=== PATIENT | female | born 1980 | race Caucasian/White ===

== ENCOUNTER 2017-10-30 09:00 | Outpatient (RCR) | payer OTHER, MEDICAID, SELFPAY ==
--- NOTE | 2017-10-30 12:48 | BH.SGPN ---
Service Group Progress Note - Session Psychotherapy Session #1 Date Open:: 10/30/17 Time Started:: 09:04 Time Stopped:: 10:08 Targeted Problem #:: 1 Type of Group:: Process - 6 Participants Goal of Group:: The goal of today's group was to check-in with client's mood, stressors, and positives, review homework, and to introduce the topic of the day. Client Response/Progress/Benefit:: Client was new to the program and counselor introduced and explained the dynamics of how process group would run. Client was willing to participate and spoke about how both her mother and her brother recently passed and was experiencing issues at work as well. She stated, ?I think they may be pushing me out because I don?t have a degree.? Client reported having increased anxiety due to these issues as well as being a single mom raising her child who she reports has, ?multiple diagnosis too.? Client indicated her emotion as anxious and benefitted from group in processing with peers and receiving support from others. Client appears motivated to engage in group and begin working towards healthy progress moving forward. Continued treatment necessary to decrease anxiety levels. Eye Contact:: Good Motor Activity:: Appropriate Appearance:: Casual Speech:: Appropriate Mood:: Anxious, Depressed - tearful Affect:: Congruent Thoughts:: Linear, Logical, No evidence of hallucinations/delusions noted Staff Interventions:: Therapist used open-ended questions to elicit information about client's current stressors and mood. Therapist was supportive by using active listening and reflection. Psychotherapy Session #2 Date Open:: 10/30/17 Time Started:: 10:17 Time Stopped:: 11:19 Targeted Problem #:: 1 Type of Group:: Illness Management - 7 Participants Goal of Group:: To increase understanding of communication and the various types of communication. Another goal was to increase understanding of impact communication styles can have. Client Response/Progress/Benefit:: Client entered session alert, attentive, and willing to engage. Client was a large contributor to group discussion. Client connected with days quote stating, ?Miscommunication can happen a lot when one person thinks something was said and there wasn?t.? Client participated in group discussion of the different types of communication styles and identified her personal style as passive aggressive and being a people pleaser. Client benefitted from the discussion on communication skills and progress noted in client?s ability to participate in group. Continued treatment necessary to decrease depressive symptoms. Eye Contact:: Good Motor Activity:: Appropriate Appearance:: Casual Speech:: Appropriate Mood:: Euthymic, Anxious Affect:: Full Thoughts:: Linear, Logical, No evidence of hallucinations/delusions noted Staff Interventions:: Therapist facilitated the group discussion about communication and explained the different types of communication. Therapist assisted group members in connecting the communication styles to the way they communicate and impact the communication style has on their relationships. Therapist provided support by using active listening and providing feedback.
--- NOTE | 2017-10-30 13:10 | BH.MDN ---
Multi-Disciplinary Note - Note 30-min Individual Time Started:: 12:20 Date: 10/30/17 Purpose of session/treatment goals addressed:: The purpose of this session was to establish rapport, gather information on client's current stressors, symptoms, and functioning, and identify treatment goals. Eye Contact:: Good Motor Activity:: Restless Appearance:: Neat Mood:: Anxious, Dysthymic Affect:: Congruent - Client tearful throughout session Thoughts:: Linear, No evidence of hallucinations/delusions noted Staff Interventions:: Therapist used open-ended questions to explore client's current symptoms, stressors, and functioning. Therapist used emotional validation and empowerment to establish rapport and help client identify personal strengths. Therapist gathered information on client's presenting problem, support system, and treatment goals. Client Response:: Client responded well to session, open to meeting with therapist. Client reported she came to [facility] after being referred by a social worker school from the [facility]. Client shared she had a bad reaction to medication which prompted the referral. Client reported she has been in counseling for 7 years and enjoys her current therapist. Client shared recent stressors including changes and conflicts at work and the loss of her brother have contributed to increased depression and anxiety. Client reported in the past 4 months she has noticed increased social withdrawal, irritability, crying spells, rumination, and poor sleep. Client stated, I'm normally a really happy person and I've noticed I'm angry and take everything so personally. Client stated she would like to work on coping skills to reduce isolation, rumination, and irritability. Additionally, client would like to increase her self-esteem, social supports, and potentially find a new job as work is a major stressor in client's life. Client able to acknowledge that taking time to better her mental health is a strength and client reported high motivation to get better and engage in the treatment process. Risks/Concerns:: Client denies suicidal ideation, plan, and intent as of 10/30/17. Client future oriented throughout session as evidenced by her report of wanting to get better, find a new job, and return to school. Progress Toward Goals/Plan:: Client's first day in [facility] therefore no progress to note at this time. Client reports her symptoms have worsened in the past 4 months and are interfering with her ability to function at baseline. Client to continue IOP to promote mood stability, emotional regulation and reduce severity of mental health symptoms. Time Stopped:: 12:55
--- NOTE | 2017-10-30 13:50 | BH.MDN_ITS ---
Multi-Disciplinary Note - Note 30-min Individual Time Started:: 12:20 Date: 10/30/17 Purpose of session/treatment goals addressed:: The purpose of this session was to establish rapport, gather information on client's current stressors, symptoms , and functioning, and identify treatment goals. Eye Contact:: Good Motor Activity:: Restless Appearance:: Neat Mood:: Anxious, Dysthymic Affect:: Congruent - Client tearful throughout session Thoughts:: Linear, No evidence of hallucinations/delusions noted Staff Interventions:: Therapist used open-ended questions to explore client's current symptoms, stressors, and functioning. Therapist used emotional validation and empowerment to establish rapport and help client identify personal strengths. Therapist gathered information on client's presenting problem, support system, and treatment goals. Client Response:: Client responded well to session, open to meeting with therapist. Client reported she came to [facility] after being referred by a clinical social work aide from the [facility]. Client shared she had a bad reaction to medication which prompted the referral. Client reported she has been in counseling for 7 years and enjoys her current therapist. Client shared recent stressors including changes and conflicts at work and the loss of her brother have contributed to increased depression and anxiety. Client reported in the past 4 months she has noticed increased social withdrawal, irritability, crying spells, rumination, and poor sleep. Client stated, I'm normally a really happy person and I've noticed I'm angry and take everything so personally. Client stated she would like to work on coping skills to reduce isolation, rumination, and irritability. Additionally, client would like to increase her self-esteem, social supports, and potentially find a new job as work is a major stressor in client's life. Client able to acknowledge that taking time to better her mental health is a strength and client reported high motivation to get better and engage in the treatment process. Risks/Concerns:: Client denies suicidal ideation, plan, and intent as of . Client future oriented throughout session as evidenced by her report of wanting to get better, find a new job, and return to school. Progress Toward Goals/Plan:: Client's first day in [facility] therefore no progress to note at this time. Client reports her symptoms have worsened in the past 4 months and are interfering with her ability to function at baseline. Client to continue IOP to promote mood stability, emotional regulation and reduce severity of mental health symptoms. Time Stopped:: 12:55
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
--- NOTE | 2017-11-02 13:46 | HP.PCM_ITS ---
History and Physical Finding information Patient is a 37-year-old female who presents to the [facility] medicine [facility] with chief complaint of battling depression. History is been obtained per interview with patient, discussion with staff, review of chart. Case discussed with treatment team. Records reviewed including health summary and allergy list from [facility] my chart. History of present illness Patient is a 37-year-old female with long-standing history of depression since age 17 who presents to the [facility] with chief complaint of mood symptoms and anxiety. Patient was referred by [facility] social work. She reports her depression was well controlled on Zoloft for 10 years. She then underwent chemotherapy for breast cancer after which she developed multiple medication allergies including allergy to SSRIs and SNRIs. She reports she was doing well on Cymbalta and Wellbutrin 6 months ago. She developed increased depression and ruminative anxiety in July associated with both factors. A position change in work resulted in increased isolation and work dissatisfaction. She states she felt attacked at work. In August she stopped taking her Cymbalta and Wellbutrin due to developing further allergy. Her brother suddenly 1 month ago due to a cardiac event. She currently endorses a depressed mood with feelings of sadness, anhedonia, and decreased energy. She reports an overall decreased appetite. Reports long- standing irritability. Per to 2 week episode last month after her brother's of having lots of energy in which she repainted and redecorated the bathroom and kitchen, and purchase new furniture. She felt that her behavior was somewhat impulsive. She had decreased sleep sleeping only 4 hours per night staying up late painting and decorating. Then slept for 12 hours per day for total days. She has a long-standing history history of sleep disruption. She had a sleep study in 2011 and was diagnosed with insomnia and narcolepsy . She generally sleeps only 4-5 hours per night for 2-3 weeks and then can sleep 12 hours per day for 3-4 days. Denies suicidal suicidal or homicidal ideation. She denies symptoms consistent with psychosis. She endorses ruminative anxiety about multiple issues including her job. She has had one panic attack in the past. She denies obsessions or compulsions although notes that she is perfectionistic. 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 Psychiatric history Reports history of depression since age 17. Reports that age 17 she cared for her mother during a mental breakdown. Denies previous psychiatric hospitalization. Denies previous suicide attempts. Current counselor Arleen Vigil. Does not currently have a psychiatrist. Feels that previous antidepressants effective however developed allergy. Most recent antidepressant include Cymbalta and Wellbutrin which she discontinued in August due to allergic reaction. Substance use history Denies smoking cigarettes, ingestion of alcohol, or use of illicit drugs Past medical history History of breast cancer 9 years ago with mastectomy, hysterectomy and chemotherapy. HNP Fibromyalgia Interstitial cystitis Migraines Elevated cholesterol Denies history of seizure SAB 1 Allergies Multiple including nitrofurantoin, doxycycline, pseudoephedrine, oxycodone, hydromorphone, fentanyl, prochlorperazine, azithromycin, Cymbalta, Effexor, high Cosamin, Lexapro, bupropion, citalopram, fluoxetine, milnacipran, levobunolol Anam, sertraline, Augmentin, Latex, Cymbalta, Wellbutrin. Medications Hydroxyzine 25 mg p.o. 3 times daily as needed Vitamin D 5000 units daily Vitamin B 12 daily Imitrex as needed Family medical psychiatric history Mother with hallucinations, mood swings and suicide attempts. Likely bipolar disorder. Mother 2 years ago Brother 1 month ago from cardiac arrest Daughter diagnosed with bipolar bipolar 2 brothers with anxiety and depression Father with depression Maternal aunt with depression and anxiety Maternal aunt hospitalized due to depression Maternal grandmother with bipolar Developmental social history Patient born and raised in [place] until age 12 when she moved to [place]. The youngest of 3 children. She grew up with her parents. Her 2 older brothers moved out by the time she was 9 or 10. Her mother had mental breakdowns and she was her mother's medical records custodian. She lived with her mother most of her life until her mother 2 years ago. She went to school through the 12th grade but was one credit short. She got her GED. She spent a year and a half studying at [employer]. She would like to go back. She works at [employer]. 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 She has a daughter age 8. She lives with her daughter in [place]. Legal history none Mental status exam Vital signs reviewed per nursing base and discussed with nursing. Patient is alert and oriented in no acute distress she is ambulatory with normal gait and station she appears her stated age. She is casually dressed and groomed. She has appropriate hygiene. She is cooperative with the interview. She has good eye contact. There is no psychomotor agitation or retardation. Mood is depressed. Affect congruent. Speech is clear and of regular rate and volume. Language fluent. Thought process organized. Associations logical. Thought content significant for ruminative anxiety. No suicidal or homicidal ideation related to her detected. No evidence of psychosis related or detected. Immediate recent and remote memory grossly intact. Attention and concentration are good. Estimated intelligence fund of knowledge average. Judgment and insight are fair. Labs and testing Lab work will be requested from [facility] and primary care physician. Further lab work will be obtained as needed Diagnosis Major depressive disorder recurrent moderate F 33.2. Rule out bipolar disorder. Reports some symptoms which could be considered consistent with hypomania. It is unclear if patient's irritability and two-week episode of energy and productivity represents hypomania. It is unclear if patient's sleep disruption is a primary sleep disorder versus sleep disruption associated with bipolar disorder. She has a strong family history of bipolar disorder. Anxiety unspecified Rule out PTSD History of insomnia and narcolepsy Fibromyalgia Migraines History of breast cancer HNP Interstitial cystitis Plan Admit to IOP as the structured setting is necessary to prevent decompensation. Risks benefits alternatives of medications discussed with patient. Patient acknowledges understanding. Start gabapentin 100 mg p.o. nightly. May increase to 200 mg p.o. nightly. Dispensed gabapentin 100 mg #60 with one refill. Reports that she has previously been able to tolerate gabapentin without allergic reaction. This may be helpful for mood stabilization, anxiety and sleep. Follow-up with Arleen Vigil. Encouraged to establish with outpatient psychiatrist for when IOP complete. Discussed mindfulness, meditation, and social connectedness. Discussed light therapy. Patient acknowledges understanding and is in agreement with plan. She feels able to maintain safety. She agrees to seek help or emergency care if feeling unsafe to self or others.
--- NOTE | 2017-11-02 13:48 | BH.DR.ITP ---
Initial Treatment Plan - Patient Information Visit Information: ADMISSION DATE: EXPECTED LOS: 4-6 weeks Diagnoses:: Major depressive disorder recurrent severe - Problems/Symptoms Problem #1:: Depression Symptom:: Sad mood, anhedonia, decreased energy, biologic disruption of sleep and appetite, irritability Problem #2:: anxiety Symptom:: Rumination
--- NOTE | 2017-11-02 15:11 | BH.SGPN_ITS ---
Service Group Progress Note - Session Psychotherapy Session #1 Date Open:: 11/02/17 Time Started:: 09:10 Time Stopped:: 10:00 Type of Group:: Process - 6 group members Goal of Group:: The goal of today's group was to check-in with client's mood, stressors, and positives, review homework and introduce topic for the day. Client Response/Progress/Benefit:: Pt was an active participatn in group discussions. Emotion for today is anxious. Reports a rollercoaster of emtions. Discussed at [facility] difficulty with setting boundaries with peers and often feels like her friends dump thier problems on her which not only causes more distress but lead to increase in symptoms. Admits that she is a people pleaser. Group offered support and encouragement as well as suggestions on how to set boundaries. Progress noted as she was able to identify how her inability to set boundaries effects her mental wellness. Contiunued treatment to stabilize mood and improve functioning. Eye Contact:: Fair Motor Activity:: Appropriate Appearance:: Neat Speech:: Appropriate Mood:: Anxious, Depressed Affect:: Congruent Thoughts:: Linear, Logical, No evidence of hallucinations/delusions noted Staff Interventions:: Therapist used open-ended questions to elicit information about client's current stressors and mood state. Therapist was supportive by using active listening and reflection.
--- NOTE | 2017-11-06 15:38 | BH.SGPN ---
Service Group Progress Note - Session Psychotherapy Session #2 Date Open:: 11/06/17 - 10 participants Time Started:: 10:21 Time Stopped:: 11:12 Targeted Problem #:: 1 Type of Group:: Illness Management Goal of Group:: To increase understanding of what strengths are and identify individual strengths. Client Response/Progress/Benefit:: Client responded well to session, active in discussion and activity. Client connected with the quote sharing, I need persistence. Client stated strengths are good qualities we have, but we don't always realize it. Client identified her personal strengths as kindness, good communication, problem-solving, determination, and being non-judgmental. Client shared some of my strengths can be weaknesses though too as client reported she has been taken advantage of because of her kindness. However, with group feedback, client stated she is still glad she is kind as it has helped her make connections and help others. Client appeared to benefit from identifying her strengths and receiving supportive statements from the group. Progress noted as shown by client's report of increased awareness, but can continue to benefit from IOP to improve mood stability. Eye Contact:: Good Motor Activity:: Appropriate Appearance:: Neat Speech:: Appropriate Mood:: Euthymic Affect:: Congruent Thoughts:: Linear, No evidence of hallucinations/delusions noted Staff Interventions:: Therapist facilitated discussion about what are strengths and assisted group members in identifying examples of strengths. Therapist led an activity in which group members were given the opportunity to identify five personal strengths. Therapist assisted clients in connecting the importance of recognizing personal strengths. Psychotherapy Session #3 Date Open:: 11/06/17 - 9 participants Time Started:: 11:20 Time Stopped:: 12:15 Targeted Problem #:: 1 Type of Group:: Functional Skills Development Goal of Group:: To identify what gets in their way of recognizing and utilizing their strengths and identifying ways to make strengths easier to access. Client Response/Progress/Benefit:: Client responded well to session, engaging in side conversation and joking with peers at times, but active. Client reported her negative self-talk, thoughts, and low self-esteem can be barriers to client accessing her strengths. Client shared it is helpful to her when her supports acknowledge her strengths. However, client able to recognize one cannot rely on others' validation, client has to be able to use internal support as well. Client helped the group create strategies to overcome barriers including reminding herself of strengths by verbalizing them or writing them out. Client appeared to benefit from increasing awareness of the barriers preventing client from accessing strengths and how to overcome those barriers. Client to continue IOP to prevent decompensation and reduce symptoms. Eye Contact:: Good Motor Activity:: Appropriate Appearance:: Neat Speech:: Appropriate Mood:: Euthymic Affect:: Full Thoughts:: Linear, No evidence of hallucinations/delusions noted Staff Interventions:: Therapist utilized an activity as a tool in helping clients recognize the things that can get in their way from utilizing their strengths and identify alternative strategies to overcome those barriers. Therapist processed the activity, helping others connect challenges that keep them from recognizing and using their strengths. Therapist helped clients connect the importance of utilizing supports to build personal strengths and ways to challenge negative thoughts that prevent clients from acknowledging their strengths. Therapist provided support by using active listening and providing feedback.
--- NOTE | 2017-11-07 11:50 | BH.SGPN_ITS ---
Service Group Progress Note - Session Psychotherapy Session #1 Date Open:: 11/06/17 Time Started:: 09:06 Time Stopped:: 10:15 Targeted Problem #:: 1 Type of Group:: Process Goal of Group:: The goal of group was to check-in on client?s mood, stressors and positives and introduce the topic of the day. Client Response/Progress/Benefit:: Client willing to attend session, was responsive, and actively engaged throughout. She discussed that to her surprise she had a good weekend and was able to make herself get out of the house despite not wanting to. Client identified this as an accomplishment as she had been able to fight the urge to isolate and instead spent time with a friend and tried on bridesmaid dresses for an upcoming wedding. Client reflected upon struggling with negative self talk during that time but was able to remind herself to challenge these thoughts. She additionally shared having a rough day yesterday. Client explained her daughter had been struggling the previous night which kept them both awake and led to CLient being late for work. Client identified that she had begun to ruminate about getting yelled at for going in late which increased her anxiety levels. Client benefited from being challenged to identify thought distortions used and discussing positive self-talk she could use in these moments. Client recomended continued IOP to further increase understanding and management of mental health symptoms and maintain stability. Eye Contact:: Fair Motor Activity:: Appropriate Appearance:: Casual Speech:: Appropriate Mood:: Anxious, Other - fatigued Affect:: Congruent Thoughts:: Linear, Logical, No evidence of hallucinations/delusions noted Staff Interventions:: Therapist used open-ended questions to elicit information about client's current stressors and mood state. Therapist was supportive by using active listening and reflection. Therapist utilized a quote related to anger as an aid in introducing the topic of the day and facilitated discussion of quote.
--- NOTE | 2017-11-09 10:30 | BH.NET ---
Nursing Education/Training - Session Information Type of Session: Individual Other Health Issues:: Client wished to discuss episode of transient slurred speech, imbalance, dizziness, and extreme fatigue that lasted several hours last evening. She denies loss of conciousness, syncope, seizure-like activity, loss of bladder or bowel control. She describes a complete resolution of symptoms followed by a migraine headache. Client feels fine this morning, but notes this episode scared her. She notes that she did not seek medical attention because she was unable to find someone to watch her 8-year-old daughter. The client does have a significant history of hypotension, and states that she has additionally had diarrhea this week - discussed that her symptoms last night could be related to hypotension and dehydration. Discussed other differential possibilities such as hypoglycemia, migraine, TIA, cardiac arrhythmias, vertigo, and seizure. Client is instructed to not delay seeking medical attention if this happens again. Educated on pushing PO fluid intake, especially while losses are increased due to diarrhea. It is worth mentioning that patient was prescribed gabapentin 100mg PO QHS last week; she took it 3 nights, but then stopped because of increased pain secondary to her fibromyalgia. Emotional support provided, and encouraged client to make sure her daughter is aware of who to call if the client is unable.
--- NOTE | 2017-11-09 12:55 | BH.MDN ---
Multi-Disciplinary Note - Note 60-min Individual Time Started:: 10:35 Date: 11/09/17 Purpose of session/treatment goals addressed:: The purpose of this session was to explore client's current stressors, symptoms, and negative thinking patterns. Another goal was to reduce work-related stress through cost benefit analysis of client's options. Other topics included: stress management and self-care. Eye Contact:: Good Motor Activity:: Appropriate Appearance:: Neat Speech:: Appropriate Mood:: Anxious Affect:: Congruent - Became tearful when talking about work Thoughts:: Linear, No evidence of hallucinations/delusions noted Staff Interventions:: Therapist used active listening and open-ended questions to explore client's current stressors, symptoms, and negative thinking patterns. Therapist helped client identify work-related stressors and used a cost/benefit analysis to assist client in gaining awareness of the positives and negatives of staying at her job versus finding different employment. Therapist helped client identify and challenge negative thinking patterns that increase self-doubt and rumination. Therapist and client discussed self-care and stress management strategies. Therapist used strengths perspective to empower client. Client Response:: Client responded well to session, open to meeting with therapist. Client shared her biggest current concern is stress related to work and being indecisive about leaving or staying. Client open to completing a cost benefit analysis and created three potential options, stay at work, go back to school, or find a job in a different field. Client after identifying pros and cons for her options, client reported I don't think I should stay at my job. Client shared her job creates too much stress, does not provide her a sense of purpose, and she feels not appreciated. Client expressed it's scary to talk about changing as client understands the need for change and wants to, but fears failing. Client and therapist processed client's irrational thoughts about failure, which client reported comes from years of being told she was not good enough by her mother and ex-. Client identified evidence that would prove client is not a failure such as I'm hard working, smart, and good at what I do. With therapist elicitation, client recognized she can also benefit from implementing self-care and stress management strategies. Client agreed to work on taking a few minutes each day to focus on self-care. Risks/Concerns:: Client denies suicidal ideation, plan, and intent as of 11/09/17. Progress Toward Goals/Plan:: Client demonstrating progress towards treatment goals as shown by her report of increased implementation of healthy coping skills and reduced depressive symptoms. However, client continues to endorse rumination, difficulty with decision making, and communicating mental health needs. Client to continue IOP to promote mood stability and increase emotional regulation. Time Stopped:: 11:35
--- NOTE | 2017-11-09 13:55 | BH.SGPN ---
Service Group Progress Note - Session Psychotherapy Session #2 Date Open:: 11/09/17 Time Started:: 10:15 Time Stopped:: 11:10 Targeted Problem #:: 1 Type of Group:: Illness Management Goal of Group:: The goal of group was to increase understanding of goals and goal setting and practice a method of goal setting. Eye Contact:: Good Motor Activity:: Appropriate Appearance:: Casual Speech:: Appropriate Mood:: Euthymic Affect:: Congruent Thoughts:: Linear, Logical, No evidence of hallucinations/delusions noted Staff Interventions:: Therapist facilitated group discussion about goals and goal setting. Therapist taught group the acronym SMART (Specific, Measurable, Achievable, Realistic, Timely) as a tool to help with goal setting. Therapist led the group in an activity to be used as a method of practicing goal setting. Therapist guided the group through the SMART acronym as group was participating in activity. Therapist assisted group members with connecting the importance of making small, realistic goals. Psychotherapy Session #3 Date Open:: 11/09/17 Time Started:: 11:16 Time Stopped:: 12:15 Targeted Problem #:: 1 Type of Group:: Functional Skills Development Goal of Group:: The goal of group was to identify a goal for the weekend, explore the potential barriers to achieving that set goal, and identify strategies to overcome barriers. Eye Contact:: Good Motor Activity:: Appropriate Speech:: Appropriate Mood:: Euthymic Affect:: Congruent Thoughts:: Linear, Logical, No evidence of hallucinations/delusions noted Staff Interventions:: Therapist facilitated group activity in which group members identified a goal to work on over the next week. Therapist asked group members to identify barriers to achieving identified goal and strategies to help them achieve their goal. Therapist led group in processing their goal maps, assisting clients with establishing SMART goals. Therapist provided support by using reflective listening.
--- NOTE | 2017-11-09 16:08 | BH.SGPN ---
Service Group Progress Note - Session Psychotherapy Session #1 Date Open:: 11/09/17 Time Started:: 09:00 Time Stopped:: 10:00 Type of Group:: Process - 7 group members Goal of Group:: The goal of today's group was to check-in with client's mood, stressors, and positives, review homework and introduce topic for the day. Behaviors/Verbalizations/Mental Status:: Active participant in group discussion. Emotions for today is hopeful. Shared with the group that she slep well last night and that she is feeling very positive today. Reports that she was motivated and focused at work this AM. Reports plans to relax with her daughter this weekend. Benefited from group support and feedback. Continued treatment to increase functioning, stabilize mood, and prevent further decompensation. Eye Contact:: Good Motor Activity:: Appropriate Appearance:: Neat Speech:: Appropriate Mood:: Euthymic Affect:: Full Thoughts:: Linear, Logical, No evidence of hallucinations/delusions noted Staff Interventions:: Therapist used open-ended questions to elicit information about client's current stressors and mood state. Therapist was supportive by using active listening and reflection.
--- NOTE | 2017-11-13 10:25 | BH.MDN ---
Multi-Disciplinary Note - Note 60-min Individual Time Started:: 09:19 Date: 11/13/17 Purpose of session/treatment goals addressed:: The purpose of this session to address client's current symptoms, stressors, and use of coping skills. Another goal was to work on goal #1 objective #2 of client's treatment plan. Other topics included: self-talk, boundaries, and anxiety. Eye Contact:: Good Motor Activity:: Appropriate Appearance:: Neat Speech:: Appropriate Mood:: Euthymic, Anxious Affect:: Congruent - became tearful when talking about employment Thoughts:: Circular, No evidence of hallucinations/delusions noted Staff Interventions:: Therapist used active listening and open-ended questions to explore client's current stressors, symptoms, and implementation of coping skills. Therapist and client identified client's most important concern this week and problem-solved solutions to overcome barriers and promote healthy coping. Therapist gently challenged client on unrealistic expectations and emotion-driven decisions. Therapist and client identified anxiety reducing coping skills and ways to reduce isolation. Therapist gave client homework to identify activities client can do with her daughter as well as increasing awareness of emotion-driven decisions and negative self-talk that lead to isolation. Client Response:: Client responded well to session, open to meeting with therapist. Client shared she had a good weekend as client accomplished a lot. Client stated, I had a better week last week, so I think that impacted my motivation this weekend. Client shared she has been working on setting boundaries by delaying her response to phone calls and texts. Client reported she feels less anxiety since doing this as client stated, I don't feel like I need to take care of everyone and everything right away, I can focus on me first. Client and therapist discussed the pros and cons of this goal as it is reducing anxiety, but may be increasing isolation. Client was receptive to brainstorming strategies to reduce isolation and identified several options that pertained to the arts. Client shared she would be willing to engage in an artistic activity with her daughter or her friend as it would have multiple benefits including reduced isolation, building relationships, and reducing anxiety. Client reflected on barriers keeping client from following through with this goal such as talking myself out of it. Client expressed she often talks herself out of leaving her house or engaging in activities due to her emotions. Client was open to homework of increasing awareness of emotion driven decisions and how impacts maintenance cycles of anxiety and depression. Client reported going to Employment Services at [facility] which lead client to decide she would benefit more from a job change. Client shared the decision is positive and makes client happy, but increases anxiety as client fears uncertainty and failing at my potential new job. Client shared she would like to work on negative self-talk, cognitive distortions, and high expectations in future sessions. Risks/Concerns:: Client denies suicidal ideation, plan, and intent as of 11/13/17. Client reports wanting to find a new career which demonstrates future orientation. Progress Toward Goals/Plan:: Client showing progress towards treatment goals as shown by her report of an improved mood, increased self-care, and generalization of coping skills. However, client shared she continues to struggle with negative self-talk, isolation, and making choices based on emotion. Client to continue IOP to promote mood stability and increase emotional regulation. Client to follow up with employment services and explore activities with her daughter to increase self-confidence and reduce isolation. Time Stopped:: 10:17
--- NOTE | 2017-11-13 16:11 | BH.SGPN ---
Service Group Progress Note - Session Psychotherapy Session #2 Date Open:: 11/13/17 Time Started:: 10:15 Time Stopped:: 11:08 Targeted Problem #:: 1 Type of Group:: Illness Management Goal of Group:: To increase understanding of what conflict is and increase awareness of how group members manage conflict. Client Response/Progress/Benefit:: Clinet contributed positively to discussion and listened attentively to others. Client identified with the accomdating conflict resolution style because likes to be a people pleaser. However, client recognized the costs of the accomdating style decreases her self-confidence and leads to others taking advanage of her. Client reported the positive to go along with others is things get done a lot faster. Client reported she benefitted from learning about the different conflict resolution styles and how the way she deals with conflict impacts her. Eye Contact:: Good Motor Activity:: Appropriate Appearance:: Neat Speech:: Appropriate Mood:: Anxious, Dysthymic Affect:: Congruent Thoughts:: Linear, Logical, No evidence of hallucinations/delusions noted Staff Interventions:: Therapist facilitated discussion about conflict and conflict resolution. Therapist led group in an activity in which group members had to identify their initial response to conflict and how their response changes based on different situations. Therapist assisted clients with connecting the impact current conflict style has on their mental health. Psychotherapy Session #3 Date Open:: 11/13/17 Time Started:: 11:18 Time Stopped:: 12:15 Targeted Problem #:: 1 Type of Group:: Functional Skills Development - 9 group members Goal of Group:: To identify what contributes positively and negatively to conflict and appropriate ways to manage conflict with others. Client Response/Progress/Benefit:: Client listened attentively to others and shared her thoughts and feelings during challenge activity. Client reported she put forth effort to remain collaborative throughout activity by communicating her thoughts and listening to others. Client identified she will use today's topic in her daily life by communicating her feelings more clearly and being mindful of others opinions. Seemed to benefit from group discussion about strategies to manage conflict. Eye Contact:: Good Motor Activity:: Appropriate Appearance:: Neat Speech:: Appropriate Mood:: Anxious, Dysthymic Affect:: Congruent Thoughts:: Linear, Logical, No evidence of hallucinations/delusions noted Staff Interventions:: Therapist facilitated group activity in which group members were provided with materials and had to eliminate certain items with consensus from group. Therapist processed activity, helping clients connect throughout activity strategies each person used to manage conflict. Therapist led discussion about what contributes to conflict in a positive or negative manner. Therapist facilitated discussion about conflict resolution strategies and provided group member with a handout about effective ways to manage conflict.
--- NOTE | 2017-11-16 14:39 | BH.SGPN_ITS ---
Service Group Progress Note - Session Psychotherapy Session #2 Date Open:: 18 - 9 group members Time Started:: 10:25 Time Stopped:: 11:15 Targeted Problem #:: 1 Type of Group:: Illness Management Goal of Group:: To increase understanding of the impact viewing situations as impossible can have on our mental health. Client Response/Progress/Benefit:: Client responded well to session, engaged in discussion. Client reported the topic related to her as client shared ?I need to change my mindset on certain situations and remember it won?t stay this way long.? Client stated having an impossible mindset can prevent someone from seeking help, trying healthy skills, and increase mental health symptoms. Client helped the group overcome an ?impossible? task by using communication, teamwork, and resiliency. Client appeared to benefit from increasing her awareness of the negative impact of viewing something as impossible on one?s mental health. Client seems to be progressing as shown by her report of increased boundary setting, but can continue to benefit from challenging negative thoughts. Eye Contact:: Fair Motor Activity:: Appropriate Appearance:: Neat Speech:: Appropriate Mood:: Anxious Affect:: Constricted Thoughts:: Linear, No evidence of hallucinations/delusions noted Staff Interventions:: Therapist facilitated discussion about what it means to overcome what seems impossible. Therapist led group in an activity that would initially seem impossible to complete, but once group members looked at the problem in a different way they would be able to see alternative solutions. Therapist utilized the activity as a tool to discuss overcoming those situations that seem impossible to get through.
--- NOTE | 2017-11-16 14:39 | BH.COMM ---
Communication Note - Communication with Client Communication Note: This therapist touched based with client regarding work related issues and medication concerns. Therapist provided emotional validation and support as client expressed her worries. Therapist plans to advocate for client regarding medication, but shared the possibility of not seeing [facility] today as client saw [facility] two weeks ago. Therapist to follow up with client later this afternoon.
--- NOTE | 2017-11-16 15:24 | BH.SGPN_ITS ---
Service Group Progress Note - Session Psychotherapy Session #1 Date Open:: 11/16/17 Time Started:: 09:08 Time Stopped:: 10:10 Targeted Problem #:: 1 Type of Group:: Process - 8 participants Goal of Group:: The goal of today's group was to check-in with client's mood, stressors, and positives, review homework and introduce topic for the day. Client Response/Progress/Benefit:: Client attentive and an active participant throughout. She openly discussed her thoughts and concerns with the group. Client indicated that she had a rough week as she had learned that her ex- may start the [employer] program she is in. Client noted that she had been experiencing increased anxiety and has been unable to sleep as a result. She noted It felt like I could run a mile. Client discussed attempting to implement healthy stress reduction techniqies such as painting and positive self talk. Client indicates that this was not successful however she has discovered that her ex- is reconsidering the program. She indicates taking steps to manage her finances in order to reduce additional stressors from adding. Client benefited from identifying the areas of success in that past week. Eye Contact:: Good Motor Activity:: Appropriate Appearance:: Casual Speech:: Appropriate Mood:: Dysthymic Affect:: Congruent Thoughts:: Linear, Logical, No evidence of hallucinations/delusions noted Staff Interventions:: Therapist used open-ended questions to elicit information about client's current stressors and mood state. Therapist was supportive by using active listening and reflection.
--- NOTE | 2017-11-20 11:42 | BH.MDN ---
Multi-Disciplinary Note - Note 60-min Individual Time Started:: 09:50 Date: 11/20/17 Purpose of session/treatment goals addressed:: The purpose of this session was to address client's current stressors, symptoms, and identify strategies to manage agitation and irritability. Another goal was to explore how client's communication and conflict resolution styles impact stress, self-esteem, and overall mental health. Other topics included: cognitive distortions, boundaries, and warning signs. Eye Contact:: Good Motor Activity:: Restless Appearance:: Neat Speech:: Appropriate Mood:: Anxious, Irritable Affect:: Congruent Thoughts:: Racing, No evidence of hallucinations/delusions noted Staff Interventions:: Therapist used active listening and open-ended questions to explore client's current stressors, symptoms, and triggers. Therapist validated client's emotions and helped client identify warning signs for anger and irritability. Therapist gently challenged client by having client reflect on how client's communication and conflict resolution styles negatively impact client. Therapist utilized a decisional balance sheet to help client see the costs and benefits of being assertive versus being a peace maker. Therapist assisted client in identifying healthy coping skills to release emotions and manage irritability. Therapist gave client homework to practice emotional release coping skills before client interacts with daughter and other people. Client Response:: Client responded well to session, appeared agitated, but open to discussing current stressors. Client reported she has been increasingly irritable lately which resulted in client lashing out at friends and family. Client she was triggered by a friend yesterday who told me to do something, she didn't even ask me. Client and therapist discussed the benefits of setting boundaries and communicating mental health needs to her friend. After discussion client stated she is sees the benefits, but is hesitant because I hate conflict, I avoid it at all costs. Client had awareness her passive-aggressive communication and avoidance of conflict negatively impacts client as I just stuff things down until I explode and push people away. Client open to completing a decisional balance worksheet and reported there are more costs to being a peace maker. Client shared she wants to learn how to better manage her irritability, especially around her daughter. Client stated, my daughter builds off my anger and then it just gets really bad. Client identified her warning signs and explored coping skills that have helped in the past. Client recognized emotional release helps manage anger and irritability. Client and therapist developed a list of emotional release, self-care, and mindfulness strategies for client to try before interacting with her daughter to help client more effectively manage stress in the moment. Risks/Concerns:: Client denies suicidal ideation, plan, and intent as of 11/20/17. Progress Toward Goals/Plan:: Client demonstrating progress towards treatment goals as she has made steps to reduce work stressors, increase self-care, and establish healthy coping skills. However, continues to report irritability and feeling on edge which she has a hard time controlling. Additionally, client shared ongoing challenges with being assertive and expressing her needs which may hinder progress. Client to continue IOP to promote mood stability and increase emotional regulation skills. Time Stopped:: 10:50
--- NOTE | 2017-11-20 14:20 | BH.SGPN_ITS ---
Service Group Progress Note - Session Psychotherapy Session #1 Date Open:: 11/20/17 Time Started:: 09:05 Time Stopped:: 09:48 Targeted Problem #:: 1 Type of Group:: Process - 5 group members Goal of Group:: The goal of today's group was to check-in with client's mood, stressors, and positives, review homework and introduce topic for the day. Client Response/Progress/Benefit:: Client reported that she woke up agitated this morning identifying pressure from her friend is getting as the source of agitation. Client explained that her best friend is getting and wants client to plan a bachelorette alliance party as well as be there the entire time. Client shared this friend is extremely bossy and has told client to move client's daughters birthday alliance party so that client can attend the bachelor alliance party. Client shared she really does not want to go to the bachelorette alliance party because she doesn't like to be around alcohol or goto bars and knows that is what her friend wants to do. Client able to recognize that she does not set boundaries with this friend she will end up going to the alliance party and put herself into bunch of triggers from her past. Client seemed to benefit from support from peers as well as brainstorming different ideas on how client could compromise with the friend so that she does not put herself in situations that is going to exasperate her mental symptoms. Eye Contact:: Fair Motor Activity:: Appropriate Appearance:: Casual Speech:: Appropriate Mood:: Anxious, Irritable Affect:: Congruent Thoughts:: Linear, Logical, No evidence of hallucinations/delusions noted Staff Interventions:: Therapist used open-ended questions to elicit information about client's current stressors and mood state. Therapist was supportive by using active listening and reflection.
--- NOTE | 2017-11-22 16:12 | BH.COMM ---
Communication Note - Communication with Client Communication Note: Therapist attempted to call client's outpatient therapist, Arleen Vigil, to discuss client continuity of care. Therapist unable to reach Arleen and left a message. Therapist to follow up next week.
--- NOTE | 2017-11-23 10:47 | PCM.PN.BLA ---
Progress Note She was seen in follow-up for major depressive disorder rule out bipolar disorder, anxiety unspecified, rule out PTSD, sleep disruption. History is been obtained per interview with patient, discussion with staff, review of chart. Case discussed with treatment team. Chief complaint-really anxious and irritable Interim history Coping skills gained through IOP somewhat helpful. Continue Neurontin after 3 day trial due to fibro-flare. Reports history of increased pain associated with Neurontin. Increased ruminative anxiety and irritability over the past week associated with change in daughter's routine. Notes 3 episodes of rage in which tends screaming. Reports is been a stressful week as her daughter who is struggling with mental health issues and OCD has been on spring break and therefore attending programs at the . Disruption has resulted in change in daughter's behavior and subsequently increased household stress. Intermittent depressive symptoms. No suicidal or homicidal ideation. No symptoms consistent with psychosis. Sleeping from 11:30 PM to 6 AM most nights but notes that she continues to have nights when it is difficult to fall asleep as my mind starts going. Continues to report periods of feeling over activated. Appetite normal. Denies nausea or vomiting. Complained of diarrhea which she associates with IBS and anxiety. Reviewed past psychiatric history multiple medication allergies and reactions status post chemotherapy. Most reactions have resulted in blistering and rashes. Reports prior to discontinuing Zoloft she felt that the left contributed to anger. Risks benefits alternatives of medications discussed extensively with patient patient acknowledges understanding. Requests to try low-dose Seroquel for assistance with sleep and mood stabilization. Mental status exam Patient is a 37-year-old female who appears her stated age. She is alert and oriented in no acute distress. She is ambulatory with normal gait and station. She is cooperative with the interview. She has good eye contact. She is casually dressed and groomed. Appropriate hygiene. No psychomotor agitation or retardation. Mood is mildly dysphoric. Affect congruent. Speech is clear and of regular rate and volume. Language fluent. Thought process organized. Associations logical. Thought content significant for ruminative anxiety and themes of depression. Immediate recent and remote memory grossly intact. Attention and concentration are good. Estimated intelligence fund of knowledge average. Judgment and insight are fair. Diagnosis Major depressive disorder recurrent moderate F 33.2. Rule out bipolar disorder. Anxiety unspecified Rule out PTSD History of insomnia and narcolepsy Fibromyalgia Migraines History of breast cancer HNP Interstitial cystitis Plan Continue IOP as the structured setting is necessary to maintain gains and prevent decompensation. Patient will likely benefit from ongoing IOP treatment. Risks benefits alternatives of medications discussed extensively with patient. Patient acknowledges understanding. Agrees to start Seroquel 25 mg 1/2 -1 tablet p.o. nightly to improve sleep and assist with mood stabilization. Lamictal considered but given patient's history of allergic reactions including blistering and rash it would be prudent to try other options first. Follow-up with Arleen Vigil. Encouraged to establish with outpatient psychiatrist for when IOP complete. 20 minutes of DBT oriented psychotherapy provided. Hygiene discussed. Patient acknowledges understanding and is in agreement with plan. Feels able to maintain safety. Agrees to seek help or emergency care feeling unsafe to self or others.
--- NOTE | 2017-11-23 15:23 | BH.SGPN ---
Service Group Progress Note - Session Psychotherapy Session #2 Date Open:: 11/23/17 Time Started:: 10:30 Time Stopped:: 11:20 Targeted Problem #:: 1 Type of Group:: Illness Management - 7 group members Goal of Group:: To increase understanding of the importance of sleep and identify healthy and unhealthy choices that impact sleep. Eye Contact:: Good Motor Activity:: Appropriate Appearance:: Neat Speech:: Appropriate Mood:: Euthymic Affect:: Congruent Thoughts:: Linear, Logical, No evidence of hallucinations/delusions noted Staff Interventions:: Therapist facilitated group discussion about importance of sleep and the negative impact poor sleep can have on body and mind. Therapist led activity in which group members were to identify the dos and don???ts of sleep. Group members were provided a handout that listed positive sleep habits and things to avoid when trying to improve sleep quality. Psychotherapy Session #3 Date Open:: 11/23/17 Time Started:: 11:30 Time Stopped:: 12:20 Targeted Problem #:: 1 Type of Group:: Functional Skills Development - 7 group members Goal of Group:: To identify current sleep routine and choose one small change to make in routine to help improve sleep quality. Eye Contact:: Fair Motor Activity:: Appropriate Appearance:: Neat Speech:: Appropriate Mood:: Euthymic Affect:: Congruent Thoughts:: Linear, Logical, No evidence of hallucinations/delusions noted Staff Interventions:: Therapist facilitated group discussion about importance of having a consistent sleep routine. Therapist led group in an activity in which the group members were asked to write down their current sleep routine. Therapist encouraged group members to make one small change to current sleep routine that would positively benefit their sleep quality.
[2018-02-08 15:16] VITALS: BP 103/73; PULSE 66; RESP 14
--- NOTE | 2018-02-08 15:17 | BH.NA_ITS ---
Physical Data - Vital Signs Pulse Rate: 66 Respiratory Rate: 14 Blood Pressure: 103/73 - Height/Weight Height: 1.63 m Weight:: 95.254 kg Weight in Pounds: 210.0 lbs Current Medication Compliance - Medication Compliance Do you take your medication as prescribed?: No Do you need assistance with taking medication?: No Have you had side effects from medication?: No Nutritional History - Appetite Nutritional Instructions:: If client shows signs of a swallowing problem, weight change of 10 pounds or more in the last month, or is on a diabetic diet, the physician will review and request a dietitian consult, as appropriate. All unintentional weight loss will be referred to the physician for decision on need for dietitian consult. Describe your appetite:: Fair Have you noticed a change in your eating habits lately?: Yes - appetite is variable, wt gain of 65# in the past year Functional Assessment - Sleep Pattern Describe any problems with sleeping: Widely variable - some nights she can sleep for 14 hours while other nights she can't sleep at all. - Activities Motor Activity:: Functional Sensory/Communication Assess - Hearing Problems Do you have any hearing problems?: Adequate - Communication Problems Do you have difficulty understanding what people are saying?: No Do you have trouble putting your thoughts into words or expressing what you want to say?: No Do people ever have trouble understanding what you say?: No What is your primary language?: Indonesian Learning Assessment - Learning Barriers Learning Barriers:: Ready to learn Medical Problems/History - Respiratory Conditions Respiratory: Asthma - Neurological Conditions Neurological: Headaches - migraines, Other (See comments) - fibromyalgia, insomnia-induced narcolepsy? - Genitourinary Conditions Genitourinary: Other (See comments) - interstitial cystitis - Musculoskeletal Conditions Musculoskeletal: Other (See comments) - sciatica - Cancer History Type of Cancer:: Breast - history of, 2010 - Pain Assessment Do you have acute or chronic pain?: Yes - Female Reproductive Do you think you may be ?: No Number of pregnancies:: 2 Number of children:: 1 Surgical History - Surgical History Have you had any surgeries? If so, list type and date:: Yes - hysterectomy, B/L oopherectomy, cholecystectomy Substance Abuse - Substance Abuse Please describe substance abuse in the last 30 days:: Client denies ETOH, tobacco/nicotine, and illicit substance use. Mental Status Summary - Mental Status Significant Findings/Observations on Appearance and Mood:: Client is A&Ox4, casually dressed with appropriate hygiene and grooming. She is cooperative with interview. Normal activity. Makes good eye contact. Speech is clear and of regular rate and volume. Mild depression noted. Labile affect. Logical associations but easily derailed. Suicide Assessment - Suicidal Ideation Are you currently or have you been suicidal in the past?: Yes Suicidal Intentional Rating Scale (SIRS): Suicidal thoughts (past) Physician Notification: If Active suicidal thoughts/Will not contract for safety is checked, contact physician and document in the Physician Notification section below. Assault History/Potential - History of Assault Do you have a history of assaulting someone?: No Physician Notification: If yes, notify physician and document notification date and time below. Past Psychiatric History - MH Treatment Hx Past Psychiatric Medications:: Zoloft, Prozac, Cymbalta, Wellbutrin, hydroxyzine Age of first mental health symptoms: 13 years old Fall Risk Assessment - Age Age: Less than 60 - Mental Status Mental Status: Willing & able to ask for assistance when needed - Physical Status Physical Status: No problems - Impairments Impairments: None - Elimination Elimination: Continent AND independent - Gait or Balance Gait or Balance: Walks independently - Hx of Falls History of falls in the past 6 months: No known history - Medications/Substances Psychotropics:: Antidepressants Medications/substances used within the past 24 hours or ordered to administer: 1 -2 of the medications/substances listed above - Total Score Total Points:: 1 Physician Notification - Physician Notification Physician Notified: Nicci Rodriguez Method of Notification: Face to Face 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 Impressions: Psychiatric Issues: MDD, anxiety, bipolar?, cluster B traits Impression: General Medical Conditions: see PMH - Level of Care How do the client's current symptoms and functional deficits support need for this level of care?: Client has had increasing severity of depressive symptoms for several months that has caused her to be unable to work, she is having uncontrollable crying spells, anhedonia, rumination, decreased ADL's, and isolation. She sites her multiple medical conditions and the losses of her mother and brother in the past 2 years as the biggest contributors to her decompensation. She currently denies SI, but notes that she has passive thoughts of and SI in the past.
== END 2017-11-24 23:59 ==
LOC: BHIOP 09:00
PROVIDERS: Family Provider Student in an Organized Health Care Education/Training Program; PCP Student in an Organized Health Care Education/Training Program; Visit Provider Psychiatry & Neurology Psychiatry
DX: F33.2 Major depressive disorder, recurrent severe without psychotic features (principal); F41.9 Anxiety disorder, unspecified; M79.7 Fibromyalgia; G47.00 Insomnia, unspecified; G47.419 Narcolepsy without cataplexy; G43.909 Migraine, unspecified, not intractable, without status migrainosus; Z85.3 Personal history of malignant neoplasm of breast; N30.10 Interstitial cystitis (chronic) without hematuria
CPT/HCPCS: H0035; 90832; 90837; 90853

== ENCOUNTER 2017-11-27 09:00 | Outpatient (RCR) | payer OTHER, MEDICAID, SELFPAY ==
--- NOTE | 2017-11-27 12:21 | BH.SGPN ---
Service Group Progress Note - Session Psychotherapy Session #1 Date Open:: 11/27/17 Time Started:: 09:03 Time Stopped:: 10:10 Targeted Problem #:: 1 Type of Group:: Process - 5 participants Goal of Group:: The goal of today's group was to check-in with client's mood, stressors, and positives, review homework and introduce topic for the day. Client Response/Progress/Benefit:: Client an active participant throughout and did well to openly discuss thoughts, feelings, and opinions with the group. CLient shared that she is feeling good today as she was able to get a decent amount of sleep last night. Client discussed that sleep has been an ongoing problem for her as she frequently struggles to fall asleep at night and then sleeps through part of the following day or else is forces to function on less than 5 hours of sleep. CLient discussed efforts she is taking to try and regulate her sleep patterns. Client went on to share feeling somewhat nervous as this week kendrick the 2 year anniversary of her mother's and 2 month anniverary of her brother's passing. She indicated knowing that being with others and challenging herself to avoid isolating tendancies will be very important during this time. Client went on to indicates wanting to reach out to her uncle who is also working through the grieving process but is struggling to know what to say. She appeared to benefit from participant suggestions of just letting him know that she cares. 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 Eye Contact:: Good Motor Activity:: Appropriate Appearance:: Casual Speech:: Appropriate Mood:: Euthymic, Anxious Affect:: Full Thoughts:: Linear, Logical, No evidence of hallucinations/delusions noted Staff Interventions:: Therapist used open-ended questions to elicit information about client's current stressors and mood state. Therapist was supportive by using active listening and reflection.
--- NOTE | 2017-11-27 15:53 | BH.SGPN ---
Service Group Progress Note - Session Psychotherapy Session #2 Date Open:: 11/27/17 Time Started:: 10:20 Time Stopped:: 11:20 Targeted Problem #:: 1 Type of Group:: Illness Management - 7 group members Goal of Group:: To increase understanding and awareness of emotions connected to change and the impact those emotions can have on change. Client Response/Progress/Benefit:: Client punched a positive discussion listened attentively to others. Client related to the quote reporting ones in the mindset can impact whether the change is to follow through with her not. Client reported she recognizes important for her to learn how to manage her emotions, change so her emotions do not dictate whether she follows through the change. Seemed benefit from learning about the process of change which seemed to normalize client's experience of her own change process. Eye Contact:: Good Motor Activity:: Appropriate Appearance:: Neat Speech:: Appropriate Mood:: Euthymic Affect:: Congruent Thoughts:: Linear, Logical, No evidence of hallucinations/delusions noted Staff Interventions:: Therapist facilitated group discussion about change. Therapist led the group in an activity in which the activity was utilized as a tool to increase clients awareness of emotions connected with change. Therapist led the processing of how each emotion was connected with change. Therapist provided psychoeducation process of change, helped group members apply it to their life. Therapist was supportive by providing feedback and using reflective listening. Psychotherapy Session #3 Date Open:: 11/27/17 Time Started:: 11:30 Time Stopped:: 12:20 Targeted Problem #:: 1 Type of Group:: Functional Skills Development - 6 group members Goal of Group:: To identify the challenges associated with making change and identify positive outcomes that have resulted from changes made in past. Client Response/Progress/Benefit:: Client listened others and discussion. During challenge activity client worked cooperatively with others to accomplish the tasks. Connected the importance of working from past mistakes help the group be successful. Client shared in the past she has been able to follow through with the change in eating healthy and exercising which positively impacted her by increasing her self-confidence, increase in self image, and feeling healthier. Client shared she did fall back from making those positive changes when feeling depressed and now has reverted back to old ways. Client shared she still views this situation as a positive because she knows she was able to do previously so has more hope that she can do it again. Identified a small change she is going to make is to start eating healthy. Seemed to benefit from revealing that change can be challenging and typically does not just happen quickly. Eye Contact:: Fair Motor Activity:: Appropriate Appearance:: Neat Speech:: Appropriate Mood:: Euthymic Affect:: Congruent Thoughts:: Linear, Logical, No evidence of hallucinations/delusions noted Staff Interventions:: Therapist led group in an activity to help group members recognize the challenges associated with change. Therapist utilized activity as a tool to identify ways to manage changes and adapt to the challenges that ensue. Therapist facilitated group discussion about positive outcomes from change.
--- NOTE | 2017-11-28 16:10 | BH.MTP_ITS ---
Treatment Plan Review Date of Admission:: 10/30/17 Date of Treatment Plan Review:: 11/27/17 Admitting Diagnoses:: Major depressive disorder recurrent severe F 33.2; Anxiety unspecified Current Diagnoses:: Major depressive disorder recurrent moderate F 33.2. Rule out bipolar disorder; Anxiety unspecified; Rule out PTSD Patient's Response to Treatment:: Client appears to be responding well to treatment as evidenced by her consistent attendance and engagement in individual and group sessions. Client is a positive group member and often provides insight to discussion. Client has reported progress with implementing thought challenging and using stress management techniques to reduce depression and anxiety. Client has also increased awareness of the need to set boundaries and use assertive communication, but reports still needing to progress in these areas. Client reports IOP has helped client increase her coping skills, especially when dealing with anger, and has improved her confidence. Status of Current Problems and Symptoms: Client reports reduced depressive symptoms, which demonstrates progress, but continues to endorse irritability, negative thinking, disrupted sleep, and ruminations. Client states her anxiety, irritability, and internal conflict mostly derive from work stress. Client is currently in the process of finding new employment which is both a positive and negative for client as she wants to find something more fitting, but has increased fear of failure. Client had been reporting increased anger, agitation , and a short temper the past week, but reports those symptoms have decreased with the help of medication changes and use of healthy coping skills. Problem #1 Problem Name:: Pt. will decrease depressive symptoms, irritability, and isolation. Status of Goals:: Client has demonstrated moderate progress towards this treatment goal as she reports reduced depressive symptoms, negative thinking, and isolation. Through medication and use of healthy coping skills client shared she has been able to manage irritability. Client can continue to progress with challenging negative core beliefs and using her davidson mind to make decisions rather than her emotion mind. Client reports positive self-talk and using self-care have been beneficial in her progress. Team Recommendations:: Client to continue work towards this treatment goal as she is showing progress with challenging negative thoughts and implementing coping skills to manage irritability, but reports ongoing low self-esteem and negative core beliefs. Client and therapist currently working on reframing core beliefs and focusing on strengths. Client to continue seeing Arleen Vigil at [facility] for individual sessions. Problem #2 Problem Name:: Pt. will increase awareness of cognitive distortions and reduce anxiety. Status of Goals:: Client has shown progress towards this treatment goal as client has increased awareness of cognitive distortions that lead to ruminations and anxiety. Client has also progressed in seeing the benefits of setting boundaries and using assertive communication to reduce stress and increase emotional well-being. Client can continue to benefit from challenging her fear of failure and from reducing avoidance behaviors. Client reports focusing on finding new employment and making her mental health a priority have been helpful in her progress. Team Recommendations:: Client to continue to work towards this goal as she is improving with recognizing cognitive distortions and challenging them, but continues to struggle with setting boundaries to reduce anxiety. Client and therapist currently working on decisional balance interventions to help client gain confidence in boundary setting. Client to follow through with employment services at [facility].
--- NOTE | 2017-11-30 11:18 | BH.SGPN ---
Service Group Progress Note - Session Psychotherapy Session #1 Date Open:: 11/30/17 Time Started:: 09:00 Time Stopped:: 10:00 Type of Group:: Process - 9 group members Goal of Group:: The goal of today's group was to check-in with client's mood, stressors, and positives, review homework and introduce topic for the day. Client Response/Progress/Benefit:: Active participant in group discussion. Provided appropriate feedback to peers. Emotion for today is hopeful. Shared with the group that she had a busy week at work. She discussed a couple episodes of negative thinking which in the past would have let to ruining my whole day however she was able to re-frame the negative thoughts and use some self-talk to decrease impact of stressful events. She was proud that she did not something consume her whole day. Also reached out to a family member which she had been avoiding. Discussed the benefits of reaching out and the anxiety and reasons for avoiding this task. Benefited from group support and praise. Progress noted as she appears to be implementing skills learned outside of group. Will continue in IOP to maintain gains, prevent decompensation, and improve functioning. Eye Contact:: Good Motor Activity:: Appropriate Appearance:: Casual Speech:: Appropriate Mood:: Euthymic Affect:: Full Thoughts:: Linear, Logical, No evidence of hallucinations/delusions noted Staff Interventions:: Therapist used open-ended questions to elicit information about client's current stressors and mood state. Therapist was supportive by using active listening and reflection.
--- NOTE | 2017-11-30 12:36 | BH.MDN ---
Multi-Disciplinary Note - Note 45-min Individual Time Started:: 11:20 Date: 11/30/17 Purpose of session/treatment goals addressed:: The purpose of this session was to address client's current stressors, triggers, and overall use of coping skills. Another goal was to process the upcoming anniversary of the loss of client's mother and identify healthy coping skills. Other topics included: communication, internal conflict, and challenging negative thoughts. Eye Contact:: Good Motor Activity:: Appropriate Appearance:: Neat Speech:: Appropriate Mood:: Euthymic Affect:: Congruent - became tearful for a moment when talking about her mother. Thoughts:: Linear, No evidence of hallucinations/delusions noted Staff Interventions:: Therapist used active listening and open-ended questions to explore client's current stressors and use of coping skills. Therapist provided emotional support as client discussed her grief and helped client identify healthy coping skills. Therapist explored client's internal conflict about work and used CBT and DBT strategies to help client challenge unhelpful thought patterns. Therapist used strengths perspective to empower client on progress and encouraged client to continue using assertive communication and stress management techniques. Therapist gave client homework to write her mother a letter as a way to process emotions and manage grief. Client Response:: client responded well to session, engaged and receptive in discussion. Client reported she has had a rough week which client described as one big Sunday. Client shared her rough week was due to challenges at work and the anniversary of her mothers passing approaching. Client reports belief she has been coping very well despite all clients stressors. Client shared she has been using thought challenging, positive self-talk, and impulse control. Client stated she was proud of herself for managing her emotions and being assertive at work when a coworker became frustrated at client. Client shared she has concerns about this weekend as it is the anniversary of her mothers passing. Client and therapist discussed ways client could remember her mother and express emotions in a healthy way. Client stated she plans to spend the weekend sewing with her aunt and was willing to try writing to her mother as that has been helpful in the past. Client also expressed her conflicting emotions about leaving work, as client still wants to find new employment, but stated she would feel bad for leaving her boss. After discussing pros and cons with therapist, client acknowledged it is best for her mental health to set boundaries and start a new chapter. Client reported connecting with viewing her emotions as visitors and shared it will help her when more conflicting emotions arise. Risks/Concerns:: Client denies suicidal ideation, plan, and intent as of 11/30/17. Progress Toward Goals/Plan:: Client demonstrating moderate progress towards treatment goals as she reports improved mood stability and reduced depressive symptoms. Client reports ongoing anxiety and ruminations, mostly regarding work, but states increased ability to cope with her stressors. Client to continue IOP to promote mood stability. Time Stopped:: 12:11
--- NOTE | 2017-11-30 12:39 | BH.MDN_ITS ---
Multi-Disciplinary Note - Note 45-min Individual Time Started:: 11:20 Date: 11/30/17 Purpose of session/treatment goals addressed:: The purpose of this session was to address client's current stressors, triggers, and overall use of coping skills. Another goal was to process the upcoming anniversary of the loss of client's mother and identify healthy coping skills. Other topics included: communication, internal conflict, and challenging negative thoughts. Eye Contact:: Good Motor Activity:: Appropriate Appearance:: Neat Speech:: Appropriate Mood:: Euthymic Affect:: Congruent - became tearful for a moment when talking about her mother. Thoughts:: Linear, No evidence of hallucinations/delusions noted Staff Interventions:: Therapist used active listening and open-ended questions to explore client's current stressors and use of coping skills. Therapist provided emotional support as client discussed her grief and helped client identify healthy coping skills. Therapist explored client's internal conflict about work and used CBT and DBT strategies to help client challenge unhelpful thought patterns. Therapist used strengths perspective to empower client on progress and encouraged client to continue using assertive communication and stress management techniques. Therapist gave client homework to write her mother a letter as a way to process emotions and manage grief. Client Response:: client responded well to session, engaged and receptive in discussion. Client reported she has had a rough week which client described as ? one big Sunday.? Client shared her rough week was due to challenges at work and the anniversary of her mother?s passing approaching. Client reports belief she has been coping very well despite all client?s stressors. Client shared she has been using thought challenging, positive self-talk, and impulse control. Client stated she was proud of herself for managing her emotions and being assertive at work when a coworker became frustrated at client. Client shared she has concerns about this weekend as it is the anniversary of her mother?s passing. Client and therapist discussed ways client could remember her mother and express emotions in a healthy way. Client stated she plans to spend the weekend sewing with her aunt and was willing to try writing to her mother as that has been helpful in the past. Client also expressed her conflicting emotions about leaving work, as client still wants to find new employment, but stated she would feel bad for leaving her boss. After discussing pros and cons with therapist, client acknowledged it is best for her mental health to set boundaries and start a new chapter. Client reported connecting with viewing her emotions as visitors and shared it will help her when more conflicting emotions arise. Risks/Concerns:: Client denies suicidal ideation, plan, and intent as of 11/30/17. Progress Toward Goals/Plan:: Client demonstrating moderate progress towards treatment goals as she reports improved mood stability and reduced depressive symptoms. Client reports ongoing anxiety and ruminations, mostly regarding work , but states increased ability to cope with her stressors. Client to continue IOP to promote mood stability. Time Stopped:: 12:11
--- NOTE | 2017-11-30 14:09 | BH.SGPN ---
Service Group Progress Note - Session Psychotherapy Session #2 Date Open:: 11/30/17 Time Started:: 10:15 Time Stopped:: 11:05 Targeted Problem #:: 1 Type of Group:: Illness Management Goal of Group:: To increase understanding of a crisis and improve clients awareness of how he/she feels when in a crisis. Client Response/Progress/Benefit:: Pt contributed to discussion and listened attentively to others. Pt able to identify what a crisis is and related to the fact if one zana in an unhealthy manner after a crisis it could turn into a personal crisis. Pt shared when she is in crisis she tries to make it appear she has everything together, but inside she is all jumbled up. Pt reported she is able to appear ok for some time, but recognizes by trying to hide how she feels doesn't really help her. Pt seemed to benefit from gaining insight into her typical reaction to crisis and the impact it can have on her mental health. Eye Contact:: Good Motor Activity:: Appropriate Appearance:: Casual Speech:: Appropriate Mood:: Euthymic Affect:: Congruent Thoughts:: Linear, Logical, No evidence of hallucinations/delusions noted Staff Interventions:: Therapist facilitated group discussion about defining a crisis and specifying various events that are considered a crisis. Therapist led group in an activity in which group members had to identify their thoughts and emotions attached to being in a crisis. Therapist provided support by using active listening and providing feedback.
--- NOTE | 2017-12-04 14:10 | BH.SGPN ---
Service Group Progress Note - Session Psychotherapy Session #2 Date Open:: 12/04/17 - participants Time Started:: 10:17 Time Stopped:: 11:12 Targeted Problem #:: 1 Type of Group:: Illness Management Goal of Group:: To identify within self what is keeping client trapped from achieving better quality of life. Client Response/Progress/Benefit:: Client responded well to session, active participant despite back pain. Client connected with the quote, stating, we isolate and avoid and build up a barrier. Client identified with the maintenance cycles for depression and anxiety, sharing she often recognizes her negative thinking keeps client trapped. Client identified her top negative thoughts as when will the next shoe drop, I have a boring life, no one will want to be with me, and Im lazy. Client appeared to benefit from learning about her cycle of depression and anxiety so client can challenge negative thoughts. Progress noted as shown by clients improved mood, but can continue to benefit from emotional regulation. Eye Contact:: Good Motor Activity:: Other - client hunched over, reporting back pain Appearance:: Neat Speech:: Appropriate Mood:: Anxious Affect:: Constricted Thoughts:: Linear, No evidence of hallucinations/delusions noted Staff Interventions:: Therapist facilitated discussion about what is keeping clients stuck from moving toward mental wellness. Therapist assisted clients in connecting how thoughts can contribute to keeping clients stuck. Therapist led discussion about barriers clients face from making changes to help one move forward. Therapist provided support by using active listening and giving feedback to others. Psychotherapy Session #3 Date Open:: 12/04/17 - participants Time Started:: 11:18 Time Stopped:: 12:20 Targeted Problem #:: 1 Goal of Group:: To identify what client can do to release self from those things that are trapping them to find more peace and quality in everyday life. Client Response/Progress/Benefit:: Client responded well to session, engaged and receptive to feedback. Client selected Im lazy and always in pain as the negative thought she wants to challenge. Client shared the thought was realistic and unrealistic as client is frequently in pain, but recognizes Im lazy as a form of labeling. Client stated when she thinks negatively she makes excuses, isolates, and avoids which increases depression and anxiety. Client reframed her negative thought to I get up and go to work and fight through the pain. Client stated challenging the thought would improve her mood and increase self-confidence. Client appeared to benefit from reframing her negative thought pattern. Eye Contact:: Good Motor Activity:: Restless, Other - laying on the floor to manage pain. Appearance:: Neat Speech:: Appropriate Mood:: Anxious Affect:: Congruent Thoughts:: Linear, No evidence of hallucinations/delusions noted Staff Interventions:: Therapist used examples of maintenance cycles to help clients gain awareness of how negative thinking is keeping clients stuck. Therapist facilitated discussion about different strategies for challenging negative thoughts, assisting clients in connecting how the strategies could benefit them. Therapist provided clients with homework to focus on one thing that is keeping them stuck and identify small steps to start moving towards mental wellness.
--- NOTE | 2017-12-04 14:13 | BH.SGPN_ITS ---
Service Group Progress Note - Session Psychotherapy Session #2 Date Open:: 12/04/17 - participants Time Started:: 10:17 Time Stopped:: 11:12 Targeted Problem #:: 1 Type of Group:: Illness Management Goal of Group:: To identify within self what is keeping client trapped from achieving better quality of life. Client Response/Progress/Benefit:: Client responded well to session, active participant despite back pain. Client connected with the quote, stating, ?we isolate and avoid and build up a barrier.? Client identified with the maintenance cycles for depression and anxiety, sharing she often recognizes her negative thinking keeps client trapped. Client identified her top negative thoughts as ?when will the next shoe drop, I have a boring life, no one will want to be with me, and I?m lazy.? Client appeared to benefit from learning about her cycle of depression and anxiety so client can challenge negative thoughts. Progress noted as shown by client?s improved mood, but can continue to benefit from emotional regulation. Eye Contact:: Good Motor Activity:: Other - client hunched over, reporting back pain Appearance:: Neat Speech:: Appropriate Mood:: Anxious Affect:: Constricted Thoughts:: Linear, No evidence of hallucinations/delusions noted Staff Interventions:: Therapist facilitated discussion about what is keeping client?s stuck from moving toward mental wellness. Therapist assisted clients in connecting how thoughts can contribute to keeping clients stuck. Therapist led discussion about barriers clients face from making changes to help one move forward. Therapist provided support by using active listening and giving feedback to others. Psychotherapy Session #3 Date Open:: 12/04/17 - participants Time Started:: :18 Time Stopped:: 12:20 Targeted Problem #:: 1 Goal of Group:: To identify what client can do to release self from those things that are trapping them to find more peace and quality in everyday life. Client Response/Progress/Benefit:: Client responded well to session, engaged and receptive to feedback. Client selected ?I?m lazy and always in pain? as the negative thought she wants to challenge. Client shared the thought was ? realistic and unrealistic? as client is frequently in pain, but recognizes ?I?m lazy? as a form of labeling. Client stated when she thinks negatively she makes excuses, isolates, and avoids which increases depression and anxiety. Client reframed her negative thought to ?I get up and go to work and fight through the pain.? Client stated challenging the thought would improve her mood and increase self-confidence. Client appeared to benefit from reframing her negative thought pattern. Eye Contact:: Good Motor Activity:: Restless, Other - laying on the floor to manage pain. Appearance:: Neat Speech:: Appropriate Mood:: Anxious Affect:: Congruent Thoughts:: Linear, No evidence of hallucinations/delusions noted Staff Interventions:: Therapist used examples of maintenance cycles to help clients gain awareness of how negative thinking is keeping clients stuck. Therapist facilitated discussion about different strategies for challenging negative thoughts, assisting clients in connecting how the strategies could benefit them. Therapist provided clients with homework to focus on one thing that is keeping them stuck and identify small steps to start moving towards mental wellness.
--- NOTE | 2017-12-04 14:13 | BH.MDN ---
Multi-Disciplinary Note - Note 45-min Individual Time Started:: 12:25 Date: 12/04/17 Purpose of session/treatment goals addressed:: The purpose of this session was to work on goal #1 objective #1 of client's treatment plan. Another goal was to continue working on processing internal conflict and increase decision making that promotes mental health. Other topics included: acceptance and positive supports. Eye Contact:: Fair Motor Activity:: Restless - reporting pain and had to lay down. Appearance:: Neat Speech:: Appropriate Mood:: Anxious Affect:: Congruent - client tearful at times Thoughts:: Linear, No evidence of hallucinations/delusions noted Staff Interventions:: Therapist used active listening and open-ended questions to explore client's current stressors, negative thinking, and use of coping skills. Therapist used motivational interviewing to promote change talk and help client gain awareness of beneficial steps she can take to reduce anxiety and physical pain. Therapist helped client identify and reframe negative thoughts. Therapist and client discussed the benefits of accepting stressors out client's control and reviewed healthy coping skills. Therapist gave client homework to identify positive and negative ways she is contributing to her overall goals. Client Response:: Client responded well to session, reporting pain in her back which client states increases her anxiety and frustration. Client reported she plans to call her physical therapist to begin treatments again even though it will be time consuming. Client and therapist explored the pros and cons of taking this step and client stated it would be more beneficial long-term to set up the appointments. Client stated overall, she has been in a better mood and is being more social. Client shared my neighbor girl even recognized a difference in me which was nice. Recently, client had another challenge at work which has lead client to feel on-edge and as if she is being personally attacked. Client and therapist discussed client's response to current stressors and ways client can manage her emotions. Client reported I think despite everything I'm doing well. Client shared she plans to continue to use positive self-talk, use self-care, and follow through with finding new employment. Client stated she has learned to accept she is not responsible for fixing other people's emotions and this has helped client feel less stress. With therapist elicitation, client utilized radical acceptance with her other stressors and focus more on what she can control. Client continues to struggle with ambivalence and fear of failure, but processed her emotions and challenge negative thoughts. Client to focus on positive and negative ways she is contributing to her overall goals as homework. Risks/Concerns:: Client denies suicidal ideation, plan, and intent as of 12/04/17. Progress Toward Goals/Plan:: Client demonstrating progress towards treatment goals as client reports fewer depressive symptoms and an increased ability to manage irritability and anxiety. Client also has demonstrated progress with decreasing isolation. Client reports ongoing medication concerns and would like therapist to relay this information to AC. Client also continues to struggle with managing work related stress and low self-worth. Client to continue IOP to promote gains and increase emotional regulation. Client to contact physical therapy to receive treatment for nerve pain in her back. Time Stopped:: 13:07
--- NOTE | 2017-12-04 17:03 | BH.SGPN ---
Service Group Progress Note - Session Psychotherapy Session #1 Date Open:: 12/04/17 Time Started:: 09:05 Time Stopped:: 10:08 Targeted Problem #:: 1 Type of Group:: Process - 6 group members Goal of Group:: The goal of today's group was to check-in with client's mood, stressors, and positives, review homework and introduce topic for the day. Client Response/Progress/Benefit:: Pt reported yesterday was a good day because she spent some time with an old friend that she hasn't seen in awhile. Pt shared things were going well this morning until she went to work which ruined my morning. Patient reported her work is being nitpicky about small mistakes that she has made and now has to meet with her boss about the mistake she made. Patient shared if feels her work is targeting her because there are other people that make mistakes but do not have to go through the same talks with the boss like she does. Patient shared she is more motivated to look for new job because she recognizes her current job is not healthy for her. Patient accepted support and ideas from peers as to strategies that could help her manage her emotions during the workday. Patient seemed to benefit from therapist helping her reframe her thought patterns as well as discussing various strategies that could be helpful with managing emotions. Eye Contact:: Good Motor Activity:: Appropriate Appearance:: Neat Speech:: Appropriate Mood:: Anxious, Irritable Affect:: Congruent, Other - Tearful Thoughts:: Linear, No evidence of hallucinations/delusions noted Staff Interventions:: Therapist used open-ended questions to elicit information about client's current stressors and mood state. Therapist was supportive by using active listening and reflection.
--- NOTE | 2017-12-07 14:11 | BH.SGPN ---
Service Group Progress Note - Session Psychotherapy Session #1 Date Open:: 12/07/17 Time Started:: 09:05 Time Stopped:: 10:20 Targeted Problem #:: 1 Type of Group:: Process Goal of Group:: The goal of today's group was to check-in with client's mood, stressors, and positives, review homework and introduce topic for the day. Client Response/Progress/Benefit:: Client reported she confronted her friend that is getting in regards to attending the [employer] republic[employer]. Client reported she expressed her concerns about being around alcohol and having social anxiety. Client shared the friend took the different discussion really well and was extremely supportive to client offering client option to only attend a portion of the [employer] instead of having to be at the entire thing. Client recognized that she was anxious for so many weeks for no reason because she put off having discussion out of fear. Client identified her work continuing to be a source of stress for her because she believes she is still being nitpicked by her superiors. Client shared she did figure out that the mistake that she was getting reprimanded for turned out to be a glitch in the entire system. Client reported she is unsure if she can continue to work in the environment because she feels that she is constantly questioning. Client accepted suggestions from group members as to how to manage her emotions while at work so she does not do something or say something that might get her fired. Client demonstrated progress as evidenced by her being assertive with her friendships as well as at work. Eye Contact:: Good Motor Activity:: Appropriate Appearance:: Neat Speech:: Appropriate Mood:: Euthymic, Anxious Affect:: Congruent Thoughts:: Linear, Logical, No evidence of hallucinations/delusions noted Staff Interventions:: Therapist used open-ended questions to elicit information about client's current stressors and mood state. Therapist was supportive by using active listening and reflection.
--- NOTE | 2017-12-07 15:30 | BH.SGPN_ITS ---
Service Group Progress Note - Session Psychotherapy Session #2 Date Open:: 12/07/17 group members Time Started:: 10:27 Time Stopped:: 11:20 Targeted Problem #:: 1 Type of Group:: Illness Management Goal of Group:: To increase understanding of resilience and identify the factors that contribute to building resilience. Client Response/Progress/Benefit:: Client responded well to session, active participant. Client appeared to connect with the topic sharing each dimension of resiliency applies to my mental health. Client helped to group discuss the factors of resiliency such as focusing on goals, self-awareness, and using supports. Client shared goals are important for increasing resiliency because small goals can help change negative thought patterns. Client appeared to benefit from increasing awareness of resilience. Client progressing with challenging negative thoughts, but can continue to benefit from increased self- confidence. Eye Contact:: Good Motor Activity:: Appropriate Appearance:: Neat Speech:: Appropriate Mood:: Euthymic Affect:: Congruent Thoughts:: Linear, No evidence of hallucinations/delusions noted Staff Interventions:: Therapist led group in an activity that would induce a chaotic environment and used the activity as a tool in discussing the various stressors people are faced with each day. Therapist facilitated group discussion about resilience and explained the factors of building resilience. Therapist led discussion about factors that contribute to resilience. Therapist provided support by using active listening and providing feedback. Psychotherapy Session #3 Date Open:: 12/07/17 - 8 group members Time Started:: :27 Time Stopped:: 12:25 Targeted Problem #:: 1 Type of Group:: Functional Skills Development Goal of Group:: To rehearse resilient factors and identify ways to maintain resilience despite hardships and stressors. Client Response/Progress/Benefit:: Client responded well to session, engaged throughout. Client the group complete a task aimed to promote resiliency. Client shared we had to be willing to keep trying and not get stuck in mistakes. Client identified her personal resiliency traits to be never stop trying and thinking outside the box. Client shared she plans to increase her resilience by taking care of her mental and physical needs. Client appeared to benefit from increasing awareness of personal resiliency traits. Client to continue IOP to promote mood stability and emotional regulation. Eye Contact:: Good Motor Activity:: Appropriate Appearance:: Neat Speech:: Appropriate Mood:: Euthymic Affect:: Congruent Thoughts:: Linear, No evidence of hallucinations/delusions noted Staff Interventions:: Therapist led group in an activity in which group members were challenged to stay resilient despite various stressors and hardships added to activity. Therapist provided each group member with a stress ball and used stress ball as a tool to discuss factors of resilient personality. Therapist provided group members with a handout about the building blocks of resilience. Therapist provided support by using reflective listening.
--- NOTE | 2017-12-11 10:50 | BH.SGPN ---
Service Group Progress Note - Session Psychotherapy Session #1 Date Open:: 12/11/17 - 6 group members Time Started:: 09:05 Time Stopped:: 10:15 Targeted Problem #:: 1 Type of Group:: Process Goal of Group:: The goal of today's group was to check-in with client's mood, stressors, and positives, and introduce topic for the day. Client Response/Progress/Benefit:: Client responded well to session, active in discussion and providing supportive statements. Client shared she had a productive weekend as the weather motivated client to get things cleaned out and organized. 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 Client stated she did experience anxiety and panic before the meeting, but utilized deep breathing and self-talk to reduce her symptoms. Client appeared to benefit from reflecting on her implementation of healthy coping skills. Progress noted as shown by client's increased ability to regulate emotions and focus on stressors in her control. Can continue to benefit from maintenance of healthy coping skills and setting boundaries. Eye Contact:: Good Motor Activity:: Appropriate Appearance:: Neat Speech:: Appropriate Mood:: Euthymic Affect:: Full Thoughts:: Linear, No evidence of hallucinations/delusions noted Staff Interventions:: Therapist used open-ended questions to elicit information about client's current stressors and mood state. Therapist was supportive by using active listening and reflection.
--- NOTE | 2017-12-11 11:16 | BH.SGPN_ITS ---
Service Group Progress Note - Session Psychotherapy Session #1 Date Open:: 12/07/17 Time Started:: 09:05 Time Stopped:: 10:20 Targeted Problem #:: 1 Type of Group:: Process Goal of Group:: The goal of today's group was to check-in with client's mood, stressors, and positives, review homework and introduce topic for the day. Client Response/Progress/Benefit:: Client reported she confronted her friend that is getting in regards to attending the [employer]. Client reported she expressed her concerns about being around alcohol and having social anxiety. Client shared the friend took the different discussion really well and was extremely supportive to client offering client option to only attend a portion of the [employer] instead of having to be at the entire thing. Client recognized that she was anxious for so many weeks for no reason because she put off having discussion out of fear. Client identified her work continuing to be a source of stress for her because she believes she is still being nitpicked by her superiors. Client shared she did figure out that the mistake that she was getting reprimanded for turned out to be a glitch in the entire system. Client reported she is unsure if she can continue to work in the environment because she feels that she is constantly questioning. Client accepted suggestions from group members as to how to manage her emotions while at work so she does not do something or say something that might get her fired. Client demonstrated progress as evidenced by her being assertive with her friendships as well as at work. Eye Contact:: Good Motor Activity:: Appropriate Appearance:: Neat Speech:: Appropriate Mood:: Euthymic, Anxious Affect:: Congruent Thoughts:: Linear, Logical, No evidence of hallucinations/delusions noted Staff Interventions:: Therapist used open-ended questions to elicit information about client's current stressors and mood state. Therapist was supportive by using active listening and reflection.
--- NOTE | 2017-12-14 12:06 | BH.MDN ---
Multi-Disciplinary Note - Note 60-min Individual Time Started:: 09:33 Date: 12/14/17 Purpose of session/treatment goals addressed:: The purpose of this session was to address client's current symptoms, stressors, and identify strategies to prevent setbacks. Another goal was to process client's diagnosis, identify warning signs, and negative thought patterns. Eye Contact:: Good Motor Activity:: Appropriate Appearance:: Neat Speech:: Appropriate Mood:: Dysthymic Affect:: Congruent - became tearful Thoughts:: Linear, No evidence of hallucinations/delusions noted Staff Interventions:: Therapist used active listening and open-ended questions to explore client's current stressors, symptoms, and warning signs. Therapist assisted client in processing her diagnosis concerns and helped client challenge negative thought patterns that contribute to maintenance cycles of depression. Therapist helped client process emotions of grief, anger, and sadness. Therapist gave client homework to identify coping skills for her warning signs to promote maintenance and to identify negative thought patterns that keep client stuck. Client Response:: Client responded well to session, alert and oriented. Client reported she received a text from her niece last evening regarding her late brother. Client shared the text was positive, but sent client for a whirlwind as it triggered emotions and memories. Client and therapist processed clients emotions and client shared she now has less anger towards her brother. Client shared an excerpt from a book she was provided by her outpatient therapist on bipolar disorder. Client stated she connected with the criteria for bipolar and reported belief this is me to a T. Client shared after reading the book she looked back on her life and was able to see periods of hypomania and depressive states. Client identified her hypomana as increased energy, reduced need for sleep, grandiose thoughts of self, impulsivity, and risky sexual behavior. Client reported she was always fearful she might be diagnosed with bipolar disorder, but now views it as helpful because I finally get why these things happened. Client and therapist discussed clients warning signs and coping skills for hypomania and depression. Client also shared several cognitive distortions she has while depressed and with therapist elicitation, was able to challenge some. Client and therapist discussed emotion mind and davidson mind and ways to increase using ones davidson mind for decision making. Client was ruled out for bipolar disorder, but may have traits of the diagnosis. Client understands this and reported it would be helpful to set up coping plans for depression and heightened energy. Risks/Concerns:: Client denies suicidal ideation, plan, and intent as of 12/14/17. Progress Toward Goals/Plan:: Client demonstrating progress towards treatment goals as shown by her report of reduced severity of symptoms and increased emotional regulation. However, client continues to report depressed mood with lack of energy and motivation. Client reports belief she has bipolar disorder as she has reflected on her past and recalls periods consistent with hypomania. Therapist to follow up with IOP psychiatrist as client has been ruled out for bipolar disorder. Client to continue IOP to promote mood stability and prevent decompensation. Time Stopped:: 10:30
--- NOTE | 2017-12-14 12:21 | BH.MDN_ITS ---
Multi-Disciplinary Note - Note 60-min Individual Time Started:: 09:33 Date: 12/14/17 Purpose of session/treatment goals addressed:: The purpose of this session was to address client's current symptoms, stressors, and identify strategies to prevent setbacks. Another goal was to process client's diagnosis, identify warning signs, and negative thought patterns. Eye Contact:: Good Motor Activity:: Appropriate Appearance:: Neat Speech:: Appropriate Mood:: Dysthymic Affect:: Congruent - became tearful Thoughts:: Linear, No evidence of hallucinations/delusions noted Staff Interventions:: Therapist used active listening and open-ended questions to explore client's current stressors, symptoms, and warning signs. Therapist assisted client in processing her diagnosis concerns and helped client challenge negative thought patterns that contribute to maintenance cycles of depression. Therapist helped client process emotions of grief, anger, and sadness. Therapist gave client homework to identify coping skills for her warning signs to promote maintenance and to identify negative thought patterns that keep client stuck. Client Response:: Client responded well to session, alert and oriented. Client reported she received a text from her niece last evening regarding her late brother. Client shared the text was positive, but sent client ?for a whirlwind? as it triggered emotions and memories. Client and therapist processed client?s emotions and client shared she now has less anger towards her brother. Client shared an excerpt from a book she was provided by her outpatient therapist on bipolar disorder. Client stated she connected with the criteria for bipolar and reported belief ?this is me to a T.? Client shared after reading the book she looked back on her life and was able to see periods of hypomania and depressive states. Client identified her hypomana as increased energy, reduced need for sleep, grandiose thoughts of self, impulsivity, and risky sexual behavior. Client reported she was always fearful she might be diagnosed with bipolar disorder, but now views it as helpful ?because I finally get why these things happened.? Client and therapist discussed client?s warning signs and coping skills for hypomania and depression. Client also shared several cognitive distortions she has while depressed and with therapist elicitation, was able to challenge some. Client and therapist discussed emotion mind and davidson mind and ways to increase using one?s davidson mind for decision making. Client was ruled out for bipolar disorder, but may have traits of the diagnosis. Client understands this and reported it would be helpful to set up ?coping plans? for depression and heightened energy. Risks/Concerns:: Client denies suicidal ideation, plan, and intent as of . Progress Toward Goals/Plan:: Client demonstrating progress towards treatment goals as shown by her report of reduced severity of symptoms and increased emotional regulation. However, client continues to report depressed mood with lack of energy and motivation. Client reports belief she has bipolar disorder as she has reflected on her past and recalls periods consistent with hypomania. Therapist to follow up with IOP psychiatrist as client has been ruled out for bipolar disorder. Client to continue IOP to promote mood stability and prevent decompensation. Time Stopped:: 10:30
--- NOTE | 2017-12-17 14:34 | BH.COMM ---
Communication Note - Communication with Client Communication Note: Therapist attempted to call client's outpatient therapist, per client's request, to advocate for client and establish psychiatry for when client discharges from [facility]. Therapist unable to reach outpatient therapist, left a message asking for a returned call.
--- NOTE | 2017-12-18 13:53 | BH.SGPN ---
Service Group Progress Note - Session Psychotherapy Session #1 Date Open:: 12/18/17 Time Started:: 09:10 Time Stopped:: 10:00 Type of Group:: Process - 5 groups members Goal of Group:: The goal of today's group was to check-in with client's mood, stressors, and positives, review homework and introduce topic for the day. Client Response/Progress/Benefit:: Pt was an active participant in group discussion. Emotion for today is anxious. Shared that she is very anxious about upcoming job interview tomorrow. Group attempted to normalize her anxiety however pt continued to verbalize negative thoughts and distortions regarding the event tomorrow. Also reports that she was able to clean out a room in her house to begin sewing, which is a positive goal, however the room they cleaned out had belongings from her mother which increased depression. Also she currently has no place to put these belongings which increased stress. Has a plan to organize and sell, keep, or throw away belongings. Benefited from group support. Some progress as she is completing goals (clean out room) and seek new employment, however has reverted back to negative thinking at times which is leading to second guessing career switch and sewing room. Will continue in [facility] for an additional session. Plan to discharge later this week. Eye Contact:: Good Motor Activity:: Appropriate Appearance:: Casual Speech:: Appropriate Mood:: Anxious Affect:: Congruent Thoughts:: Linear, Logical, No evidence of hallucinations/delusions noted Staff Interventions:: Therapist used open-ended questions to elicit information about client's current stressors and mood state. Therapist was supportive by using active listening and reflection.
--- NOTE | 2017-12-18 14:54 | BH.SGPN ---
Service Group Progress Note - Session Psychotherapy Session #2 Date Open:: 12/18/17 - 6 group members Time Started:: 10:07 Time Stopped:: 11:06 Targeted Problem #:: 1 Type of Group:: Illness Management Goal of Group:: To increase understanding of components of a problem, learn strategies to solve a problem and rehearse problem solving skills. Client Response/Progress/Benefit:: Client responded well to session, active participant. Client connected with the quote sharing, ?our thoughts make or break us.? Client helped the group process problem-solving strategies, stating, ?you have to first recognize the problem and see really how big it is.? Client participated in an activity aimed to help group members utilize in the moment problem solving skills. Client reported it is important to communicate with supports and think outside the box to more effectively solve problems. Client appeared to benefit from learning how to more effectively solve problems. Progress noted in client?s reduced depression, but can continue to benefit from emotional regulation. Eye Contact:: Good Motor Activity:: Appropriate Appearance:: Neat Speech:: Appropriate Mood:: Euthymic Affect:: Congruent Thoughts:: Linear, No evidence of hallucinations/delusions noted Staff Interventions:: Therapist facilitated group discussion about problems and the underlying components of problems. Therapist educated group about various strategies to solving a problem and provided an example of each. Therapist led group in an experiential activity that required group members to use problem solving skills to work together, rehearsing problem solving skills. Psychotherapy Session #3 Date Open:: 12/18/17 - 6 group members Time Started:: 11:10 Time Stopped:: 12:05 Targeted Problem #:: 1 Type of Group:: Functional Skills Development Goal of Group:: To identify steps to solving a personal problem and increase awareness to those barriers that impedes the problem solving process. Client Response/Progress/Benefit:: Client responded well to session, engaged throughout. Client shared ?it?s better to try and fail than to stay stuck.? Client identified lack of confidence as a problem she would like to solve. Client shared she plans to work towards her goal of increased confidence by reflecting on her positives each day, challenging negative thoughts, and looking at the facts and past successes. Client reported her barriers are ?listening to others? and negative thinking. Client appeared to benefit from problem-solving strategies to increase confidence and overcome barriers. Client to continue IOP to promote mood stability. Eye Contact:: Good Motor Activity:: Appropriate Appearance:: Neat Speech:: Appropriate Mood:: Euthymic Affect:: Congruent Thoughts:: Linear, No evidence of hallucinations/delusions noted Staff Interventions:: Therapist provided group members with a worksheet in which the group members were instructed to identify a problem and steps need to take to solve that problem. Then therapist instructed group members to identify those barriers that get in the way of solving the problem. Therapist led the processing of the activity. Therapist provided support by using active listening and providing feedback.
--- NOTE | 2017-12-21 08:41 | BH.AFTERPLAN ---
Aftercare Plan - Demographics Treatment End Date:: 12/21/17 Psychiatrist:: Nicci Rodriguez Psychiatrist Office #:: [phone] [facility]/IOP Therapist:: Elida Palomares Therapist Phone #:: [phone] - Medications Home Medications: Home Medications Sumatriptan Succinate [Imitrex] 100 mg PO .X1 PRN 05/16/17 Albuterol Inhaler [Ventolin Hfa (SP)] 2 puff INHALATION Q4H PRN PRN 08/29/17 Cholecalciferol (VIT D3) [Vitamin D] 5,000 unit PO DAILY 08/29/17 Cyanocobalamin (Vitamin B-12) [Vitamin B-12] 2,000 mcg PO DAILY 08/29/17 Fluticasone 0.05% [Flonase Nasal [place]] 2 spray NARES DAILY 08/29/17 Ondansetron [Zofran Odt] 4 mg PO Q8H PRN PRN #10 tablet 08/29/17 Sennosides [Senna] 1 mg PO BID PRN PRN 08/29/17 - Plan Details Progress/Aftercare Plan Details:: You have demonstrated great progress with setting boundaries, being assertive, and making tough decisions that you know will benefit your mental health. You have put in the work to reduce depression, anxiety, and irritability through use of thought challenge, positive self-talk, and self-care. You have gained insight to your triggers, warning signs, and negative thought patterns. You have shown resiliency by coping with multiple stressors while in the program. You have taken steps to reduce and manage your stressors, step out of your comfort zone, and increase confidence which will help you continue to regulate strong emotions. Strategies for Success:: 1.Keep your eye on where you are going, seeing there is light at the end of the tunnel. 2. Use that POSITIVE self-talk and start a gratitude list. 3. Challenge negative thoughts, write them down if needed. 4. Take time to be mindful, get away from everything, and meditate. 5. Be present in the moment, stop the what ifs and shoulds. 6. Use that self-care!! Do something YOU enjoy- photography, take advantage of nice weather. 7. Challenge cognitive distortions, thoughts are thoughts not facts! 8. Focus on your resiliency traits, the dimensions of resiliency, and being emotional agile. 9. Keep setting boundaries that promote your mental health (dont overwhelm yourself). 10. Decisional balance and weighing the pros and cons! 11. Set SMART goals and focus on your successes. 12. You cant please everyone, its okay to disappoint others sometimes, you have to do what is best for you! - Appointments Appointments/Referrals to Other Services:: 1. Arleen Vigil Today, 12/21/17 and next Sunday12/28/17. 2. Cardiology appointment 01/04/18.
--- NOTE | 2017-12-21 08:46 | BH.IGGP_ITS ---
Aftercare Plan - Demographics Treatment End Date:: 12/21/17 Psychiatrist:: Nicci Rodriguez Psychiatrist Office #:: [phone] [facility]/IOP Therapist:: Elida Palomares Therapist Phone #:: [phone] - Medications Home Medications: Home Medications Sumatriptan Succinate [Imitrex] 100 mg PO .X1 PRN 05/16/17 Albuterol Inhaler [Ventolin Hfa (SP)] 2 puff INHALATION Q4H PRN PRN 08/29/17 Cholecalciferol (VIT D3) [Vitamin D] 5,000 unit PO DAILY 08/29/17 Cyanocobalamin (Vitamin B-12) [Vitamin B-12] 2,000 mcg PO DAILY 08/29/17 Fluticasone 0.05% [Flonase Nasal [place]] 2 spray NARES DAILY 08/29/17 Ondansetron [Zofran Odt] 4 mg PO Q8H PRN PRN #10 tablet 08/29/17 Sennosides [Senna] 1 mg PO BID PRN PRN 08/29/17 - Plan Details Progress/Aftercare Plan Details:: You have demonstrated great progress with setting boundaries, being assertive, and making tough decisions that you know will benefit your mental health. You have put in the work to reduce depression, anxiety, and irritability through use of thought challenge, positive self-talk, and self-care. You have gained insight to your triggers, warning signs, and negative thought patterns. You have shown resiliency by coping with multiple stressors while in the program. You have taken steps to reduce and manage your stressors, step out of your comfort zone, and increase confidence which will help you continue to regulate strong emotions. Strategies for Success:: 1.Keep your eye on where you are going, seeing there is light at the end of the tunnel. 2. Use that POSITIVE self-talk and start a gratitude list. 3. Challenge negative thoughts, write them down if needed. 4. Take time to be mindful, get away from everything, and meditate. 5. Be present in the moment, stop the what ifs and shoulds. 6. Use that self-care!! Do something YOU enjoy- photography, take advantage of nice weather. 7. Challenge cognitive distortions, thoughts are thoughts not facts! 8. Focus on your resiliency traits, the dimensions of resiliency, and being emotional agile. 9. Keep setting boundaries that promote your mental health (don?t overwhelm yourself). 10. Decisional balance and weighing the pros and cons! 11. Set SMART goals and focus on your successes. 12. You can?t please everyone, it?s okay to disappoint others sometimes, you have to do what is best for you! - Appointments Appointments/Referrals to Other Services:: 1. Arleen Vigil Today, 12/21/17 and next Sunday12/28/17. 2. Cardiology appointment 01/04/18.
--- NOTE | 2017-12-21 08:46 | BH.DS ---
Discharge Summary - Demographics Date of Admission:: 10/30/17 Discharge Date: 12/21/17 Presenting Problems at Admission:: At admission, client presented with chief complaint of mood symptoms and anxiety. Client developed increased depression and ruminative anxiety in July following a position change at work and the loss of her brother. Client endorsed a depressed mood with feelings of sadness, decreased appetite, anhedonia, irritability, isolation, and decreased energy. Client reported a long-standing history of negative core beliefs and low self-esteem. Additionally, at admission client endorsed ruminative anxiety about multiple issues including her job, daughter, and decision making. Client shared her symptoms were interfering with daily functioning and overall well-being. Discharge Diagnoses:: Major depressive disorder recurrent moderate F 33.2. Rule out bipolar disorder; Anxiety unspecified; Rule out PTSD Reason for Discharge:: Client has shown significant progress towards treatment goals as shown by reduced symptoms of depression and anxiety. Client no longer meets criteria for IOP level of care. - Treatment Progress During Treatment & Response: Client appeared to respond well to treatment as evidenced by her consistent attendance and engagement in individual and group sessions. Client was a positive group member and often provided insight to discussion and supportive statements to peers. At discharge client reported reduced racing thoughts, irritability, and depressive symptoms. Client shared she continues to struggle with irritability and anxiety, but reports belief she is better at regulating her emotions. Client has reported progress with implementing thought challenging and using stress management techniques to reduce depression and anxiety. Client has also progressed with setting boundaries and using assertive communication to promote self-care and stress management. Client reported IOP helped client increase coping skills, improve decision making skills, and has increased self-confidence. Issues Still to be Addressed:: Client has demonstrated progress with incorporating coping skills learned in group and individual sessions to reduce mental health symptoms, but can continue to benefit from ongoing work in emotional regulation and thought challenging. Client can continue to benefit from utilizing stress management skills, assertive communication of mental health needs, and daily self-care. Client appeared to respond well using decisional balance and cost/ benefit analysis to help client make difficult decisions, and may continue to benefit from using this type of strategy in future treatment. Discharge Recommendations/Instructions:: Client is recommended to follow up with her outpatient therapist, Arleen Vigil at [facility]. Client's next appointment is today 12/21/17. Client also recommended to follow up with psychiatry at [facility] as well. Client is currently not taking psychiatric medications, but would like to explore further medication options that do not cause allergic reactions or excessive side effects. IOP therapist collaborating with Arleen Vigil and [facility] psychiatry services to schedule client an appointment. Discharge Handout: Complete Discharge Handout with client on aftercare options and continuity of care.
--- NOTE | 2017-12-21 14:20 | BH.MDN ---
Multi-Disciplinary Note - Note 30-min Individual Time Started:: 09:50 Date: 12/21/17 Purpose of session/treatment goals addressed:: The purpose of this session was to reflect on client's progress, establish aftercare, and identify strategies to help client maintain gains and cope with stressors. Eye Contact:: Good Motor Activity:: Appropriate Appearance:: Neat Speech:: Appropriate Mood:: Euthymic Affect:: Full Thoughts:: Linear, No evidence of hallucinations/delusions noted Staff Interventions:: Therapist used open-ended questions to reflect on client's progress and identify strategies to maintain mood stability. Therapist verified client's aftercare and noted upcoming appointments. Therapist used strengths perspective to empower client on progress and encourage the use of healthy coping skills. Client Response:: Client responded well to session, reflecting on progress. Client shared she has progressed with challenging negative thoughts, being more assertive, and setting boundaries to reduce stress. Client reported I am anxious about not having constant support. However, with therapist elicitation, client recognized she has numerous internal coping skills that will help client maintain progress and prevent setbacks. Client has awareness that there will be challenges ahead and days when client struggles, but stated, I feel like I'm in a better place and can manage things again. Client reported plan to continue with individual counseling and to start reading her self-help book again. Client identified her strategies for success as positive self-talk, focusing on resiliency, challenging negative thoughts, and using decisional balance to weigh pros and cons. Risks/Concerns:: Client denies suicidal ideation, plan, and intent as of 12/21/17. Progress Toward Goals/Plan:: Client has shown progress towards treatment goals as evidenced by her report of increased emotional regulation, reduced symptoms of depression and anxiety, and increased confidence. Client can continue to benefit from ongoing work with managing irritability and challenging negative thoughts. Client to follow up with Arleen Vigil at [facility] for outpatient therapy. Time Stopped:: 10:20
--- NOTE | 2017-12-21 14:53 | BH.MDN_ITS ---
Multi-Disciplinary Note - Note 30-min Individual Time Started:: 09:50 Date: 12/21/17 Purpose of session/treatment goals addressed:: The purpose of this session was to reflect on client's progress, establish aftercare, and identify strategies to help client maintain gains and cope with stressors. Eye Contact:: Good Motor Activity:: Appropriate Appearance:: Neat Speech:: Appropriate Mood:: Euthymic Affect:: Full Thoughts:: Linear, No evidence of hallucinations/delusions noted Staff Interventions:: Therapist used open-ended questions to reflect on client' s progress and identify strategies to maintain mood stability. Therapist verified client's aftercare and noted upcoming appointments. Therapist used strengths perspective to empower client on progress and encourage the use of healthy coping skills. Client Response:: Client responded well to session, reflecting on progress. Client shared she has progressed with challenging negative thoughts, being more assertive, and setting boundaries to reduce stress. Client reported I am anxious about not having constant support. However, with therapist elicitation , client recognized she has numerous internal coping skills that will help client maintain progress and prevent setbacks. Client has awareness that there will be challenges ahead and days when client struggles, but stated, I feel like I'm in a better place and can manage things again. Client reported plan to continue with individual counseling and to start reading her self-help book again. Client identified her strategies for success as positive self-talk, focusing on resiliency, challenging negative thoughts, and using decisional balance to weigh pros and cons. Risks/Concerns:: Client denies suicidal ideation, plan, and intent as of . Progress Toward Goals/Plan:: Client has shown progress towards treatment goals as evidenced by her report of increased emotional regulation, reduced symptoms of depression and anxiety, and increased confidence. Client can continue to benefit from ongoing work with managing irritability and challenging negative thoughts. Client to follow up with Arleen Vigil at [facility] for outpatient therapy. Time Stopped:: 10:20
--- NOTE | 2017-12-21 14:57 | BH.SGPN ---
Service Group Progress Note - Session Psychotherapy Session #2 Date Open:: 12/21/17 Time Started:: 10:30 Time Stopped:: 11:20 Targeted Problem #:: 1 Type of Group:: Illness Management Goal of Group:: The goal of this session was to increase self-awareness of what is holding them back from moving towards mental wellness and discuss importance of taking action in their treatment. Client Response/Progress/Benefit:: Client active and engaged throughout group session, listened attentively to others. Client related to others comments that comfort zone is one major barrier to not following through with changes. Client identified things that have too much control over her include: low motivation, negative thinking, poor boundaries, cognitive distortions, letting what others say impact her. Client seemed to benefit from increased awareness of what contributes to her being held back from progress. Eye Contact:: Good Motor Activity:: Appropriate Appearance:: Casual Speech:: Appropriate Mood:: Euthymic Affect:: Full Thoughts:: Linear, Logical, No evidence of hallucinations/delusions noted Staff Interventions:: Therapist facilitated discussion about what it means to take action in achieving mental health wellness. Therapist led activity in which clients were asked to identify the symptoms and things that they would like to take back control over. Therapist provided support by using active listening. Psychotherapy Session #3 Date Open:: 12/21/17 Time Started:: 11:30 Time Stopped:: 12:20 Targeted Problem #:: 1 Type of Group:: Functional Skills Development Goal of Group:: The goal of this session was to create a 30 day action plan that provides small goals that work towards taking action on one thing they would like to take back control over. Client Response/Progress/Benefit:: Pt contributed positively to discussion, listened attentively to others. Pt identified for her 30 day plan she focused on not letting others thoughts and opinions impact her as much. Pt reported in her plan she created goals that focused on increasing her self-esteem and reducing how much time she spends on social media. Pt recognized to make change she needs to focus on small daily goals. Client seemed to benefit from identifying small steps she can make within a 30 day time frame to help reach her goal. Client demonstrating progress with increased positivity and self-awareness. Eye Contact:: Good Motor Activity:: Appropriate Appearance:: Casual Speech:: Appropriate Mood:: Euthymic Affect:: Full Thoughts:: No evidence of hallucinations/delusions noted Staff Interventions:: Therapist provided materials and guidance to help clients create a 30 day action plan. Therapist provided support by giving feedback and using active listening.
== END 2017-12-21 14:00 | disposition home or self-care (01) ==
LOC: BHIOP 09:00
PROVIDERS: Family Provider Student in an Organized Health Care Education/Training Program; PCP Student in an Organized Health Care Education/Training Program; Visit Provider Psychiatry & Neurology Psychiatry
DX: F33.2 Major depressive disorder, recurrent severe without psychotic features (principal); F41.9 Anxiety disorder, unspecified
CPT/HCPCS: H0035; 90832; 90834; 90837; 90853

== ENCOUNTER 2018-12-08 14:30 | Emergency (ER) | payer OTHER, SELFPAY ==
[2018-12-08 14:33] VITALS: BP 133/90; PULSE 99; RESP 16; TEMP 36.9; O2SAT 96; BMI 36.7
--- NOTE | 2018-12-08 15:15 | ED.VISSUMM ---
- ER Visit Summary Date of Service: 12/08/18 Chief Complaint: Back pain History of Present Illness: The patient is a 38 F worsening back pain since yesterday. States ruptured L4 disc in 2017 when she is just reaching for paper. As diagnosed by MRI. Saw Dr. Mayes in the past with 2 epidurals that worsen symptoms. Referred by her PCP to Dr. Ramirez in [place] and was seen on Sunday. Reports has not pending repeat MRI and a 26. Been using ibuprofen last dose 7 AM this morning. Very sensitive to medications. States tolerated half tab of [place] in the past which still does cause mild itching. However does help symptoms. Reports Toradol helps his symptoms more. No history of gastric ulcers or kidney injury. Denies any loss of bowel or bladder control. States the pain down both legs mostly left side. No new injuries. Physical Examination: General: Alert and oriented ?3, no acute distress HEENT: Normocephalic, atraumatic. Moist mucosa membranes Neck: supple, nontender. Cardiovascular: Regular rate and rhythm, no murmurs Respiratory: Normal breath sounds, symmetric, no distress Back: Tender palpation lower lumbar, no rash. Straight leg test negative. 1+ patellar reflex bilaterally. Abdomen: Soft, nontender, nondistended Extremities: Nontender, no edema, pulses intact ?4 Neuro: no focal neurological deficits. Test Results: [] Emergency Department Course and Treatment: Patient with no cauda equina symptoms. Patient symptoms improved with Toradol which 1 dose was given in ED. Reports her last [place] prescription was 2 years ago. Tried to check [place], however unable to get through the system at this time. Patient is reasonable, short prescription be written for symptom control. She will get refilled by her PCP. All questions were answered. Treatment Plan: [] Disposition: Discharge Impression: Sciatica This note was generated with [employer] dictation software. It may contain incorrect words, spelling, and punctuation that were not noted in review of the chart prior to signing ED Disposition - Plan for ED Patient: Disposition: Home or Assisted Living Diagnosis: Sciatica Instructions: ED Sciatica Prescriptions: Hydrocodone/Acetaminophen [[place] 5-325 Tablet] 0.5 - 1 each PO Q6H PRN PRN #12 tablet PRN Reason: Pain Referrals: Jas Braun DO [Primary Care Provider] - 3-5 Days
[2018-12-08] MEDS: Ketorolac 60 MG/2 ML Vial IM (15:18)
[2018-12-08 15:41] VITALS: PULSE 76; RESP 16
== END 2018-12-08 15:41 | disposition home or self-care (01) ==
LOC: ED 15:37
PROVIDERS: Emergency Provider Emergency Medicine; Family Provider Student in an Organized Health Care Education/Training Program; PCP Student in an Organized Health Care Education/Training Program
DX: M54.30 Sciatica, unspecified side (principal)
CPT/HCPCS: 96372; 99282

== ENCOUNTER 2020-03-30 11:24 | Day surgery (SDC) | payer OTHER, SELFPAY ==
--- NOTE | 2020-03-27 18:17 | HP.PCM_ITS ---
History and Physical Date of Admission: 03/30/20 Willa Daniel Angel a 39 year old female who is a consultation requested by Himanshu Christensen APRN, for an opinion regarding abdominal tenderness and blood in stool. My final recommendations will be communicated back to the requesting provider by way of shared Medical record. ? The patient has been seen previously for this complaint. The most recent was 10/21/12. The patient denies a family history of colon cancer. ? The patient has a history of breast cancer, anemia, dysthymic disorder, fibromyalgia, HLD, interstitial cystitis and endometriosis. ? CT abd/pel w IVCON 02/05/20: IMPRESSION: No CT evidence of acute abnormality in the abdomen or pelvis. Few scattered uncomplicated sigmoid diverticuli. ? Component Latest Ref Rng & Units 01/14/2020 Protein, Total 6.3 - 8.0 g/dL 6.8 Albumin 3.9 - 4.9 g/dL 4.0 Calcium 8.5 - 10.2 mg/dL 9.3 Bilirubin, Total 0.2 - 1.3 mg/dL 0.2 Alkaline Phosphatase 34 - 123 U/L 111 AST 13 - 35 U/L 18 Glucose 74 - 99 mg/dL 89 BUN 7 - 21 mg/dL 12 Creatinine 0.58 - 0.96 mg/dL 0.67 Sodium 136 - 144 mmol/L 138 Potassium 3.7 - 5.1 mmol/L 3.6 (L) Chloride 97 - 105 mmol/L 106 (H) CO2 22 - 30 mmol/L 22 Anion Gap 9 - 18 mmol/L 10 ALT 7 - 38 U/L 14 eGFR- ? >60 eGFR-All Other Races . >60 ? Component Latest Ref Rng & Units 12/12/2018 01/14/2020 01/23/2020 WBC 3.70 - 11.00 k/uL 7.18 11.40 (H) 6.20 RBC 3.90 - 5.20 m/uL 4.98 5.05 4.98 Hemoglobin 11.5 - 15.5 g/dL 13.2 13.7 13.7 Hematocrit 36.0 - 46.0 % 42.3 42.5 43.6 MCV 80.0 - 100.0 fL 84.9 84.2 87.6 MCH 26.0 - 34.0 pG 26.5 27.1 27.5 MCHC 30.5 - 36.0 g/dL 31.2 32.2 31.4 RDW-CV 11.5 - 15.0 % 13.0 13.5 13.2 Platelet Count 150 - 400 k/uL 293 248 276 MPV 9.0 - 12.7 fL 9.6 9.6 10.6 Neut% % 48.2 35 41.5 Abs Neut (ANC) 1.45 - 7.50 k/uL 3.46 3.99 2.58 Lymph% % 43.3 40 45.5 Abs Lymph 1.00 - 4.00 k/uL 3.11 ? 2.82 Buffalo% % 4.2 5 4.7 Abs [place] <0.87 k/uL 0.30 0.57 0.29 Eosin% % 3.9 20 7.3 Abs Eosin <0.46 k/uL 0.28 2.28 (H) 0.45 Baso% % 0.4 ? 1.0 Abs Baso <0.11 k/uL 0.03 ? 0.06 Nucleated Reds 0 /100 WBC 0.0 ? 0.0 Absolute nRBC <0.01 k/uL <0.01 ? <0.01 Diff Type ? Auto Diff ? Auto Diff Abs Lym 1.00 - 4.00 K/uL ? 4.56 (H) ? Red Cell Morph ? ? SEE COMMENT ? Diff Comment ? ? SEE COMMENT ? ? ? Presenting complaint: The patient reports he [Himanshu Christensen] touched my stomach on the right side and I about fell off the table. I have been having extreme heartburn that starts in my abdomen, just below mysternum and works it way up into my chest. It's like a tightening across my chest that happens sometimes when I eat. ? Goes on to say every time I ate I would get nauseated, now even with anything I drink besides water. ? Taking a probiotic, but that seems to make the pain worse when she eats, so she'd like to stop taking it. She reports that she forgets to take the pantoprazole, so will set an alarm on her phone to try to remember. ? Reporting severe cramping in the lower abdomen like a muscle spasm, but extremely painful. I'll get diarrhea. ? Having a bowel movement daily to every couple a days. States Sunday was severe diarrhea, yesterday it was soft, almost to diarrhea. I have IBS so I deal with that frequently. When it's extreme I get nauseated until I have the bowel movement. ? No bowel movements at night. She has seen faint blood when wiping. ? Reports that she was evaluated by Functional Medicine. Was told she has spours in her intestine due to mold. Unable to afford the prescription (Rifaximin). ? Taking supplements from [employer] products. We discussed that there could be something in the supplement adding to her issues. She later reports an increase in headaches - which I mentioned could also be from the supplements. ? ? PAST MEDICAL HISTORY ? Anemia ? ? was on iron treatments after chemotherapy ? Chronic interstitial cystitis ? ? Dysmenorrhea ? ? Dysthymic disorder ? ? Endometriosis ? ? Fibromyalgia ? ? Hypercholesteremia 12/26/13 ? Impaired fasting blood sugar 08/2017 ? Malignant neoplasm of breast (female), unspecified site 2008 ? Breast cancer Stage 2 ductal; Estrogen neg receptors ? Neurologic disorder ? ? transient paralysis episodes, resolved with cessation of chemo ? PMH - PAST MEDICAL HISTORY OF ? ? HEART MURMUR ? PMH - PAST MEDICAL HISTORY OF ? ? STOMACH ULCER AGE 17 ? PMH - PAST MEDICAL HISTORY OF ? ? BrCa1 positive ? Unspecified asthma(493.90) ? ? EXERCISE INDUCED, not on inhalers ? Unspecified migraine ? ? Vitamin D deficiency 12/26/13 ? PAST SURGICAL HISTORY ? BREAST RECONSTRUC W TISS EXPANDR ? 06/04/2009 ? bilateral breast ? BX BREAST PERC VACUUM/ROTN ? ? X2 ? DELIVERY ONLY ? ? ? , vertical ? CYSTOSCOPY ? 1997 ? [facility]. ? D&C, DIAG AND/OR THERAPEUTIC ? ? ? Dilation & curettage ? EGD W/O OR W/BRUSH/WASH ? 10/06/2011 ? EGD ? EGD W/O OR W/BRUSH/WASH ? 10/22/12 ? EGD incomplete repeat 1 week ? EGD W/O OR W/BRUSH/WASH ? 10/30/12 ? EGD ? L'SCOPE DX W/WO BRUSHINGS/WASHINGS ? 1998 ? [facility], Dr.David Lion, left ovarian cyst ? L'SCOPE DX W/WO BRUSHINGS/WASHINGS ? 2000 ? and D&C for pelvic pain, [facility] Gonzales ? LAP CHOLECYSTECT/CHOLANGIOGRAPHY ? 11/20/12 ? Normal IOC ? MASTECTOMY, SIMPLE, COMPLETE ? 06/04/2009 ? right skin-sparing withSLND ? MASTECTOMY, SIMPLE, COMPLETE ? 06/04/2009 ? left skin-sparing prophylactic ? OVARIAN CYSTECTOMY ? 1997 ? Dr. Ayad Mahan ? PAST SURGICAL HISTORY OF ? 11/06/2011 ? bilateral nipple reconstruction and revision with fat injections ? 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 06/02/2010 ? Performed by NAYELI WERNER at [facility] ? TOTAL ABDOM HYSTERECTOMY ? 01/13/2010 ? Hysterectomy, CORRY w/ BSO ? TUNNEL VAD W SUB Q PORT >=5 ? ? Left Subclavian ? FAMILY HISTORY ? Hypertension Mother ? ? Diabetes Mother ? ? Breast Cancer Mother ? ? with metastasis ? Heart Mother 35 ? Lipids Mother ? ? Psychiatry Mother ? ? other (lung cancer) Mother ? ? metastasis to brain/breast ? Heart Father 45 ? Lipids Father ? ? Thyroid Father ? ? Seizures Father ? ? DUE TO MVA ? Cancer Maternal Grandmother ? ? ovarian ? other (polio) Maternal Grandmother ? ? Alzheimer's Disease Paternal Grandmother ? ? Breast Cancer Other ? ? maternal cousins ? Heart Brother 35 ? other (bone disease) Brother ? ? unsure type, degenerative ?? CURRENT MEDICATIONS ? SUMAtriptan (IMITREX) 100 mg tablet Take 1 tablet by mouth as needed for Migraine Headache (see administration instructions). 9 tablet 5 ? pantoprazole DR (PROTONIX) 40 mg tablet Take 1 tablet by mouth daily before breakfast. Take on empty stomach, 1/2 hr before meal. 30 tablet 0 ? ondansetron orally disintegrating (ZOFRAN ODT) 4 mg disintegrating tablet Take 1 tablet by mouth every 8 hours as needed for Nausea/Vomiting. 15 tablet 0 ? albuterol HFA (VENTOLIN HFA) 90 mcg/actuation inhaler Use 2 puffs 15-30 minutes prior to exercise. 1 Inhaler 3 ? DIPHENHYDRAMINE 12.5MG/5ML HYDROCORTISONE 10MG LIDOCAINE VISCOUS 2% NYSTATIN 180:12:30:30 ORAL SUSPENSION Take by mouth. Swish and spit every 2 hours as needed. (Patient not taking: Reported on 12/11/2019 ) 160 mL 0 ? naproxen (NAPROSYN) 500 mg tablet Take 1 tablet by mouth twice daily as needed (for pain/inflammation). Take with food. 60 tablet 3 ? nystatin (MYCOSTATIN, NILSTAT) 500,000 unit tab Take 2 tablets by mouth twice daily. (Patient not taking: Reported on 12/11/2019 ) 120 tablet 2 ? LYRICA 25 mg capsule Take 1 capsule by mouth twice daily for 30 days. 60 capsule 1 ? Glutagenics (Metagenics) Mix one teaspoon (4.33 g) with water three times daily (1 teaspoon = 3.5 grams L-glut) ? ? ? Digestive Enzymes Ultra 180 ct[address] (Pure Encapsulations) supports digestion of food 1-2 capsules with meals (Patient not taking: Reported on 10/17/2019 ) ? 0 ? Vitamin D3 Liquid (Pure Encapsulations) 5 drops per day, with meals ? 0 ? Magnesium Glycinate 120mg 3 at night Stress, blood sugar, thyroid/hormones/adrenals/sleep/energy/toxins/muscles/constipation/asthma 3 capsules with meals at night ? 0 ? cyanocobalamin, vitamin B-12, 2,000 mcg tab Take 1 tablet by mouth once daily. (Patient not taking: Reported on 10/17/2019 ) 90 tablet 3 ? LORazepam 0.5 mg tab Take 0.5-1 tablets by mouth twice daily as needed (anxiety). (Patient not taking: Reported on 10/17/2019) 60 tablet 1 ? fluticasone 50 mcg/actuation nasal spray Use 2 Sprays in each nostril once daily. Rinse mouth after use. (Patient not taking: Reported on 10/17/2019 ) 1 Bottle 11 ??? SOCIAL HISTORY: Patient is . She has never smoked. Willa reports her alcohol use as never. ? REVIEW OF SYSTEMS: GENERAL: No unplanned weight loss. RESPIRATORY: Negative for cough, hemoptysis, wheezing, COPD, dyspnea or shortness of breath CARDIOVASCULAR: Negative for chest pain, leg swelling, hypertension, CHF or palpitations. Has HLD. GI: The patient states that her appetite has been adequate. She does get hungry. There has been some nausea, no vomiting. She denies dysphagia and denies odynophagia. There has been indigestion with heartburn. There has not been regurgitation. Bowel habits have been irregular. There has been diarrhea. There has not been constipation. The patient denies rectal bleeding. There has not been melena. Intermittent abdominal pain that is located in the epigastric region and left lower quadrant. PLANNER CHIEF: Negative for abnormal vaginal bleeding, abnormal vaginal discharge. LMP: CORRY 2010. MUSCULOSKELETAL:Fibromyalgia. back pain when having LLQ pain. PSYCH: Negative for sleep disturbance, mood disorder and recent psychosocial stressors. HEMATOLOGY/LYMPHOLOGY Negative for prolonged bleeding, bruising easily or swollen nodes ENDOCRINE: No diabetes or thyroid NEURO: Migraine headaches All other reviewed and negative other than HPI. ? PHYSICAL EXAMINATION: General Appearance: Well appearing, alert, in no acute distress, well-hydrated, well nourished. Skin: Skin color normal. Head: Normocephalic, no obvious abnormalities. Eyes: Anicteric sclera. Pupils are equally round. Oropharynx: Lips, tongue and teeth normal. Neck: No obvious masses. Breathing easily and unlabored. Able to speak in complete sentences. Abdomen: Doesn't appear to be tender. Neurologic: Alert and oriented. Good judgement. Answers apporpriately. ? Impression: abdominal pain 2)dyspepsia 3)heartburn 4)bright red rectal bleeding ? Plan: The patient will be scheduled for an upper endoscopy as well as a colonoscopy. She will require MAC. Preparation for the procedures, using GoLytely as the laxative, have been explained in detail. The risks, benefits, anticipated outcomes and possible complications were mentioned, including including failure to complete the endoscopy and perforation. I explained the procedure in understandable terms and the patient was given printed material concerning the planned procedure. The patient had the opportunity to ask questions concerning the planned procedure. The patient freely consents to the planned procedure. ? The patient is encouraged to call with any questions or concerns, or should there be any change in health status between now and the scheduled procedure. ? ? Bita Sanchez RN BILINGUAL MEDICAL ASSISTANT.PARANORMAL INVESTIGATOR
--- NOTE | 2020-03-30 | COLBX_PTH ---
PATIENT: EBONIE SUN LOC: EN U#:[id number] AGE/SX: 39/F ROOM: RE03/30/[address]: Dr. Tamika Carson MD : [id number] BED: DIS: 03/30/2020 SPEC #: [id number] RECD: 03/30/20 14:36 STATUS: ARNOLDO REAmber #: [id number] DERRICK: 03/30/20 00:[address]: Tamika Carson DEPT: SURGICAL PATHOLOGY RECD BY: Eh Tena ENTERED: 03/31/20 08:45 SP TYPE: COLON BX OTHR DR: Dr. Jas Braun DO Tissues: A - Duodenum, NOS B - Gastric mucous membrane C - Gastric mucous membrane Procedures: Special Stain Group II Surgery Specimen Level IV Alcian Blue/PAS (control) HEADER OPERATION: Colonoscopy, [place] [place] PRE-OP DIAGNOSIS: Abdominal pain, dyspepsia, heartburn, bright red rectal bleeding TISSUE SUBMITTED: A - Second portion duodenum biopsy, B - Antrum biopsy for histo and H. pylori, C - GE junction biopsy MICROSCOPIC DIAGNOSIS A. Second portion of duodenum, biopsy: No pathologic change. B. Gastric antrum, biopsy: Mild chronic gastritis. See comment. C. Gastroesophageal junction, biopsy: Fragments of benign squamous mucosa. No evidence of inflammation. No evidence of goblet cell metaplasia. See comment. AM:kristi 04/01/20 COMMENT B. The results of immunohistochemistry for Helicobacter pylori will be reported separately ([id number]). C. Alcian blue/PAS stain with matched control supports the above diagnosis. MICROSCOPIC DESCRIPTION Slides are reviewed. GROSS DESCRIPTION A - Received in fixative is one container labeled with the patient's name and designated second portion duodenum biopsy. The specimen consists of multiple irregular fragments of light rich soft tissue that in aggregate measure 0.5 x 0.2 x 0.1 cm. The specimen is totally submitted in one cassette. B - Received in fixative is one container labeled with the patient's name and designated antrum biopsy. The specimen consists of one irregular fragment of light rich soft tissue that measures 0.2 x 0.1 x 0.1 cm. The specimen is totally submitted in one cassette. C - Received in fixative is one container labeled with the patient's name and designated GE junction biopsy. The specimen consists of one irregular fragment of light rich soft tissue that measures 0.3 x 0.1 x 0.1 cm. The specimen is totally submitted in one cassette. / SJ:rg 03/31/20 TC:3 CPT: 45019 x3, 25043
[2020-03-30 11:49] VITALS: BP 98/69; PULSE 90; RESP 15; TEMP 36.7; O2SAT 97; BMI 35.9
[2020-03-30] MEDS: Lactated Ringers 1,000 ML 100 ML IV (12:02)
--- NOTE | 2020-03-30 12:35 | IMM_PTH ---
PATIENT: EBONIE SUN LOC: EN U#:[id number] AGE/SX: 39/F ROOM: RE03/30/[address]: Dr. Tamika Carson MD : 1980 BED: DIS: 03/30/2020 SPEC #: [id number] RECD: 03/31/20 09:33 STATUS: ARNOLDO REQ #: [id number] DERRICK: 03/30/20 12:[address]: Tamika Carson DEPT: IMMUNOHISTOCHEMISTRY RECD BY: Macey Pizano ENTERED: 03/31/20 09:34 SP TYPE: IMMUNO OTHR DR: Dr. Jas Braun DO Tissues: B - Stomach, NOS Procedures: H Pylori (initial) PHYSICIAN & INSTITUTION [place] [id number] SPECIMEN INFORMATION: Tissue Source: B - Antrum biopsy Clinical Info: Abdominal pain, dyspepsia, heartburn, bright red rectal bleeding Specimen Number: [id number] CPT code: 71985 METHODOLOGY: Deparaffinized sections of prefer/formalin-fixed tissue or PAP/DQ stained slides are incubated with monoclonal/polyclonal antibodies/oligonucleotide probes. Localization is made via biotin free immunoperoxidase method. Appropriate controls are performed and reacted as expected. Results on target cell population are indicated in the following table: RESULTS: ANTIBODY / CLONE RESULT Block B H Pylori (polyclonal) negative These tests were developed and their performance characteristics determined by [facility]. They may not have been cleared or approved by the U.S. Food and Drug Administration. The FDA has determined that such clearance or approval is not necessary. INTERPRETATION: B. Antrum, biopsy: Negative for Helicobacter pylori organisms. AM:kristi 04/02/20
[2020-03-30 13:30] VITALS: BP 114/73; BP 98/69; PULSE 77; RESP 16; TEMP 36.4; O2SAT 97
[2020-03-30 13:35] VITALS: BP 106/75; BP 98/69; PULSE 75; RESP 16; O2SAT 98
[2020-03-30 13:40] VITALS: BP 110/73; BP 122/70; BP 98/69; PULSE 76; RESP 16; O2SAT 98; O2SAT 99
--- NOTE | 2020-03-30 13:42 | OP.EGD_ITS ---
Patient Name: Willa Ortiz Procedure Date: 03/30/2020 12:52 PM Date of : 1980 Age: 39 Procedure: Upper GI endoscopy Indications: Generalized abdominal pain Providers: Tamika Carson MD Referring MD: Jas Braun Medicines: See the Anesthesia note for documentation of the administered medications Patient Profile: Refer to note in patient chart for documentation of history and physical. Complications: No immediate complications. Estimated blood loss: None. Procedure: Pre-Anesthesia Assessment: - see anesthesia note - see anesthesia note After obtaining informed consent, the endoscope was passed under direct vision. Throughout the procedure, the patient's blood pressure, pulse, and oxygen saturations were monitored continuously. The Endoscope was introduced through the mouth, and advanced to the second part of duodenum. The upper GI endoscopy was accomplished without difficulty. The patient tolerated the procedure well. Scope In: 1:00:58 PM Scope Out: 1:07:28 PM Total Procedure Duration Time 0 hours 6 minutes 30 seconds Findings: The first portion of the duodenum and second portion of the duodenum were normal. Biopsies for histology were taken with a cold forceps for evaluation of celiac disease. Mild inflammation was found in the gastric antrum - radial erythematous streaking. Biopsies were taken with a cold forceps for histology. Verification of patient identification for the specimen was done. Estimated blood loss was minimal. Probable bile gastritis as retained bile was noted in stomach. The Z-line was irregular. Hiatal hernia was noted Biopsies were taken with a cold forceps for histology. Verification of patient identification for the specimen was done by the nurse. Estimated blood loss was minimal. Impression: - Normal first portion of the duodenum and second portion of the duodenum. Biopsied. - Gastritis. Biopsied. - Z-line irregular. Biopsied. Recommendation: - Discharge patient to home (ambulatory). - Resume previous diet. - Continue present medications. - Await pathology results. - My office will telephone with pathology results in 1-2 weeks Procedure Code(s): --- Professional --- 19662, Esophagogastroduodenoscopy, flexible, transoral; with biopsy, single or multiple Diagnosis Code(s): --- Professional --- K29.70, Gastritis, unspecified, without bleeding K22.8, Other specified diseases of esophagus R10.84, Generalized abdominal pain CPT copyright 2017 [employer]. All rights reserved. The codes documented in this report are preliminary and upon remote medical coder review may be revised to meet current compliance requirements. MD Tamika Scott MD 03/30/2020 1:42:24 PM This report has been signed electronically. Number of Addenda: 0 Note Initiated On: 03/30/2020 12:52 PM
--- NOTE | 2020-03-30 13:43 | OP.CCLET_ITS ---
03/30/2020 Jas Braun [address] [place] [phone] Re : Upper GI endoscopy procedure for Willa Ortiz Dear Dr. Braun This procedure was performed on Monday, March 30, 2020. My impressions and recommendations are as follows: Impressions : - Normal first portion of the duodenum and second portion of the duodenum. Biopsied. - Gastritis. Biopsied. - Z-line irregular. Biopsied. Recommendations : - Discharge patient to home (ambulatory). - Resume previous diet. - Continue present medications. - Await pathology results. - My office will telephone with pathology results in 1-2 weeks My findings are described in the full procedure note, which is enclosed. If I can be of further assistance, please feel free to contact me at Doctor phone number(s): , Work: . Sincerely, MD Tamika Scott MD 03/30/2020 1:42:24 PM This report has been signed electronically.
--- NOTE | 2020-03-30 13:44 | OP.COLON_ITS ---
Patient Name: Willa Ortiz Procedure Date: 03/30/2020 1:07 PM Date of : 1980 Age: 39 Procedure: Colonoscopy Indications: Generalized abdominal pain, Rectal bleeding Providers: Tamika Carson MD Referring MD: Jas Braun Medicines: See the Anesthesia note for documentation of the administered medications Patient Profile: Refer to note in patient chart for documentation of history and physical. Last Colonoscopy: none. The patient's first colonoscopy is today. Complications: No immediate complications. Procedure: Pre-Anesthesia Assessment: - see anesthesia note - see anesthesia note After I obtained informed consent, the scope was passed under direct vision. Throughout the procedure, the patient's blood pressure, pulse, and oxygen saturations were monitored continuously. The Colonoscope was introduced through the anus and advanced to the cecum, identified by the appendiceal orifice, ileocecal valve and palpation. The colonoscopy was performed without difficulty. The patient tolerated the procedure well. The quality of the bowel preparation was adequate. Scope In: 1:10:04 PM Scope Withdrawal Time 0 hours 6 minutes 21 seconds Scope Out: 1:23:08 PM Total Procedure Duration Time 0 hours 13 minutes 4 seconds Findings: The perianal and digital rectal examinations were normal. Pertinent negatives include normal sphincter tone. A few small-mouthed diverticula were found in the sigmoid colon. Non-bleeding internal hemorrhoids were found. Impression: - Diverticulosis in the sigmoid colon. - Non-bleeding internal hemorrhoids. - No specimens collected. Recommendation: - Repeat colonoscopy as per ACS guidelines for screening for colon cancer. - Return to primary care physician PRN. - Continue present medications. Procedure Code(s): --- Professional --- 21682, Colonoscopy, flexible; diagnostic, including collection of specimen(s) by brushing or washing, when performed (separate procedure) Diagnosis Code(s): --- Professional --- K64.8, Other hemorrhoids R10.84, Generalized abdominal pain K62.5, Hemorrhage of anus and rectum K57.30, Diverticulosis of large intestine without perforation or abscess without bleeding CPT copyright 2017 [employer]. All rights reserved. The codes documented in this report are preliminary and upon pail tester review may be revised to meet current compliance requirements. MD Tamika Scott MD 03/30/2020 1:44:15 PM This report has been signed electronically. Number of Addenda: 0 Note Initiated On: 03/30/2020 1:07 PM
--- NOTE | 2020-03-30 13:44 | OP.CCLET_ITS ---
03/30/2020 Jas Braun [address] [place] [address] Re : Colonoscopy procedure for Willa Ortiz Dear Dr. Braun This procedure was performed on Monday, March 30, 2020. My impressions and recommendations are as follows: Impressions : - Diverticulosis in the sigmoid colon. - Non-bleeding internal hemorrhoids. - No specimens collected. Recommendations : - Repeat colonoscopy as per ACS guidelines for screening for colon cancer. - Return to primary care physician PRN. - Continue present medications. My findings are described in the full procedure note, which is enclosed. If I can be of further assistance, please feel free to contact me at Doctor phone number(s): , Work: . Sincerely, MD Tamika Scott MD 03/30/2020 1:44:15 PM This report has been signed electronically.
[2020-03-30 13:45] VITALS: BP 103/66; BP 98/69; PULSE 77; RESP 16; TEMP 36.1; O2SAT 99
[2020-03-30 14:11] VITALS: BP 98/69
== END 2020-03-30 14:13 | disposition home or self-care (01) ==
LOC: EN 11:27 → AC 11:27
PROVIDERS: Anesthesiology; PCP Student in an Organized Health Care Education/Training Program; Referring Provider Student in an Organized Health Care Education/Training Program; Visit Provider Surgery
PROC: 0DJD8ZZ Inspection of Lower Intestinal Tract, Via Natural or Artificial Opening Endoscopic (ICD-10-PCS; CPT 45378; principal; 2020-03-30 12:30)
DX: K29.50 Unspecified chronic gastritis without bleeding (principal); K57.30 Diverticulosis of large intestine without perforation or abscess without bleeding; K64.8 Other hemorrhoids; K44.9 Diaphragmatic hernia without obstruction or gangrene; E78.5 Hyperlipidemia, unspecified; M79.7 Fibromyalgia; J45.909 Unspecified asthma, uncomplicated; K21.9 Gastro-esophageal reflux disease without esophagitis; F41.9 Anxiety disorder, unspecified; G43.909 Migraine, unspecified, not intractable, without status migrainosus; Z11.59 Encounter for screening for other viral diseases; Z85.3 Personal history of malignant neoplasm of breast; Z79.51 Long term (current) use of inhaled steroids; Z79.899 Other long term (current) drug therapy
CPT/HCPCS: 43239; 45380; 87635; 88305; 88313; 88342; J7050; J7120; U0003

== ENCOUNTER 2020-04-29 08:17 | Emergency (ER) | payer OTHER, SELFPAY ==
[2020-04-29 08:21] VITALS: BP 120/84; PULSE 77; RESP 16; TEMP 36.3; O2SAT 97; BMI 36.0
--- NOTE | 2020-04-29 08:57 | CT_ITS ---
STUDY: CT ABDOMEN AND PELVIS WITHOUT CONTRAST REASON FOR EXAM: Female, 39 years old. MUSCLE SPASMS ALL OVER, STARTED A NEW MED FOR GERD, HX-CHRONIC GASTRO ISSUES, ASTHMA, HX-BREAST CA WITH MASTECTOMY AND CHEMO, SURG-TOTAL HYSTERECTOMY, , LAPAROSCOPIC, D/C, GB, MASTECTOMY RADIATION DOSAGE (If Supplied By Facility): CTDIvol = ( 18.96 ) mGy, DLP = ( 956.61 ) mGycm TECHNIQUE: Transaxial images were obtained from the dome of the diaphragm to the symphysis pubis without oral contrast, and without intravenous contrast. Sagittal and coronal images were reconstructed. Individualized dose optimization techniques were used for this CT. COMPARISON: Comparison is made with prior examination dated 09/03/2017. FINDINGS: The visualized lung bases are unremarkable. The patient is status post bilateral mastectomy and bilateral implant insertion. The visualized portions of the heart are within normal limits. Normal liver. The patient is status post cholecystectomy. Normal spleen. Normal pancreas. Normal bilateral adrenal glands. Normal right kidney. Normal left kidney. Normal visualized stomach. Normal small intestine. There are scattered colonic diverticula consistent with diverticulosis. The appendix is visualized and appears normal. Normal abdominal aorta. Normal inferior vena cava. Normal retroperitoneum. Normal urinary bladder. There is absence of the uterus consistent with a prior hysterectomy. Normal abdominal wall. Loss of the normal lumbar lordosis. CT/Abdomen/Pelvis without Cont IMPRESSION: No acute abnormality is seen. Stable examination. Electronically Signed: Pawel Jon, at 9:52 EDT , Service support ,
[2020-04-29] MEDS: Morphine 4 MG/ML Syringe IV (09:17)
[2020-04-29] MEDS: Ondansetron 4 MG/2 ML Vial IV (09:18)
[2020-04-29] MEDS: 0.9% Normal Saline 1,000 ML 125 ML IV (09:18)
--- NOTE | 2020-04-29 09:21 | ED.RN ---
pt reports spasms are all over cant pinpoit. mostly neck arms and shoulders but does it in chest and hands and everywhere
[2020-04-29 09:24] LABS: Absolute Lymphocyte Count 2.58 X10^3/uL (0.83-4.51); Absolute Neutrophil Count 3.2 X10^3/uL (2.0-7.7); Basophil# 0.05 X10^3/uL; Basophil% 0.8 % (0-1); Eosinophil# 0.33 X10^3/uL; Eosinophils% 5.1 % (0-5); Hematocrit 41.8 % (37-47); Hemoglobin 13.3 g/dL (12.0-15.0); Lymphocyte # 2.58 X10^3/ul (4.0); Lymphocyte % 39.8 % (19-41); Mean Corp Hgb Conc 31.8 g/dL (32-36); Mean Corpuscular Hgb 27.1 pg (27.0-32.0); Mean Corpuscular Volume 85.3 fL (81-99); Mean Platelet Vol. 9.5 fl (6.2-12.0); Monocyte# 0.31 X10^3/uL; Monocyte% 4.8 % (0-10); NRBC Flagged by Analyzer 0 % (0-5); Neutrophil % 49.2 % (47-70); Platelet Count 258 K/mm3 (150-450); RBC Distribution Width SD 39.7 fl (35.1-43.9); White Blood Count 6.5 K/mm3 (4.4-11.0)
[2020-04-29 09:42] LABS: ALB/GLOB Ratio 0.9 RATIO (0.9-2.4); AST(SGOT) 39 U/L (15-37); Alanine Aminotransfer ALT/SGPT 20 U/L (13-56); Albumin, Serum 3.7 g/dL (3.2-5.0); Alkaline Phosphatase 118 U/L (45-117); Anion Gap 2 (5-15); BUN 14 mg/dL (7-18); BUN/Creat Ratio 14.4 RATIO (10-20); Calcium,Total 8.5 mg/dL (8.5-10.1); Chloride 107 mmol/L (98-107); Creatinine, Serum 0.97 mg/dL (0.55-1.02); EST Glomerular Filtration Rate 68 mL/min (>60); Est Glom Filt Rate - Afr Amer 82 mL/min (>60); Estimated Creatinine Clearance 67.91 ml/min; Globulin 3.9 g/dL (2.2-4.2); Glucose 96 mg/dL (74-106); Lipase 106 U/L (73-393); Potassium 5.9 mmol/L (3.5-5.1); Protein, Total 7.6 g/dL (6.4-8.2); Sodium Level 137 mmol/L (136-145)
[2020-04-29 09:48] LABS: Mucous, Urine 0 SEEN /hpf (<or=2+)
[2020-04-29 10:00] LABS: Color, Urine Straw (Yellow); Glucose, Dipstick Normal (Normal); Ketone-Dipstick Negative (Negative); Leukocyte Esterase-Dipstick Negative /ul (Negative); Nitrite-Dipstick Negative (Negative); Occult Blood-Urine Negative /ul (Negative); Protein-Dipstick Negative (Negative); Specific Gravity, Urine 1.015 (1.002-1.030); Urine Bilirubin Dipstick Negative (Negative); Urine Clarity Clear (Clear); Urine Urobilinogen Normal (Normal); Urine pH 6.5 (5.0 - 8.0)
[2020-04-29 10:13] LABS: Bacteria RARE /hpf (None Seen); Red Blood Cells-Urine 0 SEEN /hpf (0-5); Squamous Epithelial Cells - UA 0-5 SEEN /hpf (5-10); White Blood Cells 0 SEEN /hpf (0-5)
--- NOTE | 2020-04-29 10:44 | ED.VISSUMM ---
- ER Visit Summary Date of Service: 04/29/20 Chief Complaint: [Abdominal pain] History of Present Illness: The patient is a 39 F [presents the emergency department with abdominal pain and muscle spasms throughout her body that started yesterday. Patient is complaining of nausea. She has had some mild dysuria. Patient also has had a mild sore throat for a couple days which she states she gets frequently. She is had no fever or cough. No exposures to anybody with COVID-19. Patient states that she has been having some abdominal discomfort for some time and 2 weeks ago had a EGD and colonoscopy which were unremarkable. Patient has questionable history of IBS. She has history of breast cancer, history of migraines, and history of fibromyalgia.] Physical Examination: [HEENT-PERRLA, EOMI. Cranial nerves II through XII grossly intact. TMs clear. Mucous membranes moist. No adenopathy. Cardiovascular-regular rate and rhythm without murmur or ectopy Lungs-clear to auscultation, chest wall stable without crepitus or subcu emphysema Abdomen-normoactive bowel sounds, soft. Patient has tenderness palpation over left lower quadrant with some guarding. There is no rebound, rigidity, or peritoneal signs. Extremities-intact ?4, normal range of motion, normal pulses, atraumatic] Test Results: [CBC with differential obtained was unremarkable. Chemistries unremarkable other than a slightly elevated potassium of 5.9 with a note indicating that there was moderate hemolysis also noted which could falsely elevate the potassium. Patient had normal LFTs as well as normal lipase. Urinalysis was normal. CT flank showed nothing acute.] Emergency Department Course and Treatment: [She was given 4 mg of morphine and 4 mg of Zofran she had good pain relief with that.] Treatment Plan: [We will be given a prescription for Flexeril and a few [place] for pain.] Disposition: [Discharged home in stable condition] Impression: [Abdominal pain-etiology uncertain Muscle spasms ] This note was generated with [employer] dictation software. It may contain incorrect words, spelling, and punctuation that were not noted in review of the chart prior to signing ED Disposition - Plan for ED Patient: Referrals: Jas Braun DO [Primary Care Provider] -
--- NOTE | 2020-04-29 10:46 | DCINST.ED_ITS ---
ED Disposition - Plan for ED Patient: Instructions: ED Abdominal Pain Unkn Cause Fem Prescriptions: cycloBENZAPRine HCl [Flexeril] 10 mg PO TID PRN #20 tab PRN Reason: Muscle Spasm Transmission Status: Pending to [facility]30 Referrals: Jas Braun DO [Primary Care Provider] - 3-5 Days
[2020-04-29 11:04] VITALS: BP 105/65; PULSE 66; RESP 16; O2SAT 97
== END 2020-04-29 11:05 | disposition home or self-care (01) ==
PROVIDERS: Emergency Provider Emergency Medicine; PCP Student in an Organized Health Care Education/Training Program
DX: M62.838 Other muscle spasm (principal); R10.30 Lower abdominal pain, unspecified; M79.7 Fibromyalgia; Z85.3 Personal history of malignant neoplasm of breast
CPT/HCPCS: 74176; 80053; 81001; 83690; 85025; 96361; 96374; 96375; 99284; J7030; J2405

== ENCOUNTER → 2020-05-31 | Outpatient (CLI) | payer OTHER, SELFPAY ==
--- NOTE | 2020-05-31 09:56 | RAD_ITS ---
STUDY: X-RAY - PELVIS REASON FOR EXAM: Female, 40 years old. BILATERAL HIP PAIN, NO INJURY TECHNIQUE: One view of the pelvis was obtained. COMPARISON: None. FINDINGS: There is a non-specific bowel gas pattern. Normal visualized soft tissue structures. Normal bilateral iliac wings, sacroiliac joints and visualized sacrum. Normal visualized bilateral superior and inferior pubic rami. Normal pubic symphysis. Normal ischial tuberosities. Normal visualized right femoral head. Normal right acetabulum. Normal right hip joint. Normal visualized left femoral head. Normal left acetabulum. Normal left hip joint. RAD/Pelvis 1 or 2 Views IMPRESSION: Normal x-ray examination of the pelvis. Electronically Signed: Marine Gregorio, at 14:10 EDT Tel , Service support ,
[2020-05-31 12:12] LABS: Erythrocyte Sedimentation Rate 14 mm/hr (0-20)
[2020-05-31 12:17] LABS: Absolute Lymphocyte Count 2.75 X10^3/uL (0.83-4.51); Absolute Neutrophil Count 3.4 X10^3/uL (2.0-7.7); Basophil# 0.05 X10^3/uL; Basophil% 0.7 % (0-1); Eosinophil# 0.37 X10^3/uL; Eosinophils% 5.4 % (0-5); Hematocrit 40.9 % (37-47); Hemoglobin 13.5 g/dL (12.0-15.0); Lymphocyte # 2.75 X10^3/ul (4.0); Lymphocyte % 40.1 % (19-41); Mean Platelet Vol. 10.1 fl (6.2-12.0); Monocyte# 0.26 X10^3/uL; Monocyte% 3.8 % (0-10); NRBC Flagged by Analyzer 0 % (0-5); Neutrophil # 3.39 X10^3/uL (2.7-7.7); Neutrophil % 49.4 % (47-70); Platelet Count 245 K/mm3 (150-450); RBC Distribution Width SD 41.9 fl (35.1-43.9); Red Blood Count 4.65 M/mm3 (4.2-5.4); White Blood Count 6.9 K/mm3 (4.4-11.0)
[2020-05-31 12:34] LABS: AST(SGOT) 21 U/L (15-37); Alanine Aminotransfer ALT/SGPT 24 U/L (13-56); Albumin, Serum 3.9 g/dL (3.2-5.0); Alkaline Phosphatase 122 U/L (45-117); Anion Gap 6 (5-15); BUN 15 mg/dL (7-18); Calcium,Total 9.2 mg/dL (8.5-10.1); Chloride 103 mmol/L (98-107); Creatinine, Serum 0.83 mg/dL (0.55-1.02); EST Glomerular Filtration Rate 81 mL/min (>60); Est Glom Filt Rate - Afr Amer 98 mL/min (>60); Globulin 4.1 g/dL (2.2-4.2); Glucose 89 mg/dL (74-106); Potassium 3.5 mmol/L (3.5-5.1); Rheumatoid Factor < 10.0 IU/mL (<15); Sodium Level 137 mmol/L (136-145)
[2020-06-01 17:13] LABS: ANTINUCLEAR ANTIBODIES DIRECT Negative (Negative)
[2020-06-02 09:42] LABS: Hepatitis B Surface Antibody Non-Reactive; Hepatitis B Surface Antigen Non-Reactive (Nonreactive); Hepatitis C Antibody Non-Reactive (Nonreactive)
[2020-06-07 18:03] LABS: CCP IgG Antibodies 5 units (0-19); HLA B27 Negative (.); Hepatitis B Core AB IgM Negative (Negative)
== END | disposition home or self-care (01) ==
PROVIDERS: PCP Student in an Organized Health Care Education/Training Program; Referring Provider Internal Medicine Rheumatology; Visit Provider Internal Medicine Rheumatology
DX: M06.4 Inflammatory polyarthropathy (principal); M79.7 Fibromyalgia; N30.10 Interstitial cystitis (chronic) without hematuria; J45.990 Exercise induced bronchospasm; G43.909 Migraine, unspecified, not intractable, without status migrainosus; F34.1 Dysthymic disorder; Z85.3 Personal history of malignant neoplasm of breast; Z15.09 Genetic susceptibility to other malignant neoplasm; Z15.01 Genetic susceptibility to malignant neoplasm of breast
CPT/HCPCS: 36415; 72170; 80053; 81374; 85025; 85652; 86038; 86140; 86200; 86431; 86705; 86706; 86803; 87340

== ENCOUNTER → 2020-06-22 10:43 | Outpatient (CLI) | payer OTHER, SELFPAY | PROVIDERS: PCP Student in an Organized Health Care Education/Training Program; Referring Provider Physician Assistant; Visit Provider Physician Assistant | DX: U07.1 COVID-19 (principal) | CPT/HCPCS: 87635; C9803; U0003 ==

== ENCOUNTER 2020-07-08 12:55 | Emergency (ER) | payer OTHER, SELFPAY ==
[2020-07-08 12:56] VITALS: BP 126/77; PULSE 114; RESP 24; TEMP 36.4; O2SAT 97; BMI 36.0
--- NOTE | 2020-07-08 13:09 | EKG12_ITS ---
Test Reason : Blood Pressure : / mmHG Vent. Rate : 098 BPM Atrial Rate : 098 BPM P-R Int : 148 ms QRS Dur : 076 ms QT Int : 350 ms P-R-T Axes : 068 067 075 degrees QTc Int : 446 ms Normal sinus rhythm Normal ECG Confirmed by SHANTAL FORD, DONNA ([id number]), drill setup operator JELENA LU ([id number]) on 07/09/2020 11:09:01 AM Referred By: BART Confirmed By:DONNA MURGUIA MD
[2020-07-08 13:22] VITALS: O2SAT 96
--- NOTE | 2020-07-08 13:40 | ED.VIS.GEN ---
History of Present Illness Chief Complaint: Shortness of Breath Informant: Patient Narrative: Patient is a 40-year-old female who presents to the emergency department for cough, shortness of breath and wheezing. She was diagnosed with coronavirus 3 weeks ago. She states that she started to improve but over the past week she got worse again. Her daughter started to have symptoms as well. Denies any fevers or chills. She has been using her home albuterol inhalers which has not been giving her significant relief. Her cough has been dry. She got nauseous yesterday but no episodes of vomiting. No change in bowel habits. No urinary symptoms. No leg swelling or calf pain. No chest pain. She denies a smoking history. She did not undergo any previous treatment over the past 3 weeks. Past Medical History - Allergies and Home Meds Allergies/Adverse Reactions: Allergies alprazolam [From Xanax] Allergy (Verified 07/08/20 12:56) Unknown amoxicillin Allergy (Verified 07/08/20 12:56) Itching bupropion HCl [From Wellbutrin] Allergy (Verified 07/08/20 12:56) Unknown citalopram hydrobromide [From Celexa] Allergy (Verified 07/08/20 12:56) Unknown doxycycline Allergy (Verified 07/08/20 12:56) Unknown duloxetine [From Cymbalta] Allergy (Verified 07/08/20 12:56) Mucosal lesions fluoxetine HCl [From Prozac] Allergy (Verified 07/08/20 12:56) Unknown levomilnacipran HCl [From Fetzima] Allergy (Verified 07/08/20 12:56) Unknown lorazepam [From Ativan] Allergy (Verified 07/08/20 12:56) Unknown nitrofurantoin macrocrystalline [From Macrodantin] Allergy (Verified 07/08/20 12:56) Unknown prochlorperazine edisylate [From Compazine] Allergy (Verified 07/08/20 12:56) Unknown prochlorperazine maleate [From Compazine] Allergy (Verified 07/08/20 12:56) Unknown pseudoephedrine HCl [From Sudafed] Allergy (Verified 07/08/20 12:56) Unknown quetiapine [From Seroquel] Allergy (Verified 07/08/20 12:56) Other MUSCLE SPASMS sertraline HCl [From Zoloft] Allergy (Verified 07/08/20 12:56) Unknown acetaminophen [From Vicodin] Adverse Reaction (Verified 11 12:56) Itching fentanyl Adverse Reaction (Verified 07/08/20 12:56) HALLUCINATIONS hydrocodone bitartrate [From Vicodin] Adverse Reaction (Verified 11 12:56) Itching oxycodone Adverse Reaction (Verified 07/08/20 12:56) FLUSHED/HOT SLEEPY oxycodone HCl [From Percocet] Adverse Reaction (Verified 07/08/20 12:56) Unknown SLEEPY paliperidone [From Invega] Adverse Reaction (Verified 11 12:56) Other MUSCLE SPASMS risperidone [From Risperdal] Adverse Reaction (Verified 11 12:56) Other WATER GAIN AND MUSCLE SPASMS tramadol [From Ultram] Adverse Reaction (Verified 11 12:56) Other Primary Care Physician: Jas Braun DO [Primary Care Provider] - 2 Days Prior records reviewed: Yes Past Medical History: - - Induced asthma, RA, fibromyalgia Surgical History: cholecystectomy, hysterectomy - Bilateral oopherectomy., mastectomy - Bilateral with breast reconstruction, - - Smoking Status: Never smoker - Family History Maternal Family History: Reports: Cancer - Breast, lung, Diabetes Paternal Family History: Reports: Heart Disease Review of Systems All systems negative except as indicated General: Denies: Chills, Fever, Sweats Eyes: Denies: Visual changes - bilaterally, Diplopia ENT: Denies: Rhinorrhea, Sore throat Cardiovascular: Denies: Chest pain, Palpitations Respiratory: Reports: Dyspnea, Cough. Denies: Sputum Gastrointestinal: Reports: Nausea. Denies: Abdominal pain, Vomiting, Diarrhea, Melena, Hematochezia Genitourinary: Denies: Dysuria, Hematuria, Frequency Musculoskeletal: Denies: Back pain, Extremity Pain Skin: Denies: Rash, Wounds Neurological: Denies: Headache, Weakness, Numbness Physical Exam Vital Signs/Narrative: Vital Signs Temp Pulse Resp BP Pulse Ox 07/08/20 12:56 97.5 F L 114 H 24 H 126/77 H 97 Inital Vital Signs reviewed: Yes General: Well nourished, Well developed, No Acute Distress Head: Normocephalic, Atraumatic Eyes: Perrl, EOMI ENT: Moist mucous membranes, No rhinorrhea Neck: Supple, Nontender Cardiovascular: Regular rhythm, No murmurs, Tachycardia Respiratory: No distress, Wheezing, Diminished, - - Tachypnea Abdomen: Soft, Nontender, Nondistended, Normal bowel sounds Back: Nontender, Normal Inspection Extremities: Nontender, No edema. Negative for: Calf Tenderness Skin: Normal color, No rash Neurological: Alert, Oriented x3, Cranial nerves II-XII grossly intact, Normal Strength, Normal Sensation Psychological: Normal affect, Normal Mood Diagnostic/Tx/Re-eval - EKG Initial EKG Interpretation: - - Rate of 98 bpm and normal sinus rhythm. Normal intervals. Normal axis. No ST elevations or depressions appreciated. No T wave abnormalities. - Medical Decision Making Patient presents to the emergency department for shortness of breath, wheezing with a cough. On physical exam she has diminished breath sounds bilaterally with wheezing on expiration. Will trial a DuoNeb breathing treatment. Basic lab work being obtained along with chest x-ray. Patient symptoms do not fit with pulmonary embolism given the fact she has wheezing, viral URI. Patient is feeling much better after DuoNeb breathing treatment. Her breathing has improved. X-ray did not show any signs of acute consolidation. Lab work did not reveal any significant acute abnormality. No elevated white blood cell count. Troponin within normal limits. She does feel comfortable going home at this time. Recommend getting a pulse oximeter to evaluate her oxygen saturation at home. She is to follow-up with her PCP and actually has an appointment tomorrow. Warning signs and symptoms for which to return to the emerge department including any worsening shortness of breath are reviewed. She understands and is agreeable this plan. All questions answered. ED Disposition - Plan for ED Patient: Disposition: Home or Assisted Living Diagnosis: Dyspnea, Wheezing Instructions: ED REACTIVE AIRWAY DISEASE Adult, ED Dyspnea, ED URI Viral Referrals: Jas Branu DO [Primary Care Provider] - 2 Days
--- NOTE | 2020-07-08 14:04 | RAD_ITS ---
STUDY: X-RAY CHEST REASON FOR EXAM: Female, 40 years old. SICK x3 WEEKS, DIAGNOSED WITH COVID 2 WEEKS AGO, WORSENING COUGH, SOB AND NAUSEA TECHNIQUE: Single AP portable view of the chest. COMPARISON: Comparison is made with prior study dated 08/29/2017. FINDINGS: EKG electrodes are seen. Mild elevation of the right hemidiaphragm. The lungs are clear. There is no demonstrated pleural abnormality. Normal size heart. Normal mediastinum and marco. Normal visualized pulmonary arteries. Normal visualized aortic arch and descending thoracic aorta. Normal visualized thoracic spine. Normal visualized ribs, clavicles, and shoulders. There is no demonstrated abnormality of the visualized soft tissue structures of the upper abdomen. RAD/Chest 1 View (Portable) IMPRESSION: Normal x-ray examination of the chest. Electronically Signed: Pawel Jon, at 14:47 EST , Service support ,
[2020-07-08 14:05] VITALS: PULSE 102; RESP 21
[2020-07-08] MEDS: Ipratropium/Albuterol Sulfate 3 ML AMPUL.NEB INHALATION (14:05)
[2020-07-08 14:55] LABS: Absolute Lymphocyte Count 3.22 X10^3/uL (0.83-4.51); Absolute Neutrophil Count 4.8 X10^3/uL (2.0-7.7); Basophil# 0.03 X10^3/uL; Basophil% 0.3 % (0-1); Eosinophil# 0.39 X10^3/uL; Eosinophils% 4.4 % (0-5); Hematocrit 41.6 % (37-47); Lymphocyte # 3.22 X10^3/ul (4.0); Lymphocyte % 36.4 % (19-41); Mean Corp Hgb Conc 31.3 g/dL (32-36); Mean Corpuscular Hgb 26.9 pg (27.0-32.0); Mean Platelet Vol. 9.4 fl (6.2-12.0); Monocyte# 0.33 X10^3/uL; Monocyte% 3.7 % (0-10); NRBC Flagged by Analyzer 0 % (0-5); Neutrophil # 4.84 X10^3/uL (2.7-7.7); Neutrophil % 54.7 % (47-70); Platelet Count 239 K/mm3 (150-450); RBC Distribution Width CV 13.2 % (11.6-14.6); RBC Distribution Width SD 41.1 fl (35.1-43.9); Red Blood Count 4.84 M/mm3 (4.2-5.4); White Blood Count 8.9 K/mm3 (4.4-11.0)
[2020-07-08 15:07] VITALS: BP 117/80; PULSE 107; RESP 20; O2SAT 99
[2020-07-08 15:11] LABS: Anion Gap 2 (5-15); BUN 9 mg/dL (7-18); BUN/Creat Ratio 10.7 RATIO (10-20); Calcium,Total 8.8 mg/dL (8.5-10.1); Chloride 109 mmol/L (98-107); Creatinine, Serum 0.84 mg/dL (0.55-1.02); EST Glomerular Filtration Rate 80 mL/min (>60); Est Glom Filt Rate - Afr Amer 97 mL/min (>60); Estimated Creatinine Clearance 77.65 ml/min; Glucose 119 mg/dL (74-106); Potassium 3.9 mmol/L (3.5-5.1); Sodium Level 142 mmol/L (136-145)
[2020-07-08 15:36] VITALS: BP 137/89; PULSE 91; RESP 16; TEMP 36.6; O2SAT 94
== END 2020-07-08 15:37 | disposition home or self-care (01) ==
PROVIDERS: Emergency Provider Emergency Medicine; PCP Student in an Organized Health Care Education/Training Program
DX: R06.00 Dyspnea, unspecified (principal); R06.2 Wheezing; M06.9 Rheumatoid arthritis, unspecified; M79.7 Fibromyalgia
CPT/HCPCS: 36415; 71045; 80048; 84484; 85025; 93005; 94640; 99282

== ENCOUNTER 2020-07-08 19:04 | Inpatient (IN) | payer OTHER, SELFPAY ==
[2020-07-08] VITALS (10 sets, daily range): BP systolic 130–139; BP diastolic 61–103; PULSE 105–127; RESP 16–24; TEMP 36.2–36.6; O2SAT 95–99; BMI 36.0; BMI 37.0
[2020-07-08] MEDS: Ipratropium/Albuterol Sulfate 3 ML AMPUL.NEB INHALATION (19:49)
--- NOTE | 2020-07-08 20:06 | ED.VISSUMM ---
- ER Visit Summary Date of Service: 07/08/20 Chief Complaint: Dyspnea History of Present Illness: The patient is a 40 F who presents with dyspnea that became worse today. Patient was seen here earlier today and was given a DuoNeb treatment. Patient had lab work drawn earlier today as well which was all normal. Patient was discharged home. Patient states that tonight her breathing became worse. Patient states she feels some tightness in her chest. Patient also admits to some burning in her chest. Patient states it is worse with any moving or talking. Patient states nothing seems to help. Patient states she has been taking her inhalers without any improvement. Patient recently tested positive for COVID-19 on 06/22/2020. Physical Examination: Vital signs are stable except for tachycardia of 124 and tachypnea of 24. Patient is afebrile. Patient is in no acute distress. Pulse ox was 95% on room air. Oral mucosa is pink and moist. Neck is supple. Trachea is midline. There is no JVD. Heart was regular and tachycardic. Lungs showed diffuse expiratory wheezing. There is good respiratory effort. There are no retractions noted. Abdomen is soft. Bowel sounds are normal. There is no tenderness. Cranial nerves II through XII are intact. There are no focal motor or sensory deficits. Test Results: CBC shows a mild leukocytosis of 12.3. Comprehensive metabolic profile was essentially within normal limits. D-dimer was elevated. Lactate was normal. Because of the elevated D-dimer, a CTA of the chest was obtained. There is no evidence of pulmonary embolism. There are small focal micronodular type infiltrates in the posterior right upper lobe and right middle lobe. There is minimal groundglass change of the lateral left lower lobe. There is bronchial thickening especially in the lower lobes with small peripheral bronchial occlusion bilaterally. These findings suggest a bronchitis/pneumonic process not commonly reported with COVID-19 pneumonia. This was interpreted by the radiologist and reviewed by myself. Emergency Department Course and Treatment: Patient was given a DuoNeb here initially. Because of the atypical findings on the CTA of the chest, the patient was covered with community-acquired pneumonia antibiotics, Rocephin and Zithromax. Patient was also given a dose of Decadron. Case was discussed with the hospitalist. He will admit the patient to his service. Patient understood and was agreeable with the plan. All questions were answered. Disposition: Admit to hospital Impression: 1. Pneumonia 2. COVID-19 3. Hypoxia This note was generated with [employer] dictation software. It may contain incorrect words, spelling, and punctuation that were not noted in review of the chart prior to signing ED Disposition - Plan for ED Patient: Disposition: Acute Care Hospital [facility] Diagnosis: Pneumonia, COVID-19, Hypoxia Referrals: Jas Braun DO [Primary Care Provider] -
--- NOTE | 2020-07-08 20:08 | CPS ---
Pt. was able to perform PEP correctly, and she was able to cough up a small amount of mucus up after using device twice.
[2020-07-08] MEDS: 0.9% Normal Saline 1,000 ML 1000 ML IV (20:15)
[2020-07-08 20:32] LABS: Absolute Neutrophil Count 7.8 X10^3/uL (2.0-7.7); Basophil# 0.04 X10^3/uL; Basophil% 0.3 % (0-1); Eosinophil# 0.42 X10^3/uL; Eosinophils% 3.4 % (0-5); Hemoglobin 12.7 g/dL (12.0-15.0); Lymphocyte % 29.2 % (19-41); Mean Corp Hgb Conc 30.2 g/dL (32-36); Mean Corpuscular Hgb 26.5 pg (27.0-32.0); Mean Corpuscular Volume 87.7 fL (81-99); Mean Platelet Vol. 9.4 fl (6.2-12.0); Monocyte# 0.46 X10^3/uL; Monocyte% 3.7 % (0-10); NRBC Flagged by Analyzer 0 % (0-5); Neutrophil # 7.75 X10^3/uL (2.7-7.7); Platelet Count 258 K/mm3 (150-450); RBC Distribution Width CV 13.2 % (11.6-14.6); RBC Distribution Width SD 42.5 fl (35.1-43.9); Red Blood Count 4.79 M/mm3 (4.2-5.4); White Blood Count 12.3 K/mm3 (4.4-11.0)
[2020-07-08 20:52] LABS: AST(SGOT) 21 U/L (15-37); Alanine Aminotransfer ALT/SGPT 20 U/L (13-56); Albumin, Serum 3.8 g/dL (3.2-5.0); Alkaline Phosphatase 122 U/L (45-117); Anion Gap 4 (5-15); BUN 9 mg/dL (7-18); BUN/Creat Ratio 10.6 RATIO (10-20); Calcium,Total 8.7 mg/dL (8.5-10.1); Chloride 108 mmol/L (98-107); Creatinine, Serum 0.85 mg/dL (0.55-1.02); EST Glomerular Filtration Rate 79 mL/min (>60); Est Glom Filt Rate - Afr Amer 96 mL/min (>60); Estimated Creatinine Clearance 76.73 ml/min; Globulin 3.9 g/dL (2.2-4.2); Glucose 97 mg/dL (74-106); Potassium 4.3 mmol/L (3.5-5.1); Protein, Total 7.7 g/dL (6.4-8.2); Sodium Level 142 mmol/L (136-145)
[2020-07-08 20:56] LABS: Lactic Acid 1.4 mmol/L (0.4-1.9)
--- NOTE | 2020-07-08 21:01 | ED.RN ---
PT PULSE OX 98% ON NASAL CANNULA 2L. PT INSISTED ON HAVING VENTI-MASK AND THIS NURSE EXPLAINED THAT THE PT DOES NOT REQUIRE VENTI MASK WITH ADEQUATE OXYGENATION ON NASAL CANNULA. PT CONTINUED TO INSIST ON HAVING VENTI MASK AND WAS APPLIED BY THIS NURSE. PULSE OX 99% ON VENTI MASK.
[2020-07-08 21:05] LABS: D-Dimer Quantitative (DVT/PE) 1.23 FEU/ug/m (0.27-0.49)
--- NOTE | 2020-07-08 21:06 | CT_ITS ---
STUDY: CTA CHEST REASON FOR EXAM: Female, 40 years old. SOB,COUGH,ELEVATED DDIMER,PT STATES + COVID 3 WEEKS AGO -- HX:GERD,BREAST CANCER WITH CHEMO AND MASECTOMIES RADIATION DOSAGE (If Supplied By Facility): CTDIvol = ( 15.57 ) mGy, DLP = ( 468.95 ) mGycm TECHNIQUE: The examination was performed with the intravenous administration of IV 100mL Isovue-370. Post-processing of the angiographic images was performed, with multiplanar reformation and 3D reconstruction. Individualized dose optimization techniques were used for this CT. COMPARISON: Portable chest radiograph 07/08/2020 FINDINGS: Status post mastectomy with bilateral breast implants. Normal enhancement of the main pulmonary artery and right and left pulmonary arteries. Normal enhancement of the bilateral peripheral pulmonary arteries. There is no demonstrated pulmonary embolism. Normal thoracic aorta and visualized great vessels. There is no demonstrated aortic dissection. Normal heart and pericardium. Normal mediastinum. Normal hilar regions. Small micronodular infiltrate in the posterior right upper lobe. Small micronodular infiltrate in the lateral right middle lobe. Minimal ground glass infiltrate in the lateral left lower lobe. There is bronchial thickening most notably in the lower lobes with occlusion of several peripheral bronchi bilaterally. Normal pleura. Negative for pleural effusion. Normal osseous structures. No acute findings in the upper most abdomen CT/CTA Chest W/WO Contrast IMPRESSION: Negative for pulmonary embolus. Normal thoracic aorta. Normal heart without pericardial effusion or coronary calcifications. Unremarkable mediastinum and hilar areas. Small focal micronodular type infiltrates in the posterior right upper lobe and right middle lobe. Minimal ground glass change of the lateral left lower lobe. Bronchial thickening especially in the lower lobes with small peripheral bronchial occlusion bilaterally. Findings suggest a bronchitis/pneumonic process not commonly reported with Covid 19 pneumonia. Negative for pleural effusion. Status post mastectomy with bilateral breast implants. No acute bone findings. No acute findings in the uppermost abdomen. Electronically Signed: Rebecca Garcia MD at 22:28 EST , Service support ,
[2020-07-08] MEDS: Albuterol 2.5 MG/3 ML VIAL.NEB. INHALATION (23:20)
[2020-07-08] MEDS: dexAMETHasone 10 MG/ML Vial IV (23:46)
--- NOTE | 2020-07-08 23:53 | HP.PCM_ITS ---
Problem List (1) Pneumonia Status: Acute (2) COVID-19 Status: Acute (3) Hypoxia Status: Acute (4) Lumbar disc herniation Status: Chronic (5) Sciatica Status: Chronic (6) Asthma Status: Acute (7) Hx of migraines Status: Chronic (8) Obesity Status: Chronic (9) L4 Disc Rupture w/ Lumbago/Radiculopathy Status: Chronic Comment: MRI showed an L4 disc rupture with impingement on the left L4 root. Calderón placed in the ED secondary to severity of debility. Dr. Mayes consulted, 02/14/17 lumbar epidural steroid injection performed. Recommendations per Dr. Mayes follow-up in the office [address] Dhaliwal evaluated also given continued pain with recommendation for continued steroid, anti-inflammatory and follow-up with Dr. Mueller. (10) Lower back pain Status: Chronic Qualifiers: (11) Migraine headache Status: Chronic (12) Exercise-induced asthma Status: Chronic (13) Depression Status: Chronic (14) Osteoarthritis Status: Chronic (15) Fibromyalgia Status: Chronic (16) History of breast cancer Status: Chronic History of Present Illness Date of Admission: 07/08/20 Chief Complaint: sob The patient is a 40 year old F with a significant history of asthma; fibromyalgia; rheumatoid arthritis; interstitial cystitis; breast cancer status post bilateral mastectomy and chemotherapy who presents at the emergency department with shortness of breath. Her shortness of breath started on the 18 June 2020. Patient was diagnosed with COVID-19 virus infection on June 22 2020. Her shortness of breath improved only to worsen. This is patient's second visits to the ED on the same day of presentation. On the first visit she was given breathing treatment and sent home. However because her symptoms re-occurred she came back to the emergency department. She reports a productive cough of rich sputum. Also she reports wheezing. Her home albuterol has not been helping with her wheezes. She denies fever but reports chills. She has lost her sense of taste and her sense of smell. She has poor appetite. She is nauseous. She vomited. She feels tired and fatigued. She complains of muscle pain. At the department patient she had conversational dyspnea. With ambulation her oxygen saturation dropped to 89% and her heart rate was 125. Emergency Department doctor recommended that patient be admitted. Past Medical History Past Medical History (Chronic Problems): Chronic Problems Lumbar disc herniation (Chronic) Sciatica (Chronic) Hx of migraines (Chronic) Obesity (Chronic) L4 Disc Rupture w/ Lumbago/Radiculopathy (Chronic) MRI showed an L4 disc rupture with impingement on the left L4 root. Calderón placed in the ED secondary to severity of debility. Dr. Mayes consulted, 02/14/17 lumbar epidural steroid injection performed. Recommendations per Dr. Mayes follow-up in the office [address] Dhaliwal evaluated also given continued pain with recommendation for continued steroid, anti-inflammatory and follow-up with Dr. Mueller. Lower back pain (Chronic) Migraine headache (Chronic) Exercise-induced asthma (Chronic) Depression (Chronic) Osteoarthritis (Chronic) Fibromyalgia (Chronic) History of breast cancer (Chronic) Allergies alprazolam [From Xanax] Allergy (Verified 07/08/20 19:08) Unknown amoxicillin Allergy (Verified 07/08/20 19:08) Itching bupropion HCl [From Wellbutrin] Allergy (Verified 07/08/20 19:08) Unknown citalopram hydrobromide [From Celexa] Allergy (Verified 07/08/20 19:08) Unknown doxycycline Allergy (Verified 07/08/20 19:08) Unknown duloxetine [From Cymbalta] Allergy (Verified 07/08/20 19:08) Mucosal lesions fluoxetine HCl [From Prozac] Allergy (Verified 07/08/20 19:08) Unknown levomilnacipran HCl [From Fetzima] Allergy (Verified 07/08/20 19:08) Unknown lorazepam [From Ativan] Allergy (Verified 07/08/20 19:08) Unknown nitrofurantoin macrocrystalline [From Macrodantin] Allergy (Verified 07/08/20 19:08) Unknown prochlorperazine edisylate [From Compazine] Allergy (Verified 07/08/20 19:08) Unknown prochlorperazine maleate [From Compazine] Allergy (Verified 07/08/20 19:08) Unknown pseudoephedrine HCl [From Sudafed] Allergy (Verified 07/08/20 19:08) Unknown quetiapine [From Seroquel] Allergy (Verified 07/08/20 19:08) Other MUSCLE SPASMS sertraline HCl [From Zoloft] Allergy (Verified 07/08/20 19:08) Unknown acetaminophen [From Vicodin] Adverse Reaction (Verified 07/08/20 19:08) Itching fentanyl Adverse Reaction (Verified 07/08/20 19:08) HALLUCINATIONS hydrocodone bitartrate [From Vicodin] Adverse Reaction (Verified 07/08/20 19:08) Itching oxycodone Adverse Reaction (Verified 07/08/20 19:08) FLUSHED/HOT SLEEPY oxycodone HCl [From Percocet] Adverse Reaction (Verified 07/08/20 19:08) Unknown SLEEPY paliperidone [From Invega] Adverse Reaction (Verified 07/08/20 19:08) Other MUSCLE SPASMS risperidone [From Risperdal] Adverse Reaction (Verified 07/08/20 19:08) Other WATER GAIN AND MUSCLE SPASMS tramadol [From Ultram] Adverse Reaction (Verified 07/08/20 19:08) Other Home Medications: Ambulatory Orders Medication Instructions Recorded Sumatriptan Succinate [Imitrex] 100 mg PO .X1 PRN 05/16/17 Albuterol Inhaler [Ventolin Hfa 2 puff INHALATION Q4H PRN PRN 08/29/17 (SP)] Hydrocodone/Acetaminophen [[place] 0.5 - 1 each PO Q6H PRN PRN #12 12/08/18 5-325 Tablet] tablet Naproxen Sodium [Aleve] 220 mg PO PRN PRN 03/23/20 Ondansetron [Ondansetron Odt] 4 mg PO Q8H PRN PRN 04/29/20 Pantoprazole Sodium 40 mg PO DAILY 04/29/20 cycloBENZAPRine HCl [Flexeril] 10 mg PO TID PRN #20 tab 04/29/20 Surgical History: cholecystectomy, hysterectomy - Bilateral oopherectomy., mastectomy - Bilateral with breast reconstruction, - - Psychiatric History: Anxiety, Depression REHAB SERVICES AIDE History: No pertinent REHAB SERVICES AIDE history Smoking Status: Never smoker - *Family History Maternal History Items: Cancer - Breast, lung, Diabetes Paternal History Items: Heart Disease Review of Systems Constitutional: Reports: Anorexia, Chills, Malaise, Weakness, Fatigue. Denies: Fever, Weight Change HEENT: Denies: Head Aches, Sinus Congestion, Sinus Drainage Cardiovascular: Denies: Chest Pain, Palpitations Respiratory: Reports: Cough, Sputum production Gastrointestinal: Reports: Nausea, Vomiting. Denies: Abdominal Pain Genitourinary: Denies: Dysuria Musculoskeletal: Reports: Muscle pain. Denies: Joint Pain, Joint Tenderness Skin: Denies: Rash, Wounds Neurological: Denies: Numbness, Tingling, Focal weakness Psychiatric: Denies: Anxiety, Depression, Homicidal Ideations, Suicidal Ideations Hematologic/ Lymphatic: Denies: Easy Bruising, Easy Bleeding VTE Information - Inpt Only VTE Present on Admission: No VTE Mechan Device Prophylaxis: None VTE Pharm Prophylaxis ordered?: Yes Patient Problems: Active and Suspected Problems Pneumonia (Acute) COVID-19 (Acute) Hypoxia (Acute) Asthma (Acute) - Physical Exam Vitals/I&O's: Vital Signs Temp Pulse Resp BP Pulse Ox 97.2 F L 127 H 18 132/82 H 97 07/08/20 23:22 07/08/20 23:22 07/08/20 23:22 07/08/20 23:22 07/08/20 23:22 Oxygen Flow Rate (L/min) 3 Oxygen Delivery Method Nasal Cannula Weight: 97.8 kg Body Mass Index (BMI) 37.0 Intake and Output for Last 24 Hours 07/06/20 07/07/20 07/08/20 23:59 23:59 23:59 Intake Total 1050 / 1050 Balance 1050 / 1050 General: Alert, Oriented x3, Cooperative HEENT: Atraumatic, PERRLA, EOMI, Normocephalic Neck: Supple, No JVD, Negative Carotid Bruits Lungs: Rhonchi, Tachypneic, Using Accessory Muscles, Wheezes, - - Conversational dyspnea Cardiovascular: Normal S1, Normal S2, No murmurs, Tachycardic Abdomen: Bowel Sounds Present, Soft, Non Tender Extremities: No edema, Capillary Refill Less than 3 Seconds Skin: No rashes, No breakdown Musculoskeletal: No Tenderness to Palpation of Joints or Extremities Neurological: Cranial nerves II-XII grossly intact Psych/Mental Status: Normal Affect, Appropriate Laboratory Results 07/08/20 20:15: WBC 12.3 H, RBC 4.79, Hgb 12.7, Hct 42.0, MCV 87.7, MCH 26.5 L, MCHC 30.2 L, RDW Std Deviation 42.5, RDW Coeff of Octaviano 13.2, Plt Count 258, MPV 9.4, Immature Gran % (Auto) 0.400, Neut % (Auto) 63.0, Lymph % (Auto) 29.2, [place] % (Auto) 3.7, Eos % (Auto) 3.4, Baso % (Auto) 0.3, Absolute Neuts (auto) 7.8 H, Absolute Lymphs (auto) 3.60, Nucleated RBC % 0 07/08/20 20:15: D-Dimer Quant (PE/DVT) 1.23 H* 07/08/20 20:15: Sodium 142, Potassium 4.3, Chloride 108 H, Carbon Dioxide 30.0, Anion Gap 4 L, BUN 9, Creatinine 0.85, Estim Creat Clear Calc 76.73, Est GFR (MDRD) Af Amer 96, Est GFR (MDRD) Non-Af 79, BUN/Creatinine Ratio 10.6, Glucose 97, Calcium 8.7, Total Bilirubin 0.30, AST 21, ALT 20, Alkaline Phosphatase 122 H, Total Protein 7.7, Albumin 3.8, Globulin 3.9, Albumin/Globulin Ratio 1.0 07/08/20 20:15: Lactic Acid 1.4 Assessment/Plan All Active Problems Pneumonia (Acute) COVID-19 (Acute) Hypoxia (Acute) Asthma (Acute) Acute hypoxemic respiratory insufficiency secondary to SARS COVID-19 inf ection/pneumonia/Asthma Dimer was elevated. Radiologist impression of chest CT: Small focal micronodular type infiltrates in the posterior right upper lobe and right middle lobe. Minimal groundglass change of the left lateral left lower lobe. Bronchial thickening especially in the lower lobes with small peripheral bronchial occlusion bilaterally. Findings suggest bronchitis/pneumonic process not commonly reported with COVID-19 pneumonia. Received ceftriaxone and azithromycin at emergency department. Also received Decadron IV at emergency department. Procalcitonin, strep pneumonia antigen and Legionella urine antigen ordered. Decadron p.o. daily ordered Will hold off further antibiotics at this time. Chest physiotherapy ordered at emergency department and continued. Comprehensive respiratory pathogen panel ordered. Schedule Mucinex ordered. Tylenol as needed for fever and pain. Schedule albuterol inhalation and as needed albuterol inhalation. Infectious disease consult and pulmonology consult. GERD: Protonix continued. Obesity: BMI of 37 kg/m?. Recommend lifestyle modification. DVT prophylaxis Subcutaneous Lovenox. Inpatient E&M: 61380 Init Hosp L3
[2020-07-09] VITALS (16 sets, daily range): BP systolic 110–130; BP diastolic 74–90; PULSE 103–136; RESP 16–24; TEMP 36.6–37; O2SAT 94–97; BMI 36.6
[2020-07-09] MEDS: guaiFENesin 1,200 MG Tablet 1200 MG PO ×3 (01:17→21:20)
[2020-07-09] MEDS: Rizatriptan Benzoate 10 MG Tablet PO ×2 (05:15→17:23)
[2020-07-09] MEDS: cycloBENZAPRine HCl 10 MG Tablet PO ×2 (05:34→17:23)
[2020-07-09] MEDS: INHALER, ASSIST DEVICES 1 EACH SPACER INHALATION (05:37)
[2020-07-09 06:05] LABS: Absolute Lymphocyte Count 0.85 X10^3/uL (0.83-4.51); Absolute Neutrophil Count 10.9 X10^3/uL (2.0-7.7); Basophil# 0.02 X10^3/uL; Basophil% 0.2 % (0-1); Eosinophil# 0.03 X10^3/uL; Eosinophils% 0.3 % (0-5); Hematocrit 42.2 % (37-47); Hemoglobin 12.8 g/dL (12.0-15.0); Lymphocyte # 0.85 X10^3/ul (4.0); Lymphocyte % 7.1 % (19-41); Mean Corp Hgb Conc 30.3 g/dL (32-36); Mean Corpuscular Hgb 26.1 pg (27.0-32.0); Mean Corpuscular Volume 86.1 fL (81-99); Mean Platelet Vol. 9.5 fl (6.2-12.0); Monocyte# 0.05 X10^3/uL; Monocyte% 0.4 % (0-10); NRBC Flagged by Analyzer 0 % (0-5); Neutrophil # 10.92 X10^3/uL (2.7-7.7); Neutrophil % 91.4 % (47-70); Platelet Count 273 K/mm3 (150-450); RBC Distribution Width CV 13.3 % (11.6-14.6); RBC Distribution Width SD 41.7 fl (35.1-43.9); White Blood Count 11.9 K/mm3 (4.4-11.0)
[2020-07-09 06:32] LABS: Anion Gap 8 (5-15); BUN 7 mg/dL (7-18); BUN/Creat Ratio 7.8 RATIO (10-20); Calcium,Total 8.8 mg/dL (8.5-10.1); Chloride 106 mmol/L (98-107); EST Glomerular Filtration Rate 75 mL/min (>60); Est Glom Filt Rate - Afr Amer 90 mL/min (>60); Estimated Creatinine Clearance 72.47 ml/min; Glucose 165 mg/dL (74-106); Sodium Level 138 mmol/L (136-145)
[2020-07-09 09:07] LABS: Procalcitonin < 0.04 ng/mL (0.00-0.09)
[2020-07-09] MEDS: Pantoprazole Sodium 40 MG Tablet PO (10:16)
[2020-07-09] MEDS: Enoxaparin 40 MG/0.4 ML Syringe SC ×2 (10:16→21:20)
[2020-07-09] MEDS: dexAMETHasone 2 MG TABLET 6 MG PO (10:16)
--- NOTE | 2020-07-09 13:28 | PN_ITS ---
Patient Problems: Active and Suspected Problems Pneumonia (Acute) COVID-19 (Acute) Hypoxia (Acute) Asthma (Acute) Subjective: Doing well, she is still very anxious. She is afebrile with no tachypnea or hypoxia. Vitals/I&O's: Vital Signs Temp Pulse Resp BP Pulse Ox 98.1 F 120 H 18 123/76 H 95 07/09/20 09:32 07/09/20 09:37 07/09/20 09:32 07/09/20 09:32 07/09/20 09:32 Oxygen Flow Rate (L/min) 8 Oxygen Delivery Method Room Air Weight: 213 lb 6.519 oz Body Mass Index (BMI) 36.6 Intake and Output for Last 24 Hours 07/07/20 07/08/20 07/09/20 23:59 23:59 23:59 Intake Total 1050 / 1050 455 / 455 Balance 1050 / 1050 455 / 455 General: Alert, Oriented x3, Cooperative, No apparent distress HEENT: Atraumatic, PERRLA, EOMI, Normocephalic Oral: Moist Mucosa Neck: Supple, No JVD Lungs: Clear to auscultation, Normal air movement, No rhonchi, No wheeze, No rales, Diminished Cardiovascular: Regular rate, Regular Rhythm, Normal S1, Normal S2, No murmurs Abdomen: Soft, Non Tender, Non-Distended, No Hepato-splenomegaly Extremities: No edema, Capillary Refill Less than 3 Seconds Skin: No rashes, No breakdown Neurological: Neuro grossly intact, Sensory exam intact to light touch and pain Psych/Mental Status: Anxious Microbiology Past 72 Hours 07/09/20 02:13 Urine, Clean Catch Streptococcus pneumoniae Antigen (M - Final 07/09/20 02:13 Urine, Random Legionella Antigen - Final 07/09/20 01:00 Interface Orders Respiratory Panel (PCR) - Final Laboratory Results 07/08/20 20:15: WBC 12.3 H, RBC 4.79, Hgb 12.7, Hct 42.0, MCV 87.7, MCH 26.5 L, MCHC 30.2 L, RDW Std Deviation 42.5, RDW Coeff of Octav[place] 13.2, Plt Count 258, MPV 9.4, Immature Gran % (Auto) 0.400, Neut % (Auto) 63.0, Lymph % (Auto) 29.2, [place] % (Auto) 3.7, Eos % (Auto) 3.4, Baso % (Auto) 0.3, Absolute Neuts (auto) 7.8 H, Absolute Lymphs (auto) 3.60, Nucleated RBC % 0 07/08/20 20:15: D-Dimer Quant (PE/DVT) 1.23 H* 07/08/20 20:15: Sodium 142, Potassium 4.3, Chloride 108 H, Carbon Dioxide 30.0, Anion Gap 4 L, BUN 9, Creatinine 0.85, Estim Creat Clear Calc 76.73, Est GFR (MDRD) Af Amer 96, Est GFR (MDRD) Non-Af 79, BUN/Creatinine Ratio 10.6, Glucose 97, Calcium 8.7, Total Bilirubin 0.30, AST 21, ALT 20, Alkaline Phosphatase 122 H, Total Protein 7.7, Albumin 3.8, Globulin 3.9, Albumin/Globulin Ratio 1.0 07/08/20 20:15: Lactic Acid 1.4 07/09/20 05:32: Procalcitonin < 0.04 07/09/20 05:32: WBC 11.9 H, RBC 4.90, Hgb 12.8, Hct 42.2, MCV 86.1, MCH 26.1 L, MCHC 30.3 L, RDW Std Deviation 41.7, RDW Coeff of [place]av[place] 13.3, Plt Count 273, MPV 9.5, Immature Gran % (Auto) 0.600, Neut % (Auto) 91.4 H, Lymph % (Auto) 7.1 L, [place] % (Auto) 0.4, Eos % (Auto) 0.3, Baso % (Auto) 0.2, Absolute Neuts (auto) 10.9 H, Absolute Lymphs (auto) 0.85, Nucleated RBC % 0 07/09/20 05:32: Sodium 138, Potassium 4.0, Chloride 106, Carbon Dioxide 24.0, Anion Gap 8, BUN 7, Creatinine 0.90, Estim Creat Clear Calc 72.47, Est GFR (MDRD) Af Amer 90, Est GFR (MDRD) Non-Af 75, BUN/Creatinine Ratio 7.8 L, Glucose 165 H, Calcium 8.8 Current Medications Acetaminophen (Acetaminophen 325 Mg Tablet) 650 mg PO Q6H PRN PRN PRN Reason: Pain Score 1-10/Temp > 100.7 F Albuterol Sulfate (Albuterol Sulfate 18 Gm Inhaler (200 Puffs)) 2 puff IH Q2H PRN PRN PRN Reason: SOB/WHEEZING Albuterol Sulfate (Albuterol Sulfate 18 Gm Inhaler (200 Puffs)) 1 puff IH Q4 [facility] Last Admin: 07/09/20 05:37 Dose: 1 puff Documented by: Alprazolam (Alprazolam 0.5 Mg Tablet) 0.5 mg PO BID PRN PRN PRN Reason: ANXIETY Cyclobenzaprine HCl (Cyclobenzaprine Hcl 10 Mg Tablet) 10 mg PO TID PRN PRN PRN Reason: MS spasms Last Admin: 07/09/20 05:34 Dose: 10 mg Documented by: Dexamethasone (Dexamethasone 2 Mg Tablet) 6 mg PO DAILY [facility] Last Admin: 07/09/20 10:16 Dose: 6 mg Documented by: Enoxaparin Sodium (Enoxaparin 40 Mg/0.4 Ml Syringe) 40 mg SC BID [facility] Last Admin: 07/09/20 10:16 Dose: 40 mg Documented by: Guaifenesin (Guaifenesin 1,200 Mg Tablet) 1,200 mg PO BID [facility] Last Admin: 07/09/20 09:43 Dose: 1,200 mg Documented by: Miscellaneous Information (Inhaler, Assist Devices 1 Each Spacer) 1 each IN HALATION PRN PRN PRN Reason: WITH ALBUTEROL INHALER Last Admin: 07/09/20 05:37 Dose: 1 each Documented by: Ondansetron HCl (Ondansetron 4 Mg/2 Ml Vial) 4 mg IV Q8H PRN PRN PRN Reason: NAUSEA/VOMITING Pantoprazole Sodium (Pantoprazole Sodium 40 Mg Tablet) 40 mg PO DAILY [facility] Last Admin: 07/09/20 10:16 Dose: 40 mg Documented by: Sodium Chloride (0.9% Saline Lock 10 Ml Syringe) 10 - 40 ml IV UD PRN PRN Reason: SALINE FLUSH STROKE Vital Signs/Narrative: Vital Signs Temp Pulse Resp BP Pulse Ox 07/09/20 09:37 120 H 07/09/20 09:32 98.1 F 120 H 18 123/76 H 95 Medical Necessity - Tobacco Use Smoking Status: Never smoker Assessment/Plan All Active Problems Pneumonia (Acute) COVID-19 (Acute) Hypoxia (Acute) Asthma (Acute) 1. Acute hypoxic respiratory insufficiency secondary to COVID-19 pneumonia -She tested positive on 22 June however she has had worsening shortness of breath over the last several days which is why she presented to the hospital -She dropped her oxygen sat to 89% with ambulation only however she does fine at rest -She does not currently need any oxygen and she is tachycardic and I think this is likely secondary to significant anxiety. She is nervous because she was just recently diagnosed with rheumatoid arthritis so she feels like that makes her immunocompromised and that she will suffer worse adverse reactions to Covid because of it -Continue with Decadron however she is too far out for remdesivir or convalescent plasma. She states that she never did steroids when she first got diagnosed with Covid -CTA was negative for PE however she does have bronchomalacia, she can follow-up as an outpatient with pulmonology 2. Anxiety -Continue with Xanax or Ativan given how anxious she appears 3. GERD -Stable -Continue PPI DVT: Lovenox Inpatient E&M: 29578 Subs Hosp L2
--- NOTE | 2020-07-09 15:39 | CASEMGMT ---
Telephone assessment completed with patient for initial transition planning/care coordination assessment. Pt in isolation/COVID precautions. KRYS PARIKH introduced self and role at [facility], voices understanding. Care providers, pharmacy, and demographics verified. PCP: Dr. Braun Preferred Pharmacy: [facility] Retail pharmacy at discharge but uses [facility] regularly Insurance: [facility] Prescription Benefit: Yes; $20 copay for brand name and $10 copay for generic drugs. LNOK: Eh Lanza, significant other Living Arrangements: Pt lives in a two story home with her significant other, her daughter and his two sons. Pt's home is two stories with 15 steps to the second floor. Pt states she was ambulating independently without assistive devices prior to admission. 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 SNF/HHC: Pt states she did spend time in TCU 2 years ago s/p a ruptured disc but has not had HH or other skilled needs prior. DME: No assistive devices in the home. Pt did not require O2 prior to admission. Pt denies any preference of DME companies if O2 is required at discharge. Pt with [employer] insurance whose preferred O2 provider is [facility]. Plan: Discharge to home with significant other. Pt currently on RA but will monitor for O2 needs prior to discharge. Discussed message from her HR department to the CM department at [facility] regarding medical leave forms. Pt states she has spoken with service liaison representative and provided them her PCP name for follow-up. Layo Baires RN CM
--- NOTE | 2020-07-09 15:54 | PCM.HP.ID ---
Problem List (1) COVID-19 Status: Acute Reason for Consult: sumeet Consulted by: Dr. Beavers History of Present Illness: The patient is a 40 year old F with rheumatoid, not on any immunosuppressives, and fibro, presented with 2-3 weeks of not feeling well. Sx started 07/17 with cough, then lost sense of taste 07/19. Covid (+) 07/23, then progressive headache, aches, coughing fits, dyspnea. Some n/v with coughing. Has not been sleeping due to cough. Pratik was sick first, then her 11y/o daughter. Both are recovering. She came to ED, given dex, feeling a little better today. On RA. Full ROS performed and neg except as noted above. Intermittent mild chills. - Medical History Past Medical History (Chronic Problems): Chronic Problems Lumbar disc herniation (Chronic) Sciatica (Chronic) Hx of migraines (Chronic) Obesity (Chronic) L4 Disc Rupture w/ Lumbago/Radiculopathy (Chronic) MRI showed an L4 disc rupture with impingement on the left L4 root. Calderón placed in the ED secondary to severity of debility. Dr. Mayes consulted, 02/14/17 lumbar epidural steroid injection performed. Recommendations per Dr. Mayes follow-up in the office [address] Dhaliwal evaluated also given continued pain with recommendation for continued steroid, anti-inflammatory and follow-up with Dr. Mueller. Lower back pain (Chronic) Migraine headache (Chronic) Exercise-induced asthma (Chronic) Depression (Chronic) Osteoarthritis (Chronic) Fibromyalgia (Chronic) History of breast cancer (Chronic) Allergies/Adverse Reactions: Allergies alprazolam [From Xanax] Allergy (Verified 07/08/20 19:08) Unknown amoxicillin Allergy (Verified 07/08/20 19:08) Itching bupropion HCl [From Wellbutrin] Allergy (Verified 07/08/20 19:08) Unknown citalopram hydrobromide [From Celexa] Allergy (Verified 07/08/20 19:08) Unknown doxycycline Allergy (Verified 07/08/20 19:08) Unknown duloxetine [From Cymbalta] Allergy (Verified 07/08/20 19:08) Mucosal lesions fluoxetine HCl [From Prozac] Allergy (Verified 07/08/20 19:08) Unknown levomilnacipran HCl [From Fetzima] Allergy (Verified 07/08/20 19:08) Unknown lorazepam [From Ativan] Allergy (Verified 07/08/20 19:08) Unknown nitrofurantoin macrocrystalline [From Macrodantin] Allergy (Verified 07/08/20 19:08) Unknown prochlorperazine edisylate [From Compazine] Allergy (Verified 07/08/20 19:08) Unknown prochlorperazine maleate [From Compazine] Allergy (Verified 07/08/20 19:08) Unknown pseudoephedrine HCl [From Sudafed] Allergy (Verified 07/08/20 19:08) Unknown quetiapine [From Seroquel] Allergy (Verified 07/08/20 19:08) Other MUSCLE SPASMS sertraline HCl [From Zoloft] Allergy (Verified 07/08/20 19:08) Unknown acetaminophen [From Vicodin] Adverse Reaction (Verified 07/08/20 19:08) Itching fentanyl Adverse Reaction (Verified 07/08/20 19:08) HALLUCINATIONS hydrocodone bitartrate [From Vicodin] Adverse Reaction (Verified 07/08/20 19:08) Itching oxycodone Adverse Reaction (Verified 07/08/20 19:08) FLUSHED/HOT SLEEPY oxycodone HCl [From Percocet] Adverse Reaction (Verified 07/08/20 19:08) Unknown SLEEPY paliperidone [From Invega] Adverse Reaction (Verified 07/08/20 19:08) Other MUSCLE SPASMS risperidone [From Risperdal] Adverse Reaction (Verified 07/08/20 19:08) Other WATER GAIN AND MUSCLE SPASMS tramadol [From Ultram] Adverse Reaction (Verified 07/08/20 19:08) Other Home Medications: Ambulatory Orders Medication Instructions Recorded Sumatriptan Succinate [Imitrex] 100 mg PO .X1 PRN 05/16/17 Albuterol Inhaler [Ventolin Hfa 2 puff INHALATION Q4H PRN PRN 08/29/17 (SP)] Hydrocodone/Acetaminophen [[place] 0.5 - 1 each PO Q6H PRN PRN #12 12/08/18 5-325 Tablet] tablet Naproxen Sodium [Aleve] 220 mg PO PRN PRN 03/23/20 Ondansetron [Ondansetron Odt] 4 mg PO Q8H PRN PRN 04/29/20 Pantoprazole Sodium 40 mg PO DAILY 04/29/20 cycloBENZAPRine HCl [Flexeril] 10 mg PO TID PRN #20 tab 04/29/20 - Social History Tobacco Use: non-smoker Vital Signs Temp Pulse Resp BP Pulse Ox 98.1 F 120 H 18 123/76 H 95 07/09/20 09:32 07/09/20 09:37 07/09/20 09:32 07/09/20 09:32 07/09/20 09:32 Oxygen Flow Rate (L/min) 8 Oxygen Delivery Method Room Air Weight: 96.8 kg Body Mass Index (BMI) 36.6 Microbiology Past 72 Hours 07/09/20 02:13 Streptococcus pneumoniae Antigen (M - Final Urine, Clean Catch 07/09/20 02:13 Legionella Antigen - Final Urine, Random 07/09/20 01:00 Respiratory Panel (PCR) - Final Interface Orders Laboratory Tests Past 24 Hrs 07/08/20 07/08/20 07/08/20 20:15 20:15 20:15 WBC 12.3 H RBC 4.79 Hgb 12.7 Hct 42.0 MCV 87.7 MCH 26.5 L MCHC 30.2 L RDW Std Deviation 42.5 RDW Coeff of [place]av[place] 13.2 Plt Count 258 MPV 9.4 Immature Gran % (Auto) 0.400 Neut % (Auto) 63.0 Lymph % (Auto) 29.2 Wallace % (Auto) 3.7 Eos % (Auto) 3.4 Baso % (Auto) 0.3 Absolute Neuts (auto) 7.8 H Absolute Lymphs (auto) 3.60 Nucleated RBC % 0 D-Dimer Quant (PE/DVT) 1.23 H* Sodium 142 Potassium 4.3 Chloride 108 H Carbon Dioxide 30.0 Anion Gap 4 L BUN 9 Creatinine 0.85 Estim Creat Clear Calc 76.73 Est GFR (MDRD) Af Amer 96 Est GFR (MDRD) Non-Af 79 BUN/Creatinine Ratio 10.6 Glucose 97 Lactic Acid Calcium 8.7 Total Bilirubin 0.30 AST 21 ALT 20 Alkaline Phosphatase 122 H Total Protein 7.7 Albumin 3.8 Globulin 3.9 Albumin/Globulin Ratio 1.0 Procalcitonin 07/08/20 07/09/20 07/09/20 20:15 05:32 05:32 WBC 11.9 H RBC 4.90 Hgb 12.8 Hct 42.2 MCV 86.1 MCH 26.1 L MCHC 30.3 L RDW Std Deviation 41.7 RDW Coeff of [place]av[place] 13.3 Plt Count 273 MPV 9.5 Immature Gran % (Auto) 0.600 Neut % (Auto) 91.4 H Lymph % (Auto) 7.1 L Wallace % (Auto) 0.4 Eos % (Auto) 0.3 Baso % (Auto) 0.2 Absolute Neuts (auto) 10.9 H Absolute Lymphs (auto) 0.85 Nucleated RBC % 0 D-Dimer Quant (PE/DVT) Sodium Potassium Chloride Carbon Dioxide Anion Gap BUN Creatinine Estim Creat Clear Calc Est GFR (MDRD) Af Amer Est GFR (MDRD) Non-Af BUN/Creatinine Ratio Glucose Lactic Acid 1.4 Calcium Total Bilirubin AST ALT Alkaline Phosphatase Total Protein Albumin Globulin Albumin/Globulin Ratio Procalcitonin < 0.04 07/09/20 05:32 WBC RBC Hgb Hct MCV MCH MCHC RDW Std Deviation RDW Coeff of Octaviano Plt Count MPV Immature Gran % (Auto) Neut % (Auto) Lymph % (Auto) Wallace % (Auto) Eos % (Auto) Baso % (Auto) Absolute Neuts (auto) Absolute Lymphs (auto) Nucleated RBC % D-Dimer Quant (PE/DVT) Sodium 138 Potassium 4.0 Chloride 106 Carbon Dioxide 24.0 Anion Gap 8 BUN 7 Creatinine 0.90 Estim Creat Clear Calc 72.47 Est GFR (MDRD) Af Amer 90 Est GFR (MDRD) Non-Af 75 BUN/Creatinine Ratio 7.8 L Glucose 165 H Lactic Acid Calcium 8.8 Total Bilirubin AST ALT Alkaline Phosphatase Total Protein Albumin Globulin Albumin/Globulin Ratio Procalcitonin - Other Studies Radiology: [] reviewed Other Studies: [] Route of nutrition/ use of supplements: [] Nutritional Intake: [] IV Site: [] Calderón Catheter: [] - Physical Exam General: Alert, Oriented x3, Cooperative, No apparent distress HEENT: Atraumatic, PERRLA, EOMI Neck: Supple, No Nodes Lungs: Diminished Cardiovascular: Regular rate, Regular Rhythm Abdomen: Soft, Non Tender, Non-Distended Extremities: No edema Skin: No rashes IV Site: Peripheral, without redness Musculoskeletal: No Tenderness to Palpation of Joints or Extremities Neurological: Cranial nerves II-XII grossly intact - Assessment/Plan Antibiotics: [] Assessment/Plan: [] Active and Suspected Problems Pneumonia (Acute) COVID-19 (Acute) Hypoxia (Acute) Asthma (Acute) covid with ambulatory sat 89%. On dex, intermediate dose lovenox. Sx started 07/17/20, fiance and daughter also sick but recovering. Mildly elevated d-dimer. CT neg for PE. Ongoing aches, chills, coughing fits. Will start remdesivir as she is still having ongoing symptoms. Will follow, thank you.
[2020-07-09] MEDS: LORazepam 2 MG/ML Syringe 0.5 MG IV (16:33)
[2020-07-09] MEDS: 0.9% Saline Lock 10 ML Syringe IV (19:45)
[2020-07-09] MEDS: Ketorolac 15 MG/ML Vial IV (21:20)
[2020-07-09] MEDS: Metoclopramide 10 MG/2 ML Vial IV (21:20)
[2020-07-09] MEDS: DiphenhydrAMINE 25 MG Capsule PO (21:20)
[2020-07-10 03:00] VITALS: BP 92/62; PULSE 100; PULSE 103; RESP 16; TEMP 36.7; O2SAT 93
[2020-07-10] MEDS: Rizatriptan Benzoate 10 MG Tablet PO (03:46)
[2020-07-10 08:00] VITALS: BP 122/85; PULSE 103; RESP 16; TEMP 36.7; O2SAT 93
[2020-07-10] MEDS: dexAMETHasone 2 MG TABLET 6 MG PO (08:52)
[2020-07-10] MEDS: Enoxaparin 40 MG/0.4 ML Syringe SC (08:52)
[2020-07-10] MEDS: Pantoprazole Sodium 40 MG Tablet PO (08:52)
[2020-07-10] MEDS: guaiFENesin 1,200 MG Tablet 1200 MG PO (08:52)
[2020-07-10 09:00] VITALS: PULSE 95
--- NOTE | 2020-07-10 10:29 | DCINST_ITS ---
- Discharge Diagnoses Current Active Problems: Current Active and Chronic Problems Pneumonia (Acute) COVID-19 (Acute) Hypoxia (Acute) Lumbar disc herniation (Chronic) Sciatica (Chronic) Asthma (Acute) Hx of migraines (Chronic) Obesity (Chronic) L4 Disc Rupture w/ Lumbago/Radiculopathy (Chronic) MRI showed an L4 disc rupture with impingement on the left L4 root. Calderón placed in the ED secondary to severity of debility. Dr. Mayes consulted, 02/14/17 lumbar epidural steroid injection performed. Recommendations per Dr. Mayes follow-up in the office [address] Dhaliwal evaluated also given continued pain with recommendation for continued steroid, anti-inflammatory and follow-up with Dr. Mueller. Lower back pain (Chronic) Migraine headache (Chronic) Exercise-induced asthma (Chronic) Depression (Chronic) Osteoarthritis (Chronic) Fibromyalgia (Chronic) History of breast cancer (Chronic) You will use the following diet at home:: Regular Your food should be the consistency of: Regular Your liquids should be the consistency of: Regular/Thin Discharge Activity: Return to Normal Activity Call your doctor if you observe: Fever of 101 or Higher, Shortness of breath, Dizziness, Fainting spells, Swelling in the ankles, Chest pain, Increased palpitations (irregular heartbeat) Allergies/Adverse Reactions: Allergies alprazolam [From Xanax] Allergy (Verified 07/08/20 19:08) Unknown amoxicillin Allergy (Verified 07/08/20 19:08) Itching bupropion HCl [From Wellbutrin] Allergy (Verified 07/08/20 19:08) Unknown citalopram hydrobromide [From Celexa] Allergy (Verified 07/08/20 19:08) Unknown doxycycline Allergy (Verified 07/08/20 19:08) Unknown duloxetine [From Cymbalta] Allergy (Verified 07/08/20 19:08) Mucosal lesions fluoxetine HCl [From Prozac] Allergy (Verified 07/08/20 19:08) Unknown levomilnacipran HCl [From Fetzima] Allergy (Verified 07/08/20 19:08) Unknown lorazepam [From Ativan] Allergy (Verified 07/08/20 19:08) Unknown nitrofurantoin macrocrystalline [From Macrodantin] Allergy (Verified 07/08/20 19:08) Unknown prochlorperazine edisylate [From Compazine] Allergy (Verified 07/08/20 19:08) Unknown prochlorperazine maleate [From Compazine] Allergy (Verified 07/08/20 19:08) Unknown pseudoephedrine HCl [From Sudafed] Allergy (Verified 07/08/20 19:08) Unknown quetiapine [From Seroquel] Allergy (Verified 07/08/20 19:08) Other MUSCLE SPASMS sertraline HCl [From Zoloft] Allergy (Verified 07/08/20 19:08) Unknown acetaminophen [From Vicodin] Adverse Reaction (Verified 07/08/20 19:08) Itching fentanyl Adverse Reaction (Verified 07/08/20 19:08) HALLUCINATIONS hydrocodone bitartrate [From Vicodin] Adverse Reaction (Verified 07/08/20 19:08) Itching oxycodone Adverse Reaction (Verified 07/08/20 19:08) FLUSHED/HOT SLEEPY oxycodone HCl [From Percocet] Adverse Reaction (Verified 07/08/20 19:08) Unknown SLEEPY paliperidone [From Invega] Adverse Reaction (Verified 07/08/20 19:08) Other MUSCLE SPASMS risperidone [From Risperdal] Adverse Reaction (Verified 07/08/20 19:08) Other WATER GAIN AND MUSCLE SPASMS tramadol [From Ultram] Adverse Reaction (Verified 07/08/20 19:08) Other Medications to take at Discharge Sumatriptan Succinate [Imitrex] 100 mg PO .X1 PRN 05/16/17 Albuterol Inhaler [Ventolin Hfa] 2 puff INHALATION Q4H PRN PRN 08/29/17 Hydrocodone/Acetaminophen [[place] 5-325 Tablet] 0.5 - 1 each PO Q6H PRN PRN #12 tablet 12/08/18 Naproxen Sodium [Aleve] 220 mg PO PRN PRN 03/23/20 Ondansetron [Ondansetron Odt] 4 mg PO Q8H PRN PRN 04/29/20 Pantoprazole Sodium 40 mg PO DAILY 04/29/20 cycloBENZAPRine HCl [Flexeril] 10 mg PO TID PRN #20 tab 04/29/20 Aspirin 81 mg PO DAILY #14 tab.chew 07/10/20 Lorazepam [Ativan] 0.5 mg PO QHS PRN PRN 15 Days #15 tablet 07/10/20 dexAMETHasone [Dexamethasone] 6 mg PO DAILY #12 tab 07/10/20 The following prescriptions were given: Aspirin 81 mg PO DAILY #14 tab.chew Transmission Status: Pending to [facility] Lorazepam [Ativan] 0.5 mg PO QHS PRN PRN 15 Days #15 tablet PRN Reason: Anxiety Transmission Status: Sent to [facility] dexAMETHasone [Dexamethasone] 6 mg PO DAILY #12 tab Transmission Status: Pending to [facility] Primary Care Physician: Jas Braun DO [Primary Care Provider] - Please follow up with your Primary Care Physician in: 3-5 days Test Results: Test results from this visit will be discussed in further detail at your follow- up appointment, if applicable.
[2020-07-10 12:00] VITALS: O2SAT 97; O2SAT 98
[2020-07-10 13:52] VITALS: RESP 112; O2SAT 97
--- NOTE | 2020-07-10 14:43 | PCM.DC.SUM ---
Discharge Date and Diagnosis - Problem List Patient Problems: Active and Suspected Problems Pneumonia (Acute) COVID-19 (Acute) Hypoxia (Acute) Asthma (Acute) Date of Admission: 07/08/20 Date of Discharge: 07/10/20 - Primary Discharge Diagnosis Acute Problems: Active Problems Pneumonia (Acute) COVID-19 (Acute) Hypoxia (Acute) Asthma (Acute) - Secondary Discharge Diagnosis Chronic Problems: Chronic Problems Lumbar disc herniation (Chronic) Sciatica (Chronic) Hx of migraines (Chronic) Obesity (Chronic) L4 Disc Rupture w/ Lumbago/Radiculopathy (Chronic) MRI showed an L4 disc rupture with impingement on the left L4 root. Calderón placed in the ED secondary to severity of debility. Dr. Mayes consulted, 02/14/17 lumbar epidural steroid injection performed. Recommendations per Dr. Mayes follow-up in the office [address] Dhaliwal evaluated also given continued pain with recommendation for continued steroid, anti-inflammatory and follow-up with Dr. Mueller. Lower back pain (Chronic) Migraine headache (Chronic) Exercise-induced asthma (Chronic) Depression (Chronic) Osteoarthritis (Chronic) Fibromyalgia (Chronic) History of breast cancer (Chronic) Hospital Course and Treatment Imaging Results: Clinical Impression(s) from Imaging Studies Chest CTA 07/08/20 21:06 IMPRESSION: Negative for pulmonary embolus. Normal thoracic aorta. Normal heart without pericardial effusion or coronary calcifications. Unremarkable mediastinum and hilar areas. Small focal micronodular type infiltrates in the posterior right upper lobe and right middle lobe. Minimal ground glass change of the lateral left lower lobe. Bronchial thickening especially in the lower lobes with small peripheral bronchial occlusion bilaterally. Findings suggest a bronchitis/pneumonic process not commonly reported with Covid 19 pneumonia. Negative for pleural effusion. Status post mastectomy with bilateral breast implants. No acute bone findings. No acute findings in the uppermost abdomen. Electronically Signed: Rebecca Garcia MD at 22:28 EST , Service support , Consults: ID Operations: None Procedures: None Summary of Care Provided: Per HPI: The patient is a 40 year old F with a significant history of asthma; fibromyalgia; rheumatoid arthritis; interstitial cystitis; breast cancer status post bilateral mastectomy and chemotherapy who presents at the emergency department with shortness of breath. Her shortness of breath started on the 18 June 2020. Patient was diagnosed with COVID-19 virus infection on June 22 2020. Her shortness of breath improved only to worsen. This is patient's second visits to the ED on the same day of presentation. On the first visit she was given breathing treatment and sent home. However because her symptoms re-occurred she came back to the emergency department. She reports a productive cough of rich sputum. Also she reports wheezing. Her home albuterol has not been helping with her wheezes. She denies fever but reports chills. She has lost her sense of taste and her sense of smell. She has poor appetite. She is nauseous. She vomited. She feels tired and fatigued. She complains of muscle pain. At the department patient she had conversational dyspnea. With ambulation her oxygen saturation dropped to 89% and her heart rate was 125. Emergency Department doctor recommended that patient be admitted. Hospital Course: 1. Acute hypoxic respiratory insufficiency secondary to COVID-19 pneumonia -She tested positive on 22 June however she has had worsening shortness of breath over the last several days which is why she presented to the hospital -She dropped her oxygen sat to 89% with ambulation only however she does fine at rest -She does not currently need any oxygen and she is tachycardic and I think this is likely secondary to significant anxiety. She is nervous because she was just recently diagnosed with rheumatoid arthritis so she feels like that makes her immunocompromised and that she will suffer worse adverse reactions to Covid because of it -Continue with Decadron however she is too far out for remdesivir or convalescent plasma. She states that she never did steroids when she first got diagnosed with Covid -CTA was negative for PE however she does have bronchomalacia, she can follow-up as an outpatient with pulmonology -She feels much better today and would like to go home. I discussed with her the plan for discharge and she expressed understanding of the risk and benefits of going home. Her D-dimer was elevated therefore she will be discharged on 2 weeks of aspirin as well as Decadron to complete 10 days. 2. Anxiety -We will give her 15 days of Ativan 0.5 mg p.o. nightly as needed given her anxiety over the diagnosis of Covid. Given how far out she is from the initial diagnosis and the fact that she still does not require any oxygen it is unlikely that she will worsen 3. GERD -Stable -Continue PPI Patient Problems: Active and Suspected Problems Pneumonia (Acute) COVID-19 (Acute) Hypoxia (Acute) Asthma (Acute) - Physical Exam Vitals/I&O's: Vital Signs Temp Pulse Resp BP Pulse Ox 98.0 F 95 112 H 122/85 H 97 07/10/20 08:00 07/10/20 09:00 07/10/20 13:52 07/10/20 08:00 07/10/20 13:52 Oxygen Flow Rate (L/min) 8 Oxygen Delivery Method Room Air Weight: 213 lb 6.519 oz Body Mass Index (BMI) 36.6 Intake and Output for Last 24 Hours 07/08/20 07/09/20 07/10/20 23:59 23:59 23:59 Intake Total 1050 / 1050 1635 / 2085 900 / 900 Balance 1050 / 1050 1635 / 2085 900 / 900 General: Alert, Oriented x3, Cooperative, No apparent distress HEENT: Atraumatic, PERRLA, EOMI, Normocephalic Oral: Moist Mucosa Neck: Supple, No JVD Lungs: Clear to auscultation, Normal air movement, No rhonchi, No wheeze, No rales, Diminished Cardiovascular: Regular rate, Regular Rhythm, Normal S1, Normal S2, No murmurs Abdomen: Soft, Non Tender, Non-Distended, No Hepato-splenomegaly Extremities: No edema, Capillary Refill Less than 3 Seconds Skin: No rashes, No breakdown Neurological: Neuro grossly intact, Sensory exam intact to light touch and pain Psych/Mental Status: Anxious Microbiology Past 72 Hours 07/09/20 02:13 Urine, Clean Catch Streptococcus pneumoniae Antigen (M - Final 07/09/20 02:13 Urine, Random Legionella Antigen - Final 07/09/20 01:00 Interface Orders Respiratory Panel (PCR) - Final Discharge Activity: Return to Normal Activity Call your doctor if you observe: Fever of 101 or Higher, Shortness of breath, Dizziness, Fainting spells, Swelling in the ankles, Chest pain, Increased palpitations (irregular heartbeat) Home Medications: Medications to take at Discharge Sumatriptan Succinate [Imitrex] 100 mg PO .X1 PRN 05/16/17 Albuterol Inhaler [Ventolin Hfa] 2 puff INHALATION Q4H PRN PRN 08/29/17 Hydrocodone/Acetaminophen [[place] 5-325 Tablet] 0.5 - 1 each PO Q6H PRN PRN #12 tablet 12/08/18 Naproxen Sodium [Aleve] 220 mg PO PRN PRN 03/23/20 Ondansetron [Ondansetron Odt] 4 mg PO Q8H PRN PRN 04/29/20 Pantoprazole Sodium 40 mg PO DAILY 04/29/20 cycloBENZAPRine HCl [Flexeril] 10 mg PO TID PRN #20 tab 04/29/20 Aspirin 81 mg PO DAILY #14 tab.chew 07/10/20 Lorazepam [Ativan] 0.5 mg PO QHS PRN PRN 15 Days #15 tab 07/10/20 dexAMETHasone [Dexamethasone] 6 mg PO DAILY #12 tab 07/10/20 Following Prescriptions Were Given to Patient: Aspirin 81 mg PO DAILY #14 tab.chew Transmission Status: Received by [facility] Lorazepam [Ativan] 0.5 mg PO QHS PRN PRN 15 Days #15 tab PRN Reason: Anxiety Transmission Status: Received by [facility] dexAMETHasone [Dexamethasone] 6 mg PO DAILY #12 tab Transmission Status: Received by [facility] Primary Care Physician: Jas Braun DO [Primary Care Provider] - Please follow up with your Primary Care Physician in: 3-5 days Please Follow Up With: Jas Braun DO When: 3-5 days Disposition: Home Minutes spent on discharge:: 35 Patient Condition:: Stable Medical Necessity - Tobacco Use Smoking Status: Never smoker Meaningful Use Info Meaningful Use Diagnoses (Choose all that apply): None applicable Inpatient E&M: [id number] [facility]
--- NOTE | 2020-07-13 14:55 | CASEMGMT ---
Addendum entered by Connie Zarate 07/14/20 12:39: KRYS PARIKH received call back from patient. Patient states she has been exhausted since coming home. Patient has been monitoring her SP02 and has been on room air and maintaining mid 90%. Patient states she does not have an appetite, CM encourage fluids and small meals. Patient state she has follow-up appt with PCP tomorrow. Patient states herself and family are isolating at home. Original Note: KRYS PARIKH Discharge Follow-up Phone Call: OPAL: Naomi Strata: 3 Call Date: 07/13/2020 Discharge Date: 07/10/2020 Time of Call: 1455 Duration: 1 min Admitting Diagnosis: SARS covid 19 KRYS PARIKH attempted to complete follow-up phone call after recent hospitalization. No answer, voice message left with return contact information.
== END 2020-07-10 13:51 | disposition home or self-care (01) | DRG 177 ==
LOC: ED 23:26 → PCU 07-09 06:18
PROVIDERS: Admitting Provider Hospitalist; Emergency Provider Emergency Medicine; PCP Student in an Organized Health Care Education/Training Program; Visit Provider Family Medicine
DX: U07.1 COVID-19 (principal); J12.89 Other viral pneumonia; R09.02 Hypoxemia; J45.990 Exercise induced bronchospasm; M79.7 Fibromyalgia; M06.9 Rheumatoid arthritis, unspecified; M19.90 Unspecified osteoarthritis, unspecified site; Z79.51 Long term (current) use of inhaled steroids; Z79.899 Other long term (current) drug therapy; R06.89 Other abnormalities of breathing; K21.9 Gastro-esophageal reflux disease without esophagitis; Z68.37 Body mass index [BMI] 37.0-37.9, adult; E66.9 Obesity, unspecified; F41.9 Anxiety disorder, unspecified
CPT/HCPCS: 36415; 71275; 80048; 80053; 83605; 84145; 85025; 85379; 87449; 87633; 94640; 94667; 99285; J7030; J7050; Q9967; A4216; J0696

== ENCOUNTER → 2020-08-25 11:58 | Outpatient (CLI) | payer OTHER, SELFPAY ==
[2020-07-09 00:27] VITALS: BMI 36.6
[2020-08-25 15:43] LABS: Absolute Lymphocyte Count 3.22 X10^3/uL (0.83-4.51); Absolute Neutrophil Count 3.7 X10^3/uL (2.0-7.7); Basophil# 0.06 X10^3/uL; Basophil% 0.8 % (0-1); Eosinophils% 3.9 % (0-5); Hematocrit 45.9 % (37-47); Hemoglobin 14.1 g/dL (12.0-15.0); Lymphocyte # 3.22 X10^3/ul (4.0); Lymphocyte % 41.8 % (19-41); Mean Corp Hgb Conc 30.7 g/dL (32-36); Mean Corpuscular Hgb 26.7 pg (27.0-32.0); Mean Corpuscular Volume 86.8 fL (81-99); Mean Platelet Vol. 9.5 fl (6.2-12.0); Monocyte# 0.36 X10^3/uL; Monocyte% 4.7 % (0-10); NRBC Flagged by Analyzer 0 % (0-5); Neutrophil # 3.71 X10^3/uL (2.7-7.7); Platelet Count 306 K/mm3 (150-450); RBC Distribution Width CV 13.5 % (11.6-14.6); RBC Distribution Width SD 42.5 fl (35.1-43.9); Red Blood Count 5.29 M/mm3 (4.2-5.4); White Blood Count 7.7 K/mm3 (4.4-11.0)
[2020-08-25 15:57] LABS: AST(SGOT) 13 U/L (15-37); Alanine Aminotransfer ALT/SGPT 22 U/L (13-56); Albumin, Serum 3.9 g/dL (3.2-5.0); Alkaline Phosphatase 122 U/L (45-117); Anion Gap 4 (5-15); BUN 16 mg/dL (7-18); BUN/Creat Ratio 16.8 RATIO (10-20); Calcium,Total 9.5 mg/dL (8.5-10.1); Chloride 108 mmol/L (98-107); Creatinine, Serum 0.95 mg/dL (0.55-1.02); EST Glomerular Filtration Rate 69 mL/min (>60); Est Glom Filt Rate - Afr Amer 84 mL/min (>60); Glucose 98 mg/dL (74-106); Potassium 3.9 mmol/L (3.5-5.1); Protein, Total 7.9 g/dL (6.4-8.2); Sodium Level 139 mmol/L (136-145)
== END ==
PROVIDERS: PCP Student in an Organized Health Care Education/Training Program; Referring Provider Internal Medicine Rheumatology; Visit Provider Internal Medicine Rheumatology
DX: M06.4 Inflammatory polyarthropathy (principal); M79.7 Fibromyalgia; N30.10 Interstitial cystitis (chronic) without hematuria; J45.990 Exercise induced bronchospasm; G43.909 Migraine, unspecified, not intractable, without status migrainosus; F34.1 Dysthymic disorder; Z85.3 Personal history of malignant neoplasm of breast; Z15.01 Genetic susceptibility to malignant neoplasm of breast
CPT/HCPCS: 36415; 80053; 85025

== ENCOUNTER → 2020-09-28 16:50 | Outpatient (CLI) | payer OTHER, SELFPAY ==
[2020-07-09 00:27] VITALS: BMI 36.6
[2020-09-28 18:01] LABS: Basophil# 0.04 X10^3/uL; Basophil% 0.5 % (0-1); Eosinophil# 0.21 X10^3/uL; Eosinophils% 2.6 % (0-5); Hematocrit 46.6 % (37-47); Hemoglobin 14.4 g/dL (12.0-15.0); Lymphocyte % 43.5 % (19-41); Mean Corp Hgb Conc 30.9 g/dL (32-36); Mean Corpuscular Hgb 26.8 pg (27.0-32.0); Mean Corpuscular Volume 86.8 fL (81-99); Mean Platelet Vol. 9.5 fl (6.2-12.0); Monocyte# 0.31 X10^3/uL; Monocyte% 3.9 % (0-10); NRBC Flagged by Analyzer 0 % (0-5); Neutrophil # 3.96 X10^3/uL (2.7-7.7); Neutrophil % 49.3 % (47-70); Platelet Count 326 K/mm3 (150-450); RBC Distribution Width CV 13.2 % (11.6-14.6); RBC Distribution Width SD 41.8 fl (35.1-43.9); Red Blood Count 5.37 M/mm3 (4.2-5.4)
[2020-09-28 19:15] LABS: ALB/GLOB Ratio 1.1 RATIO (0.9-2.4); AST(SGOT) 21 U/L (15-37); Alanine Aminotransfer ALT/SGPT 26 U/L (13-56); Albumin, Serum 4.1 g/dL (3.2-5.0); Alkaline Phosphatase 122 U/L (45-117); Anion Gap 6 (5-15); BUN 11 mg/dL (7-18); BUN/Creat Ratio 12.7 RATIO (10-20); Calcium,Total 9.4 mg/dL (8.5-10.1); Chloride 105 mmol/L (98-107); Creatinine, Serum 0.86 mg/dL (0.55-1.02); EST Glomerular Filtration Rate 78 mL/min (>60); Est Glom Filt Rate - Afr Amer 94 mL/min (>60); Globulin 3.9 g/dL (2.2-4.2); Glucose 94 mg/dL (74-106); Potassium 3.6 mmol/L (3.5-5.1); Sodium Level 138 mmol/L (136-145)
== END ==
LOC: MTLAB 16:53
PROVIDERS: PCP Student in an Organized Health Care Education/Training Program; Referring Provider Internal Medicine Rheumatology; Visit Provider Internal Medicine Rheumatology
DX: M06.4 Inflammatory polyarthropathy (principal); M79.7 Fibromyalgia; N30.10 Interstitial cystitis (chronic) without hematuria; J45.990 Exercise induced bronchospasm; G43.909 Migraine, unspecified, not intractable, without status migrainosus; F34.1 Dysthymic disorder; Z85.3 Personal history of malignant neoplasm of breast; Z15.01 Genetic susceptibility to malignant neoplasm of breast; Z79.899 Other long term (current) drug therapy
CPT/HCPCS: 36415; 80053; 85025

== ENCOUNTER → 2020-12-30 16:13 | Outpatient (CLI) | payer BC, SELFPAY ==
[2020-07-09 00:27] VITALS: BMI 36.6
[2020-12-30 18:06] LABS: Absolute Lymphocyte Count 3.48 X10^3/uL (0.83-4.51); Absolute Neutrophil Count 4.4 X10^3/uL (2.0-7.7); Basophil# 0.04 X10^3/uL; Basophil% 0.5 % (0-1); Eosinophil# 0.27 X10^3/uL; Eosinophils% 3.2 % (0-5); Hematocrit 42.9 % (37-47); Hemoglobin 13.1 g/dL (12.0-15.0); Lymphocyte # 3.48 X10^3/ul (0.83-4.51); Lymphocyte % 40.6 % (19-41); Mean Corp Hgb Conc 30.5 g/dL (32-36); Mean Corpuscular Hgb 26.3 pg (27.0-32.0); Mean Corpuscular Volume 86.1 fL (81-99); Mean Platelet Vol. 9.9 fl (6.2-12.0); Monocyte# 0.36 X10^3/uL; Monocyte% 4.2 % (0-10); NRBC Flagged by Analyzer 0 % (0-5); Neutrophil # 4.38 X10^3/uL (2.7-7.7); Platelet Count 278 K/mm3 (150-450); RBC Distribution Width CV 12.9 % (11.6-14.6); RBC Distribution Width SD 40.1 fl (35.1-43.9); Red Blood Count 4.98 M/mm3 (4.2-5.4); White Blood Count 8.6 K/mm3 (4.4-11.0)
[2020-12-30 18:14] LABS: ALB/GLOB Ratio 1.3 RATIO (0.9-2.4); AST(SGOT) 15 U/L (15-37); Alanine Aminotransfer ALT/SGPT 18 U/L (13-56); Albumin, Serum 4.1 g/dL (3.2-5.0); Alkaline Phosphatase 109 U/L (45-117); Anion Gap 8 (5-15); BUN 14 mg/dL (7-18); BUN/Creat Ratio 15.4 RATIO (10-20); Calcium,Total 8.5 mg/dL (8.5-10.1); Chloride 105 mmol/L (98-107); Creatinine, Serum 0.91 mg/dL (0.55-1.02); EST Glomerular Filtration Rate 73 mL/min (>60); Est Glom Filt Rate - Afr Amer 88 mL/min (>60); Globulin 3.2 g/dL (2.2-4.2); Glucose 85 mg/dL (74-106); Potassium 3.6 mmol/L (3.5-5.1); Protein, Total 7.3 g/dL (6.4-8.2); Sodium Level 141 mmol/L (136-145)
== END ==
PROVIDERS: PCP Student in an Organized Health Care Education/Training Program; Referring Provider Internal Medicine Rheumatology; Visit Provider Internal Medicine Rheumatology
DX: M06.4 Inflammatory polyarthropathy (principal); M79.7 Fibromyalgia; N30.10 Interstitial cystitis (chronic) without hematuria; J45.990 Exercise induced bronchospasm; G43.909 Migraine, unspecified, not intractable, without status migrainosus; F34.1 Dysthymic disorder; Z79.899 Other long term (current) drug therapy; Z85.3 Personal history of malignant neoplasm of breast; Z15.01 Genetic susceptibility to malignant neoplasm of breast
CPT/HCPCS: 36415; 80053; 85025

== ENCOUNTER → 2021-02-08 11:38 | Outpatient (CLI) | payer BC, SELFPAY ==
[2020-07-09 00:27] VITALS: BMI 36.6
[2021-02-08 15:03] LABS: Absolute Lymphocyte Count 2.71 X10^3/uL (0.83-4.51); Basophil# 0.05 X10^3/uL; Basophil% 0.4 % (0-1); Eosinophil# 0.08 X10^3/uL; Eosinophils% 0.7 % (0-5); Hemoglobin 14.1 g/dL (12.0-15.0); Lymphocyte # 2.71 X10^3/ul (0.83-4.51); Mean Corp Hgb Conc 31.3 g/dL (32-36); Mean Corpuscular Hgb 26.5 pg (27.0-32.0); Mean Corpuscular Volume 84.6 fL (81-99); Mean Platelet Vol. 9.8 fl (6.2-12.0); Monocyte# 0.43 X10^3/uL; Monocyte% 3.8 % (0-10); NRBC Flagged by Analyzer 0 % (0-5); Neutrophil # 7.98 X10^3/uL (2.7-7.7); Neutrophil % 70.6 % (47-70); Platelet Count 334 K/mm3 (150-450); RBC Distribution Width CV 13.1 % (11.6-14.6); RBC Distribution Width SD 39.8 fl (35.1-43.9); Red Blood Count 5.32 M/mm3 (4.2-5.4); White Blood Count 11.3 K/mm3 (4.4-11.0)
[2021-02-08 15:36] LABS: Hemoglobin A1c 5.5 % (3.8-5.6)
[2021-02-08 15:47] LABS: AST(SGOT) 23 U/L (15-37); Alanine Aminotransfer ALT/SGPT 22 U/L (13-56); Albumin, Serum 4.1 g/dL (3.2-5.0); Alkaline Phosphatase 123 U/L (45-117); Anion Gap 9 (5-15); BUN 16 mg/dL (7-18); BUN/Creat Ratio 18.1 RATIO (10-20); CRP, High Sensitivity Cardiac 2.55 mg/L; Calcium,Total 9.1 mg/dL (8.5-10.1); Chloride 104 mmol/L (98-107); Cholesterol 214 mg/dL (200); Creatinine, Serum 0.88 mg/dL (0.55-1.02); EST Glomerular Filtration Rate 76 mL/min (>60); Est Glom Filt Rate - Afr Amer 91 mL/min (>60); Globulin 4.2 g/dL (2.2-4.2); Glucose 79 mg/dL (74-106); High Density Lipoprotein 56 mg/dL; Protein, Total 8.3 g/dL (6.4-8.2); Sodium Level 139 mmol/L (136-145); Thyroid Stim Hormone (TSH) 2.24 uIU/mL (0.358-3.74); Triglycerides 151 mg/dL; Very Low Density Lipoprotein 30 mg/dL (5-40)
== END ==
PROVIDERS: PCP Student in an Organized Health Care Education/Training Program; Referring Provider Nurse Practitioner Family; Visit Provider Nurse Practitioner Family
DX: R53.82 Chronic fatigue, unspecified (principal); M62.81 Muscle weakness (generalized); E66.9 Obesity, unspecified
CPT/HCPCS: 36415; 80053; 80061; 83036; 84443; 85025; 86141

== ENCOUNTER 2022-01-02 08:11 | Emergency (ER) | payer BC, SELFPAY ==
[2022-01-02 08:11] VITALS: BP 130/81; PULSE 95; RESP 18; TEMP 36.4; O2SAT 99; BMI 36.9
--- NOTE | 2022-01-02 08:30 | EKG12_ITS ---
Test Reason : SOB Blood Pressure : / mmHG Vent. Rate : 081 BPM Atrial Rate : 081 BPM P-R Int : 162 ms QRS Dur : 084 ms QT Int : 388 ms P-R-T Axes : 043 056 061 degrees QTc Int : 450 ms Normal sinus rhythm Normal ECG Confirmed by MAXIMUS FORD, THIERNO ([id number]), scientific publications editor JELENA LU ([id number]) on 01/03/2022 1:17:27 PM Referred By: SENAIT Confirmed By:THIERNO STROUD MD
--- NOTE | 2022-01-02 08:31 | EDS_ITS ---
HPI History of Present Illness Chief Complaint: Shortness of Breath Detail of Chief Complaint: Chest pain, shortness of breath, paresthesia and red blotches Informant: patient and spouse/S.O. Onset/Context/Timing Onset: Today (Red blotches) and Days (Chest pain initially intermittent now constant) Context: Sudden Onset Timing: - (SinceChest pain initially intermittent now last evening. Also complains of paresthesia upper extremities and hands since Sunday) Current Severity: Moderate Maximum Severity: Moderate Worsened by: Nothing Relieved by: Nothing Associated Symptoms Associated Symptoms: Lightheadedness as if she is going to pass out and palpitations Narrative Narrative: Patient is a 41-year-old woman with a BMI of 36.9 who presents with paresthesia of her upper extremities only. This started Sunday.'s been continuous. She initially had intermittent central chest pain that has now been constant. She also reports pounding in her chest. She does endorse shortness of breath. She does not endorse perioral numbness or numbness in her legs or feet. She states she feels fatigued. She states she feels like she is going to pass out. She denies fever, chills night sweats. She denies weight gain or weight loss. If anything she has had a gradual weight gain. She denies headache, visual, ocular auditory symptoms. She does endorse rhinorrhea which she attributes to allergies and started on Sunday. She denies cough. She denies abdominal pain, black stool or maroon stool. She believes she may have a urinary tract infection and took Pyridium this past weekend. The red blotches were not noted until this morning. Her biggest concern presently is she feels fatigued and this was going to pass out. Prior similar symptoms: No Recent Illness/Hospitalization: No PFSH PFSH Medical History no medical history no medical history Home Medications sumatriptan succinate [Imitrex] 100 mg PO .X1 PRN 05/16/17 [History Last Taken 07/08/20] Allergy/AdvReac Type Severity Reaction Status Date / Time alprazolam [From Xanax] Allergy Unknown Verified 01/02/22 08:14 amoxicillin Allergy Itching Verified 01/02/22 08:14 bupropion HCl Allergy Unknown Verified 01/02/22 08:14 [From Wellbutrin] citalopram hydrobromide Allergy Unknown Verified 01/02/22 08:14 [From Celexa] doxycycline Allergy Unknown Verified 01/02/22 08:14 duloxetine [From Cymbalta] Allergy Mucosal Verified 01/02/22 08:14 lesions fluoxetine HCl [From Prozac] Allergy Unknown Verified 01/02/22 08:14 levomilnacipran HCl Allergy Unknown Verified 01/02/22 08:14 [From Fetzima] lorazepam [From Ativan] Allergy Unknown Verified 01/02/22 08:14 nitrofurantoin Allergy Unknown Verified 01/02/22 08:14 macrocrystalline [From Macrodantin] prochlorperazine edisylate Allergy Unknown Verified 01/02/22 08:14 [From Compazine] prochlorperazine maleate Allergy Unknown Verified 01/02/22 08:14 [From Compazine] pseudoephedrine HCl Allergy Unknown Verified 01/02/22 08:14 [From Sudafed] quetiapine [From Seroquel] Allergy Other Verified 01/02/22 08:14 sertraline HCl [From Zoloft] Allergy Unknown Verified 01/02/22 08:14 acetaminophen [From Vicodin] AdvReac Itching Verified 01/02/22 08:14 fentanyl AdvReac HALLUCINATI Verified 01/02/22 08:14 ONS hydrocodone bitartrate AdvReac Itching Verified 01/02/22 08:14 [From Vicodin] oxycodone AdvReac FLUSHED/HOT Verified 01/02/22 08:14 oxycodone HCl [From Percocet] AdvReac Unknown Verified 01/02/22 08:14 paliperidone [From Invega] AdvReac Other Verified 01/02/22 08:14 risperidone [From Risperdal] AdvReac Other Verified 01/02/22 08:14 tramadol [From Ultram] AdvReac Other Verified 01/02/22 08:14 Social History (Updated 01/02/22 @ 08:[address] Edward Hastings MD) household members: spouse Smoking Status: Never smoker alcohol intake: never substance use type: does not use ROS ROS ED Constitutional Constitutional ED: Denies chills, fever(s), subjective, sweats or weight loss Eyes Eyes: Denies blurry vision, change in vision or diplopia ENT ENT ED: Reports rhinorrhea and other Details: Denies change in voice. She denies difficulty swallowing. ; Denies ear pain or sore throat Cardiovascular Cardiovascular: Reports palpitations; Denies chest pain, orthopnea, paroxysmal nocturnal dyspnea or racing heartbeat Respiratory/Chest Respiratory/Chest: Reports dyspnea; Denies cough, dyspnea on exertion, orthopnea, paroxysmal nocturnal dyspnea or sputum Gastrointestinal Gastrointestinal: Denies abdominal pain, constipation, diarrhea, melena, nausea or vomiting Genitourinary Genitourinary ED: Reports dysuria and urinary frequency Musculoskeletal Musculoskeletal: Denies arthralgias, back pain, myalgias or neck pain Integumentary Reports rash; Denies abscess or Abrasions Neurologic Neurologic: Reports paresthesias and weakness; Denies headache(s) Psychiatric Psychiatric: Reports anxiety Endocrine Endocrinology: Denies polydipsia, polyphagia or polyuria EXAM Physical Exam Const Vital Signs: 01/02/22 08:11 01/02/22 08:42 Temperature 97.6 F L Temperature Source Temporal Pulse Rate 95 Respiratory Rate 18 Respiratory Effort Normal Respiratory Depth Normal Respiratory Pattern Normal Blood Pressure 130/81 H Blood Pressure Mean 97 Pulse Ox 99 Oxygen Delivery Method Room Air Room Air Positive well nourished and well developed General Appearance ED: well developed, NAD and other During the latter part of the physical exam and history patient had her eyes closed and did not open when asked questions. ; Negative for cyanotic, diaphoretic or pallor HEENT Reports TM's clear and moist mucous membranes; Denies dry mucous membranes HEENT Narrative: Uvula is midline. There is no erythema or exudate. There is no angioedema. Patient does have bilateral's Chvostek sign. Negative for trauma or tenderness Tympanic Membrane ED: Yes TM's clear Mouth ED: No dry mucous membranes Mouth: No dry mucous membranes Eyes PERRL and EOMs intact bilaterally General Eye ED: Negative for pale conjunctiva or scleral icterus Neck no lymphadenopathy, supple and no JVD Chest Wall palpation of chest normal; Negative for inspection of chest normal Chest: other Patient has read irregular shaped blotches anterior chest and superior right clavicle Resp normal respiratory effort and clear to auscultation bilaterally Effort and Inspection: Negative for pain with movement Cardio regular rate, regular rhythm, S1 normal heart sound, S2 normal heart sound and no murmurs GI normal to inspection, nondistended, normoactive bowel sounds, non-tender and non-distended Palpation: soft Back/Spine no CVA tenderness Cervical Spine: Negative for cervical spine tenderness Thoracic Spine / Upper Back: Negative for thoracic spinal tenderness or paraspinal muscle tenderness Extremity normal to inspection General Extremety ED: Negative for edema or tenderness General Extremity: Negative for edema Neuro oriented x3, CN's II-XII intact bilaterally and no sensory deficits noted Sensorium / Orientation: alert Motor Exam: Negative for strength 5/5 throughout Psych Psych Narrative: Affect is flat. Skin No no rashes or lesions noted, no wounds and skin turgor normal Skin Narrative: Blotchy erythematous irregularly shaped erythematous rash anterior chest as previously described General Skin Exam: elasticity normal; Negative for jaundice or pallor MDM MDM MDM Narrative Medical decision making narrative: With patient have bilateral's Chvostek sign need to evaluate for hyperventilation syndrome versus hypocalcemia. EKG was obtained because she reported chest pain and shortness of breath in the event this is an atypical presentation for cardiac and a 41-year-old woman. Comprehensive metabolic panel was obtained to assess calcium as well as albumin. Also to assess her other electrolytes. CBC to rule out anemia. UA was obtained because of her urinary symptoms. With a normal EKG, normal laboratory studies including troponin less than 3 and normal UA with patient complaining of bilateral lower extremity numbness after I exited from the room per her nurse, Josh. Patient's findings are consistent wit h hyperventilation syndrome. Suspect her rash which may be anxiety induced. There is no explanation for her fatigue. This may be due to an affective disorder. Lab Data Labs: Laboratory Results - last 24 hr 01/02/22 01/02/22 01/02/22 08:40 08:40 08:52 WBC 7.6 RBC 5.13 Hgb 13.9 Hct 44.4 MCV 86.5 MCH 27.1 MCHC 31.3 L RDW Std Deviation 41.0 RDW Coeff of Octaviano 13.2 Plt Count 311 MPV 9.3 Immature Gran % (Auto) 0.400 Neut % (Auto) 51.5 Lymph % (Auto) 39.6 Redwood % (Auto) 4.2 Eos % (Auto) 3.6 Baso % (Auto) 0.7 Absolute Neuts (auto) 3.9 Absolute Lymphs (auto) 2.99 Nucleated RBC % 0 Sodium 139 Potassium 3.7 Chloride 107 Carbon Dioxide 25.0 Anion Gap 7 BUN 14 Creatinine 0.89 Estim Creat Clear Calc 72.56 Est GFR (MDRD) Af Amer 90 Est GFR (MDRD) Non-Af 74 BUN/Creatinine Ratio 15.7 Glucose 106 Calcium 9.0 Total Bilirubin 0.50 AST 17 ALT 21 Alkaline Phosphatase 115 Troponin I High Sens < 3 L Total Protein 8.1 Albumin 4.1 Globulin 4.0 Albumin/Globulin Ratio 1.0 Urine Color Yellow Urine Clarity Clear Urine pH 7.0 Ur Specific Melfa 1.015 Urine Protein 15 H Urine Glucose (UA) Normal Urine Ketones Negative Urine Occult Blood Negative Urine Nitrite Negative Urine Bilirubin Negative Urine Urobilinogen Normal Ur Leukocyte Esterase Negative Arterial blood gas on room air reveals a pH of 7.43, PCO2 36.3, PO2 116.0, bicarb 24.3 and base excess of +0.1 with a 98.7% saturation which correlates with the pulse ox. Radiography Chest X-Ray - ED: 1 View and Read by ED Physician (Single view chest x-ray was independently interpreted by me at 0901 as negative. Cardiac silhouette size normal. Perihilar region normal. Lung parenchyma normal. Osseous structures normal.) Diagnostic Testing: Clinical Impression(s) from Imaging Studies Chest X-Ray 01/02/22 08:58 IMPRESSION: Normal x-ray examination of the chest. Electronically Signed: Pawel Jon MD at 9:20 EDT Reading Location ID and State: [address] [place] [address] , Service support , EKG Initial EKG: Attestation: I personally reviewed and interpreted this EKG as follows: Interpretation: Sinus Rhythm (The EKG is normal with a ventricular rate 81. WA interval 260 ms. QRS duration 84 ms. QT duration 388 ms. [place]alante is normal.) Discharge Plan Triage Chief Complaint: Shortness of Breath ED Provider: Edward Hastings Dx/Rx/DC Orders Clinical Impression: HVS (hyperventilation syndrome), Heart palpitations Instructions: ED Hyperventilation Syndrome, ED Palpitations Prescriptions: No Action sumatriptan succinate [Imitrex] 100 MG tablet 100 mg PO .X1 PRN RF: 0 Primary Care Provider: Jas Braun Referrals: Jas Braun, DO [Primary Care Provider] - 3-5 Days if not improving Disposition Disposition: Home, Self Care
[2022-01-02 08:42] VITALS: O2SAT 96
[2022-01-02 08:56] LABS: Absolute Lymphocyte Count 2.99 X10^3/uL (0.83-4.51); Absolute Neutrophil Count 3.9 X10^3/uL (2.0-7.7); Basophil# 0.05 X10^3/uL; Basophil% 0.7 % (0-1); Eosinophil# 0.27 X10^3/uL; Eosinophils% 3.6 % (0-5); Hematocrit 44.4 % (37-47); Hemoglobin 13.9 g/dL (12.0-15.0); Lymphocyte # 2.99 X10^3/ul (0.83-4.51); Lymphocyte % 39.6 % (19-41); Mean Corp Hgb Conc 31.3 g/dL (32-36); Mean Corpuscular Hgb 27.1 pg (27.0-32.0); Mean Corpuscular Volume 86.5 fL (81-99); Mean Platelet Vol. 9.3 fl (6.2-12.0); Monocyte# 0.32 X10^3/uL; Monocyte% 4.2 % (0-10); NRBC Flagged by Analyzer 0 % (0-5); Neutrophil % 51.5 % (47-70); Platelet Count 311 K/mm3 (150-450); RBC Distribution Width CV 13.2 % (11.6-14.6); Red Blood Count 5.13 M/mm3 (4.2-5.4); White Blood Count 7.6 K/mm3 (4.4-11.0)
[2022-01-02 08:57] LABS: Mucous, Urine 0 SEEN /hpf (<or=2+)
--- NOTE | 2022-01-02 08:58 | RAD_ITS ---
STUDY: X-RAY CHEST REASON FOR EXAM: Female, 41 years old. Chest pain and shortness of breath TECHNIQUE: Single AP portable view of the chest. COMPARISON: Comparison is made with prior study dated 07/08/2020. FINDINGS: EKG is seen. Stable elevation of the right hemidiaphragm. The lungs are clear. There is no demonstrated pleural abnormality. Normal size heart. Normal mediastinum and marco. Normal visualized pulmonary arteries. Normal visualized aortic arch and descending thoracic aorta. Normal visualized thoracic spine. Normal visualized ribs, clavicles, and shoulders. There is no demonstrated abnormality of the visualized soft tissue structures of the upper abdomen. RAD/Chest 1 View (Portable) IMPRESSION: Normal x-ray examination of the chest. Electronically Signed: Pawel Jon MD at 9:20 EDT ,
[2022-01-02 09:13] LABS: AST(SGOT) 17 U/L (15-37); Alanine Aminotransfer ALT/SGPT 21 U/L (13-56); Albumin, Serum 4.1 g/dL (3.2-5.0); Alkaline Phosphatase 115 U/L (45-117); Anion Gap 7 (5-15); BUN 14 mg/dL (7-18); BUN/Creat Ratio 15.7 RATIO (10-20); Chloride 107 mmol/L (98-107); Creatinine, Serum 0.89 mg/dL (0.55-1.02); EST Glomerular Filtration Rate 74 mL/min (>60); Est Glom Filt Rate - Afr Amer 90 mL/min (>60); Estimated Creatinine Clearance 72.56 ml/min; Glucose 106 mg/dL (74-106); Potassium 3.7 mmol/L (3.5-5.1); Protein, Total 8.1 g/dL (6.4-8.2); Sodium Level 139 mmol/L (136-145); Troponin-I HS < 3 pg/mL (3.0-54.0)
[2022-01-02 09:25] LABS: Color, Urine Yellow (Yellow); Glucose, Dipstick Normal (Normal); Ketone-Dipstick Negative (Negative); Leukocyte Esterase-Dipstick Negative /ul (Negative); Nitrite-Dipstick Negative (Negative); Occult Blood-Urine Negative /ul (Negative); Protein-Dipstick 15 mg/dl (Negative); Specific Gravity, Urine 1.015 (1.002-1.030); Urine Bilirubin Dipstick Negative (Negative); Urine Clarity Clear (Clear); Urine Urobilinogen Normal (Normal)
[2022-01-02 09:30] LABS: Base Excess 0 mmol/L (-2 to +2); Bicarbonate 24.3 mmol/L (22-26); Blood Gas Specimen Type ART; PO2 116 mmHG (75-100); SO2 99 % (95-99); Total Carbon Dioxide 25 mmol/L; pCO2 36.3 mmHg (35-45); pH 7.43 (7.35-7.45)
[2022-01-02 09:41] VITALS: BP 112/72
[2022-01-02 09:47] LABS: Bacteria 2+ /hpf (None Seen)
[2022-01-02 09:48] LABS: Red Blood Cells-Urine 0-5 SEEN /hpf (0-5); Squamous Epithelial Cells - UA 5-10 SEEN /hpf (5-10); White Blood Cells 5-10 SEEN /hpf (0-5)
== END 2022-01-02 09:53 | disposition home or self-care (01) ==
PROVIDERS: Emergency Provider Emergency Medicine; PCP Student in an Organized Health Care Education/Training Program; Visit Provider Emergency Medicine
DX: R06.4 Hyperventilation (principal); R00.2 Palpitations; R06.02 Shortness of breath; R53.83 Other fatigue; R55 Syncope and collapse; R07.9 Chest pain, unspecified; R20.2 Paresthesia of skin; R30.0 Dysuria; R35.0 Frequency of micturition
CPT/HCPCS: 36600; 71045; 80053; 81001; 82803; 84484; 85025; 93005; 99283; A4216

== ENCOUNTER 2022-05-11 19:52 | Emergency (ER) | payer BC, SELFPAY ==
[2022-05-11 19:53] VITALS: BP 119/96; PULSE 98; RESP 18; TEMP 36.8; O2SAT 97; BMI 37.4
[2022-05-11 20:48] LABS: Anion Gap 7 (5-15); BUN 13 mg/dL (7-18); Calcium,Total 9.7 mg/dL (8.5-10.1); Chloride 105 mmol/L (98-107); Creatinine, Serum 0.86 mg/dL (0.55-1.02); EST Glomerular Filtration Rate 77 mL/min (>60); Est Glom Filt Rate - Afr Amer 93 mL/min (>60); Estimated Creatinine Clearance 75.09 ml/min; Glucose 96 mg/dL (74-106); Potassium 4.1 mmol/L (3.5-5.1); Sodium Level 141 mmol/L (136-145)
[2022-05-11 21:53] VITALS: BP 134/78; PULSE 92; RESP 18; O2SAT 96
[2022-05-11] MEDS: 0.9% Normal Saline 1,000 ML 999 ML IV (22:44)
[2022-05-11] MEDS: diazePAM 5 MG Tablet 10 MG PO (22:44)
[2022-05-11 22:52] LABS: CPK Total, Creatine Kinase 80 U/L (26-192); Magnesium 2.1 mg/dL (1.6-2.6)
[2022-05-11 23:13] VITALS: PULSE 95; RESP 21; O2SAT 97
--- NOTE | 2022-05-12 00:19 | EDS_ITS ---
HPI History of Present Illness Chief Complaint: General Illness Narrative Narrative: Patient is a 41 female with past medical history of bipolar disorder and fibromyalgia. She states she will occasionally get muscle spasms mainly in her left neck and arm when she turns her head. She states that however in the last few days she has been under a great deal of stress and has noticed similar symptoms in her leg consistent with sciatica and now she states she feels like the symptoms are occurring throughout her entire body. She denies any new medication. She denies any nausea vomiting diarrhea or dysuria to suggest dehydration. She states she has tried muscle relaxers with minimal improvement and secondary to this comes in for evaluation. [facility] Medical History (Updated 05/12/22 @ 02:[address] Orlando Quach, DO) Bipolar disorder Breast cancer Fibromyalgia Migraine Rheumatoid arthritis Ruptured disk Home Medications sumatriptan succinate 100 mg tablet (Imitrex) 100 mg PO .X1 PRN migraine 05/16/17 [History Last Taken 07/08/20] diazepam 10 mg tablet (Valium) 10 mg PO TID PRN muscle spasm 5 days #15 tabs 05/12/22 [Rx Last Taken Unknown] sulfamethoxazole 800 mg-trimethoprim 160 mg tablet 1 tab PO BID 05/12/22 [History Last Taken Unknown] Allergy/AdvReac Type Severity Reaction Status Date / Time alprazolam [From Xanax] Allergy Unknown Verified 05/11/22 19:56 amoxicillin Allergy Itching Verified 05/11/22 19:56 bupropion HCl Allergy Unknown Verified 05/11/22 19:56 [From Wellbutrin] citalopram hydrobromide Allergy Unknown Verified 05/11/22 19:56 [From Celexa] doxycycline Allergy Unknown Verified 05/11/22 19:56 duloxetine [From Cymbalta] Allergy Mucosal Verified 05/11/22 19:56 lesions fluoxetine HCl [From Prozac] Allergy Unknown Verified 05/11/22 19:56 levomilnacipran HCl Allergy Unknown Verified 05/11/22 19:56 [From Fetzima] lorazepam [From Ativan] Allergy Unknown Verified 05/11/22 19:56 nitrofurantoin Allergy Unknown Verified 05/11/22 19:56 macrocrystalline [From Macrodantin] prochlorperazine edisylate Allergy Unknown Verified 05/11/22 19:56 [From Compazine] prochlorperazine maleate Allergy Unknown Verified 05/11/22 19:56 [From Compazine] pseudoephedrine HCl Allergy Unknown Verified 05/11/22 19:56 [From Sudafed] quetiapine [From Seroquel] Allergy Other Verified 05/11/22 19:56 sertraline HCl [From Zoloft] Allergy Unknown Verified 05/11/22 19:56 acetaminophen [From Vicodin] AdvReac Itching Verified 05/11/22 19:56 fentanyl AdvReac HALLUCINATI Verified 05/11/22 19:56 ONS hydrocodone bitartrate AdvReac Itching Verified 05/11/22 19:56 [From Vicodin] oxycodone AdvReac FLUSHED/HOT Verified 05/11/22 19:56 oxycodone HCl [From Percocet] AdvReac Unknown Verified 05/11/22 19:56 paliperidone [From Invega] AdvReac Other Verified 05/11/22 19:56 risperidone [From Risperdal] AdvReac Other Verified 05/11/22 19:56 tramadol [From Ultram] AdvReac Other Verified 05/11/22 19:56 Surgical History (Updated 05/11/22 @ 20:54 by Nathalie Edgar) History of cholecystectomy History of hysterectomy Social History (Updated 01/02/22 @ 08:[address] Edward Hastinsg MD) household members: spouse Smoking Status: Never smoker alcohol intake: never substance use type: does not use ROS ROS ED Constitutional Constitutional ED: Denies chills or fever(s) ENT ENT ED: Denies sore throat Cardiovascular Cardiovascular: Denies chest pain Respiratory/Chest Respiratory/Chest: Denies cough or dyspnea Gastrointestinal Gastrointestinal: Denies abdominal pain, diarrhea, nausea or vomiting Genitourinary Genitourinary ED: Denies dysuria Musculoskeletal Musculoskeletal: Reports myalgias and other Details: Positive muscle spasm Integumentary Denies rash Neurologic Neurologic: Denies headache(s) Psychiatric Psychiatric: Reports anxiety Hematologic/Lymphatic Hematologic/Lymphatic: Denies easy bleeding or easy bruising EXAM Physical Exam Const Vital Signs: 05/11/22 19:53 05/11/22 20:41 05/11/22 21:53 Temperature 98.3 F Temperature Source Temporal Pulse Rate 98 92 Respiratory Rate 18 18 Blood Pressure 119/96 H 134/78 H Blood Pressure Mean 103 96 Pulse Ox 97 96 Oxygen Delivery Method Room Air Room Air Room Air 05/11/22 23:13 05/12/22 00:24 Temperature Temperature Source Pulse Rate 95 81 Respiratory Rate 21 H 14 Blood Pressure Blood Pressure Mean Pulse Ox 97 96 Oxygen Delivery Method Room Air Positive well nourished and well developed General Appearance ED: well developed HEENT Reports moist mucous membranes Eyes PERRL and EOMs intact bilaterally Neck supple Resp normal respiratory effort and clear to auscultation bilaterally Cardio regular rate and regular rhythm Rate: other Other Details: Radial pulses are plus 2 out of 4 bilaterally are equal and symmetric GI normal to inspection, nondistended, normoactive bowel sounds, non-tender and non-distended GI Narrative: No voluntary guarding or rigidity no pulsatile mass Auscultation: normoactive bowel sounds Palpation: soft Extremity normal to inspection Neuro oriented x3, CN's II-XII intact bilaterally and no sensory deficits noted Sensorium / Orientation: alert Psych mental status grossly normal Skin no rashes or lesions noted MDM MDM MDM Narrative Medical decision making narrative: Patient presented to the ER with stable vitals and no obvious focal findings on exam to suggest nerve entrapment or neurologic event. Because she reported whole body muscle tension and spasm I did elect to check electrolyte values which were not clinically significant altered. Patient was hydrated and given valium. On reevaluation she is resting comfortably and able to sleep and does report improvement of her tension/spasm. Therefore at this time as electrolytes are not deranged vitals are stable and there is no obvious signs of focal neurologic impingement or neuro claudication she can be discharged home with symptomatic medications Lab Data Attestation: I reviewed the patient's lab results. Labs: Laboratory Results - last 24 hr 05/11/22 05/11/22 20:05 20:05 Sodium 141 Potassium 4.1 Chloride 105 Carbon Dioxide 29.0 Anion Gap 7 BUN 13 Creatinine 0.86 Estim Creat Clear Calc 75.09 Est GFR (MDRD) Af Amer 93 Est GFR (MDRD) Non-Af 77 BUN/Creatinine Ratio 15.0 Glucose 96 Calcium 9.7 Magnesium 2.1 Total Creatine Kinase 80 Discharge Plan Triage Chief Complaint: General Illness ED Provider: Orlando Quach Dx/Rx/DC Orders Clinical Impression: Muscle spasm, Fibromyalgia, Bipolar disorder Instructions: ED Muscle Spasm Prescriptions: New diazepam [Valium] 10 mg tablet 10 mg PO TID PRN (Reason: muscle spasm) 5 Days Qty: 15 0RF No Action sumatriptan succinate [Imitrex] 100 MG tablet 100 mg PO .X1 PRN sulfamethoxazole-trimethoprim 800-160 mg tablet 1 tab PO BID Label Comments: TAKE 1 TAB BY MOUTH NEEDED AFTER INTERCOURSE Primary Care Provider: Jas Braun Referrals: Jas Braun DO [Primary Care Provider] - Disposition Disposition: Home, Self Care Discharge Date/Time: 05/12/22 00:24
[2022-05-12 00:24] VITALS: PULSE 81; RESP 14; O2SAT 96
== END 2022-05-12 00:24 | disposition home or self-care (01) ==
PROVIDERS: Emergency Provider Emergency Medicine; PCP Student in an Organized Health Care Education/Training Program; Visit Provider Emergency Medicine
DX: M62.838 Other muscle spasm (principal); M06.9 Rheumatoid arthritis, unspecified; F31.9 Bipolar disorder, unspecified; M79.7 Fibromyalgia; Z79.899 Other long term (current) drug therapy
CPT/HCPCS: 80048; 82550; 83735; 96360; 96361; 99284

== ENCOUNTER 2022-06-13 01:45 | Emergency (ER) | payer BC, SELFPAY ==
[2022-06-13 01:46] VITALS: TEMP 36.5; BMI 36.8
[2022-06-13 01:52] VITALS: BP 114/75; PULSE 79; RESP 16; O2SAT 96
--- NOTE | 2022-06-13 02:02 | EX.ED.VIS.HA ---
HPI History of Present Illness Chief Complaint: Headache Narrative Narrative: Patient with past medical history of bipolar disorder is currently in the emergency department with her daughter. She decided to sign in because she has had nausea and migraine headache since Sunday, over the last 3 days. She states that although she is allergic to Cymbalta, it was given to her. She took it she became nauseated. She has had problems with it ever since and now she developed a migraine headache. She has typical migraines, this 1 being on the left side. She states she had come to the emergency department for migraine headaches in the past. She took 2 separate doses of Imitrex so for a total of 50 mg today and it will go away but come back. She endorses photophobia. She has continued nausea. This is typical of her previous migraines. Additionally, she states that she has had problems with back pain and sciatica along with fibromyalgia. She is having neurological issues and is supposed to get an MRI. She decided to sign in because she is developing her migraine headache on the left side again. [facility] Medical History Bipolar disorder Breast cancer Fibromyalgia Migraine Rheumatoid arthritis Ruptured disk Home Medications sumatriptan succinate 100 mg tablet (Imitrex) 100 mg PO .X1 PRN migraine 05/16/17 [History Last Taken 07/08/20] diazepam 10 mg tablet (Valium) 10 mg PO TID PRN muscle spasm 5 days #15 tabs 05/12/22 [Rx Last Taken Unknown] sulfamethoxazole 800 mg-trimethoprim 160 mg tablet 1 tab PO BID 05/12/22 [History Last Taken Unknown] Allergy/AdvReac Type Severity Reaction Status Date / Time alprazolam [From Xanax] Allergy Unknown Verified 05/11/22 19:56 amoxicillin Allergy Itching Verified 05/11/22 19:56 bupropion HCl Allergy Unknown Verified 05/11/22 19:56 [From Wellbutrin] citalopram hydrobromide Allergy Unknown Verified 05/11/22 19:56 [From Celexa] doxycycline Allergy Unknown Verified 05/11/22 19:56 duloxetine [From Cymbalta] Allergy Mucosal Verified 05/11/22 19:56 lesions fluoxetine HCl [From Prozac] Allergy Unknown Verified 05/11/22 19:56 levomilnacipran HCl Allergy Unknown Verified 05/11/22 19:56 [From Fetzima] lorazepam [From Ativan] Allergy Unknown Verified 05/11/22 19:56 nitrofurantoin Allergy Unknown Verified 05/11/22 19:56 macrocrystalline [From Macrodantin] prochlorperazine edisylate Allergy Unknown Verified 05/11/22 19:56 [From Compazine] prochlorperazine maleate Allergy Unknown Verified 05/11/22 19:56 [From Compazine] pseudoephedrine HCl Allergy Unknown Verified 05/11/22 19:56 [From Sudafed] quetiapine [From Seroquel] Allergy Other Verified 05/11/22 19:56 sertraline HCl [From Zoloft] Allergy Unknown Verified 05/11/22 19:56 acetaminophen [From Vicodin] AdvReac Itching Verified 05/11/22 19:56 fentanyl AdvReac HALLUCINATI Verified 05/11/22 19:56 ONS hydrocodone bitartrate AdvReac Itching Verified 05/11/22 19:56 [From Vicodin] oxycodone AdvReac FLUSHED/HOT Verified 05/11/22 19:56 oxycodone HCl [From Percocet] AdvReac Unknown Verified 05/11/22 19:56 paliperidone [From Invega] AdvReac Other Verified 05/11/22 19:56 risperidone [From Risperdal] AdvReac Other Verified 05/11/22 19:56 tramadol [From Ultram] AdvReac Other Verified 05/11/22 19:56 Surgical History History of cholecystectomy History of hysterectomy Social History household members: spouse Smoking Status: Never smoker alcohol intake: never substance use type: does not use ROS ROS ED ROS Narrative Constitutional: No fever, no chills. HEENT: No sore throat. No neck pain. No loss of vision. No rhinorrhea. Cardiovascular: No chest pain. No palpitations. No pedal edema. Respiratory: No cough, no shortness of breath. Abdominal: No abdominal pain. Positive nausea. No vomiting. Genitourinary: No dysuria. No hematuria. Musculoskeletal: No myalgias. No arthralgias. Neurologic: Positive headaches, left-sided radiating down to her neck. No dizziness. No lightheadedness. Skin: No rash. No change in color. Psychiatric: No depression. No anxiety. EXAM Physical Exam Narrative Exam Narrative: Afebrile. Vital signs noted. HEENT: Normocephalic. Atraumatic. PERRL, EOMI. Neck soft and supple. No point tenderness or step off. Cardiovascular: Regular rate and rhythm. No murmurs, rubs, or gallops appreciated. Respiratory: No tachypnea. Lungs clear to auscultation bilaterally. Gastrointestinal: Abdomen soft, nontender, with normoactive bowel sounds. No rebound or guarding. Neurological: Awake. Alert. Nonfocal, nonlateralizing. Skin: No rash. Normal color. No pallor. Musculoskeletal: No pedal edema. Full range of motion extremities. Const Vital Signs: 06/13/22 01:46 06/13/22 01:52 Temperature 97.7 F L Temperature Source Temporal Pulse Rate 79 Respiratory Rate 16 Blood Pressure 114/75 Blood Pressure Mean 88 Pulse Ox 96 Oxygen Delivery Method Room Air MDM MDM MDM Narrative Medical decision making narrative: In review of her EMR she has not been treated for migraine headache here. She will be bolused normal saline 1 L intravenously and administered Reglan because she has an allergy to Compazine. She has multiple allergies and intolerances to medications. She will also be given Benadryl. Upon repeat examination, she states her headache and nausea have improved, but she feels slightly anxious. I do feel that this is secondary to the Reglan. This is more of a medication side effect than it is a true allergy. She will follow-up with her primary care physician regarding her migraine headaches. I feel she be discharged safely home with follow-up. Return instructions were reviewed. Disposition is discharged home in stable condition. Discharge Plan Triage Chief Complaint: Headache ED Provider: Chepe Cutler Dx/Rx/DC Orders Clinical Impression: Migraine headache, Nausea Instructions: ED, Migraine (Classical) Prescriptions: No Action sumatriptan succinate [Imitrex] 100 MG tablet 100 mg PO .X1 PRN sulfamethoxazole-trimethoprim 800-160 mg tablet 1 tab PO BID Label Comments: TAKE 1 TAB BY MOUTH NEEDED AFTER INTERCOURSE diazepam [Valium] 10 mg tablet 10 mg PO TID PRN (Reason: muscle spasm) 5 Days Qty: 15 0RF Primary Care Provider: Jas Braun Referrals: Jas Braun DO [Primary Care Provider] - 3-5 Days if not improving Disposition Disposition: Home, Self Care
[2022-06-13] MEDS: 0.9% Normal Saline 1,000 ML 999 ML IV (02:40)
[2022-06-13] MEDS: Metoclopramide 10 MG/2 ML Vial IV (02:41)
[2022-06-13] MEDS: DiphenhydrAMINE 50 MG/ML Syringe 25 MG IV (02:42)
== END 2022-06-13 03:52 | disposition home or self-care (01) ==
PROVIDERS: Emergency Provider Emergency Medicine; PCP Student in an Organized Health Care Education/Training Program; Visit Provider Emergency Medicine
DX: G43.909 Migraine, unspecified, not intractable, without status migrainosus (principal); M06.9 Rheumatoid arthritis, unspecified; F31.9 Bipolar disorder, unspecified; M79.7 Fibromyalgia; Z79.899 Other long term (current) drug therapy
CPT/HCPCS: 96361; 96374; 96375; 99283; J7030; A4216

== ENCOUNTER 2022-06-29 08:18 | Emergency (ER) | payer BC, SELFPAY ==
[2022-06-29 08:19] VITALS: BP 139/88; PULSE 101; RESP 18; TEMP 36.3; BMI 37.0
[2022-06-29 08:48] LABS: Absolute Lymphocyte Count 2.11 X10^3/uL (0.83-4.51); Absolute Neutrophil Count 3.6 X10^3/uL (2.0-7.7); Basophil# 0.09 X10^3/uL; Basophil% 1.2 % (0-1); Eosinophil# 1.24 X10^3/uL; Eosinophils% 16.3 % (0-5); Hematocrit 46.3 % (37-47); Hemoglobin 14.9 g/dL (12.0-15.0); Lymphocyte # 2.11 X10^3/ul (0.83-4.51); Lymphocyte % 27.8 % (19-41); Mean Corp Hgb Conc 32.2 g/dL (32-36); Mean Corpuscular Hgb 26.9 pg (27.0-32.0); Mean Corpuscular Volume 83.7 fL (81-99); Mean Platelet Vol. 9.6 fl (6.2-12.0); Monocyte% 6.6 % (0-10); NRBC Flagged by Analyzer 0 % (0-5); Neutrophil # 3.59 X10^3/uL (2.7-7.7); Neutrophil % 47.3 % (47-70); Platelet Count 261 K/mm3 (150-450); RBC Distribution Width CV 13.6 % (11.6-14.6); RBC Distribution Width SD 41.6 fl (35.1-43.9); Red Blood Count 5.53 M/mm3 (4.2-5.4); White Blood Count 7.6 K/mm3 (4.4-11.0)
[2022-06-29 08:58] LABS: Anion Gap 7 (5-15); BUN 7 mg/dL (7-18); BUN/Creat Ratio 6.9 RATIO (10-20); Calcium,Total 9.5 mg/dL (8.5-10.1); Chloride 107 mmol/L (98-107); Creatinine, Serum 1.02 mg/dL (0.55-1.02); EST Glomerular Filtration Rate 63 mL/min (>60); Est Glom Filt Rate - Afr Amer 77 mL/min (>60); Estimated Creatinine Clearance 62.68 ml/min; Glucose 126 mg/dL (74-106); Potassium 3.6 mmol/L (3.5-5.1); Sodium Level 140 mmol/L (136-145)
[2022-06-29 08:59] LABS: Bacteria 0 SEEN /hpf (None Seen); Mucous, Urine 0 SEEN /hpf (<or=2+); Red Blood Cells-Urine 0 SEEN /hpf (0-5); Squamous Epithelial Cells - UA 0 SEEN /hpf (5-10)
[2022-06-29 09:05] LABS: Color, Urine Yellow (Yellow); Glucose, Dipstick Normal (Normal); Ketone-Dipstick 5 mg/dl (Negative); Leukocyte Esterase-Dipstick 25 /ul (Negative); Nitrite-Dipstick Negative (Negative); Occult Blood-Urine Negative /ul (Negative); Protein-Dipstick 15 mg/dl (Negative); Urine Clarity Sl. Cloudy (Clear); Urine Urobilinogen 4 mg/dl (Normal); Urine pH 6.5 (5.0 - 8.0)
[2022-06-29 09:06] LABS: Urine Bilirubin Dipstick 1 mg/dL (Negative)
[2022-06-29 09:22] LABS: White Blood Cells 0-5 SEEN /hpf (0-5)
[2022-06-29 09:23] LABS: Uric Acid Crystals Ur 1+ /hpf (<or=1+)
[2022-06-29 09:27] LABS: Internal QC Validated? YES +Cl - CLEAR BKGD; Pregnancy, Serum, hCG Quali. NEGATIVE Negative
[2022-06-29] MEDS: Dicyclomine 10 MG Capsule 20 MG PO (10:07)
[2022-06-29 10:18] VITALS: BP 140/78; PULSE 66; RESP 14; O2SAT 98
--- NOTE | 2022-06-29 10:28 | EDS_ITS ---
HPI History of Present Illness Chief Complaint: Abd Pain Detail of Chief Complaint: Upper sharp bilateral abdominal pain Informant: patient Onset/Context/Timing Onset: Days (Abdominal pain started 5 days ago) Context: Sudden Onset Timing: Continuous (Initially intermittent now continuous) and Intermittent Quality: Sharp Location: Bilateral upper quadrants radiating to the lower quadrants Current Severity: Mild Maximum Severity: Severe Worsened by: Water or food Relieved by: Nothing Associated Symptoms Associated Symptoms: Nausea without vomiting or diarrhea Narrative Narrative: Patient is a 42-year-old woman who presents with bilateral upper abdominal pain that described as sharp rating to the lower quadrants. This is been present for 5 days. Initially was intermittent now its continuous. 7 days prior to that she had upper respiratory symptoms with rhinorrhea, congestion postnasal drainage sore throat and cough. Cough is mildly productive. She denies pleuritic pain. She denies history of PE or DVT. She has no risk factors. She denies leg pain, swelling discoloration. She is status postcholecystectomy and hysterectomy. She denies dysuria, frequency, urgency or hematuria. She denies history of renal ureterolithiasis. She denies radiation of the pain. Presently she has no upper respiratory infectious symptoms. Prior similar symptoms: No Recent Illness/Hospitalization: No PFSH PFSH Medical History Bipolar disorder Breast cancer Fibromyalgia Migraine Rheumatoid arthritis Ruptured disk Home Medications sumatriptan succinate 100 mg tablet (Imitrex) 100 mg PO .X1 PRN migraine 05/16/17 [History Last Taken 07/08/20] hydrocodone-acetaminophen 5-325mg 5mg-325mg 1 tab PO Q6H PRN PRN Pain 3 days #10 TABLETS 06/29/22 [Rx Last Taken Unknown] ondansetron 4 mg disintegrating tablet 4 mg PO Q8H PRN PRN Nausea #10 tabs 06/29/22 [Rx Last Taken Unknown] Allergy/AdvReac Type Severity Reaction Status Date / Time alprazolam [From Xanax] Allergy Unknown Verified 05/11/22 19:56 amoxicillin Allergy Itching Verified 05/11/22 19:56 bupropion HCl Allergy Unknown Verified 05/11/22 19:56 [From Wellbutrin] citalopram hydrobromide Allergy Unknown Verified 05/11/22 19:56 [From Celexa] doxycycline Allergy Unknown Verified 05/11/22 19:56 duloxetine [From Cymbalta] Allergy Mucosal Verified 05/11/22 19:56 lesions fluoxetine HCl [From Prozac] Allergy Unknown Verified 05/11/22 19:56 levomilnacipran HCl Allergy Unknown Verified 05/11/22 19:56 [From Fetzima] lorazepam [From Ativan] Allergy Unknown Verified 05/11/22 19:56 nitrofurantoin Allergy Unknown Verified 05/11/22 19:56 macrocrystalline [From Macrodantin] prochlorperazine edisylate Allergy Unknown Verified 05/11/22 19:56 [From Compazine] prochlorperazine maleate Allergy Unknown Verified 05/11/22 19:56 [From Compazine] pseudoephedrine HCl Allergy Unknown Verified 05/11/22 19:56 [From Sudafed] quetiapine [From Seroquel] Allergy Other Verified 05/11/22 19:56 sertraline HCl [From Zoloft] Allergy Unknown Verified 05/11/22 19:56 acetaminophen [From Vicodin] AdvReac Itching Verified 05/11/22 19:56 fentanyl AdvReac HALLUCINATI Verified 05/11/22 19:56 ONS hydrocodone bitartrate AdvReac Itching Verified 05/11/22 19:56 [From Vicodin] oxycodone AdvReac FLUSHED/HOT Verified 05/11/22 19:56 oxycodone HCl [From Percocet] AdvReac Unknown Verified 05/11/22 19:56 paliperidone [From Invega] AdvReac Other Verified 05/11/22 19:56 risperidone [From Risperdal] AdvReac Other Verified 05/11/22 19:56 tramadol [From Ultram] AdvReac Other Verified 05/11/22 19:56 Surgical History History of cholecystectomy History of hysterectomy Social History household members: spouse Smoking Status: Never smoker alcohol intake: never substance use type: does not use ROS ROS ED Constitutional Constitutional ED: Denies chills, fever(s), subjective, sweats or weight loss Eyes Eyes: Denies blurry vision, change in vision or diplopia ENT ENT ED: Reports rhinorrhea and sore throat; Denies ear pain Cardiovascular Cardiovascular: Denies chest pain, orthopnea, palpitations, paroxysmal nocturnal dyspnea or racing heartbeat Respiratory/Chest Respiratory/Chest: Reports cough; Denies dyspnea, dyspnea on exertion, orthopnea or paroxysmal nocturnal dyspnea Gastrointestinal Gastrointestinal: Reports abdominal pain, nausea and other Details: Patient is taking Zofran with no benefit. ; Denies constipation, diarrhea, melena or vomiting Genitourinary Genitourinary ED: Denies dysuria, hematuria or urinary frequency Musculoskeletal Musculoskeletal: Denies arthralgias, back pain, myalgias or neck pain Integumentary Denies abscess or Abrasions Neurologic Neurologic: Denies headache(s), paresthesias or other Psychiatric Psychiatric: Denies anxiety or depression Endocrine Endocrinology: Denies cold intolerance or heat intolerance Hematologic/Lymphatic Hematologic/Lymphatic: Reports systems reviewed and no addt'l complaints, except as documented and none EXAM Physical Exam Const Vital Signs: 06/29/22 08:19 06/29/22 10:18 06/29/22 12:00 Temperature 97.3 F L Temperature Source Tympanic Pulse Rate 101 H 66 88 Respiratory Rate 18 14 16 Blood Pressure 139/88 H 140/78 H 134/78 H Blood Pressure Mean 105 98 96 Pulse Ox 98 99 Oxygen Delivery Method Room Air Room Air Positive well nourished, well developed and obese; Negative for cachectic, contractures or unkempt General Appearance ED: well developed and NAD; Negative for unkempt, cachectic, contractures, cyanotic, diaphoretic or pallor Nutritional Appearance: obese; Negative for cachectic HEENT Reports TM's clear and moist mucous membranes HEENT Narrative: Ears normal. Auditory canal normal. Nares normal. Posterior pharynx unremarkable. Negative for trauma or tenderness Tympanic Membrane ED: Yes TM's clear Eyes PERRL and EOMs intact bilaterally General Eye ED: Negative for pale conjunctiva or scleral icterus Neck no lymphadenopathy, supple and no JVD Chest Wall inspection of chest normal and palpation of chest normal Resp normal respiratory effort and clear to auscultation bilaterally Cardio regular rate, regular rhythm, S1 normal heart sound, S2 normal heart sound and no murmurs GI normal to inspection, nondistended, normoactive bowel sounds and no masses; Negative for non-tender or hepatosplenomegaly Palpation: soft and tender LUQ and RUQ; Negative for mass or rebound tenderness present Back/Spine no CVA tenderness Thoracic Spine / Upper Back: Negative for thoracic spinal tenderness Lumbar Spine / Lower Back: Negative for lumbar spinal tenderness Neuro oriented x3, CN's II-XII intact bilaterally and no sensory deficits noted Sensorium / Orientation: alert Motor Exam: strength 5/5 throughout Psych Appearance: Negative for unkempt Mood & Affect: depressed Skin no rashes or lesions noted, no wounds and skin turgor normal General Skin Exam: elasticity normal; Negative for jaundice or pallor MDM MDM MDM Narrative Medical decision making narrative: Patient initially with upper respiratory symptoms. Now GI symptoms. Differential diagnosis would be pancreatitis, choledocholithiasis, doubt lower lobe pneumonia as the cause. There is no history of drug use and specifically marijuana and. This could be due to a viral illness. There is no evidence of hernia. Lab Data Attestation: I reviewed the patient's lab results. Lab results narrative: CBC is unremarkable. Basic metabolic panel is unremarkable. Pegasus is negative which 1 would since she status post to me UA reveals uric acid crystals and and bilirubin which raises concern for liver disease. Labs: Laboratory Results - last 24 hr 06/29/22 06/29/22 06/29/22 08:40 08:40 08:40 WBC 7.6 RBC 5.53 H Hgb 14.9 Hct 46.3 MCV 83.7 MCH 26.9 L MCHC 32.2 RDW Std Deviation 41.6 RDW Coeff of Octaviano 13.6 Plt Count 261 MPV 9.6 Immature Gran % (Auto) 0.800 Neut % (Auto) 47.3 Lymph % (Auto) 27.8 [place] % (Auto) 6.6 Eos % (Auto) 16.3 H Baso % (Auto) 1.2 H Absolute Neuts (auto) 3.6 Absolute Lymphs (auto) 2.11 Nucleated RBC % 0 Sodium 140 Potassium 3.6 Chloride 107 Carbon Dioxide 26.0 Anion Gap 7 BUN 7 Creatinine 1.02 Estim Creat Clear Calc 62.68 Est GFR (MDRD) Af Amer 77 Est GFR (MDRD) Non-Af 63 BUN/Creatinine Ratio 6.9 L Glucose 126 H Calcium 9.5 Total Bilirubin Direct Bilirubin AST ALT Alkaline Phosphatase Total Protein Albumin Globulin Lipase Serum , Qual NEGATIVE Urine Color Urine Clarity Urine pH Ur Specific [place] Urine Protein Urine Glucose (UA) Urine Ketones Urine Occult Blood Urine Nitrite Urine Bilirubin Urine Urobilinogen Ur Leukocyte Esterase Urine RBC Urine WBC Ur Squamous Epith Cells Uric Acid Crystals Urine Bacteria Urine Mucus 06/29/22 06/29/22 08:40 08:50 WBC RBC Hgb Hct MCV MCH MCHC RDW Std Deviation RDW Coeff of Octaviano Plt Count MPV Immature Gran % (Auto) Neut % (Auto) Lymph % (Auto) [place] % (Auto) Eos % (Auto) Baso % (Auto) Absolute Neuts (auto) Absolute Lymphs (auto) Nucleated RBC % Sodium Potassium Chloride Carbon Dioxide Anion Gap BUN Creatinine Estim Creat Clear Calc Est GFR (MDRD) Af Amer Est GFR (MDRD) Non-Af BUN/Creatinine Ratio Glucose Calcium Total Bilirubin 0.80 Direct Bilirubin 0.18 AST 279 H ALT 416 H Alkaline Phosphatase 174 H Total Protein 7.8 Albumin 4.0 Globulin 3.8 Lipase 107 Serum , Qual Urine Color Yellow Urine Clarity Sl. Cloudy Urine pH 6.5 Ur Specific [place] 1.020 Urine Protein 15 H Urine Glucose (UA) Normal Urine Ketones 5 H Urine Occult Blood Negative Urine Nitrite Negative Urine Bilirubin 1 H Urine Urobilinogen 4 H Ur Leukocyte Esterase 25 H Urine RBC 0 SEEN Urine WBC 0-5 SEEN Ur Squamous Epith Cells 0 SEEN Uric Acid Crystals 1+ Urine Bacteria 0 SEEN Urine Mucus 0 SEEN Radiography Diagnostic Testing: Clinical Impression(s) from Imaging Studies Gallbladder Ultrasound 06/29/22 11:23 IMPRESSION: Fatty infiltration of the liver. Status post cholecystectomy. Electronically Signed: Pawel Jon MD at 12:56 EDT , Discharge Plan Triage Chief Complaint: Abd Pain ED Provider: Edward Hastings Dx/Rx/DC Orders Clinical Impression: Fatty infiltration of liver, Abdominal wall pain in both upper quadrants, Nausea Instructions: Nonalcoholic Fatty Liver ... Prescriptions: New hydrocodone-acetaminophen [hydrocodone-acetaminophen] 5-325 mg tablet 1 tab PO Q6H PRN PRN (Reason: Pain) 3 Days Qty: 10 0RF ondansetron [ondansetron] 4 mg tablet,disintegrating 4 mg PO Q8H PRN PRN (Reason: Nausea) Qty: 10 0RF No Action sumatriptan succinate [Imitrex] 100 MG tablet 100 mg PO .X1 PRN Primary Care Provider: Jas Braun Referrals: Jas Braun DO [Primary Care Provider] - 1 Week if not improving Disposition Disposition: Home, Self Care
[2022-06-29 11:19] LABS: AST(SGOT) 279 U/L (15-37); Alanine Aminotransfer ALT/SGPT 416 U/L (13-56); Alkaline Phosphatase 174 U/L (45-117); Bilirubin, Direct 0.18 mg/dL (0.00-0.30); Globulin 3.8 g/dL (2.2-4.2); Lipase 107 U/L (73-393); Protein, Total 7.8 g/dL (6.4-8.2)
--- NOTE | 2022-06-29 11:23 | US_ITS ---
STUDY: ABDOMINAL ULTRASOUND - RIGHT UPPER QUADRANT REASON FOR VISIT: Female, 42 years old Evaluate choledocholithiasis TECHNIQUE: Ultrasound evaluation of the right upper quadrant was performed with real-time and static delcid-scale imaging. TECHNICAL QUALITY: Adequate. COMPARISON: None. FINDINGS: Liver: The liver measures 15.2 cm. There is increased echogenicity consistent with fatty infiltration. The bile ducts are within normal limits. There is hepatic color flow. The direction of portal flow is hepatopetal. There is no demonstrated mass lesion. Gallbladder: The patient is status post cholecystectomy. Common Bile Duct (C.B.D.): The common bile duct measures 2.3 mm. Pancreas: Normal size of the head, body and tail of the pancreas. There is increased echogenicity of the pancreas. There is no demonstrated pancreatic mass or cyst. Right Kidney: Normal size of the right kidney. The right kidney measures 8.7 cm x 3.8 cm x 3.6 cm. Normal renal cortex. The right cortex measures 1.1 cm. There is no demonstrated renal mass or cyst. There is no right hydronephrosis. US/Gallbladder IMPRESSION: Fatty infiltration of the liver. Status post cholecystectomy. Electronically Signed: Pawel Jon MD at 12:56 EDT ,
[2022-06-29] MEDS: Ondansetron 4 MG/2 ML Vial IV ×2 (11:52→13:48)
[2022-06-29] MEDS: Morphine 4 MG/ML Syringe IV (11:52)
[2022-06-29 12:00] VITALS: BP 134/78; PULSE 88; RESP 16; O2SAT 99
[2022-06-29] MEDS: Famotidine 200 MG/20 ML MDV 20 MG in 0.9% Normal Saline (Pres. free 8 ML 300 MG IV (13:48)
[2022-06-29 13:53] VITALS: BP 139/85; PULSE 71
== END 2022-06-29 13:56 | disposition home or self-care (01) ==
PROVIDERS: Emergency Provider Emergency Medicine; PCP Student in an Organized Health Care Education/Training Program; Visit Provider Emergency Medicine
DX: R10.12 Left upper quadrant pain (principal); R10.11 Right upper quadrant pain; K76.0 Fatty (change of) liver, not elsewhere classified; R50.9 Fever, unspecified; R06.00 Dyspnea, unspecified; E66.9 Obesity, unspecified; Z79.899 Other long term (current) drug therapy; Z90.49 Acquired absence of other specified parts of digestive tract
CPT/HCPCS: 76705; 80048; 80076; 81001; 83690; 84703; 85025; 96374; 96375; 96376; 99284; A4216; J2405; J3490

== ENCOUNTER 2022-10-27 08:50 | Emergency (ER) | payer BC, SELFPAY ==
[2022-10-27 08:51] VITALS: BP 122/91; PULSE 87; RESP 14; TEMP 35.9; O2SAT 97; BMI 36.4
--- NOTE | 2022-10-27 09:20 | CT_ITS ---
STUDY: CT BRAIN WITHOUT CONTRAST REASON FOR EXAM: Female, 42 years old. Headaches. 2 day history of dizziness. History of migraines. RADIATION DOSAGE (If Supplied By Facility): CTDIvol = ( 44.99 ) mGy, DLP = ( 796.11 ) mGycm TECHNIQUE: Transaxial CT imaging of the brain was performed without administration of intravenous contrast material. Individualized dose optimization techniques were used for this CT. COMPARISON: No relevant priors. FINDINGS: Normal soft tissue structures. Normal calvarium. Normal size ventricles and extra-axial spaces for the patient''s age. Normal white matter tracts of the cerebral hemispheres. Normal basal ganglia and thalami. Normal brainstem. Normal cerebellum. There is no intracranial hemorrhage. There are no findings of an acute ischemic infarction. Opacification of the right maxillary sinus. Partial opacification of the left maxillary sinus. Opacification of the ethmoid sinuses bilaterally. CT/Brain/Head without Contrast IMPRESSION: Normal unenhanced CT scan of the brain. Sinusitis. Electronically Signed: Pawel Jon MD at 10:40 EST ,
--- NOTE | 2022-10-27 09:22 | EDS_ITS ---
HPI History of Present Illness Chief Complaint: Dizziness Informant: patient Narrative Narrative: Patient presents with some episodes of headache, hearing change in the left side, nonspecific lightheadedness without actual vertigo or falling. She has had an episode today. She had one yesterday. She has been having a few of these. The first was about 2 months ago. She also states that she has a headache that sort of like her normal migraine but she normally does not get all the physical symptoms with her migraine. She then tells me that for the last 2 or 3 months she has been getting physical symptoms with her migraines such as nausea and sound sensitivity and lightheadedness. She normally takes sumatriptan for this. In between these episodes she feels fine. The episodes are getting more frequent. She has not been sick such as fevers chills. [facility] Medical History Bipolar disorder Breast cancer Fibromyalgia Migraine Rheumatoid arthritis Ruptured disk Home Medications sumatriptan succinate 100 mg tablet (Imitrex) 100 mg PO .X1 PRN migraine 05/16/17 [History Last Taken 07/08/20] hydrocodone-acetaminophen 5-325mg 5mg-325mg 1 tab PO Q6H PRN PRN Pain 3 days #10 TABLETS 06/29/22 [Rx Last Taken Unknown] ondansetron 4 mg disintegrating tablet 4 mg PO Q8H PRN PRN Nausea #10 tabs 06/29/22 [Rx Last Taken Unknown] levofloxacin 750 mg tablet 750 mg PO DAILY #7 tabs 10/27/22 [Rx Last Taken Unknown] Allergy/AdvReac Type Severity Reaction Status Date / Time alprazolam [From Xanax] Allergy Unknown Verified 05/11/22 19:56 amoxicillin Allergy Itching Verified 05/11/22 19:56 bupropion HCl Allergy Unknown Verified 05/11/22 19:56 [From Wellbutrin] citalopram hydrobromide Allergy Unknown Verified 05/11/22 19:56 [From Celexa] doxycycline Allergy Unknown Verified 05/11/22 19:56 duloxetine [From Cymbalta] Allergy Mucosal Verified 05/11/22 19:56 lesions fluoxetine HCl [From Prozac] Allergy Unknown Verified 05/11/22 19:56 levomilnacipran HCl Allergy Unknown Verified 05/11/22 19:56 [From Fetzima] lorazepam [From Ativan] Allergy Unknown Verified 05/11/22 19:56 nitrofurantoin Allergy Unknown Verified 05/11/22 19:56 macrocrystalline [From Macrodantin] prochlorperazine edisylate Allergy Unknown Verified 05/11/22 19:56 [From Compazine] prochlorperazine maleate Allergy Unknown Verified 05/11/22 19:56 [From Compazine] pseudoephedrine HCl Allergy Unknown Verified 05/11/22 19:56 [From Sudafed] quetiapine [From Seroquel] Allergy Other Verified 05/11/22 19:56 sertraline HCl [From Zoloft] Allergy Unknown Verified 05/11/22 19:56 acetaminophen [From Vicodin] AdvReac Itching Verified 05/11/22 19:56 fentanyl AdvReac HALLUCINATI Verified 05/11/22 19:56 ONS hydrocodone bitartrate AdvReac Itching Verified 05/11/22 19:56 [From Vicodin] oxycodone AdvReac FLUSHED/HOT Verified 05/11/22 19:56 oxycodone HCl [From Percocet] AdvReac Unknown Verified 05/11/22 19:56 paliperidone [From Invega] AdvReac Other Verified 05/11/22 19:56 risperidone [From Risperdal] AdvReac Other Verified 05/11/22 19:56 tramadol [From Ultram] AdvReac Other Verified 05/11/22 19:56 Family History no significant family his Surgical History History of cholecystectomy History of hysterectomy Social History household members: spouse Smoking Status: Never smoker alcohol intake: never substance use type: does not use ROS ROS ED Constitutional Constitutional ED: Denies chills, fever(s) or subjective Eyes Eyes: Denies blurry vision, change in vision or diplopia ENT ENT ED: Reports other Details: Decreased hearing in left ear and occasionally sound sensitivity but not today. ; Denies rhinorrhea or sore throat Cardiovascular Cardiovascular: Reports palpitations and other Details: Occasionally gets palpitations but not having them today. Respiratory/Chest Respiratory/Chest: Denies cough or dyspnea Gastrointestinal Gastrointestinal: Reports nausea; Denies abdominal pain or vomiting Genitourinary Genitourinary ED: Denies dysuria or hematuria Musculoskeletal Musculoskeletal: Denies myalgias Integumentary Denies abscess or rash Neurologic Neurologic: Reports headache(s); Denies paresthesias or weakness Psychiatric Psychiatric: Reports anxiety and depression Endocrine Endocrinology: Denies polydipsia or polyuria Hematologic/Lymphatic Hematologic/Lymphatic: Denies easy bleeding, easy bruising or lymphadenopathy Allergic/Immunologic Allergic/Immunologic ED: Denies urticaria EXAM Physical Exam Narrative Exam Narrative: Patient is awake alert sitting in bed. She is in a well lit room but states that the lights are bothering her a little bit. She feels much better with lights down when I leave. She is nontoxic carries on a normal conversation. HEENT shows no sinus tenderness. Oropharynx is normal. Both tympanic membranes are clear. There may be a trace of fluid. No gross hearing loss on the left but even she admits it is getting better now. Neck shows no meningismus whatsoever. No lymphadenopathy. Lungs are clear bilaterally Heart is regular I hear no murmur. Abdomen is soft completely nontender. She has some nausea but no abdominal pain. shows no suprapubic and no CVA tenderness Extremities show no rash petechiae pallor mottling or cyanosis or diaphoresis. Neurologically she is awake alert no acute distress. Speech is normal. No facial weakness. No extremity weakness. No sensory changes. Her NIH is 0. Const Vital Signs: 10/27/22 08:51 Temperature 96.6 F L Temperature Source Temporal Pulse Rate 87 Respiratory Rate 14 Blood Pressure 122/91 H Blood Pressure Mean 101 Pulse Ox 97 Oxygen Delivery Method Room Air MDM MDM MDM Narrative Medical decision making narrative: My independent interpretation of the patient's CT of the head without contrast shows some fluid in the right maxillary sinus. Other sinuses have minimal fluid. No intracranial processes noted. Final reading is no cute intracranial process but there is signs of mostly right maxillary sinus. Blood work shows normal CBC. Electrolytes had minimally low potassium but I think this will self-correct with diet. I wou prefer not to give her oral potassium as it can cause nausea which she already had. I discussed the sinus findings with the patient. She now admits that for the week or 2 she has been having a lot more nasal congestion and blowing her nose. She does not think she has had fevers though. She has a little bit of fullness or pressure in the face. This was not shared with me initially. But with the x-ray findings, the change in her headache symptoms, and the symptoms I will treat. She has multiple allergies but cannot tolerate Levaquin so I will write for this for the next week and she can follow-up with her private physician. We discussed reasons to return. History & Record Review Discussion w/independent historian: Significant other Additional record(s) reviewed:: Prior ED visit Lab Data Attestation: I reviewed the patient's lab results. Labs: Laboratory Results - last 24 hr 10/27/22 10/27/22 09:35 09:35 WBC 7.2 RBC 4.95 Hgb 13.7 Hct 42.0 MCV 84.8 MCH 27.7 MCHC 32.6 RDW Std Deviation 39.3 RDW Coeff of Octvaiano 12.7 Plt Count 287 MPV 9.4 Immature Gran % (Auto) 0.700 Neut % (Auto) 52.7 Lymph % (Auto) 38.0 Sunflower % (Auto) 3.7 Eos % (Auto) 4.2 Baso % (Auto) 0.7 Absolute Neuts (auto) 3.8 Absolute Lymphs (auto) 2.74 Nucleated RBC % 0 Sodium 141 Potassium 3.3 L Chloride 104 Carbon Dioxide 27.0 Anion Gap 10 BUN 11 Creatinine 0.86 Estim Creat Clear Calc 74.34 Est GFR (MDRD) Af Amer 94 Est GFR (MDRD) Non-Af 78 BUN/Creatinine Ratio 12.9 Glucose 119 H Calcium 9.6 Radiography Diagnostic Testing: Clinical Impression(s) from Imaging Studies Brain CT 10/27/22 09:20 IMPRESSION: Normal unenhanced CT scan of the brain. Sinusitis. Electronically Signed: Pawel Jon MD at 10:40 EST , Discharge Plan Triage Chief Complaint: Dizziness Other Complaint: Headache ED Provider: Manish De Luna Dx/Rx/DC Orders Clinical Impression: Headache, migraine, Sinusitis Instructions: ED Sinusitis (Antibiotic Treatment) Prescriptions: New levofloxacin 750 mg tablet 750 mg PO DAILY Qty: 7 0RF No Action sumatriptan succinate [Imitrex] 100 MG tablet 100 mg PO .X1 PRN hydrocodone-acetaminophen [hydrocodone-acetaminophen] 5-325 mg tablet 1 tab PO Q6H PRN PRN (Reason: Pain) 3 Days Qty: 10 0RF ondansetron [ondansetron] 4 mg tablet,disintegrating 4 mg PO Q8H PRN PRN (Reason: Nausea) Qty: 10 0RF Primary Care Provider: Jas Braun Referrals: Jas Braun DO [Primary Care Provider] - 1 Week Disposition Disposition: Home, Self Care
[2022-10-27] MEDS: 0.9% Normal Saline 1,000 ML 1000 ML IV (09:44)
[2022-10-27] MEDS: Ondansetron 4 MG/2 ML Vial IV (09:44)
[2022-10-27] MEDS: SUMAtriptan 6 MG/0.5 ML Vial SC (09:44)
[2022-10-27 09:52] LABS: Absolute Lymphocyte Count 2.74 X10^3/uL (0.83-4.51); Absolute Neutrophil Count 3.8 X10^3/uL (2.0-7.7); Basophil# 0.05 X10^3/uL; Basophil% 0.7 % (0-1); Eosinophils% 4.2 % (0-5); Hemoglobin 13.7 g/dL (12.0-15.0); Lymphocyte # 2.74 X10^3/ul (0.83-4.51); Mean Corp Hgb Conc 32.6 g/dL (32-36); Mean Corpuscular Hgb 27.7 pg (27.0-32.0); Mean Corpuscular Volume 84.8 fL (81-99); Mean Platelet Vol. 9.4 fl (6.2-12.0); Monocyte# 0.27 X10^3/uL; Monocyte% 3.7 % (0-10); NRBC Flagged by Analyzer 0 % (0-5); Neutrophil % 52.7 % (47-70); Platelet Count 287 K/mm3 (150-450); RBC Distribution Width CV 12.7 % (11.6-14.6); RBC Distribution Width SD 39.3 fl (35.1-43.9); Red Blood Count 4.95 M/mm3 (4.2-5.4); White Blood Count 7.2 K/mm3 (4.4-11.0)
[2022-10-27 10:07] LABS: Anion Gap 10 (5-15); BUN 11 mg/dL (7-18); BUN/Creat Ratio 12.9 RATIO (10-20); Calcium,Total 9.6 mg/dL (8.5-10.1); Chloride 104 mmol/L (98-107); Creatinine, Serum 0.86 mg/dL (0.55-1.02); EST Glomerular Filtration Rate 78 mL/min (>60); Est Glom Filt Rate - Afr Amer 94 mL/min (>60); Estimated Creatinine Clearance 74.34 ml/min; Glucose 119 mg/dL (74-106); Potassium 3.3 mmol/L (3.5-5.1); Sodium Level 141 mmol/L (136-145)
[2022-10-27 11:09] VITALS: BP 116/86
== END 2022-10-27 11:11 | disposition home or self-care (01) ==
PROVIDERS: Emergency Provider Emergency Medicine; PCP Student in an Organized Health Care Education/Training Program; Visit Provider Emergency Medicine
DX: J32.9 Chronic sinusitis, unspecified (principal); G43.909 Migraine, unspecified, not intractable, without status migrainosus; R42 Dizziness and giddiness; F41.9 Anxiety disorder, unspecified; F32.A Depression, unspecified
CPT/HCPCS: 70450; 80048; 85025; 96361; 96372; 96374; 99283; J7030; A4216; J2405; J3030

== ENCOUNTER 2022-11-25 17:32 | Emergency (ER) | payer BC, SELFPAY ==
[2022-11-25 17:34] VITALS: BP 120/89; PULSE 76; RESP 14; TEMP 36.1; O2SAT 99
[2022-11-25 17:44] VITALS: BMI 39.5
--- NOTE | 2022-11-25 18:01 | EDS_ITS ---
HPI History of Present Illness Chief Complaint: Back Informant: patient Onset/Context/Timing Onset: Weeks (1) Injury: bending Timing: Continuous Quality: Sharp and - (Stabbing) Location: Lumbar and Left Leg Worsened by: improves with Movement and - (Sitting) Relieved by: Nothing Associated Symptoms Associated Symptoms: Radiation to Left Leg; Negative for Numbness, Tingling, Radiation to Right Leg, Fever, Abdominal Pain, Dysuria, Unable to Ambulate, Unable to Transfer, Urinary Retention, Urinary Incontinence, Constipation or Fecal Incontinence Narrative Narrative: Patient presents with back pain that became worse today. Patient states she has been having some pain in her low back for the past week. Patient states it is constant, sharp, and aching. Patient states that today she was bending over and felt something pop in her back. Patient states pain radiates down her left leg. Patient denies any paresthesias or weakness. Patient denies any bowel or bladder changes. Patient denies any saddle anesthesia. Patient denies any specific trauma or injury. Patient states her pain is worse with any movement and with sitting. Patient states nothing seems to help with the pain. [facility] Medical History (Updated 11/25/22 @ 20:[address] Xavi De La Cruz, ) Bipolar disorder Breast cancer Fibromyalgia Migraine Rheumatoid arthritis Ruptured disk Home Medications sumatriptan succinate 100 mg tablet (Imitrex) 100 mg PO .X1 PRN migraine 05/16/17 [History Last Taken 07/08/20] ondansetron 4 mg disintegrating tablet 4 mg PO Q8H PRN PRN Nausea #10 tabs 06/29/22 [Rx Last Taken Unknown] levofloxacin 750 mg tablet 750 mg PO DAILY #7 tabs 10/27/22 [Rx Last Taken Unknown] hydrocodone-acetaminophen 5-325mg 5mg-325mg 1 tab PO Q6H PRN PRN Pain 3 days #10 TABLETS 11/25/22 [Rx Last Taken Unknown] Allergy/AdvReac Type Severity Reaction Status Date / Time alprazolam [From Xanax] Allergy Unknown Verified 05/11/22 19:56 amoxicillin Allergy Itching Verified 05/11/22 19:56 bupropion HCl Allergy Unknown Verified 05/11/22 19:56 [From Wellbutrin] citalopram hydrobromide Allergy Unknown Verified 05/11/22 19:56 [From Celexa] duloxetine [From Cymbalta] Allergy Mucosal Verified 05/11/22 19:56 lesions fluoxetine HCl [From Prozac] Allergy Unknown Verified 05/11/22 19:56 levomilnacipran HCl Allergy Unknown Verified 05/11/22 19:56 [From Fetzima] lorazepam [From Ativan] Allergy Unknown Verified 05/11/22 19:56 nitrofurantoin Allergy Unknown Verified 05/11/22 19:56 macrocrystalline [From Macrodantin] prochlorperazine edisylate Allergy Unknown Verified 05/11/22 19:56 [From Compazine] prochlorperazine maleate Allergy Unknown Verified 05/11/22 19:56 [From Compazine] pseudoephedrine HCl Allergy Unknown Verified 05/11/22 19:56 [From Sudafed] quetiapine [From Seroquel] Allergy Other Verified 05/11/22 19:56 sertraline HCl [From Zoloft] Allergy Unknown Verified 05/11/22 19:56 acetaminophen [From Vicodin] AdvReac Itching Verified 05/11/22 19:56 fentanyl AdvReac HALLUCINATI Verified 05/11/22 19:56 ONS hydrocodone bitartrate AdvReac Itching Verified 05/11/22 19:56 [From Vicodin] oxycodone AdvReac FLUSHED/HOT Verified 05/11/22 19:56 oxycodone HCl [From Percocet] AdvReac Unknown Verified 05/11/22 19:56 paliperidone [From Invega] AdvReac Other Verified 05/11/22 19:56 risperidone [From Risperdal] AdvReac Other Verified 05/11/22 19:56 tramadol [From Ultram] AdvReac Other Verified 05/11/22 19:56 Family History no significant family his Surgical History (Updated 11/25/22 @ 18:[address] Xavi De La Cruz DO) History of cholecystectomy History of hysterectomy Hx of bilateral mastectomy Social History household members: spouse Smoking Status: Never smoker alcohol intake: never substance use type: does not use ROS ROS ED Constitutional Constitutional ED: Denies chills or fever(s) Eyes Eyes: Denies blurry vision or change in vision ENT ENT ED: Denies rhinorrhea or sore throat Cardiovascular Cardiovascular: Denies chest pain or palpitations Respiratory/Chest Respiratory/Chest: Denies cough or dyspnea Gastrointestinal Gastrointestinal: Reports nausea; Denies vomiting Genitourinary Genitourinary ED: Denies dysuria or hematuria Musculoskeletal Musculoskeletal: Reports back pain; Denies neck pain Integumentary Denies abscess or rash Neurologic Neurologic: Reports headache(s); Denies weakness Allergic/Immunologic Allergic/Immunologic ED: Denies mouth swelling or urticaria EXAM Physical Exam Const Vital Signs: 11/25/22 17:34 11/25/22 20:13 Temperature 97 F L Temperature Source Temporal Pulse Rate 76 85 Respiratory Rate 14 18 Blood Pressure 120/89 H 126/74 H Blood Pressure Mean 99 91 Pulse Ox 99 95 Oxygen Delivery Method Room Air Room Air Positive well nourished, well developed and obese General Appearance ED: well developed and NAD Nutritional Appearance: obese HEENT Reports moist mucous membranes Back/Spine Back/Spine Narrative: There is tenderness and spasm of the lumbar paraspinal muscles bilaterally. There is no bony crepitance or step-off. Range of motion was limited in all motions of the lumbar spine secondary to pain. Lumbar Spine / Lower Back: ROM limited and straight leg raise negative bilaterally Extremity normal to inspection and no clubbing, cyanosis or edema Neuro oriented x3 and no sensory deficits noted Sensorium / Orientation: alert Motor Exam: strength 5/5 throughout Deep Tendon Reflexes: Rt Patellar (L4): 2+, Lt Patellar (L4): 2+, Rt Ankle (S1): 2+ and Lt Ankle (S1): 2+ Deep Tendon Reflexes Back: Rt Patellar (L4): 2+, Lt Patellar (L4): 2+, Rt Ankle (S1): 2+ and Lt Ankle (S1): 2+ Psych mental status grossly normal MDM MDM MDM Narrative Medical decision making narrative: Differential diagnosis includes lumbosacral strain, lumbar radiculopathy, spondylolisthesis, and degenerative disc disease. X-rays of the lumbar spine will be obtained to assess for spondylolisthesis and degenerative disc disease. Radiography Diagnostic Testing: Clinical Impression(s) from Imaging Studies Lumbar Spine X-Ray 11/25/22 18:45 IMPRESSION: Mild degenerative change. No visualized acute fracture. Electronically Signed: Vickie Joy MD at 19:25 EDT , X-rays of the lumbar spine were obtained. There are 3 views. On my independent interpretation, there is no acute fracture or spondylolisthesis noted. There are some mild degenerative changes. Radiologist also interpreted the x-rays and agrees. Treatment and Re-Evaluation Narrative: Patient was given injection of morphine here. Patient was able to roll over while she was in bed. Patient was given a repeat dose of morphine. Patient was given a prescription for a short course of [place]. Patient was instructed to follow-up with her primary care physician in 5 to 7 days. Patient understood and was agreeable with the plan. All questions were answered. Discharge Plan Triage Chief Complaint: Back ED Provider: Xavi De La Cruz Dx/Rx/DC Orders Clinical Impression: Lower back pain, Sciatica Instructions: ED Back Sprain/Strain, ED Sciatica Prescriptions: Continued hydrocodone-acetaminophen 5-325 mg tablet 1 tab PO Q6H PRN PRN (Reason: Pain) 3 Days Qty: 10 0RF No Action sumatriptan succinate [Imitrex] 100 MG tablet 100 mg PO .X1 PRN ondansetron [ondansetron] 4 mg tablet,disintegrating 4 mg PO Q8H PRN PRN (Reason: Nausea) Qty: 10 0RF levofloxacin 750 mg tablet 750 mg PO DAILY Qty: 7 0RF Primary Care Provider: Jas Braun Referrals: Jas Braun, [Primary Care Provider] - 5-7 Days Disposition Disposition: Home, Self Care
[2022-11-25] MEDS: Morphine 4 MG/ML Syringe IM ×2 (18:26→21:02)
--- NOTE | 2022-11-25 18:45 | RAD_ITS ---
STUDY: X-RAY - LUMBAR SPINE REASON FOR EXAM: Female, 42 years old. Injury/Pain TECHNIQUE: 3 view(s) of the lumbar spine were obtained. COMPARISON: April 29, 2020 CT scan abdomen and pelvis bone windows only FINDINGS: Normal lumbar lordosis. There is no substantial scoliosis. There is a normal alignment of the vertebrae. There is mild spondylosis at the level of L3-L4 and L4-L5. There is no visualized acute loss of height or alignment. Normal disc space heights. There is a prior right side 12 rib fracture , Stable since prior studies. The soft tissue structures are unremarkable. RAD/Lumbar Spine 2 or 3 Views IMPRESSION: Mild degenerative change. No visualized acute fracture. Electronically Signed: Vickie Joy MD at 19:25 EDT Reading Location ID and State: [facility] / [place] Tel , Service support ,
[2022-11-25 20:13] VITALS: BP 126/74; PULSE 85; RESP 18; O2SAT 95
== END 2022-11-25 21:10 | disposition home or self-care (01) ==
PROVIDERS: Emergency Provider Emergency Medicine; PCP Student in an Organized Health Care Education/Training Program; Visit Provider Emergency Medicine
DX: M54.40 Lumbago with sciatica, unspecified side (principal); E66.9 Obesity, unspecified
CPT/HCPCS: 72100; 96372; 99282

== ENCOUNTER 2023-06-07 12:30 | Emergency (ER) | payer BC, SELFPAY ==
[2023-06-07 12:31] VITALS: BP 146/80; PULSE 107; RESP 18; TEMP 35.9; O2SAT 95
[2023-06-07 13:48] VITALS: BP 134/90; PULSE 102; RESP 16; O2SAT 91; O2SAT 93; BMI 37.5
--- NOTE | 2023-06-07 13:54 | RAD_ITS ---
STUDY: X-RAY CHEST REASON FOR EXAM: Female, 43 years old. dyspnea TECHNIQUE: Single AP portable view of the chest. COMPARISON: January 02, 2022 FINDINGS: The lungs are clear and expanded. There is no demonstrated pleural abnormality. Normal size heart. Normal mediastinum and marco. Normal visualized pulmonary arteries. Normal visualized aortic arch and descending thoracic aorta. Normal visualized thoracic spine. Normal visualized ribs, clavicles, and shoulders. There is no demonstrated abnormality of the visualized soft tissue structures of the upper abdomen. RAD/Chest 1 View (Portable) IMPRESSION: Normal x-ray examination of the chest. Electronically Signed: Jeffery Schwartz MD at 14:50 EDT ,
[2023-06-07] MEDS: predniSONE 20 MG Tablet 60 MG PO (13:59)
[2023-06-07] MEDS: Ipratropium/Albuterol Sulfate 3 ML AMPUL.NEB INHALATION ×2 (14:05→16:06)
[2023-06-07 14:08] VITALS: PULSE 93; RESP 22; O2SAT 95
--- NOTE | 2023-06-07 15:25 | EDS_ITS ---
HPI History of Present Illness Chief Complaint: Shortness of Breath Informant: patient Narrative Narrative: 43-year-old female presenting to the emergency room with cough shortness of breath. Patient states that she was started on Omnicef on Sunday for a respirat ory infection. She notes she continues to cough. She does have an inhaler at home which she has been using about times per day. She denies fever. She notes a weak voice. Since starting the Omnicef she has developed a rash which she states has been coming and going especially since she took some Claritin. She states that because of the rash and she was developing concerns that she was having a allergic reaction to Omnicef she came to the emergency department. Patient does list multiple medications as allergies/medication reactions. [facility] Medical History Bipolar disorder Breast cancer Fibromyalgia Migraine Rheumatoid arthritis Ruptured disk Home Medications sumatriptan succinate 100 mg tablet (Imitrex) 100 mg PO .X1 PRN migraine 05/16/17 [History Last Taken 07/08/20] ondansetron 4 mg disintegrating tablet 4 mg PO Q8H PRN PRN Nausea #10 tabs 06/29/22 [Rx Last Taken Unknown] levofloxacin 750 mg tablet 750 mg PO DAILY #7 tabs 10/27/22 [Rx Last Taken Unknown] hydrocodone-acetaminophen 5-325mg 5mg-325mg 1 tab PO Q6H PRN PRN Pain 3 days #10 TABLETS 11/25/22 [Rx Last Taken Unknown] albuterol sulfate 90 mcg/actuation aerosol inhaler (Ventolin HFA) 2 puff inhalation Q4H PRN PRN Wheezing ##1 06/07/23 [Rx Last Taken Unknown] benzonatate 100 mg capsule 200 mg (2 x 100 mg) PO TID PRN PRN Cough #30 CAPSULES 06/07/23 [Rx Last Taken Unknown] prednisone 20 mg tablet 60 mg (3 x 20 mg) PO DAILY #15 TABLETS 06/07/23 [Rx Last Taken Unknown] Allergy/AdvReac Type Severity Reaction Status Date / Time alprazolam [From Xanax] Allergy Unknown Verified 06/07/23 12:33 amoxicillin Allergy Itching Verified 06/07/23 12:33 bupropion HCl Allergy Unknown Verified 06/07/23 12:33 [From Wellbutrin] citalopram hydrobromide Allergy Unknown Verified 06/07/23 12:33 [From Celexa] duloxetine [From Cymbalta] Allergy Mucosal Verified 06/07/23 12:33 lesions fluoxetine HCl [From Prozac] Allergy Unknown Verified 06/07/23 12:33 levomilnacipran HCl Allergy Unknown Verified 06/07/23 12:33 [From Fetzima] nitrofurantoin Allergy Unknown Verified 06/07/23 12:33 macrocrystalline [From Macrodantin] prochlorperazine edisylate Allergy Unknown Verified 06/07/23 12:33 [From Compazine] prochlorperazine maleate Allergy Unknown Verified 06/07/23 12:33 [From Compazine] pseudoephedrine HCl Allergy Unknown Verified 06/07/23 12:33 [From Sudafed] quetiapine [From Seroquel] Allergy Other Verified 06/07/23 12:33 sertraline HCl [From Zoloft] Allergy Unknown Verified 06/07/23 12:33 fentanyl AdvReac HALLUCINATI Verified 06/07/23 12:33 ONS hydrocodone bitartrate AdvReac Itching Verified 06/07/23 12:33 [From Vicodin] oxycodone AdvReac FLUSHED/HOT Verified 05/11/22 19:56 oxycodone HCl [From Percocet] AdvReac Unknown Verified 06/07/23 12:33 paliperidone [From Invega] AdvReac Other Verified 06/07/23 12:33 risperidone [From Risperdal] AdvReac Other Verified 06/07/23 12:33 tramadol [From Ultram] AdvReac Other Verified 06/07/23 12:33 Surgical History History of cholecystectomy History of hysterectomy Hx of bilateral mastectomy Social History household members: spouse Smoking Status: Never smoker alcohol intake: never substance use type: does not use ROS ROS ED Constitutional Constitutional ED: Denies chills or weight loss Eyes Eyes: Denies change in vision or diplopia ENT ENT ED: Reports sore throat; Denies ear pain or rhinorrhea Cardiovascular Cardiovascular: Reports chest pain; Denies orthopnea, palpitations or racing heartbeat Respiratory/Chest Respiratory/Chest: Reports cough, dyspnea and dyspnea on exertion; Denies orthopnea Gastrointestinal Gastrointestinal: Denies abdominal pain, diarrhea, nausea or vomiting Genitourinary Genitourinary ED: Denies dysuria, hematuria or urinary frequency Musculoskeletal Musculoskeletal: Denies arthralgias or myalgias Integumentary Reports rash; Denies abscess Neurologic Neurologic: Denies headache(s) or weakness Psychiatric Psychiatric: Denies anxiety, depression, suicidal ideation or suicidal thoughts Endocrine Endocrinology: Denies polydipsia, polyphagia or polyuria Allergic/Immunologic Allergic/Immunologic ED: Denies mouth swelling, tongue swelling or urticaria EXAM Physical Exam Const Vital Signs: 06/07/23 12:31 06/07/23 13:48 06/07/23 13:48 Temperature 96.6 F L Temperature Source Temporal Pulse Rate 107 H 102 H Respiratory Rate 18 16 Respiratory Effort Normal Non-Labored Respiratory Depth Normal Respiratory Pattern Normal Blood Pressure 146/80 H 134/90 H Blood Pressure Mean 102 104 Pulse Ox 95 91 Oxygen Delivery Method Room Air Room Air Room Air Oxygen Flow Rate (L/min) 06/07/23 14:08 06/07/23 14:08 06/07/23 15:33 Temperature Temperature Source Pulse Rate 93 95 Respiratory Rate 22 H 18 Respiratory Effort Respiratory Depth Respiratory Pattern Tachypnea Blood Pressure 117/80 Blood Pressure Mean 92 Pulse Ox 95 93 Oxygen Delivery Method Room Air Nasal Cannula Oxygen Flow Rate (L/min) 1 Positive well nourished, well developed and obese General Appearance ED: well developed Nutritional Appearance: obese HEENT Reports normocephalic, head/scalp atraumatic and moist mucous membranes HEENT Narrative: Patient speaking with a very high weak airy voice. There is no stridor or drooling. Eyes PERRL and EOMs intact bilaterally Neck no lymphadenopathy, supple and no JVD Resp Resp Narrative: Patient has bilateral expiratory wheezing with rhonchi that improves with cough Auscultation: rhonchi and wheezes Cardio regular rate, regular rhythm and no murmurs GI normal to inspection, nondistended, normoactive bowel sounds and non-tender Palpation: soft Back/Spine no CVA tenderness and normal ROM Extremity normal to inspection General Extremety ED: Negative for edema General Extremity: Negative for edema Neuro oriented x3 and CN's II-XII intact bilaterally Sensorium / Orientation: alert Motor Exam: strength 5/5 throughout Psych mental status grossly normal Skin no rashes or lesions noted and no wounds MDM MDM MDM Narrative Medical decision making narrative: My interpretation of the chest x-ray is no acute process. This was confirmed by radiology read. Patient received a DuoNeb as well as prednisone. She continues to cough and she received a dose of Tessalon. Repeat examination finds the patient still have some expiratory wheezes. Therefore I gave her another DuoNeb treatment. I am not confident that this is a acute allergic reaction to Omnicef. I would defer that diagnosis to allergy for testing. Patient should use her inhaler 3 puffs every 2-3 hours. I am also going to write for her to have burst steroids. I can write for some additional Tessalon. She would benefit from hydrating the environment with a humidifier. I think this is most likely viral in nature. The patient has an appointment tomorrow with primary care. She is going to discuss a albuterol nebulizer at that visit. Radiography Diagnostic Testing: Clinical Impression(s) from Imaging Studies Chest X-Ray 06/07/23 13:54 IMPRESSION: Normal x-ray examination of the chest. Electronically Signed: Jeffery Schwartz MD at 14:50 EDT Reading Location ID and State: [address] [place] [address] , Service support , Discharge Plan Triage Chief Complaint: Shortness of Breath Other Complaint: Allergic Reaction ED Provider: Himanshu Park Dx/Rx/DC Orders Clinical Impression: Bronchitis, acute, with bronchospasm, Rash Instructions: ED Bronchitis with Wheezing (Adult) Prescriptions: New prednisone 20 mg tablet 60 mg PO DAILY Qty: 15 0RF benzonatate [benzonatate] 100 mg capsule 200 mg PO TID PRN PRN (Reason: Cough) Qty: 30 0RF albuterol sulfate [Ventolin HFA] 90 mcg/actuation HFA aerosol inhaler 2 puff inhalation Q4H PRN PRN (Reason: Wheezing) Qty: 1 0RF No Action sumatriptan succinate [Imitrex] 100 MG tablet 100 mg PO .X1 PRN ondansetron [ondansetron] 4 mg tablet,disintegrating 4 mg PO Q8H PRN PRN (Reason: Nausea) Qty: 10 0RF levofloxacin 750 mg tablet 750 mg PO DAILY Qty: 7 0RF hydrocodone-acetaminophen 5-325 mg tablet 1 tab PO Q6H PRN PRN (Reason: Pain) 3 Days Qty: 10 0RF Primary Care Provider: Jas Braun Referrals: Jas Braun DO [Primary Care Provider] - 3-5 Days Disposition Disposition: Home, Self Care
[2023-06-07] MEDS: Benzonatate 100 MG Capsule 200 MG PO (15:32)
[2023-06-07 15:33] VITALS: BP 117/80; PULSE 95; RESP 18; O2SAT 93
[2023-06-07 16:08] VITALS: PULSE 96; RESP 16
== END 2023-06-07 16:30 | disposition home or self-care (01) ==
PROVIDERS: Emergency Provider Emergency Medicine; PCP Student in an Organized Health Care Education/Training Program; Visit Provider Emergency Medicine
DX: J20.9 Acute bronchitis, unspecified (principal); M06.9 Rheumatoid arthritis, unspecified; F31.9 Bipolar disorder, unspecified; R21 Rash and other nonspecific skin eruption; M79.7 Fibromyalgia; E66.9 Obesity, unspecified; Z79.899 Other long term (current) drug therapy
CPT/HCPCS: 71045; 94640; 99284

== ENCOUNTER 2023-06-13 16:10 | Emergency (ER) | payer BC, SELFPAY ==
[2023-06-13 16:11] VITALS: BP 130/97; PULSE 115; RESP 18; TEMP 36.4; O2SAT 92; BMI 81.2
[2023-06-13 16:50] VITALS: PULSE 79; RESP 20
[2023-06-13] MEDS: Ipratropium/Albuterol Sulfate 3 ML AMPUL.NEB INHALATION (16:50)
[2023-06-13] MEDS: Albuterol 2.5 MG/3 ML VIAL.NEB. INHALATION (16:50)
[2023-06-13] MEDS: 0.9% Normal Saline (1000mL) 1,000 ML 999 ML IV (16:55)
[2023-06-13 17:16] LABS: Absolute Lymphocyte Count 1.54 X10^3/uL (0.83-4.51); Absolute Neutrophil Count 12.7 X10^3/uL (2.0-7.7); Basophil# 0.06 X10^3/uL; Basophil% 0.4 % (0-1); Eosinophil# 0.35 X10^3/uL; Eosinophils% 2.3 % (0-5); Hematocrit 48.1 % (37-47); Hemoglobin 15.3 g/dL (12.0-15.0); Lymphocyte # 1.54 X10^3/ul (0.83-4.51); Lymphocyte % 10.3 % (19-41); Mean Corp Hgb Conc 31.8 g/dL (32-36); Mean Corpuscular Hgb 27.7 pg (27.0-32.0); Mean Corpuscular Volume 87.1 fL (81-99); Monocyte# 0.17 X10^3/uL; Monocyte% 1.1 % (0-10); NRBC Flagged by Analyzer 0 % (0-5); Neutrophil # 12.73 X10^3/uL (2.7-7.7); Neutrophil % 84.9 % (47-70); Platelet Count 306 K/mm3 (150-450); RBC Distribution Width CV 13.8 % (11.6-14.6); RBC Distribution Width SD 41.7 fl (35.1-43.9); Red Blood Count 5.52 M/mm3 (4.2-5.4)
[2023-06-13 17:22] LABS: Anion Gap 5 (5-15); BUN 15 mg/dL (7-18); BUN/Creat Ratio 14.9 RATIO (10-20); Calcium,Total 9.1 mg/dL (8.5-10.1); Chloride 100 mmol/L (98-107); Creatinine, Serum 1.01 mg/dL (0.55-1.02); EST Glomerular Filtration Rate 64 mL/min (>60); Est Glom Filt Rate - Afr Amer 77 mL/min (>60); Estimated Creatinine Clearance 62.66 ml/min; Glucose 143 mg/dL (74-106); Potassium 3.9 mmol/L (3.5-5.1); Sodium Level 136 mmol/L (136-145)
--- NOTE | 2023-06-13 17:22 | RAD_ITS ---
STUDY: X-RAY CHEST REASON FOR EXAM: Female, 43 years old. couch TECHNIQUE: PA and lateral views of the chest. COMPARISON: 06/07/2023 FINDINGS: The lungs are clear and expanded. Elevated right hemidiaphragm which is unchanged. Normal size heart. Normal mediastinum and marco. Normal visualized pulmonary arteries. Normal visualized aortic arch and descending thoracic aorta. Normal visualized thoracic spine. Normal visualized ribs, clavicles, and shoulders. There is no demonstrated abnormality of the visualized soft tissue structures of the upper abdomen. RAD/Chest PA and Lateral IMPRESSION: No active disease. Electronically Signed: Darryl Dowling MD at 17:39 EDT ,
--- NOTE | 2023-06-13 17:33 | ED.VIS.DYS ---
HPI History of Present Illness Chief Complaint: Cold Sx Narrative Narrative: 43-year-old female presenting with cough, shortness of breath, wheezing. She has history of bronchitis and exercise-induced asthma. She states this has been about 20 days since she started having this problem. Previously she had chest x-ray which was normal. She has been on prednisone 60 mg daily for the last 6 days. Patient has home nebulizers which were prescribed to her. She also has albuterol inhaler. Patient denies fever, chills. Patient states that she was diagnosed with lung nodules and is supposed have a CAT scan coming up to see if these have changed although the x-rays that she had these on worse 2 weeks ago. [facility] Medical History Bipolar disorder Breast cancer Fibromyalgia Migraine Rheumatoid arthritis Ruptured disk Home Medications sumatriptan succinate 100 mg tablet (Imitrex) 100 mg PO .X1 PRN migraine 05/16/17 [History Last Taken 07/08/20] ondansetron 4 mg disintegrating tablet 4 mg PO Q8H PRN PRN Nausea #10 tabs 06/29/22 [Rx Last Taken Unknown] levofloxacin 750 mg tablet 750 mg PO DAILY #7 tabs 10/27/22 [Rx Last Taken Unknown] hydrocodone-acetaminophen 5-325mg 5mg-325mg 1 tab PO Q6H PRN PRN Pain 3 days #10 TABLETS 11/25/22 [Rx Last Taken Unknown] albuterol sulfate 90 mcg/actuation aerosol inhaler (Ventolin HFA) 2 puff inhalation Q4H PRN PRN Wheezing ##1 06/07/23 [Rx Last Taken Unknown] benzonatate 100 mg capsule 200 mg (2 x 100 mg) PO TID PRN PRN Cough #30 CAPSULES 06/07/23 [Rx Last Taken Unknown] prednisone 20 mg tablet 60 mg (3 x 20 mg) PO DAILY #15 TABLETS 06/07/23 [Rx Last Taken Unknown] budesonide-formoterol HFA 160 mcg-4.5 mcg/actuation aerosol inhaler (Symbicort) 2 inh inhalation BID #10.2 grams 06/13/23 [Rx Last Taken Unknown] prednisone 10 mg tablet 10 mg PO DAILY #12 tabs 06/13/23 [Rx Last Taken Unknown] Allergy/AdvReac Type Severity Reaction Status Date / Time alprazolam [From Xanax] Allergy Unknown Verified 06/07/23 12:33 amoxicillin Allergy Itching Verified 06/07/23 12:33 bupropion HCl Allergy Unknown Verified 06/07/23 12:33 [From Wellbutrin] citalopram hydrobromide Allergy Unknown Verified 06/07/23 12:33 [From Celexa] duloxetine [From Cymbalta] Allergy Mucosal Verified 06/07/23 12:33 lesions fluoxetine HCl [From Prozac] Allergy Unknown Verified 06/07/23 12:33 levomilnacipran HCl Allergy Unknown Verified 06/07/23 12:33 [From Fetzima] nitrofurantoin Allergy Unknown Verified 06/07/23 12:33 macrocrystalline [From Macrodantin] prochlorperazine edisylate Allergy Unknown Verified 06/07/23 12:33 [From Compazine] prochlorperazine maleate Allergy Unknown Verified 06/07/23 12:33 [From Compazine] pseudoephedrine HCl Allergy Unknown Verified 06/07/23 12:33 [From Sudafed] quetiapine [From Seroquel] Allergy Other Verified 06/07/23 12:33 sertraline HCl [From Zoloft] Allergy Unknown Verified 06/07/23 12:33 fentanyl AdvReac HALLUCINATI Verified 06/07/23 12:33 ONS hydrocodone bitartrate AdvReac Itching Verified 06/07/23 12:33 [From Vicodin] oxycodone AdvReac FLUSHED/HOT Verified 05/11/22 19:56 paliperidone [From Invega] AdvReac Other Verified 06/07/23 12:33 risperidone [From Risperdal] AdvReac Other Verified 06/07/23 12:33 tramadol [From Ultram] AdvReac Other Verified 06/07/23 12:33 Surgical History History of cholecystectomy History of hysterectomy Hx of bilateral mastectomy Social History household members: spouse Smoking Status: Never smoker alcohol intake: never substance use type: does not use ROS ROS ED Constitutional Constitutional ED: Denies chills, fever(s) or sweats Eyes Eyes: Denies blurry vision or change in vision ENT ENT ED: Denies ear pain or sore throat Cardiovascular Cardiovascular: Denies palpitations or racing heartbeat Respiratory/Chest Respiratory/Chest: Reports cough; Denies dyspnea or sputum Gastrointestinal Gastrointestinal: Denies constipation, diarrhea, nausea or vomiting Genitourinary Genitourinary ED: Denies dysuria, hematuria or urinary frequency Musculoskeletal Musculoskeletal: Denies arthralgias, myalgias or neck pain Integumentary Denies abscess, Abrasions or rash Neurologic Neurologic: Reports headache(s); Denies paresthesias or weakness Psychiatric Psychiatric: Denies anxiety, depression, suicidal ideation or suicidal thoughts Endocrine Endocrinology: Denies polydipsia or polyuria EXAM Physical Exam Const Vital Signs: 06/13/23 16:11 06/13/23 17:03 06/13/23 16:50 Temperature 97.6 F L Temperature Source Temporal Pulse Rate 115 H 79 Respiratory Rate 18 20 H Respiratory Effort Short of Breath Respiratory Pattern Normal Normal Blood Pressure 130/97 H Blood Pressure Mean 108 Pulse Ox 92 Oxygen Delivery Method Room Air Positive well nourished General Appearance ED: NAD; Negative for pallor HEENT Reports moist mucous membranes atraumatic Eyes PERRL and EOMs intact bilaterally Neck no lymphadenopathy Resp normal respiratory effort Auscultation: wheezes scattered wheezes; Negative for rales or rhonchi Cardio regular rate Rate: bradycardia and tachycardic GI non-tender Neuro oriented x3 and CN's II-XII intact bilaterally Sensorium / Orientation: alert Motor Exam: strength 5/5 throughout Psych mental status grossly normal Skin no wounds General Skin Exam: Negative for jaundice or pallor MDM MDM MDM Narrative Medical decision making narrative: Presenting with continued bronchitis symptoms. Differential includes pneumonia, asthma, bronchitis, dehydration, electrolyte abnormalities. I do not believe this is not cardiac. Obtain basic lab work including a CBC and BMP. I do not believe she needs cardiac testing or an EKG. Chest x-ray two-view will be obtained. Patient medicated with DuoNebs. She states that she took 60 mg of prednisone today so I did cancel the Solu-Medrol 125 mg. Lab Data Attestation: I reviewed the patient's lab results. Labs: Laboratory Results - last 24 hr 06/13/23 16:35 WBC 15.0 H RBC 5.52 H Hgb 15.3 H Hct 48.1 H MCV 87.1 MCH 27.7 MCHC 31.8 L RDW Std Deviation 41.7 RDW Coeff of Octaviano 13.8 Plt Count 306 MPV 9.0 Immature Gran % (Auto) 1.000 H Neut % (Auto) 84.9 H Lymph % (Auto) 10.3 L [place] % (Auto) 1.1 Eos % (Auto) 2.3 Baso % (Auto) 0.4 Absolute Neuts (auto) 12.7 H Absolute Lymphs (auto) 1.54 Nucleated RBC % 0 Sodium 136 Potassium 3.9 Chloride 100 Carbon Dioxide 31.0 Anion Gap 5 BUN 15 Creatinine 1.01 Estim Creat Clear Calc 62.66 Est GFR (MDRD) Af Amer 77 Est GFR (MDRD) Non-Af 64 BUN/Creatinine Ratio 14.9 Glucose 143 H Calcium 9.1 Patient presenting with continued symptoms of bronchitis. She has been scattered wheezing on examination. She has been on high-dose prednisone for 6 days. CBC was obtained and shows a slight leukocytosis of 15 however this likely due to steroid use. Renal function electrolytes are normal. Chest x-ray my interpretation shows no acute process. Patient feeling improved after breathing treatments. As we discussed I will taper her steroids back down and start her on a steroid inhaler. She has albuterol inhaler and nebulizers at home. She is given referral to pulmonology. Return precautions are discussed. Impression: 1. Bronchitis with wheezing Radiography Diagnostic Testing: Clinical Impression(s) from Imaging Studies Chest X-Ray 06/13/23 17:22 IMPRESSION: No active disease. Electronically Signed: Darryl Dowling MD at 17:39 EDT , Discharge Plan Triage Chief Complaint: Cold Sx ED Provider: Juanjose Aiken Dx/Rx/DC Orders Instructions: ED Bronchitis with Wheezing (Adult) Prescriptions: New budesonide-formoterol [Symbicort] 160-4.5 mcg/actuation HFA aerosol inhaler 2 inh inhalation BID Qty: 10.2 0RF prednisone 10 mg tablet 10 mg PO DAILY Qty: 12 0RF Rx Instructions: 40 mg p.o. daily ?2 days, 20 mg p.o. daily ?2 days, 10 mg p.o. daily ?2 days. No Action sumatriptan succinate [Imitrex] 100 MG tablet 100 mg PO .X1 PRN ondansetron [ondansetron] 4 mg tablet,disintegrating 4 mg PO Q8H PRN PRN (Reason: Nausea) Qty: 10 0RF levofloxacin 750 mg tablet 750 mg PO DAILY Qty: 7 0RF hydrocodone-acetaminophen 5-325 mg tablet 1 tab PO Q6H PRN PRN (Reason: Pain) 3 Days Qty: 10 0RF prednisone 20 mg tablet 60 mg PO DAILY Qty: 15 0RF benzonatate [benzonatate] 100 mg capsule 200 mg PO TID PRN PRN (Reason: Cough) Qty: 30 0RF albuterol sulfate [Ventolin HFA] 90 mcg/actuation HFA aerosol inhaler 2 puff inhalation Q4H PRN PRN (Reason: Wheezing) Qty: 1 0RF Primary Care Provider: Jas Braun Referrals: Marty Hickman DO [Med Staff - Active Staff] - 3-5 Days Jas Braun DO [Primary Care Provider] - Disposition Disposition: Home, Self Care
== END 2023-06-13 19:17 | disposition home or self-care (01) ==
PROVIDERS: Emergency Provider Student in an Organized Health Care Education/Training Program; PCP Student in an Organized Health Care Education/Training Program; Visit Provider Student in an Organized Health Care Education/Training Program
DX: J45.990 Exercise induced bronchospasm (principal); M06.9 Rheumatoid arthritis, unspecified; F31.9 Bipolar disorder, unspecified; M79.7 Fibromyalgia; R51.9 Headache, unspecified
CPT/HCPCS: 71046; 80048; 85025; 94640; 96361; 96374; 99284; J7030; A4216

== ENCOUNTER 2023-06-21 08:56 | Emergency (ER) | payer BC, SELFPAY ==
[2023-06-21 08:56] VITALS: BP 130/106; PULSE 98; RESP 16; TEMP 36.2; O2SAT 94; BMI 36.7
--- NOTE | 2023-06-21 09:00 | ED.VIS.GI ---
HPI HPI - GI History of Present Illness Chief Complaint: Abd Pain Informant: patient Abdominal Pain/Flank Pain Onset: Days (5) Context: Gradual Onset Timing: Continuous Quality: Sharp Worsened by: Food Relieved by: - (Vicodin) Nausea/Vomiting/Emesis GI Symptom: Negative for Nausea or Vomiting Diarrhea/Melena/Hematochezia GI Symptom: Negative for Diarrhea, Melena or Hematochezia Associated Symptoms Associated Symptoms: Positive for Dysuria; Negative for Frequency or Hematuria LMP: Hysterectomy Narrative Narrative: Patient presents with abdominal pain that has been getting worse over the last 5 days. Patient states it is gradually getting worse. Patient states her pain is. Patient describes her pain as sharp. Patient states it is worse over the left upper quadrant. Patient states it also goes into the left lower quadrant. Patient states it is worse after eating. Patient states she has taken Vicodin which has been helping. Patient denies any nausea or vomiting. Patient denies any diarrhea, melena, or hematochezia. Patient admits to some dysuria and is currently taking Bactrim and Pyridium for urinary tract infection. Patient admits to subjective fevers but denies any chills. [facility] Medical History Bipolar disorder Breast cancer Fibromyalgia Migraine Rheumatoid arthritis Ruptured disk Home Medications sumatriptan succinate 100 mg tablet (Imitrex) 100 mg PO .X1 PRN migraine 05/16/17 [History Last Taken 07/08/20] ondansetron 4 mg disintegrating tablet 4 mg PO Q8H PRN PRN Nausea #10 tabs 06/29/22 [Rx Last Taken Unknown] levofloxacin 750 mg tablet 750 mg PO DAILY #7 tabs 10/27/22 [Rx Last Taken Unknown] hydrocodone-acetaminophen 5-325mg 5mg-325mg 1 tab PO Q6H PRN PRN Pain 3 days #10 TABLETS 11/25/22 [Rx Last Taken Unknown] albuterol sulfate 90 mcg/actuation aerosol inhaler (Ventolin HFA) 2 puff inhalation Q4H PRN PRN Wheezing ##1 06/07/23 [Rx Last Taken Unknown] benzonatate 100 mg capsule 200 mg (2 x 100 mg) PO TID PRN PRN Cough #30 CAPSULES 06/07/23 [Rx Last Taken Unknown] benzonatate 200 mg capsule 200 mg PO TID PRN cough #20 caps 06/13/23 [Rx Last Taken Unknown] budesonide-formoterol HFA 80 mcg-4.5 mcg/actuation aerosol inhaler (Breyna) 2 puff inhalation BID #10.2 grams 06/13/23 [Rx Last Taken Unknown] prednisone 10 mg tablet 10 mg PO DAILY #12 tabs 06/13/23 [Rx Last Taken Unknown] prednisone 10 mg tablet 10 mg PO DAILY #14 tabs 06/13/23 [Rx Last Taken Unknown] Allergy/AdvReac Type Severity Reaction Status Date / Time alprazolam [From Xanax] Allergy Unknown Verified 06/21/23 08:58 amoxicillin Allergy Itching Verified 06/21/23 08:58 bupropion HCl Allergy Unknown Verified 06/21/23 08:58 [From Wellbutrin] citalopram hydrobromide Allergy Unknown Verified 06/21/23 08:58 [From Celexa] duloxetine [From Cymbalta] Allergy Mucosal Verified 06/21/23 08:58 lesions fluoxetine HCl [From Prozac] Allergy Unknown Verified 06/21/23 08:58 levomilnacipran HCl Allergy Unknown Verified 06/21/23 08:58 [From Fetzima] nitrofurantoin Allergy Unknown Verified 06/21/23 08:58 macrocrystalline [From Macrodantin] prochlorperazine edisylate Allergy Unknown Verified 06/21/23 08:58 [From Compazine] prochlorperazine maleate Allergy Unknown Verified 06/21/23 08:58 [From Compazine] pseudoephedrine HCl Allergy Unknown Verified 06/21/23 08:58 [From Sudafed] quetiapine [From Seroquel] Allergy Other Verified 06/21/23 08:58 sertraline HCl [From Zoloft] Allergy Unknown Verified 06/21/23 08:58 fentanyl AdvReac HALLUCINATI Verified 06/21/23 08:58 ONS hydrocodone bitartrate AdvReac Itching Verified 06/21/23 08:58 [From Vicodin] oxycodone AdvReac FLUSHED/HOT Verified 06/21/23 08:58 paliperidone [From Invega] AdvReac Other Verified 06/21/23 08:58 risperidone [From Risperdal] AdvReac Other Verified 06/21/23 08:58 tramadol [From Ultram] AdvReac Other Verified 06/21/23 08:58 Surgical History History of cholecystectomy History of hysterectomy Hx of bilateral mastectomy Social History household members: spouse Smoking Status: Never smoker alcohol intake: never substance use type: does not use ROS ROS ED Constitutional Constitutional ED: Reports fever(s) and subjective; Denies chills Eyes Eyes: Denies blurry vision or change in vision ENT ENT ED: Denies rhinorrhea or sore throat Cardiovascular Cardiovascular: Reports chest pain; Denies palpitations Respiratory/Chest Respiratory/Chest: Reports cough and dyspnea Gastrointestinal Gastrointestinal: Reports abdominal pain; Denies diarrhea, nausea or vomiting Genitourinary Genitourinary ED: Reports dysuria; Denies hematuria Musculoskeletal Musculoskeletal: Reports back pain; Denies neck pain Integumentary Denies abscess or rash Neurologic Neurologic: Denies headache(s) or weakness Allergic/Immunologic Allergic/Immunologic ED: Denies mouth swelling or urticaria EXAM Physical Exam Const Vital Signs: 06/21/23 08:56 Temperature 97.2 F L Temperature Source Temporal Pulse Rate 98 Respiratory Rate 16 Blood Pressure 130/106 H Blood Pressure Mean 114 Pulse Ox 94 Oxygen Delivery Method Room Air Positive well nourished, well developed and obese Constitutional Narrative: Patient is awake, alert, and texting on her phone. General Appearance ED: well developed and NAD Nutritional Appearance: obese HEENT Reports moist mucous membranes Neck supple and no JVD Resp normal respiratory effort and clear to auscultation bilaterally Cardio regular rate and regular rhythm GI Palpation: soft and tender LLQ and LUQ; Negative for guarding or rebound tenderness present Extremity full ROM General Extremety ED: Negative for edema or tenderness General Extremity: Negative for edema Neuro CN's II-XII intact bilaterally, moves all extremities and no sensory deficits noted Sensorium / Orientation: alert Motor Exam: strength 5/5 throughout Psych mental status grossly normal and thought process normal MDM MDM MDM Narrative Medical decision making narrative: Differential diagnosis includes diverticulitis, colitis, bowel obstruction, perforation, ureteral calculus, pyelonephritis, otitis, and viral illness. CBC will be obtained to assess for leukocytosis and anemia. Comprehensive metabolic profile will be obtained to assess for hepatic function, renal function, and electrolyte abnormality. Lipase will be obtained to assess for pancreatitis. Urinalysis will be obtained to assess for urinary tract infection. CT scan of the abdomen and pelvis will be obtained to assess for ureteral calculus and diverticulitis. Lab Data Attestation: I reviewed the patient's lab results. Lab results narrative: CBC was reviewed and was within normal limits. Comprehensive metabolic profile was reviewed and was within normal limits. Lipase was reviewed and was normal at 30. Urinalysis was reviewed. There is no evidence of urinary tract infection or hematuria. Labs: Laboratory Results - last 24 hr 06/21/23 06/21/23 09:33 11:00 WBC 8.6 RBC 5.21 Hgb 14.3 Hct 45.3 MCV 86.9 MCH 27.4 MCHC 31.6 L RDW Std Deviation 41.4 RDW Coeff of Octaviano 13.4 Plt Count 224 MPV 9.3 Immature Gran % (Auto) 0.600 Neut % (Auto) 49.2 Lymph % (Auto) 35.2 [place] % (Auto) 4.8 Eos % (Auto) 9.5 H Baso % (Auto) 0.7 Absolute Neuts (auto) 4.2 Absolute Lymphs (auto) 3.03 Nucleated RBC % 0 Sodium 140 Potassium 3.6 Chloride 105 Carbon Dioxide 30.0 Anion Gap 5 BUN 7 Creatinine 0.81 Estim Creat Clear Calc 78.13 Est GFR (MDRD) Af Amer 100 Est GFR (MDRD) Non-Af 82 BUN/Creatinine Ratio 8.6 L Glucose 108 H Calcium 8.8 Total Bilirubin 0.50 AST 20 ALT 28 Alkaline Phosphatase 99 Total Protein 7.2 Albumin 3.4 Globulin 3.8 Albumin/Globulin Ratio 0.9 Lipase 30 Urine Color Yellow Urine Clarity Clear Urine pH 7.0 Ur Specific [place] 1.010 Urine Protein Negative Urine Glucose (UA) Normal Urine Ketones Negative Urine Occult Blood Negative Urine Nitrite Negative Urine Bilirubin Negative Urine Urobilinogen Normal Ur Leukocyte Esterase Negative Urine RBC 0 SEEN Urine WBC 0 SEEN Ur Squamous Epith Cells 0 SEEN Urine Bacteria 0 SEEN Urine Mucus 0 SEEN Radiography Diagnostic Testing: Clinical Impression(s) from Imaging Studies Abdomen/Pelvis CT 06/21/23 09:16 IMPRESSION: No acute abnormality is seen. Electronically Signed: Pawel Jon MD at 10:12 EDT , CT scan of the abdomen pelvis was obtained. There is no ureteral calculus. There is no hydronephrosis or hydroureter. There is no free air or free fluid. There is no evidence of bowel obstruction. There is no acute abnormality noted. This was interpreted by the radiologist and was also independently reviewed by myself. Treatment and Re-Evaluation :: Patient was given IV fluids, morphine, and Zofran. Patient is feeling better on reevaluation. Patient was advised of her findings. Patient was instructed to follow-up with her primary care physician in 5 to 7 days for further evaluation. Patient was advised she may need to see a insurance compliance analyst. Patient was instructed to continue using her Vicodin as needed for pain. Patient was instructed to return if worse in any way. Patient understood and was agreeable with the plan. All questions were answered. Discharge Plan Triage Chief Complaint: Abd Pain ED Provider: Xavi De La Cruz Dx/Rx/DC Orders Clinical Impression: Abdominal pain in female patient, Fibromyalgia Instructions: ED Abdominal Pain Unkn Cause Fem Prescriptions: No Action sumatriptan succinate [Imitrex] 100 MG tablet 100 mg PO .X1 PRN ondansetron [ondansetron] 4 mg tablet,disintegrating 4 mg PO Q8H PRN PRN (Reason: Nausea) Qty: 10 0RF levofloxacin 750 mg tablet 750 mg PO DAILY Qty: 7 0RF hydrocodone-acetaminophen 5-325 mg tablet 1 tab PO Q6H PRN PRN (Reason: Pain) 3 Days Qty: 10 0RF prednisone 10 mg tablet 10 mg PO DAILY Qty: 12 0RF Rx Instructions: 40 mg p.o. daily ?2 days, 20 mg p.o. daily ?2 days, 10 mg p.o. daily ?2 days. budesonide-formoterol [Breyna] 80-4.5 mcg/actuation HFA aerosol inhaler 2 puff inhalation BID Qty: 10.2 0RF benzonatate 200 mg capsule 200 mg PO TID PRN (Reason: cough) Qty: 20 0RF prednisone 10 mg tablet 10 mg PO DAILY Qty: 14 0RF Rx Instructions: 40 mg p.o. x2 days, 20 mg x 2 days, 10 mg x 2 days benzonatate [benzonatate] 100 mg capsule 200 mg PO TID PRN PRN (Reason: Cough) Qty: 30 0RF albuterol sulfate [Ventolin HFA] 90 mcg/actuation HFA aerosol inhaler 2 puff inhalation Q4H PRN PRN (Reason: Wheezing) Qty: 1 0RF Primary Care Provider: Jas Braun Referrals: Jas Braun DO [Primary Care Provider] - 5-7 Days Disposition Disposition: Home, Self Care
--- NOTE | 2023-06-21 09:16 | CT_ITS ---
STUDY: CT ABDOMEN AND PELVIS WITHOUT CONTRAST REASON FOR EXAM: Female, 43 years old. 5 day history of abdominal pain. History of breast carcinoma. Bilateral breast prostheses. RADIATION DOSAGE (If Supplied By Facility): CTDIvol = ( 18.81 ) mGy, DLP = ( 940.08 ) mGycm TECHNIQUE: Transaxial images were obtained from the dome of the diaphragm to the symphysis pubis without oral contrast, and without intravenous contrast. Sagittal and coronal images were reconstructed. Individualized dose optimization techniques were used for this CT. COMPARISON: Comparison is made with prior study dated April 29, 2020. FINDINGS: The visualized lung bases are unremarkable. The visualized portions of the heart are within normal limits. Normal liver. The patient is status post cholecystectomy. Normal spleen. Normal pancreas. Normal bilateral adrenal glands. Normal right kidney. Normal left kidney. Normal visualized stomach. Normal small intestine. Normal colon. There is non-visualization of the appendix. Normal abdominal aorta. Normal inferior vena cava. Normal retroperitoneum. Normal urinary bladder. There is absence of the uterus consistent with a prior hysterectomy. Normal abdominal wall. Normal osseous structures. CT/Abdomen/Pelvis without Cont IMPRESSION: No acute abnormality is seen. Electronically Signed: Pawel Jon MD at 10:12 EDT ,
[2023-06-21] MEDS: 0.9% Normal Saline (1000mL) 1,000 ML 1000 ML IV (09:33)
[2023-06-21] MEDS: Ondansetron 4 MG/2 ML Vial IV (09:33)
[2023-06-21] MEDS: Morphine 4 MG/ML Syringe IV (09:33)
[2023-06-21 09:50] LABS: Absolute Lymphocyte Count 3.03 X10^3/uL (0.83-4.51); Absolute Neutrophil Count 4.2 X10^3/uL (2.0-7.7); Basophil# 0.06 X10^3/uL; Basophil% 0.7 % (0-1); Eosinophil# 0.82 X10^3/uL; Eosinophils% 9.5 % (0-5); Hematocrit 45.3 % (37-47); Hemoglobin 14.3 g/dL (12.0-15.0); Lymphocyte # 3.03 X10^3/ul (0.83-4.51); Lymphocyte % 35.2 % (19-41); Mean Corp Hgb Conc 31.6 g/dL (32-36); Mean Corpuscular Hgb 27.4 pg (27.0-32.0); Mean Corpuscular Volume 86.9 fL (81-99); Mean Platelet Vol. 9.3 fl (6.2-12.0); Monocyte# 0.41 X10^3/uL; Monocyte% 4.8 % (0-10); NRBC Flagged by Analyzer 0 % (0-5); Neutrophil # 4.23 X10^3/uL (2.7-7.7); Neutrophil % 49.2 % (47-70); Platelet Count 224 K/mm3 (150-450); RBC Distribution Width CV 13.4 % (11.6-14.6); RBC Distribution Width SD 41.4 fl (35.1-43.9); Red Blood Count 5.21 M/mm3 (4.2-5.4); White Blood Count 8.6 K/mm3 (4.4-11.0)
[2023-06-21 10:05] LABS: ALB/GLOB Ratio 0.9 RATIO (0.9-2.4); AST(SGOT) 20 U/L (15-37); Alanine Aminotransfer ALT/SGPT 28 U/L (13-56); Albumin, Serum 3.4 g/dL (3.2-5.0); Alkaline Phosphatase 99 U/L (45-117); Anion Gap 5 (5-15); BUN 7 mg/dL (7-18); BUN/Creat Ratio 8.6 RATIO (10-20); Calcium,Total 8.8 mg/dL (8.5-10.1); Chloride 105 mmol/L (98-107); Creatinine, Serum 0.81 mg/dL (0.55-1.02); EST Glomerular Filtration Rate 82 mL/min (>60); Est Glom Filt Rate - Afr Amer 100 mL/min (>60); Estimated Creatinine Clearance 78.13 ml/min; Globulin 3.8 g/dL (2.2-4.2); Glucose 108 mg/dL (74-106); Lipase 30 U/L (13-75); Potassium 3.6 mmol/L (3.5-5.1); Protein, Total 7.2 g/dL (6.4-8.2); Sodium Level 140 mmol/L (136-145)
[2023-06-21 11:23] LABS: Bacteria 0 SEEN /hpf (None Seen); Mucous, Urine 0 SEEN /hpf (<or=2+); Red Blood Cells-Urine 0 SEEN /hpf (0-5); Squamous Epithelial Cells - UA 0 SEEN /hpf (5-10); White Blood Cells 0 SEEN /hpf (0-5)
[2023-06-21 11:32] LABS: Color, Urine Yellow (Yellow); Glucose, Dipstick Normal (Normal); Ketone-Dipstick Negative (Negative); Leukocyte Esterase-Dipstick Negative /ul (Negative); Nitrite-Dipstick Negative (Negative); Occult Blood-Urine Negative /ul (Negative); Protein-Dipstick Negative (Negative); Urine Bilirubin Dipstick Negative (Negative); Urine Clarity Clear (Clear); Urine Urobilinogen Normal (Normal)
[2023-06-21] MEDS: LORazepam 2 MG/ML Syringe 0.5 MG IV (12:38)
== END 2023-06-21 12:43 | disposition home or self-care (01) ==
PROVIDERS: Emergency Provider Emergency Medicine; PCP Student in an Organized Health Care Education/Training Program; Visit Provider Emergency Medicine
DX: R10.12 Left upper quadrant pain (principal); F31.9 Bipolar disorder, unspecified; R10.32 Left lower quadrant pain; M79.7 Fibromyalgia; R05.9 Cough, unspecified; R06.00 Dyspnea, unspecified
CPT/HCPCS: 74176; 80053; 81001; 83690; 85025; 96361; 96374; 96375; 99283; J7030; A4216; J2405

== ENCOUNTER → 2023-07-23 | Outpatient (CLI) | payer BC, SELFPAY ==
[2023-07-23 14:45] LABS: Absolute Lymphocyte Count 2.72 X10^3/uL (0.83-4.51); Absolute Neutrophil Count 3.4 X10^3/uL (2.0-7.7); Basophil# 0.03 X10^3/uL; Basophil% 0.5 % (0-1); Eosinophil# 0.21 X10^3/uL; Eosinophils% 3.2 % (0-5); Hematocrit 44.2 % (37-47); Hemoglobin 13.7 g/dL (12.0-15.0); Lymphocyte # 2.72 X10^3/ul (0.83-4.51); Lymphocyte % 41.5 % (19-41); Mean Corpuscular Hgb 26.8 pg (27.0-32.0); Mean Corpuscular Volume 86.3 fL (81-99); Mean Platelet Vol. 9.4 fl (6.2-12.0); Monocyte# 0.22 X10^3/uL; Monocyte% 3.4 % (0-10); NRBC Flagged by Analyzer 0 % (0-5); Neutrophil # 3.36 X10^3/uL (2.7-7.7); Neutrophil % 51.1 % (47-70); Platelet Count 258 K/mm3 (150-450); RBC Distribution Width SD 44.2 fl (35.1-43.9); Red Blood Count 5.12 M/mm3 (4.2-5.4); White Blood Count 6.6 K/mm3 (4.4-11.0)
--- NOTE | 2023-07-24 05:45 | PFTCOMP_ITS ---
COMPLETE PULMONARY FUNCTION TEST INTERPRETATION Brief HPI: Patient is a 43-year-old female, currently under the care of Dr. Hickman, who presents to [facility] for complete pulmonary function tests secondary to diagnosis of asthma. Respiratory therapist reports good effort and reproducible results. Interpretation: Forced expiration spirometry shows no large airways obstructive ventilatory defect with an FEV1 of 87% predicted. There is no significant bronchodilator response by strict ATS criteria. Spirograms are of good quality and plateau normally. The respiratory flow volume loop shows a normal pattern. Lung volumes by body plethysmography show a normal total lung capacity at 4.38 L, 89% predicted. All other lung volumes are within normal limits. Diffusion capacity by carbon monoxide is normal at 82% predicted. The airway resistance is elevated. No previous pulmonary function tests were available for review. Impression: These pulmonary function tests are grossly within normal limits
[2023-07-27 11:09] LABS: Alternaria tenuis <0.10 kU/L (Class 0); Ash, White <0.10 kU/L (Class 0); Aspergillus fumigatus <0.10 kU/L (Class 0); Bermuda Grass <0.10 kU/L (Class 0); Birch <0.10 kU/L (Class 0); Black Walnut <0.10 kU/L (Class 0); Cat Hair / Dander,Stand <0.10 kU/L (Class 0); Cedar, Mountain <0.10 kU/L (Class 0); Cladosporium herbarum <0.10 kU/L (Class 0); Cockroach, American <0.10 kU/L (Class 0); Cottonwood <0.10 kU/L (Class 0); D farinae Mite <0.10 kU/L (Class 0); D pteronyssinus <0.10 kU/L (Class 0); Dog Epithelia <0.10 kU/L (Class 0); Elm, American White <0.10 kU/L (Class 0); Immunoglobulin E 10 IU/mL (6-495); Maple/Box Elder <0.10 kU/L (Class 0); Mouse Urine <0.10 kU/L (Class 0); Mulberry, White <0.10 kU/L (Class 0); Oak, White <0.10 kU/L (Class 0); Pecan <0.10 kU/L (Class 0); Penicillium Notatum <0.10 kU/L (Class 0); Pigweed, Rough <0.10 kU/L (Class 0); Ragweed, Short/Common <0.10 kU/L (Class 0); Russian Thistle <0.10 kU/L (Class 0); Sheep Sorrel <0.10 kU/L (Class 0); Sycamore, American <0.10 kU/L (Class 0); Timothy Grass <0.10 kU/L (Class 0)
[2023-07-28 18:07] LABS: Aspirgillus flavus Negative (Neg:<1:1); Aspirgillus fumigatus Negative (Neg:<1:1); Aspirgillus niger Negative (Neg:<1:1); Cytoplasmic Ab (C-ANCA) <1:20 titer (Neg:<1:20); Immunoglobulin E 10 IU/mL (6-495); Perinuclear Ab (P-ANCA) <1:20 titer (Neg:<1:20)
== END | disposition home or self-care (01) ==
PROVIDERS: PCP Student in an Organized Health Care Education/Training Program; Referring Provider Internal Medicine Critical Care Medicine; Visit Provider Internal Medicine Critical Care Medicine
DX: J45.909 Unspecified asthma, uncomplicated (principal)
CPT/HCPCS: 36415; 82785; 85025; 86003; 86256; 86606; 94060; 94726; 94729

== ENCOUNTER → 2023-07-24 | Outpatient (CLI) | payer BC, SELFPAY ==
[2023-07-24 13:29] VITALS: PULSE 103; PULSE 104; PULSE 110; PULSE 112; PULSE 113; PULSE 115; PULSE 116; PULSE 95; O2SAT 91; O2SAT 92; O2SAT 95
--- NOTE | 2023-07-24 17:32 | PCM.PSN.6M ---
PSN 6 Minute Walk Test 6 Minute Walk Test 6 Minute Walk Test: 6 Minute Walk Test PSN:6-Minute Walk Test Start: 07/24/23 13:29 Freq: Status: Active Protocol: RESP.6MINW Document 07/24/23 13:29 EW (Rec: 07/24/23 13:31 EW Desktop) 6 Minute Walk Test Date Performed 07/24/23 Time Performed 13:00 Height 5 ft 4 in Weight: 96.162 kg Weight in Pounds 212.0 lbs Assistive device used: None Pre-test Oxygen Delivery Method Room Air Pulse Ox 95 Pulse Rate (60-100) 110 H Dyspnea Rohith Scale (0-10) 3 Exertion Rohith Scale (6-20) 8 1st minute Oxygen Delivery Method Room Air Pulse Ox 92 Pulse Rate (60-100) 112 H 2nd minute Oxygen Delivery Method Room Air Pulse Ox 91 Pulse Rate (60-100) 113 H 3rd minute Oxygen Delivery Method Room Air Pulse Ox 91 Pulse Rate (60-100) 116 H 4th minute Oxygen Delivery Method Room Air Pulse Ox 91 Pulse Rate (60-100) 115 H 5th minute Oxygen Delivery Method Room Air Pulse Ox 91 Pulse Rate (60-100) 95 6th minute Oxygen Delivery Method Room Air Pulse Ox 92 Pulse Rate (60-100) 103 H Post-test Oxygen Delivery Method Room Air Pulse Ox 95 Pulse Rate (60-100) 104 H Dyspnea Rohith Scale (0-10) 3 Exertion Rohith Scale (6-20) 11 Full Laps Walked 17 Partial Lap, Number of Tiles Walked 0 Total Distance Walked (ft) 1003 Interpretation Interpretation: The patient was able to travel 1003 feet over the course of 6 minutes on room air with no assistive devices or breaks. The patient did experience a significant desaturation from 95% of baseline to as low as 91% with ambulation. Patient was noted to have persistent tachycardia throughout testing with a peak heart of 116 bpm. These findings are consistent with a cardiovascular limitation exercise tolerance. Recommendations Recommendations: No supplemental oxygen is indicated at this time. However, patient will need to be followed closely given level of desaturation.
== END | disposition home or self-care (01) ==
LOC: PSN 13:09
PROVIDERS: PCP Student in an Organized Health Care Education/Training Program; Referring Provider Internal Medicine Critical Care Medicine; Visit Provider Internal Medicine Critical Care Medicine
DX: J45.909 Unspecified asthma, uncomplicated (principal)
CPT/HCPCS: 94618

== ENCOUNTER 2024-01-23 17:00 | Outpatient (RCR) | payer BC, SELFPAY ==
--- NOTE | 2023-10-23 18:48 | HP.PTEVAL ---
Patient's Visit Information Visit Information Visit Information: EBONIE SUN is a 43 year old F referred to Physical Therapy by MANSI Dupree with a diagnosis of FM. Date of Evaluation: 10/23/23 Physical Therapist: Xavi Reid, DPT, OCS, CSCS Visit Plan Frequency: 2x /Week Duration: 4-6 Weeks Plan: pool therapy 2x/week for 4-6(need accurate insurance info to make final deceison , but wants to work toward quick I pool program. Work on core and LE and postural strength, RC strength, shoulder ROM, HS and piriformis stretch and work to I. Subjective Subjective: hips , shoulders , knees hurt for a couple years. Worse in the last 6 months for no apparent reason. Higher intensity. Some mornings cannot roll in bed due to pain, sometimes taking vicodin daily to sleep. Actually that is most mornings. Hard to roll in bed and always hard to get up in knees and hips. Sometimes gets a little better. 8/10 on bad days, good days are 3/10. No days are painfree. Sleep is tough some days. Shoulders hurt to lift arms overhead for more than a few seconds. Basic ADLs: Dress shower adn bathe are I but hard some days. Shoulders hurts with shirts, helps some days. 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 Interrupted some days with pain. Regular exercises: none. Tried gym walking but paid for it. Stairs are a struggle some days, takes extra time. has rhumatologist; not seen in a year. Hobbies: scrap booking, enjoys photography but can't move well anymore Had water therapy for back and it worked well. Pain body: Pain Intensity (Out of 10): 3 Pain Intensity Range: 3 and 8 Objective Objective: Walks slowly with some stiffness in hips noticeable but I into PT, wide MEAGAN. Posture is forward head and flat lordosis. Tender to palpation through UT and shoulder mm. reflexes 2/3 bi and tri and patella and achilles Sensation UE adn LE WNL to gross light touch B. AROM shoulder to 140 elevation before stiff and sore, full ir er but sore at end range., elbow and wrist WFL. LE AROM WFL, some tightness HS and piriformis area. strength hips abd ext flexion 3+, pain in B hips with abd. knee flexion and ext 4- ankles 4/5 and no pain noted steps are reciprocal but painful B knees ascending and weakness obvious descending wanting to use rail cervical aROM 50 ext, 50 B rotation, stiff to move. Lumbar AROM ext no pain and min limits, flexion mod llimits, SB min deficits. Balance/Special Test Scores Lower Extremity Functional Score: 29 Goals Goal 1:: Pt feel pain and mobility 70% improved overall to 2/10 at worst Goal Time Frame: 4-6 Weeks Goal 2:: i appropriate pool based exercises for ROM, strength, fluid dynamics Goal Time Frame: 4-6 Weeks Goal 3:: sleep without interruption at night Goal Time Frame: 4-6 Weeks Goal 4:: No missed work days obvious due to pain and stiffness. Goal Time Frame: 4-6 Weeks Goal 5:: LEFS 50 Goal Time Frame: 4-6 Weeks Rehabilitation Potential Physical Therapy Diagnosis: stiffness and soreness causing diminished rom adn weakness limiting comfortable funciton Rehabilitation Potential: Good Anticipated Interventions Patient/Client Instruction: Educate patient on: Condition and Risk Factors For the Purpose of:: To decrease pain, To increase ROM, To improve nutrient delivery to tissue, To increase tolerance to activity/condition/position, To improve ability of physical actions for home/community/work/leisure and To improve gait and locomotor functions Therapeutic Exercise to Include: Strength training, Flexibilty training, In an aquatic setting, Passive ROM, Active ROM, Dynamic Lumbar Stabilization and Scapular Strength/Stabilization For the Purpose of:: To decrease pain, To decrease swelling/inflammation, To increase ROM, To improve muscle performance and motor function, To increase tolerance to activity/condition/position, To improve ability of physical actions for home/community/work/leisure, To improve gait and locomotor functions and To improve health of tissue Text: Thank you for the opportunity to evaluate your patient. For Medicare and Medicare HMO plans, please review the plan of care and approve it. It will need to be FAXED BACK to us at [phone] for Medicare purposes. For Medicare only, by signing this I certify the plan of care. Please let me know if there are questions or concerns regarding this plan of care. Physician Signature: Date:
--- NOTE | 2023-12-26 16:51 | HP.PTREVAL ---
Re-Evaluation Intro: Virginia Sarmientologarnoldo, ACTIVITIES ATTENDANT-C, It has been my pleasure to treat EBONIE SUN over the last 8 visits for FM. Please see the progress note below for an update on the physical therapy plan of care! Subjective Subjective: Pool is going OK. I have missed quite a few due to life getting in the way. Had CTS on both wrists. Pool trets her well Still has a lot of pain in arms and wrists. 6/10 in R arm. Hips stay sore. Exercises are kind of OK, pain with more repitions. Getting better with the warm weather. bad days are pretty bad but not as intense as previously. Working on diet changes. Had alot of gluten in meal last night. Sees psychiatrist for manic mood. Got on motorcycle after therapy for forty minutes and no pain, that is unusual but therapy helped. Sleeps better on therapy nights. Work has not been missed lately. Objective Objective/Function: LB AROM and cervical AROM is good, slow but able. Walks slow but steady. UE overhead ROM full but slow end range and painful L shoulder and arm/. Strenth is 4- UE with out myotomal problems. Not reeady yet to be I on own but willing to join and come in Sunday and repeat workout and try to be consistent with 2x/week total. Same goals , fair prognosis with compliance and new 4 week POC for weekly. Plan Plan Plan: 1x/week for 4 weeks to progress wateer ex(pt to do another time every week I as member) pLease make sure she is consistent with pool ex and progresses slowly, Give written list as needed. Focus on UE and LE strength and pirifromis/HS stretching Balance/Gait/Functional tests Balance/Special Test Scores Lower Extremity Functional Score: 29 Goals Goals Goal 1:: Pt feel pain and mobility 70% improved overall to 2/10 at worst Goal Time Frame: 4-6 Weeks Goal Progress: 25% Goal 2:: i appropriate pool based exercises for ROM, strength, fluid dynamics Goal Time Frame: 4-6 Weeks Goal Progress: Progressing Goal 3:: sleep without interruption at night Goal Time Frame: 4-6 Weeks Goal Progress: Progressing Goal 4:: No missed work days obvious due to pain and stiffness. Goal Time Frame: 4-6 Weeks Goal Progress: Goal Met lately Goal 5:: LEFS 50 Goal Time Frame: 4-6 Weeks Anticipated Interventions Anticipated Interventions Patient/Client Instruction: Educate patient on: Condition and Risk Factors For the Purpose of:: To decrease pain, To increase ROM, To improve nutrient delivery to tissue, To increase tolerance to activity/condition/position, To improve ability of physical actions for home/community/work/leisure and To improve gait and locomotor functions Therapeutic Exercise to Include: Strength training, Flexibilty training, In an aquatic setting, Passive ROM, Active ROM, Dynamic Lumbar Stabilization and Scapular Strength/Stabilization For the Purpose of:: To decrease pain, To decrease swelling/inflammation, To increase ROM, To improve muscle performance and motor function, To increase tolerance to activity/condition/position, To improve ability of physical actions for home/community/work/leisure, To improve gait and locomotor functions and To improve health of tissue Re-Evaluation Ending Re-evaluation ending: Please do not hesitate to contact me at [phone] by phone or if you have questions or concerns regarding this new plan of care! Sincerely, Xavi Reid, DPT, OCS, CSCS
--- NOTE | 2024-01-23 17:26 | HP.PTDCSUM ---
Discharge Summary D/C summary: It has been my pleasure to treat EBONIE SUN referred by MANSI Dupree, with the diagnosis of FM for a total of 12 visit(s). Discharge Date: 01/23/24 Please see the following information for a summary of their discharge status. Subjective Subjective: Pt. reports overall doing okay, but still having a lot of issues with getting to the pool on her own. Pt. is doing well when she is in the pool. Pt. reports being 50% better overall. Pt. is also looking for Pain body: Pain Intensity (Out of 10): 3 L knee: Pain Intensity (Out of 10): 3 L hip: Pain Intensity (Out of 10): 3 R knee: Pain Intensity (Out of 10): 3 R hip: Pain Intensity (Out of 10): 3 R shoulder: Pain Intensity (Out of 10): 3 Overall Improvement % Improvement: 20 Objective Objective/Function: ROM: Pt. has decent ROM in B hips, tightness in hip ER, but improved. MMT: Pt. has symmetrical strength throughout BLEs, core strength fair-. GAIT: Pt. has good stability in stance, but does have reduced tempo. STAIRS: pt. does complete with reciprocal pattern but uses 2 HR to complete. Pt. reports overall doing well, slowly progressing. She reports being I with her pool exercises, but is still having trouble getting in to the pool on her own time. She is planning on going to local hotel to use pool on her own, but is yet to complete. Pt. is to look into getting access to pool. Pt. is I with her pool exercises, she has a handout as well. Goals Goal 1:: Pt feel pain and mobility 70% improved overall to 2/10 at worst Goal Progress: 25% Goal 2:: i appropriate pool based exercises for ROM, strength, fluid dynamics Goal Progress: Goal Met Goal 3:: sleep without interruption at night (but has been using trazadone) Goal Progress: Goal Met Goal 4:: No missed work days obvious due to pain and stiffness. Goal Progress: Goal Met lately Goal 5:: LEFS 50 Goal Progress: Progressing Plan Plan: Pt. to be DC from PT at this point in time. D/C Information Discharge Comments: Pt. to be DC to I [facility]P in aquatic setting. d/c sentence: If there are questions or concerns regarding this patient's physical therapy, please feel free to call me at [phone]. Thank you for the referral of this patient. Sincerely, Jae Pool, DPT Balance/Gait/Functional tests Balance/Special Test Scores Lower Extremity Functional Score: 32 Improvement % Improvement: 20
== END 2024-01-23 19:00 | disposition home or self-care (01) ==
LOC: PT 17:00
PROVIDERS: PCP Student in an Organized Health Care Education/Training Program; Referring Provider Nurse Practitioner Primary Care; Visit Provider Nurse Practitioner Primary Care
DX: M79.7 Fibromyalgia (principal)
CPT/HCPCS: 97113; 97162; 97530

== ENCOUNTER → 2024-08-28 | Outpatient (CLI) | payer BC, SELFPAY ==
--- NOTE | 2024-08-28 16:50 | RAD_ITS ---
STUDY: X-RAY - RIGHT KNEE REASON FOR EXAM: Female, 44 years old. PAIN TECHNIQUE: 4 views of the right knee. COMPARISON: None. FINDINGS: Normal visualized distal femur. Normal visualized proximal tibia and fibula. Normal proximal tibiofibular articulation. There is no demonstrated fracture. There is minimal joint space narrowing of the medial femorotibial compartment. Normal lateral femorotibial compartment. Normal patellofemoral articulation. The soft tissue structures are unremarkable. RAD/Knee 4 or More Views IMPRESSION: Minimal joint space narrowing of the medial femorotibial compartment. No demonstrated fracture. Electronically Signed: Jose Taveras MD at 10:19 EST ,
== END | disposition home or self-care (01) ==
LOC: RAD 16:44
PROVIDERS: PCP Student in an Organized Health Care Education/Training Program; Referring Provider Anesthesiology Pain Medicine; Visit Provider Anesthesiology Pain Medicine
DX: M25.561 Pain in right knee (principal)
CPT/HCPCS: 73564

== ENCOUNTER 2024-11-12 17:17 | Emergency (ER) | payer BC, SELFPAY ==
[2024-11-12 17:19] VITALS: BP 148/98; PULSE 100; RESP 18; TEMP 36.2; O2SAT 97; BMI 39.9
--- NOTE | 2024-11-12 17:28 | RAD_ITS ---
PROCEDURE: Right foot radiographs REASON FOR EXAM: INJURY TECHNIQUE: Three views of the right foot COMPARISON: None FINDINGS: See impression RAD/Foot min 3 Views IMPRESSION: Negative for acute fracture or dislocation. Subtle widening at the Lisfranc in terval which can be seen with Lisfranc ligament injury. Please correlate clinically and consider weight-bearing views if indic ated. Reading Location: [facility]
--- NOTE | 2024-11-12 17:29 | ED.VIS.LOWEX ---
HPI History of Present Illness Chief Complaint: Lower Extremity Injury Informant: patient Narrative Narrative: 44-year-old female presenting to the emergency room with pain swelling paresthesias of the right lower leg and foot. Patient states that last she slipped getting out of the shower injuring her goal. She was seen through primary care and was found to have a questionable avulsion fracture of the medial malleolus. She was put in a boot orthosis and is supposed to follow-up with podiatry virtually tomorrow. She states that a few days after the injury her cat jumped and hit her right foot ankle region. She states that since then her right foot has felt cooler than the left. She notes tingling/paresthesias/numbness from the mid calf inferiorly. She notes bruising occurring over the lateral dorsal aspect of the foot. She has not noticed any bruising or significant swelling over the medial aspect where the finding on the x-ray occurred. She is able to pull up MyChart and allow me to use few the radiology reads of the foot and ankle x-rays. [facility] Medical History Ruptured disk Bipolar disorder Fibromyalgia Rheumatoid arthritis Migraine Breast cancer Home Medications ?Medication ?Instructions ?Recorded ?Last Taken ?Type sumatriptan succinate 100 mg 100 mg PO .X1 PRN migraine 05/16/17 07/08/20 History tablet (Imitrex) ondansetron 4 mg disintegrating 4 mg PO Q8H PRN PRN Nausea #10 tabs 06/29/22 Unknown Rx tablet hydrocodone-acetaminophen 5-325mg 1 tab PO Q6H PRN PRN Pain 3 days 11/25/22 Unknown Rx 5mg-325mg #10 TABLETS albuterol sulfate 90 mcg/actuation 2 puff inhalation Q4H PRN PRN 06/07/23 Unknown Rx aerosol inhaler (Ventolin HFA) Wheezing ##1 benzonatate 200 mg capsule 200 mg PO TID PRN cough #20 caps 06/13/23 Unknown Rx prednisone 10 mg tablet 10 mg PO DAILY #12 tabs 06/13/23 Unknown Rx fluticasone 250 mcg-salmeterol 50 1 inh inhalation BID #60 ea 03/10/24 Unknown Rx mcg/dose blistr powdr for inhalation Allergy/AdvReac Type Severity Reaction Status Date / Time budesonide (From Symbicort) Allergy Intermediate Shortness Verified 11/12/24 17:19 of breath formoterol (From Symbicort) Allergy Intermediate Shortness Verified 11/12/24 17:19 of breath alprazolam (From Xanax) Allergy Unknown Verified 11/12/24 17:19 amoxicillin Allergy Itching Verified 11/12/24 17:19 bupropion HCl (From Allergy Unknown Verified 11/12/24 17:19 Wellbutrin) citalopram hydrobromide Allergy Unknown Verified 11/12/24 17:19 (From Celexa) duloxetine (From Cymbalta) Allergy Mucosal Verified 11/12/24 17:19 lesions fluoxetine HCl (From Prozac) Allergy Unknown Verified 11/12/24 17:19 levomilnacipran HCl (From Allergy Unknown Verified 11/12/24 17:19 Fetzima) nitrofurantoin Allergy Unknown Verified 11/12/24 17:19 macrocrystalline (From Macrodantin) prochlorperazine edisylate Allergy Unknown Verified 11/12/24 17:19 (From Compazine) prochlorperazine maleate Allergy Unknown Verified 11/12/24 17:19 (From Compazine) pseudoephedrine HCl (From Allergy Unknown Verified 11/12/24 17:19 Sudafed) quetiapine (From Seroquel) Allergy Other Verified 11/12/24 17:19 sertraline HCl (From Zoloft) Allergy Unknown Verified 11/12/24 17:19 fentanyl AdvReac HALLUCINATI Verified 11/12/24 17:19 ONS oxycodone AdvReac FLUSHED/HOT Verified 11/12/24 17:19 paliperidone (From Invega) AdvReac Other Verified 11/12/24 17:19 risperidone (From Risperdal) AdvReac Other Verified 11/12/24 17:19 tramadol (From Ultram) AdvReac Other Verified 11/12/24 17:19 Surgical History Hx of bilateral mastectomy History of cholecystectomy History of hysterectomy Social History household members: spouse Smoking Status: Never smoker alcohol intake: never substance use type: does not use ROS ROS ED Constitutional Constitutional ED: Denies chills or weight loss Eyes Eyes: Denies change in vision or diplopia ENT ENT ED: Denies ear pain, rhinorrhea or sore throat Cardiovascular Cardiovascular: Denies chest pain, orthopnea, palpitations or racing heartbeat Respiratory/Chest Respiratory/Chest: Denies cough, dyspnea or orthopnea Gastrointestinal Gastrointestinal: Denies abdominal pain, diarrhea, nausea or vomiting Genitourinary Genitourinary ED: Denies dysuria, hematuria or urinary frequency Musculoskeletal Musculoskeletal: Reports other Details: See history of present illness ; Denies arthralgias or myalgias Integumentary Denies abscess or rash Neurologic Neurologic: Reports paresthesias; Denies headache(s) or weakness Psychiatric Psychiatric: Denies anxiety, depression, suicidal ideation or suicidal thoughts Endocrine Endocrinology: Denies polydipsia, polyphagia or polyuria Allergic/Immunologic Allergic/Immunologic ED: Denies mouth swelling, tongue swelling or urticaria EXAM Physical Exam Const Vital Signs: 11/12/24 17:19 Temperature 97.2 F L Temperature Source Temporal Pulse Rate 100 Respiratory Rate 18 Blood Pressure 148/98 H Blood Pressure Mean 114 Pulse Ox 97 Oxygen Delivery Method Room Air Positive well nourished and well developed General Appearance ED: well developed HEENT Reports normocephalic, head/scalp atraumatic and moist mucous membranes Eyes PERRL and EOMs intact bilaterally Neck no lymphadenopathy, supple and no JVD Resp normal respiratory effort and clear to auscultation bilaterally Cardio regular rate, regular rhythm and no murmurs GI normal to inspection, nondistended, normoactive bowel sounds and non-tender Palpation: soft Back/Spine no CVA tenderness and normal ROM Extremity normal to inspection Extremity Narrative: There is ecchymosis and swelling over the dorsal lateral aspect of the right foot and ankle. I do not appreciate any bruising or swelling or significant tenderness over the medial aspect. Achilles palpates intact. Calf muscle does not demonstrate any palpable cords or significant tenderness and is soft. General Extremety ED: Negative for edema General Extremity: Negative for edema Neuro oriented x3 and CN's II-XII intact bilaterally Sensorium / Orientation: alert Motor Exam: strength 5/5 throughout Psych mental status grossly normal Mood & Affect: Negative for depressed or tearful Skin no rashes or lesions noted and no wounds Skin Narrative: Skin of the feet is pink with good refill. MDM MDM MDM Narrative Medical decision making narrative: Differential diagnosis includes fracture DVT neurovascular injury tendon injury ligamentous injury venous stasis Negative interpretation of the plain films of the foot is no definitive fracture. Please see radiologist full read. My independent interpretation the plain films of the right ankle is possible Silvina fracture of the medial malleolus My independent interpretation the plain films of the right tib-fib is no acute fracture. Duplex ultrasound was obtained. History & Record Review Discussion w/independent historian: Patient Radiography Diagnostic Testing: Clinical Impression(s) from Imaging Studies Foot X-Ray 11/12/24 17:28 IMPRESSION: Negative for acute fracture or dislocation. Subtle widening at the Lisfranc interval which can be seen with Lisfranc ligament injury. Please correlate clinically and consider weight-bearing views if indicated. Reading Location: [facility] Tibia/Fibula X-Ray 11/12/24 17:32 IMPRESSION: Negative for fracture or dislocation. Reading Location: [facility] Ankle X-Ray 11/12/24 17:35 IMPRESSION: Negative for acute fracture or dislocation. Ankle mortise is congruent. Talar dome is intact. Reading Location: [facility] Discharge Plan Triage Chief Complaint: Lower Extremity Injury ED Provider: Himanshu Park Dx/Rx/DC Orders Prescriptions: No Action sumatriptan succinate [Imitrex] 100 MG tablet 100 mg PO .X1 PRN ondansetron [ondansetron] 4 mg tablet,disintegrating 4 mg PO Q8H PRN PRN (Reason: Nausea) Qty: 10 0RF hydrocodone-acetaminophen 5-325 mg tablet 1 tab PO Q6H PRN PRN (Reason: Pain) 3 Days Qty: 10 0RF prednisone 10 mg tablet 10 mg PO DAILY Qty: 12 0RF Rx Instructions: 40 mg p.o. daily ?2 days, 20 mg p.o. daily ?2 days, 10 mg p.o. daily ?2 days. benzonatate 200 mg capsule 200 mg PO TID PRN (Reason: cough) Qty: 20 0RF albuterol sulfate [Ventolin HFA] 90 mcg/actuation HFA aerosol inhaler 2 puff inhalation Q4H PRN PRN (Reason: Wheezing) Qty: 1 0RF fluticasone propion-salmeterol 250-50 mcg/dose blister with device 1 inh inhalation BID Qty: 60 11RF Primary Care Provider: Jas Braun Referrals: Jas Braun DO [Primary Care Provider] - Print Language: Gambian
--- NOTE | 2024-11-12 17:32 | US_ITS ---
PROCEDURE: TECHNIQUE: Grayscale and duplex Doppler ultrasound was performed of the deep veins of the right lower extremity from groin to the popliteal fossa including the common femoral vein, femoral vein, popliteal, posterior tibial, and peroneal veins. Images were obtained with and without compression. FINDINGS: Grayscale appearance is normal and demonstrates compressibility of the deep veins. There are no intraluminal filling defects visualized to suggest thrombosis. Duplex Doppler examination shows normal color and spectral dyspnea. Respiratory variation was visualized with a normal response to augmentation. US/Venous Duplex Imag/Limited/Uni IMPRESSION: No evidence of deep vein thrombosis. Reading Location: [facility]
--- NOTE | 2024-11-12 17:32 | RAD_ITS ---
PROCEDURE: Right tibia and fibula radiographs REASON FOR EXAM: INJURY TECHNIQUE: Two views of the right tibia and fibula COMPARISON: None FINDINGS: See impression RAD/Tibia & Fibula 2 Views IMPRESSION: Negative for fracture or dislocation. Reading [facility]
--- NOTE | 2024-11-12 17:35 | RAD_ITS ---
PROCEDURE: Right ankle radiographs REASON FOR EXAM: INJURY TECHNIQUE: Three views of the right ankle COMPARISON: None FINDINGS: See impression RAD/Ankle min 3 Views IMPRESSION: Negative for acute fracture or dislocation. Ankle mortise is congruent. Talar dome is intact. Reading Location: [facility]
[2024-11-12 18:43] VITALS: BP 132/79; PULSE 89; RESP 18; TEMP 36.4; O2SAT 98
== END 2024-11-12 18:44 | disposition home or self-care (01) ==
PROVIDERS: Emergency Provider Emergency Medicine; PCP Student in an Organized Health Care Education/Training Program; Referring Provider Emergency Medicine; Visit Provider Emergency Medicine
DX: S99.911A Unspecified injury of right ankle, initial encounter (principal); M06.9 Rheumatoid arthritis, unspecified; W18.43XA Slipping, tripping and stumbling without falling due to stepping from one level to another, initial encounter; Y93.E1 Activity, personal bathing and showering; Z90.710 Acquired absence of both cervix and uterus; Z79.899 Other long term (current) drug therapy
CPT/HCPCS: 73590; 73610; 73630; 93971; 99282

== ENCOUNTER 2024-12-04 11:17 | Emergency (ER) | payer BC, SELFPAY ==
[2024-12-04 11:19] VITALS: BP 141/86; PULSE 87; RESP 16; TEMP 36.7; O2SAT 97
[2024-12-04 11:23] VITALS: BMI 40.1
--- NOTE | 2024-12-04 11:41 | EDS_ITS ---
HPI History of Present Illness Chief Complaint: Chest Pain Informant: patient Narrative Narrative: 44-year-old female presenting to the emergency room for chest pain. Patient states that about an hour prior to the examination she was sitting at work when she got a pain mid chest traveling up towards the left shoulder and jaw. She notes that it has been coming and going and staying for a couple minutes and then leaving for minutes. She notes some associated shortness of breath. No fever no cough no vomiting or diarrhea. She does note some associated nausea. She ate some oranges for breakfast. She notes a history of GERD but this feels different. No DVT PE risk factors. She has chronic pain related to fibromyalgia and arthritis. She takes [place] and a muscle relaxant for that. [facility] Medical History Ruptured disk Bipolar disorder Fibromyalgia Rheumatoid arthritis Migraine Breast cancer Home Medications ?Medication ?Instructions ?Recorded ?Last Taken ?Type sumatriptan succinate 100 mg 100 mg PO .X1 PRN migrain e 05/16/17 07/08/20 History tablet (Imitrex) ondansetron 4 mg disintegrating 4 mg PO Q8H PRN PRN Na usea #10 tabs 06/29/22 Unknown Rx tablet hydrocodone-acetaminophen 5-325mg 1 tab PO Q6H PRN PRN Pain 3 days 11/25/22 Unkn own Rx 5mg-325mg #10 TABLETS albuterol sulfate 90 mcg/actuation 2 puff inhalation Q 4H PRN PRN 06/07/23 Unknown Rx aerosol inhaler (Ventolin HFA) Wheezing ##1 benzonatate 200 mg capsule 200 mg PO TID PRN cough #20 caps 06/13/23 Unknown Rx prednisone 10 mg tablet 10 mg PO DAILY #12 tabs 05/27 04/18 Unknown Rx fluticasone 250 mcg-salmeterol 50 1 inh inhalation BID #60 ea 03/10/24 Unknown Rx mcg/dose blistr powdr for inhalation Allergy/AdvReac Type Severity Reaction Status Date / Time budesonide (From Symbicort) Allergy Intermediate Shortness Verified 12/04/24 11:19 of breath formoterol (From Symbicort) Allergy Intermediate Shortness Verified 12/04/24 11:19 of breath alprazolam (From Xanax) Allergy Unknown Verified 12/04/24 11:19 amoxicillin Allergy Itching Verified 12/04/24 11:19 bupropion HCl (From Allergy Unknown Verified 12/04/24 11:19 Wellbutrin) citalopram hydrobromide Allergy Unknown Verified 12/04/24 11:19 (From Celexa) duloxetine (From Cymbalta) Allergy Mucosal Verified 12/04/24 11:19 lesions fluoxetine HCl (From Prozac) Allergy Unknown Verified 12/04/24 11:19 levomilnacipran HCl (From Allergy Unknown Verified 12/04/24 11:19 Fetzima) nitrofurantoin Allergy Unknown Verified 12/04/24 11:19 macrocrystalline (From Macrodantin) prochlorperazine edisylate Allergy Unknown Verified 12/04/24 11:19 (From Compazine) prochlorperazine maleate Allergy Unknown Verified 12/04/24 11:19 (From Compazine) pseudoephedrine HCl (From Allergy Unknown Verified 12/04/24 11:19 Sudafed) quetiapine (From Seroquel) Allergy Other Verified 12/04/24 11:19 sertraline HCl (From Zoloft) Allergy Unknown Verified 12/04/24 11:19 fentanyl AdvReac HALLUCINATI Verified 12/04/24 11:19 ONS oxycodone AdvReac FLUSHED/HOT Verified 12/04/24 11:19 paliperidone (From Invega) AdvReac Other Verified 12/04/24 11:19 risperidone (From Risperdal) AdvReac Other Verified 12/04/24 11:19 tramadol (From Ultram) AdvReac Other Verified 12/04/24 11:19 Surgical History Hx of bilateral mastectomy History of cholecystectomy History of hysterectomy Social History household members: spouse Smoking Status: Never smoker alcohol intake: never substance use type: does not use ROS ROS ED Constitutional Constitutional ED: Denies chills, fever(s) or weight loss Eyes Eyes: Denies change in vision or diplopia ENT ENT ED: Denies ear pain, rhinorrhea or sore throat Cardiovascular Cardiovascular: Reports chest pain; Denies orthopnea, palpitations or racing heartbeat Respiratory/Chest Respiratory/Chest: Denies cough, dyspnea or orthopnea Gastrointestinal Gastrointestinal: Denies abdominal pain, diarrhea, nausea or vomiting Genitourinary Genitourinary ED: Denies dysuria, hematuria or urinary frequency Musculoskeletal Musculoskeletal: Denies arthralgias or myalgias Integumentary Denies abscess or rash Neurologic Neurologic: Denies headache(s) or weakness Psychiatric Psychiatric: Denies anxiety, depression, suicidal ideation or suicidal thoughts Endocrine Endocrinology: Denies polydipsia, polyphagia or polyuria Allergic/Immunologic Allergic/Immunologic ED: Denies mouth swelling, tongue swelling or urticaria EXAM Physical Exam Const Vital Signs: 12/04/24 11:19 12/04/24 11:22 12/04/24 11:50 Temperature 98.0 F Temperature Source Oral Pulse Rate 87 83 Respiratory Rate 16 15 Respiratory Effort Normal Blood Pressure 141/86 H 143/101 H Blood Pressure Mean 104 115 Pulse Ox 97 95 Oxygen Delivery Method Room Air Room Air 12/04/24 12:17 12/04/24 13:00 Temperature Temperature Source Pulse Rate 76 81 Respiratory Rate 15 18 Respiratory Effort Blood Pressure 121/90 H 112/90 H Blood Pressure Mean 100 97 Pulse Ox 96 95 Oxygen Delivery Method Positive well nourished and well developed General Appearance ED: well developed and NAD HEENT Reports normocephalic, head/scalp atraumatic and moist mucous membranes Eyes PERRL and EOMs intact bilaterally Neck no lymphadenopathy, supple and no JVD Resp normal respiratory effort and clear to auscultation bilaterally Cardio regular rate, regular rhythm and no murmurs GI normal to inspection, nondistended, normoactive bowel sounds and non-tender Palpation: soft Back/Spine no CVA tenderness and normal ROM Extremity normal to inspection General Extremety ED: Negative for edema General Extremity: Negative for edema Neuro oriented x3 and CN's II-XII intact bilaterally Sensorium / Orientation: alert Motor Exam: strength 5/5 throughout Psych mental status grossly normal Mood & Affect: Negative for depressed or tearful Skin no rashes or lesions noted and no wounds MDM MDM MDM Narrative Medical decision making narrative: Differential diagnosis includes but not limited to acute coronary syndrome pulmonary embolism aortic dissection pneumonia pneumothorax pleurisy GERD Patient's EKG shows a normal sinus rhythm at a rate of [address] segments. 2 sets of cardiac enzymes are negative. White count 9.6 hemoglobin 13.8 normal creatinine normal sodium potassium. My independent interpretation of the chest x-ray is no acute process. She is PERC negative. This point I am not seeing any emergent cause for her chest pain. I think the patient can be discharged home. Recommend PCP follow-up if continued symptoms return if worsening or concerns History & Record Review Discussion w/independent historian: Patient Lab Data Attestation: I reviewed the patient's lab results. Labs: Laboratory Results - last 24 hr 12/04/24 12/04/24 11:13 13:13 WBC 9.6 RBC 5.06 Hgb 13.8 Hct 42.6 MCV 84.2 MCH 27.3 MCHC 32.4 RDW Std Deviation 40.4 RDW Coeff of Octaviano 13.2 Plt Count 295 MPV 9.2 Immature Gran % (Auto) 0.900 Neut % (Auto) 52.8 Lymph % (Auto) 38.0 [place] % (Auto) 3.7 Eos % (Auto) 4.1 Baso % (Auto) 0.5 Absolute Neuts (auto) 5.1 Absolute Lymphs (auto) 3.64 Nucleated RBC % 0 Sodium 138 Potassium 3.5 Chloride 102 Carbon Dioxide 24.1 Anion Gap 13 BUN 14 Creatinine 0.80 Estim Creat Clear Calc 107.67 Est GFR (MDRD) Non-Af 94 BUN/Creatinine Ratio 16.9 Glucose 90 Calcium 9.5 Troponin T High Sens 7 Troponin T Hi Sens 2 Hr < 6 Radiography Diagnostic Testing: Clinical Impression(s) from Imaging Studies Chest X-Ray 12/04/24 12:01 IMPRESSION: No acute cardiopulmonary process. Reading Location: [facility] EKG Initial EKG: Attestation: I personally reviewed and interpreted this EKG as follows: Comments: Normal sinus rhythm ventricular rate of 83 bpm Discharge Plan Triage Chief Complaint: Chest Pain ED Provider: Himanshu Park Dx/Rx/DC Orders Clinical Impression: Chest pain Instructions: ED Chest Pain, Uncertain Cause Prescriptions: No Action sumatriptan succinate [Imitrex] 100 MG tablet 100 mg PO .X1 PRN ondansetron [ondansetron] 4 mg tablet,disintegrating 4 mg PO Q8H PRN PRN (Reason: Nausea) Qty: 10 0RF hydrocodone-acetaminophen 5-325 mg tablet 1 tab PO Q6H PRN PRN (Reason: Pain) 3 Days Qty: 10 0RF prednisone 10 mg tablet 10 mg PO DAILY Qty: 12 0RF Rx Instructions: 40 mg p.o. daily ?2 days, 20 mg p.o. daily ?2 days, 10 mg p.o. daily ?2 days. benzonatate 200 mg capsule 200 mg PO TID PRN (Reason: cough) Qty: 20 0RF albuterol sulfate [Ventolin HFA] 90 mcg/actuation HFA aerosol inhaler 2 puff inhalation Q4H PRN PRN (Reason: Wheezing) Qty: 1 0RF fluticasone propion-salmeterol 250-50 mcg/dose blister with device 1 inh inhalation BID Qty: 60 11RF Primary Care Provider: Jas Braun Referrals: Jas Braun DO [Primary Care Provider] - As Needed Print Language: Nepalese Disposition Disposition: Home, Self Care
--- NOTE | 2024-12-04 11:44 | EKG12_ITS ---
Test Reason : CP Blood Pressure : */* mmHG Vent. Rate : 83 BPM Atrial Rate : 83 BPM P-R Int : 162 ms QRS Dur : 76 ms QT Int : 370 ms P-R-T Axes : 53 53 60 degrees QTcB Int : 434 ms Normal sinus rhythm Normal ECG Confirmed by Omer Castellon ([id number]), online content editor JELENA LU ([id number]) on 12/08/2024 6:38:50 AM Referred By: Confirmed By: Omer Castellon
[2024-12-04 11:50] VITALS: BP 143/101; PULSE 83; RESP 15; O2SAT 95
[2024-12-04] MEDS: Ondansetron 4 MG/2 ML Vial IV (11:51)
[2024-12-04] MEDS: Aspirin 81 MG TAB.CHEW 324 MG PO (11:51)
--- NOTE | 2024-12-04 12:01 | RAD_ITS ---
EXAM: XR Chest, 1 View CLINICAL INDICATION: CHEST PAIN TECHNIQUE: Frontal view of the chest. COMPARISON: No relevant prior studies available. FINDINGS: LUNGS AND PLEURAL SPACES: Unremarkable. No consolidation. No pneumothorax. HEART: Unremarkable. No cardiomegaly. MEDIASTINUM: Unremarkable. Normal mediastinal contour. BONES/JOINTS: Unremarkable. No acute fracture. RAD/Chest 1 View (Portable) IMPRESSION: No acute cardiopulmonary process. Reading Location[facility]
[2024-12-04 12:07] LABS: Absolute Lymphocyte Count 3.64 X10^3/uL (0.83-4.51); Absolute Neutrophil Count 5.1 X10^3/uL (2.0-7.7); Basophil# 0.05 X10^3/uL; Basophil% 0.5 % (0-1); Eosinophil# 0.39 X10^3/uL; Eosinophils% 4.1 % (0-5); Hematocrit 42.6 % (37-47); Hemoglobin 13.8 g/dL (12.0-15.0); Lymphocyte # 3.64 X10^3/ul (0.83-4.51); Mean Corp Hgb Conc 32.4 g/dL (32-36); Mean Corpuscular Hgb 27.3 pg (27.0-32.0); Mean Corpuscular Volume 84.2 fL (81-99); Mean Platelet Vol. 9.2 fl (6.2-12.0); Monocyte# 0.35 X10^3/uL; Monocyte% 3.7 % (0-10); NRBC Flagged by Analyzer 0 % (0-5); Neutrophil # 5.06 X10^3/uL (2.7-7.7); Neutrophil % 52.8 % (47-70); Platelet Count 295 K/mm3 (150-450); RBC Distribution Width CV 13.2 % (11.6-14.6); RBC Distribution Width SD 40.4 fl (35.1-43.9); Red Blood Count 5.06 M/mm3 (4.2-5.4); White Blood Count 9.6 K/mm3 (4.4-11.0)
[2024-12-04 12:17] VITALS: BP 121/90; PULSE 76; RESP 15; O2SAT 96
[2024-12-04 12:22] LABS: Anion Gap 13 (5-15); BUN 14 mg/dL (4-19); BUN/Creat Ratio 16.9 RATIO (10-20); Calcium,Total 9.5 mg/dL (7.6-11.0); Carbon Dioxide 24.1 mmol/L (21.0-32.0); Chloride 102 mmol/L (98-108); EST Glomerular Filtration Rate 94 (>60); Estimated Creatinine Clearance 107.67 ml/min (50-250); Glucose 90 mg/dL (70-99); Potassium 3.5 mmol/L (3.3-5.1); Sodium Level 138 mmol/L (133-145); Troponin T High Sensitivity 7 ng/L (<=14)
[2024-12-04 13:00] VITALS: BP 112/90; PULSE 81; RESP 18; O2SAT 95
[2024-12-04 13:50] LABS: Troponin T High Sens 2 HR < 6 ng/L (<=14)
[2024-12-04 14:22] VITALS: BP 111/70; PULSE 85; RESP 17; TEMP 36.9; O2SAT 100
== END 2024-12-04 14:23 | disposition home or self-care (01) ==
PROVIDERS: Emergency Provider Emergency Medicine; PCP Student in an Organized Health Care Education/Training Program; Visit Provider Emergency Medicine
DX: R07.9 Chest pain, unspecified (principal); M06.9 Rheumatoid arthritis, unspecified; R11.0 Nausea; R06.02 Shortness of breath; M79.7 Fibromyalgia; G89.29 Other chronic pain; Z79.891 Long term (current) use of opiate analgesic; Z79.899 Other long term (current) drug therapy
CPT/HCPCS: 71045; 80048; 84484; 85025; 93005; 96374; 99284; A4216; J2405

== ENCOUNTER 2024-12-22 16:19 | Emergency (ER) | payer BC, SELFPAY ==
[2024-12-22 16:20] VITALS: BP 139/87; PULSE 70; PULSE 90; RESP 18; TEMP 36.6; O2SAT 97; BMI 39.2
--- NOTE | 2024-12-22 16:44 | EX.ED.DYSGE1 ---
HPI History of Present Illness Chief Complaint: Abd Pain Detail of Chief Complaint: Epigastric upper abdominal pain that started this past December 18 Informant: patient Onset/Context/Timing Onset: Days Context: Sudden Onset Timing: Continuous Quality: Sharp burning Location: Right upper quadrant to left upper quadrant Current Severity: Moderate Maximum Severity: Severe Worsened by: Nothing specific Relieved by: Nothing Associated Symptoms Associated Symptoms: Multiple loose watery stools since last night. Narrative Narrative: Patient is a 44-year-old woman. She is status postcholecystectomy in 2012 who presents with upper abdominal pain that is most severe in the epigastric area. Described as a sharp burning sensation. She is status postcholecystectomy. The cholecystectomy was done approximately 12 years ago. She has no history of smoking or drinking. There is no history of pancreatitis. She does have history of reflux. She states she is compliant with her medication. Denies black or maroon-colored stool. She denies cardiac or respiratory symptoms. She denies dysuria, frequency, urgency or hematuria. She has no history of renal ureterolithiasis. Pain has gotten worse. She states she has been taking a muscle relaxant and Vicodin at night with no improvement. There is no history of inflammatory bowel disorder. She does have a history of fibromyalgia, depression, osteoarthritis and breast cancer. Prior similar symptoms: No Recent Illness/Hospitalization: No [facility] [place] Medical History Ruptured disk Bipolar disorder Fibromyalgia Rheumatoid arthritis Migraine Breast cancer Home Medications ?Medication ?Instructions ?Recorded ?Last Taken ?Type sumatriptan succinate 100 mg 100 mg PO .X1 PRN migraine 05/16/17 07/08/20 History tablet (Imitrex) hydrocodone-acetaminophen 5-325mg 1 tab PO Q6H PRN PRN Pain 3 days 11/25/22 12/21/24 Rx 5mg-325mg #10 TABLETS albuterol sulfate 90 mcg/actuation 2 puff inhalation Q4H PRN PRN 06/07/23 Unknown Rx aerosol inhaler (Ventolin HFA) Wheezing ##1 cyanocobalamin (vitamin B-12) 1,000 mcg IM QWEEK 12/22/24 12/16/24 History 1,000 mcg/mL injection solution omeprazole 40 mg capsule,delayed 40 mg PO DAILY 12/22/24 12/21/24 History release tizanidine 4 mg tablet 2 mg PO Q8H PRN muscle spasm 12/22/24 12/21/24 History Allergy/AdvReac Type Severity Reaction Status Date / Time budesonide (From Symbicort) Allergy Intermediate Shortness Verified 12/22/24 16:23 of breath formoterol (From Symbicort) Allergy Intermediate Shortness Verified 12/22/24 16:23 of breath alprazolam (From Xanax) Allergy Unknown Verified 12/22/24 16:23 amoxicillin Allergy Itching Verified 12/22/24 16:23 bupropion HCl (From Allergy Unknown Verified 12/22/24 16:23 Wellbutrin) citalopram hydrobromide Allergy Unknown Verified 12/22/24 16:23 (From Celexa) duloxetine (From Cymbalta) Allergy Mucosal Verified 12/22/24 16:23 lesions fluoxetine HCl (From Prozac) Allergy Unknown Verified 12/22/24 16:23 levomilnacipran HCl (From Allergy Unknown Verified 12/22/24 16:23 Fetzima) nitrofurantoin Allergy Unknown Verified 12/22/24 16:23 macrocrystalline (From Macrodantin) prochlorperazine edisylate Allergy Unknown Verified 12/22/24 16:23 (From Compazine) prochlorperazine maleate Allergy Unknown Verified 12/22/24 16:23 (From Compazine) pseudoephedrine HCl (From Allergy Unknown Verified 12/22/24 16:23 Sudafed) quetiapine (From Seroquel) Allergy Other Verified 12/22/24 16:23 sertraline HCl (From Zoloft) Allergy Unknown Verified 12/22/24 16:23 hydromorphone (From Dilaudid) AdvReac Unknown PT UNSURE Verified 12/22/24 16:26 OF REACTION fentanyl AdvReac HALLUCINATI Verified 12/22/24 16:23 ONS oxycodone AdvReac FLUSHED/HOT Verified 12/22/24 16:23 paliperidone (From Invega) AdvReac Other Verified 12/22/24 16:23 risperidone (From Risperdal) AdvReac Other Verified 12/22/24 16:23 tramadol (From Ultram) AdvReac Other Verified 12/22/24 16:23 Surgical History Hx of bilateral mastectomy History of cholecystectomy History of hysterectomy Social History household members: spouse Smoking Status: Never smoker alcohol intake: never substance use type: does not use ROS ROS ED Constitutional Constitutional ED: Denies chills, fever(s), subjective, sweats or weight loss Eyes Eyes: Denies blurry vision or change in vision ENT ENT ED: Denies rhinorrhea or sore throat Cardiovascular Cardiovascular: Denies chest pain, orthopnea, palpitations, paroxysmal nocturnal dyspnea or racing heartbeat Respiratory/Chest Respiratory/Chest: Denies cough, dyspnea, dyspnea on exertion, orthopnea or paroxysmal nocturnal dyspnea Gastrointestinal Gastrointestinal: Reports abdominal pain, diarrhea and nausea; Denies constipation, melena or vomiting Genitourinary Genitourinary ED: Denies dysuria, hematuria or urinary frequency Musculoskeletal Musculoskeletal: Reports back pain and other Details: The pain does intermittently radiate through to her back. ; Denies arthralgias or myalgias Integumentary Denies rash Neurologic Neurologic: Denies paresthesias or weakness Endocrine Endocrinology: Denies cold intolerance or heat intolerance Hematologic/Lymphatic Hematologic/Lymphatic: Reports systems reviewed and no addt'l complaints, except as documented EXAM Physical Exam Const Vital Signs: 12/22/24 16:20 12/22/24 16:20 12/22/24 19:28 Temperature 97.9 F 97.9 F 97.9 F Temperature Source Oral Temporal Oral Pulse Rate 90 70 83 Respiratory Rate 18 18 17 Blood Pressure 139/87 H 139/87 H 142/103 H Blood Pressure Mean 104 104 116 Pulse Ox 97 97 95 Oxygen Delivery Method Room Air Room Air Room Air 12/22/24 20:47 Temperature Temperature Source Pulse Rate 86 Respiratory Rate 12 Blood Pressure 131/82 H Blood Pressure Mean 98 Pulse Ox 98 Oxygen Delivery Method Positive well nourished and well developed Constitutional Narrative: BMI is 39.9. She appears uncomfortable. General Appearance ED: well developed; Negative for cyanotic, diaphoretic, NAD or pallor HEENT Reports dry mucous membranes HEENT Narrative: Head is atraumatic normocephalic. Ears normal. Nares patent. Mouth ED: Yes dry mucous membranes Mouth: dry mucous membranes Eyes PERRL and EOMs intact bilaterally General Eye ED: Negative for pale conjunctiva or scleral icterus Neck no lymphadenopathy, supple and no JVD Resp normal respiratory effort and clear to auscultation bilaterally Cardio regular rate, regular rhythm, S1 normal heart sound, S2 normal heart sound and no murmurs GI non-distended and no masses; Negative for normal to inspection, nondistended, normoactive bowel sounds, non-tender or hepatosplenomegaly GI Narrative: Patient is slightly tympanitic upper central abdomen. Bowel sounds are diminished. She has exquisite pain where her gallbladder would be. She does have guarding in that area. She also has discomfort in the epigastrium. She did not have tenderness in the right lower or left lower quadrant. Auscultation: hypoactive bowel sounds Palpation: soft Back/Spine no CVA tenderness Extremity normal to inspection General Extremety ED: Negative for edema or tenderness General Extremity: Negative for edema Neuro oriented x3 and CN's II-XII intact bilaterally Sensorium / Orientation: alert Psych mental status grossly normal Skin no rashes or lesions noted, no wounds and skin turgor normal General Skin Exam: Negative for jaundice or pallor MDM MDM MDM Narrative Medical decision making narrative: Since patient described this is a sharp burning sensation we will treat with GI cocktail and Pepcid. Since she is status post cholecystectomy 12 to 13 years ago and has significant tenderness in the right upper quadrant epigastric area need to consider possibility of choledocholithiasis. This may be related to her reflux versus ulcer. Symptoms are not consistent with lower lobe pneumonia or cardiovascular disease. Workup included CBC, hepatic panel, lipase. History & Record Review Additional record(s) reviewed:: Prior outpatient record (Dr. Hickman's pulmonary visit note from July 2023 was reviewed.), Prior ED visit (Patient was seen by Dr. Marley on December 04 for chest pain. She saw Dr. Marley October of this year for ankle injury. She has also been seen for abdominal pain May 2023.) and Prior labs Lab Data Attestation: I reviewed the patient's lab results. Lab results narrative: Comprehensive metabolic panel is unremarkable. The alkaline phosphatase is slightly elevated 121 otherwise unremarkable. Glucose was slightly elevated 110 with normal CO2 anion gap. White count slightly elevated 11.5 thousand with no shift. Lipase is normal. Labs: Laboratory Results - last 24 hr 12/22/24 16:55 WBC 11.5 H RBC 4.93 Hgb 13.4 Hct 41.2 MCV 83.6 MCH 27.2 MCHC 32.5 RDW Std Deviation 41.1 RDW Coeff of Octaviano 13.3 Plt Count 262 MPV 9.8 Immature Gran % (Auto) 0.600 Neut % (Auto) 62.1 Lymph % (Auto) 28.5 Gaines % (Auto) 4.9 Eos % (Auto) 3.6 Baso % (Auto) 0.3 Absolute Neuts (auto) 7.1 Absolute Lymphs (auto) 3.28 Nucleated RBC % 0 Platelet Estimate ADEQUATE Sodium 139 Potassium 3.5 Chloride 105 Carbon Dioxide 22.3 Anion Gap 12 BUN 11 Creatinine 0.80 Estim Creat Clear Calc 106.71 Est GFR (MDRD) Non-Af 94 BUN/Creatinine Ratio 13.1 Glucose 110 H Calcium 9.0 Total Bilirubin 0.17 AST 23 ALT 15 Alkaline Phosphatase 121 H Total Protein 6.9 Albumin 4.0 Globulin 2.9 Albumin/Globulin Ratio 1.4 Lipase 34 Radiography Diagnostic Testing: Clinical Impression(s) from Imaging Studies Abdomen/Pelvis CT 12/22/24 19:19 IMPRESSION: Sigmoid diverticulosis without diverticulitis. Reading Location: [id number] Treatment and Re-Evaluation :: Nurse approached me in the velasco at 2026. States her pain went from 10 to an 8 after IV morphine. Additional dose of morphine was given. Awaiting formal read by radiologist. CT was reviewed by me. There is no evidence of lower lobe pneumonia. There is no evidence of pneumoperitoneum there is no evidence of ascites, there is no evidence of trauma to the liver or spleen. Kidneys appear normal. She may have some mild minimal diverticulosis. There is significant mount of fecal material noted. This may be the cause of her pain. Comments:: Patient was informed of her results. She does acknowledge she has a low fiber diet. Discharge Plan Triage Chief Complaint: Abd Pain ED Provider: VenkataEdward Dx/Rx/DC Orders Clinical Impression: Obstipation, Fibromyalgia, Diverticulosis Instructions: ED Constipation (Adult), ED Diverticulosis Prescriptions: No Action sumatriptan succinate [Imitrex] 100 MG tablet 100 mg PO .X1 PRN hydrocodone-acetaminophen 5-325 mg tablet 1 tab PO Q6H PRN PRN (Reason: Pain) 3 Days Qty: 10 0RF albuterol sulfate [Ventolin HFA] 90 mcg/actuation HFA aerosol inhaler 2 puff inhalation Q4H PRN PRN (Reason: Wheezing) Qty: 1 0RF tizanidine 4 mg tablet 2 mg PO Q8H PRN omeprazole 40 mg capsule,delayed release(DR/EC) 40 mg PO DAILY cyanocobalamin (vitamin B-12) 1,000 mcg/mL solution 1,000 mcg IM QWEEK Stand Alone Forms: ED Work / School Excuse Primary Care Provider: Jas Braun Referrals: Jas Braun, [Primary Care Provider] - 3-5 Days if not improving Activity Restrictions/Additional Instructions: 1. Tomorrow morning consume 10 ounces of mag citrate after awakening. 2. 4 hours after you consume the mag citrate 1 cap of MiraLAX in your favorite beverage. 3. 1 hour later 1 cap of MiraLAX in your favorite beverage. Repeat every hour until you start to have results. 4. Starting Sunday 1 cap of MiraLAX in the morning and 1 cap of MiraLAX at night for 1 week. 5. Start of the second week 1 cap of MiraLAX daily. 6. You need to increase the fiber in your diet. Print Language: Georgian Disposition Disposition: Home, Self Care
[2024-12-22] MEDS: Mag Hydrox/Al Hydrox/Simeth 30 ML UDC PO (16:50)
[2024-12-22] MEDS: Lidocaine 2% Viscous15 ML UDC 15 ML PO (16:50)
[2024-12-22 17:08] LABS: Absolute Lymphocyte Count 3.28 X10^3/uL (0.83-4.51); Absolute Neutrophil Count 7.1 X10^3/uL (2.0-7.7); Basophil# 0.04 X10^3/uL; Basophil% 0.3 % (0-1); Eosinophil# 0.42 X10^3/uL; Eosinophils% 3.6 % (0-5); Hematocrit 41.2 % (37-47); Hemoglobin 13.4 g/dL (12.0-15.0); Lymphocyte # 3.28 X10^3/ul (0.83-4.51); Lymphocyte % 28.5 % (19-41); Mean Corp Hgb Conc 32.5 g/dL (32-36); Mean Corpuscular Hgb 27.2 pg (27.0-32.0); Mean Corpuscular Volume 83.6 fL (81-99); Mean Platelet Vol. 9.8 fl (6.2-12.0); Monocyte# 0.57 X10^3/uL; Monocyte% 4.9 % (0-10); NRBC Flagged by Analyzer 0 % (0-5); Neutrophil # 7.14 X10^3/uL (2.7-7.7); Neutrophil % 62.1 % (47-70); POSITIVE COUNT YES; Platelet Count 262 K/mm3 (150-450); RBC Distribution Width CV 13.3 % (11.6-14.6); RBC Distribution Width SD 41.1 fl (35.1-43.9); Red Blood Count 4.93 M/mm3 (4.2-5.4); White Blood Count 11.5 K/mm3 (4.4-11.0)
[2024-12-22 17:28] LABS: Lipase 34 U/L (13-75)
[2024-12-22 17:30] LABS: ALB/GLOB Ratio 1.4 RATIO (0.9-2.4); AST(SGOT) 23 U/L (<=31); Alanine Aminotransfer ALT/SGPT 15 U/L (<=34); Alkaline Phosphatase 121 U/L (35-104); Anion Gap 12 (5-15); BUN 11 mg/dL (4-19); BUN/Creat Ratio 13.1 RATIO (10-20); Carbon Dioxide 22.3 mmol/L (21.0-32.0); Chloride 105 mmol/L (98-108); EST Glomerular Filtration Rate 94 (>60); Estimated Creatinine Clearance 106.71 ml/min (50-250); Globulin 2.9 g/dL (2.2-4.2); Glucose 110 mg/dL (70-99); Potassium 3.5 mmol/L (3.3-5.1); Protein, Total 6.9 g/dL (5.9-8.4); Sodium Level 139 mmol/L (133-145); Total Bilirubin 0.17 mg/dL (0.00-1.30)
[2024-12-22] MEDS: Famotidine 200 MG/20 ML MDV 20 MG in 0.9% Normal Saline (Pres. free 8 ML 300 MG IV (17:57)
[2024-12-22 18:58] LABS: Differential Indicated SCAN CRITERIA MET
[2024-12-22 18:59] LABS: Platelet Estimate ADEQUATE (ADEQ)
--- NOTE | 2024-12-22 19:19 | CT_ITS ---
PROCEDURE: ABDOMEN/PELVIS W IV CONT ONLY 12/22/2024 REASON FOR EXAM: SEVERE UPPER ABDOMINAL PAIN TECHNIQUE: Abdomen and pelvis CT with intravenous contrast. Coronal and Sagittal reconstruction series were provided. PATIENT PREPARATION: Per protocol ORAL CONTRAST TYPE: None. AMOUNT: mL One or more dose reduction techniques were used (e.g., Automated exposure control, adjustment of the mA and/or kV according to patient size, use of iterative reconstruction technique. COMPARISON: 06/21/2023 FINDINGS: Lung bases: Lung bases are clear. Liver: Normal size. No mass. Gallbladder: Not visualized Spleen: Normal size. Pancreas: Normal size without evidence of mass surrounding inflammation or ductal dilation. Adrenals: Unremarkable. Kidneys: Normal renal sizes. No hydronephrosis. Bladder: Unremarkable. Reproductive Organs: Unremarkable. Bowel: Multiple diverticula within the sigmoid colon consistent diverticulosis. No wall thickening or stranding of the surrounding fat to suggest diverticulitis. Appendix: Unremarkable. Lymph nodes: Unremarkable. Vasculature: The abdominal aorta and IVC are normal. Peritoneum / Retroperitoneum: Unremarkable. Bones: Unremarkable. Unremarkable. CT/Abdomen/Pelvis W IV Cont ONLY IMPRESSION: Sigmoid diverticulosis without diverticulitis. Reading Location: [id number]
[2024-12-22] MEDS: Morphine 4 MG/ML Syringe IV ×2 (19:26→20:44)
[2024-12-22 19:28] VITALS: BP 142/103; PULSE 83; RESP 17; TEMP 36.6; O2SAT 95
[2024-12-22 20:47] VITALS: BP 131/82; PULSE 86; RESP 12; O2SAT 98
== END 2024-12-22 21:26 | disposition home or self-care (01) ==
PROVIDERS: Emergency Provider Emergency Medicine; PCP Student in an Organized Health Care Education/Training Program; Visit Provider Emergency Medicine
DX: K59.00 Constipation, unspecified (principal); M79.7 Fibromyalgia; K57.30 Diverticulosis of large intestine without perforation or abscess without bleeding; Z79.899 Other long term (current) drug therapy; Z90.49 Acquired absence of other specified parts of digestive tract
CPT/HCPCS: 74177; 80053; 83690; 85025; 96365; 96366; 96375; 96376; 99284; Q9967; A4216